=== PATIENT | female | born 1935 | race Caucasian/White ===

== ENCOUNTER 2021-02-17 12:14 | Emergency (ER) | payer MEDICARE, OTHER ==
[~2021-02-17] VITALS: Ht 157.5 cm; Wt 46.0 kg
[2021-02-17 12:14] VITALS: BP 134/72
--- NOTE | 2021-02-17 12:28 | PHYS DOC ---
Adult General HPI HPI Patient is a 85-year-old female who presents to the emergency department via EMS from the [facility]. She was sent for evaluation of bilateral ankle swelling and pain for the past 2 days. Patient also complains of shortness of breath. Patient denies chest pains, cough, congestion. Patient denies any other physical complaints or physical concerns. Limited HPI related to patient's history of cognitive communication deficit, patient also has history of hypothyroidism, major depressive disorder, anxiety disorder, insomnia, chronic constipation, left hip pain, muscle weakness, dysphagia, gait abnormalities, mobility abnormalities, lack of coordination, need for assistance with personal care, Parkinson's disease, type 2 diabetes. Patient's current medications include Renee-Sutton, Amitiza, Aspercreme, risperidone, calmoseptine ointment, carbidopalevodopa, Gas-X, glycerin suppositories, Jardiance tablets, lactobacillus, levothyroxine, lives next, magnesium supplement, melatonin, Metformin, MiraLAX, Plaquenil, Prilosec, Salonpas patch, sennosides tablet, tramadol, Tums chewable tablets, Zofran, Zoloft. Review of Systems Review of Systems 14 body systems of review of systems have been reviewed. See HPI for pertinent positives and negative responses, otherwise all other systems are negative, nonpertinent or noncontributory. Physical Exam Physical Exam Constitutional: Well developed, well nourished, no acute distress, non-toxic appearance. Patient anxious during physical exam. HENT: Normocephalic, atraumatic, bilateral external ears normal, oropharynx moist, no oral exudates, nose normal. Eyes: PERRLA, EOMI, conjunctiva normal, no discharge. Neck: Normal range of motion, no tenderness, supple, no stridor. Cardiovascular:Heart rate regular rhythm, no murmur, heart sounds S1-S2 to auscultation. Lungs & Thorax: Bilateral breath sounds clear to auscultation, no adventitious lung sounds appreciated. Abdomen: Bowel sounds normal, soft, no tenderness, no masses, no pulsatile masses. Skin: Warm, dry, no erythema, no rash. Back: No tenderness, no CVA tenderness. Extremities: No tenderness, no cyanosis, no clubbing, ROM intact, there is 3+ pitting edema to bilateral ankles, distal cap refill less than 2 seconds, 2+ dorsalis pedis, posterior tibial pulses. No deformities, no crepitus appreciated, no areas of ecchymosis appreciated, no discoloration of skin, no lesions or rashes of the skin around the edematous area, no erythema appreciated. No obvious skin temperature fluctuations of her swollen ankles. Neurologic: Alert and oriented X 3, normal motor function, normal sensory function, no focal deficits noted. Psychologic: Affect normal, judgement normal, mood normal. Current Patient Data Lab Results Laboratory Tests Test 02/17/21 12:39 White Blood Count 6.0 x10^3/uL Red Blood Count 3.86 x10^6/uL Hemoglobin 11.9 g/dL Hematocrit 36.2 % Mean Corpuscular Volume 94 fL Mean Corpuscular Hemoglobin 31 pg Mean Corpuscular Hemoglobin Concent 33 g/dL Red Cell Distribution Width 14.2 % Platelet Count 420 x10^3/uL Neutrophils (%) (Auto) 74 % Lymphocytes (%) (Auto) 17 % Monocytes (%) (Auto) 8 % Eosinophils (%) (Auto) 2 % Basophils (%) (Auto) 1 % Neutrophils # (Auto) 4.4 x10^3uL Lymphocytes # (Auto) 1.0 x10^3/uL Monocytes # (Auto) 0.5 x10^3/uL Eosinophils # (Auto) 0.1 x10^3/uL Basophils # (Auto) 0.0 x10^3/uL D-Dimer (Dmoinique) 3.11 mg/L Sodium Level 139 mmol/L Potassium Level 3.8 mmol/L Chloride Level 102 mmol/L Carbon Dioxide Level 30 mmol/L Anion Gap 7 Blood Urea Nitrogen 24 mg/dL Creatinine 0.6 mg/dL Estimated GFR (Cockcroft-Gault) 95.0 BUN/Creatinine Ratio 40 Glucose Level 128 mg/dL Calcium Level 8.9 mg/dL Phosphorus Level 3.8 mg/dL Magnesium Level 1.3 mg/dL Total Bilirubin 0.2 mg/dL Aspartate Amino Transf (AST/SGOT) 17 U/L Alanine Aminotransferase (ALT/SGPT) 11 U/L Alkaline Phosphatase 70 U/L Troponin I Quantitative < 0.017 ng/mL AS-Ezo-A-Type Natriuretic Peptide 89 pg/mL Total Protein 6.6 g/dL Albumin 3.7 g/dL Albumin/Globulin Ratio 1.3 Current Medications Medications (Trade) Dose Ordered Sig/Ras Route PRN Reason Start Time Stop Time Status Last Admin Dose Admin Lorazepam (Ativan Inj) 0.5 mg 1X ONCE IVP 02/17/21 13:45 02/17/21 13:46 DC 02/17/21 13:44 Magnesium Chloride (Mag Delay) 64 mg 1X ONCE PO 02/17/21 13:45 02/17/21 13:46 DC 02/17/21 13:44 Glycerin (Sani-Supp Adult) 1 supp 1X ONCE VT 02/17/21 13:45 02/17/21 13:47 DC EKG EKG EKG performed at 1239 by house respiratory therapy staff, shows a normal sinus rhythm without ectopy with a heart rate of 83 bpm, VT interval 0.206, QTc interval 0.449, no acute STEMI, no acute ischemia, no ACS appreciated, EKG interpreted by ED attending physician Dr. Robertson. Radiology/Procedures Radiology/Procedures PATIENT: VANESSA GREEN ACCOUNT: [id number] : 1935 LOCATION: ER AGE: 85 SEX: F EXAM STATUS: REG ER ORD. PHYSICIAN: KARMA GROVER APRN REASON: SHORT OF BREATH PROCEDURE: PORTABLE CHEST 1V AP chest. HISTORY: Short of breath AP view was taken of the chest. Lungs are clear. Aorta is mildly tortuous. Heart is normal in size. There is thoracolumbar scoliosis. IMPRESSION: 1. No acute chest disease. Electronically signed by: Tristian Katz MD (02/17/2021 1:23 PM) [facility] DICTATED AND SIGNED BY: TRISTIAN KATZ MD DATE: 02/17/21 1323 CC: KARMA GROVER APRN; EMERGENCY,DEPARTMENT; EMI AGUILAR MD ~MTH0 0 PATIENT: VANESSA GREEN ACCOUNT: [id number] : 1935 LOCATION: ER AGE: 85 SEX: F EXAM STATUS: REG ER ORD. PHYSICIAN: KARMA GROVER APRN REASON: BLE PAIN AND SWELLING PROCEDURE: VENOUS LOWER EXT BILATERAL EXAM: Bilateral lower extremity venous Doppler sonogram. HISTORY: Pain and swelling. TECHNIQUE: Moseley scale and color Doppler sonographic evaluation of the bilateral lower extremity veins with spectral waveform analysis was performed. FINDINGS: There is normal color flow, normal compressibility and there are normal spectral waveforms in the common femoral, superficial femoral, popliteal, posterior tibial and greater saphenous veins. There are bilateral popliteal cysts measuring 4.5 cm on the right and 4.7 cm on the left. There is a prominent left inguinal lymph node measuring 1.7 cm in long axis. This maintains a fatty hilum and thin cortex and is likely physiologic in etiology. IMPRESSION: 1. No Doppler evidence of lower extremity deep venous thrombosis. 2. Bilateral Rahman's cysts. Electronically signed by: Deja Brenner MD (02/17/2021 2:42 PM) [id number] DICTATED AND SIGNED BY: DEJA BRENNER MD DATE: 02/17/21 1441 CC: KARMA GROVER APRN; EMI AGUILAR MD ~MTH0 0 PATIENT: VANESSA GREEN ACCOUNT: [id number] : 1935 LOCATION: ER AGE: 85 SEX: F EXAM STATUS: REG ER ORD. PHYSICIAN: KARMA GROVER APRN REASON: SHORT OF BREATH, ELEVATED D-DIMER - CARRIE AWARE -1345 PROCEDURE: PULMONARY PERFUSION IMG PARTIC NUCLEAR MEDICINE PERFUSION ONLY SCAN History: Lower extremity pain, dyspnea, elevated d-dimer. Iodine allergy. Comparison: AP chest, earlier same day. Technique: Perfusion portion performed after intravenous administration of 5.5 mCi Technetium 99m MAA. Multiple projection planar images of the lungs were obtained. Findings: Ventilation imaging is not performed due to aerosolized droplet precautions. Perfusion images demonstrate no segmental perfusion defects. Tracer distribution is mildly heterogeneous most apparent on the posterior view. IMPRESSION: Low probability for pulmonary embolus. Electronically signed by: Tamika Sy MD (02/17/2021 3:47 PM) [id number] DICTATED AND SIGNED BY: TAMIKA SY MD DATE: 02/17/21 1543 CC: KARMA GROVER APRN; EMI AGUILAR MD ~MTH0 0 Heart Score C/O Chest Pain: No Risk Factors: Risk Factors: DM, Current or recent (<one month) smoker, HTN, HLP, family history of CAD, obesity. Risk Scores: Risk Factors: DM, Current or recent (<one month) smoker, HTN, HLP, family history of CAD, obesity. Course & Med Decision Making Course & Med Decision Making Pertinent Labs and Imaging studies reviewed. (See chart for details) 85-year-old female, vital signs reviewed, presents emergency department concerning bilateral lower ankle swelling. Physical examination revealed 3+ pit ting edema of bilateral ankles. Low probability of DVT, however related to this acute process of only 2 days of ankle swelling and patient's complaint of shortness of breath a cardiopulmonary work-up was initiated, D-dimer was ordered. Patient did state that when she gets very nervous she does get short of breath, she cannot differentiate the difference between her nervousness and physical shortness of breath. The patient is in no apparent distress at this time, she is not hypoxic. Patient's D-dimer elevated at 3.11. Will order CT angio chest to rule out pulmonary embolism, bilateral lower extremity venous Doppler to rule out DVT. Patient's cardiac enzymes negative, proBNP within normal limits, chest x-ray read within normal limits by house radiologist interpretation, patient's lower extremity swelling unlikely related to a heart failure component. Patient has allergy to iodine, DC'd CT angio chest, VQ scan of chest ordered to rule out pulmonary embolism. Patient magnesium level equals 1.3, ordered magnesium supplement in the ED today. Doppler study of bilateral lower extremities ruled out DVT, there was low likelihood of pulmonary embolism per VQ scan radiology interpretation. The patient is currently in no apparent distress, remains nontoxic in appearance, is not hypoxic. Will recommend compression stockings and elevation to help reduce lower ankle edema. Diagnosis bilateral ankle edema most likely from venous insufficiency. Dragon Disclaimer Dragon Disclaimer This electronic medical record was generated, in whole or in part, using a voice recognition dictation system. Departure Departure: Impression: Primary Impression: Ankle edema, bilateral Additional Impression: Hypomagnesemia Disposition: HOME / SELF CARE / HOMELESS Condition: GOOD Additional Instructions: You had an extensive cardiopulmonary work-up in the ED today. You do not have a pulmonary embolus, there are no deep vein thrombosis of either lower extremity, you are not hypoxic, you did not have a pneumonia, there are no acute findings in your lab work or radiologic imaging to suggest a need to be hospitalized or to see a specialist in the immediate future. I recommend compression stockings and elevation to help reduce your ankle swelling. Your magnesium was slightly low today in the emergency department, you were given a magnesium supplement in the emergency department today. I recommend you see your primary care doctor and have this lab value redrawn for ongoing evaluation of your magnesium levels. Please return to the emergency department for worsening symptoms or other concerns. EMERGENCY DEPARTMENT GENERAL DISCHARGE INSTRUCTIONS Thank you for coming to [facility] (ED) today and trusting us with you care. We trust that you had a positivie experience in our Emergency Department. If you wish to speak to the department management, you may call the director at [phone]. YOUR FOLLOW UP INSTRUCTIONS ARE FOLLOWS: 1. Do you have a private Doctor? If you do not have a private doctor, please ask for a resource list of physicians or clinics that may be able to assist you with follow up care. 2. The Emergency Physician has interpreted your x-rays. The X-Ray specialist will also review them. If there is a change in the findings, you will be notified in 48 hours when at all possible. 3. A lab test or culture has been done, your results will be reviewed and you will be notified if you need a change in treatment. ADDITIONAL INSTRUCTIONS AND INFORMATION: 1. Your care today has been supervised by a physician who is specially trained in emergency care. Many problems require more than one evaluation for a complete diagnosis and treatment. We recommend that you schedule your follow up appointment as recommended to ensure complete treatment of you illness or injury. If you are unable to obtain follow up care and continue to have a problem, or if your condition worsens, we recommend that you return to the ED. 2. We are not able to safely determine your condition over the phone nor are we able to give sound medical advice over the phone. For these safety reasons, if you call for medical advice we will ask you to come to the ED for further evaluation. 3. If you have any questions regarding these discharge instructions please call the ED at [phone]. SAFETY INFORMATION: In the interest of safety, wellness, and injury prevention; we encourage you to wear your sealbelt, if you smoke; quite smoking, and we encourage family to use a protective helmet for bicycling and other sporting events that present an increased risk for head injury. IF YOUR SYMPTOMS WORSEN OR NEW SYMPTOMS DEVELOP, OR YOU HAVE CONCERNS ABOUT YOUR CONDITION; OR IF YOUR CONDITION WORSENS WHILE YOU ARE WAITING FOR YOUR FOLLOW UP APPOINTMENT; EITHER CONTACT YOUR PRIMARY CARE DOCTOR, THE PHYSICIAN WHOSE NAME AND NUMBER YOU WERE GIVEN, OR RETURN TO THE ED IMMEDIATELY. Problem Qualifiers KARMA GROVER APRN Feb 17, 2021 12:28
[2021-02-17 12:57] LABS: BASO % 1 % (0-3); EOS # 0.1 x10^3/uL (0.0-0.7); EOS % 2 % (0-3); HEMATOCRIT 36.2 % (36.0-47.0); HEMOGLOBIN 11.9 g/dL (12.0-15.5); LYMPH % 17 % (24-48); MEAN CORPUSCULAR HEMOGLOBIN 31 pg (25-35); MEAN CORPUSCULAR HGB CONC 33 g/dL (31-37); MEAN CORPUSCULAR VOLUME 94 fL (79-100); MONO # 0.5 x10^3/uL (0.0-1.1); MONO % 8 % (0-9); NEUT # 4.4 x10^3uL (1.8-7.7); NEUT % 74 % (31-73); PLATELET COUNT 420 x10^3/uL (140-400); RED BLOOD COUNT 3.86 x10^6/uL (3.50-5.40); RED CELL DISTRIBUTION WIDTH 14.2 % (11.5-14.5)
--- NOTE | 2021-02-17 13:01 | EKG ---
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
[2021-02-17 13:02] LABS: CALCIUM 8.9 mg/dL (8.5-10.1); CREATININE 0.6 mg/dL (0.6-1.0); POTASSIUM 3.8 mmol/L (3.5-5.1)
[2021-02-17 13:15] LABS: ALBUMIN 3.7 g/dL (3.4-5.0); ALBUMIN/GLOBULIN RATIO 1.3 (1.0-1.7); MAGNESIUM 1.3 mg/dL (1.8-2.4); PHOSPHORUS 3.8 mg/dL (2.6-4.7); TOTAL BILIRUBIN 0.2 mg/dL (0.2-1.0); TOTAL PROTEIN 6.6 g/dL (6.4-8.2)
--- NOTE | 2021-02-17 13:26 | RAD ---
AP chest. HISTORY: Short of breath AP view was taken of the chest. Lungs are clear. Aorta is mildly tortuous. Heart is normal in size. T here is thoracolumbar scoliosis. IMPRESSION: 1. No acute chest disease. Electronically signed by: Tristian Katz MD (02/17/2021 1:23 PM) [facility] [place]
[2021-02-17] MEDS ORDERED: MAGNESIUM CHLORIDE ER 64 MG TABLET.ER PO ONE (13:45)
[2021-02-17] MEDS ORDERED: GLYCERIN ADULT 1 SUPP.RECT. PR ONE (13:45)
--- NOTE | 2021-02-17 14:44 | RAD ---
EXAM: Bilateral lower extremity venous Doppler sonogram. HISTORY: Pain and swelling. TECHNIQUE: Moseley scale and color Doppler sonographic evaluation of the bilateral lower extremity veins with spectral waveform analysis was performed. FINDINGS: There is normal color flow, normal compressibility and there are normal spectral waveforms in the common femoral, superficial femoral, popliteal, posterior tibial and greater saphenous veins. There are bilateral popliteal cysts measuring 4.5 cm on the right and 4.7 cm on the left. There is a prominent left inguinal lymph node measuring 1.7 cm in long axis. This maintains a fatty hilum and th in cortex and is likely physiologic in etiology. IMPRESSION: 1. No Doppler evidence of lower extremity deep venous thrombosis. 2. Bilateral Rahman's cysts. Electronically signed by: Deja English MD (02/17/2021 2:42 PM) [id number]
--- NOTE | 2021-02-17 15:49 | RAD ---
NUCLEAR MEDICINE PERFUSION ONLY SCAN History: Lower extremity pain, dyspnea, elevated d-dimer. Iodine allergy. Comparison: AP chest, earlier same day. Technique: Perfusion portion performed after intravenous administration of 5.5 mCi Technetium 99m MAA . Multiple projection planar images of the lungs were obtained. Findings: Ventilation imaging is not performed due to aerosolized droplet precautions. Perfusion images demonstrate no segmental perfusion defects. Tracer distribution is mildly heterogene ous most apparent on the posterior view. IMPRESSION: Low probability for pulmonary embolus. Electronically signed by: Elliott Sy MD (02/17/2021 3:47 PM) [id number]
[2021-02-17] MEDS ORDERED: GLYCERIN ADULT 1 SUPP.RECT. ONE (18:08)
== END 2021-02-17 18:18 | disposition home or self-care (01) ==
LOC: ER 12:14
DX: M25.471 Effusion, right ankle (principal); M25.472 Effusion, left ankle; E83.42 Hypomagnesemia
CPT/HCPCS: 36415; 71045; 78580; 80053; 83735; 83880; 84100; 84484; 85025; 85379; 93005; 93970; 96374; 99285; A9540; J2060

== ENCOUNTER 2021-08-17 14:54 | Inpatient (IN) | payer MEDICARE, OTHER ==
[~2021-08-17] VITALS: Ht 152.4 cm; Wt 40.1 kg
--- NOTE | 2021-08-17 15:00 | NUR ---
Admission Note with Justification for Admission to [facility] Patient admitted to [facility] for protective oversight for emergency stabilization of acute psychiatric crisis. Pt admitted from: SNF Mode of arrival: POV Accompanied By: Facility staff Precipitating behaviors that initiated intake and admission: agitated, anxious, attempted to hit staff, name calling, yelling to call police and "get the people out", delusional, talking to people not there, refusing meds, seeing children, sundowning Description of failure of out patient attempts at stabilization in previous setting list behavior and medication trials: buspirone, klonipin, trazodone, PCP recommends in pt tx, UA ordered Behaviors and assessment findings upon admission: Pt very pleasant and cooperative with assessment. She is only oriented to self and . Pt believes she just got off the plane. She was asking what county was south of this one because she came from "[facility] and before that I was in [place]. They've been bouncing me around between hospitals for the past 6 months for my broken hips." Pt is currently complaining of a headache and wished for her curtains to be closed, but denies having any other pain. Pt denies having any hallucinations currently, but did speak of the children running in and out of the med room at her facility. Will continue to monitor. Plan: Admit for protective oversight for adjustment and stabilization of medications, behaviors and mood. Intense treatment regimen including groups, medication adjustments, therapy, consistent regimen for ADL's, self care, and sleep hygiene. Daily monitoring by Inpatient staff, Psychiatry, and Medical Physician.
[2021-08-17 15:31] VITALS: BP 110/65
[2021-08-17] MEDS ORDERED: METHYL SALICYLATE/MENTHOL TOPICAL OINTMENT 57GM TUBE. TP PRN (16:00)
[2021-08-17] MEDS ORDERED: MAGNESIUM HYDROXIDE 2,400 MG/30 ML ORAL.SUSP. PO PRN (16:00)
[2021-08-17 16:12] LABS: BILIRUBIN,URINE NEG (NEG); CLARITY,URINE CLEAR; COLOR,URINE YELLOW; GLUCOSE,URINE >=1000 mg/dL (NEG); UROBILINOGEN,URINE 0.2 mg/dL (0.2 mg/dL)
[2021-08-17 16:13] LABS: BACTERIA,URINE 0 /HPF (0-FEW); NITRITE,URINE NEG (NEG); RBC,URINE RARE /HPF (0-2); SQUAMOUS EPITHELIAL CELL,UR FEW /LPF; WBC,URINE 0 /HPF (0-4)
[2021-08-17] MEDS ORDERED: ESCITALOPRAM OX20 MG PO (17:10)
[2021-08-17] MEDS ORDERED: PROP20TA PO (17:10)
[2021-08-17] MEDS ORDERED: TRAM50TA PO (17:10)
[2021-08-17] MEDS ORDERED: LORA10CA PO (17:10)
[2021-08-17] MEDS ORDERED: SIME80TA PO ×2 (17:10)
[2021-08-17] MEDS ORDERED: BUSP10TA PO (17:10)
[2021-08-17] MEDS ORDERED: MELA3TAB4 PO (17:10)
[2021-08-17] MEDS ORDERED: GLYC5.4S RC (17:10)
[2021-08-17] MEDS ORDERED: HYDR200T71 PO (17:10)
[2021-08-17] MEDS ORDERED: METF10007 PO (17:10)
[2021-08-17] MEDS ORDERED: TRAZ-120 PO (17:10)
[2021-08-17] MEDS ORDERED: LEVO25TA4 PO (17:10)
[2021-08-17] MEDS ORDERED: HYDR25TA PO (17:10)
[2021-08-17] MEDS ORDERED: POLY17PO5 PO (17:10)
[2021-08-17] MEDS ORDERED: CALC500T31 PO (17:10)
[2021-08-17] MEDS ORDERED: LINA145C PO (17:10)
[2021-08-17] MEDS ORDERED: CARB1TAB47 PO (17:10)
[2021-08-17] MEDS ORDERED: MAGN400C PO (17:10)
[2021-08-17] MEDS ORDERED: ASPI1TAB55 PO (17:10)
[2021-08-17] MEDS ORDERED: PRAM0.255 PO (17:10)
[2021-08-17] MEDS ORDERED: ONDA4TAB7 PO (17:10)
[2021-08-17] MEDS ORDERED: OMEP20TA63 PO (17:10)
[2021-08-17] MEDS ORDERED: SENN-182 PO (17:10)
[2021-08-17] MEDS ORDERED: CAPS1ADH8 TP (17:10)
[2021-08-17] MEDS ORDERED: CLON0.5T PO (17:10)
[2021-08-17] MEDS ORDERED: TROL35.4 TP (17:10)
[2021-08-17] MEDS ORDERED: L. A1TAB10 PO (17:10)
[2021-08-17] MEDS ORDERED: EMPA10TA PO (17:10)
[2021-08-17] MEDS ORDERED: SULF1TAB24 PO (17:52)
[2021-08-17] MEDS ORDERED: ASPIRIN PO PRN (18:00)
[2021-08-17] MEDS ORDERED: SIMETHICONE 80 MG TAB.CHEW PO PRN (18:00)
[2021-08-17] MEDS ORDERED: ALOE VERA TP PRN (18:00)
[2021-08-17] MEDS ORDERED: [UNRECOGNIZED DRUG - OTHER] PO PRN (18:00)
[2021-08-17] MEDS ORDERED: CITRIC ACID PO PRN (18:00)
[2021-08-17] MEDS ORDERED: TROLAMINE SALICYLATE TP PRN (18:00)
[2021-08-17] MEDS ORDERED: SOD BICARB PO PRN (18:00)
[2021-08-17] MEDS ORDERED: CALCIUM CARBONATE 500 MG TAB.CHEW PO PRN (18:15)
[2021-08-17] MEDS ORDERED: hydrOXYzine HCL 25 MG TABLET PO PRN (18:15)
[2021-08-17] MEDS ORDERED: CAPSAICIN 0.025% TOPICAL CREAM 60GM TUBE. TP PRN (18:45)
[2021-08-17] MEDS ORDERED: GLYCERIN ADULT 1 SUPP.RECT. PR PRN (18:45)
[2021-08-17 19:10] LABS: BASO % 0 % (0-3); EOS # 0.2 x10^3/uL (0.0-0.7); EOS % 3 % (0-3); HEMATOCRIT 37.3 % (36.0-47.0); HEMOGLOBIN 11.9 g/dL (12.0-15.5); LYMPH # 1.5 x10^3/uL (1.0-4.8); LYMPH % 21 % (24-48); MEAN CORPUSCULAR HEMOGLOBIN 28 pg (25-35); MEAN CORPUSCULAR HGB CONC 32 g/dL (31-37); MEAN CORPUSCULAR VOLUME 88 fL (79-100); MONO # 0.5 x10^3/uL (0.0-1.1); MONO % 7 % (0-9); NEUT # 4.7 x10^3uL (1.8-7.7); NEUT % 68 % (31-73); PLATELET COUNT 353 x10^3/uL (140-400); RED BLOOD COUNT 4.23 x10^6/uL (3.50-5.40); RED CELL DISTRIBUTION WIDTH 15.3 % (11.5-14.5); WHITE BLOOD COUNT 6.9 x10^3/uL (4.0-11.0)
[2021-08-17 19:23] LABS: ALBUMIN 3.9 g/dL (3.4-5.0); ALBUMIN/GLOBULIN RATIO 1.3 (1.0-1.7); CREATININE 0.9 mg/dL (0.6-1.0); GFR 59.4; MAGNESIUM 1.6 mg/dL (1.8-2.4); POTASSIUM 4.2 mmol/L (3.5-5.1); TOTAL BILIRUBIN 0.1 mg/dL (0.2-1.0); TOTAL PROTEIN 6.9 g/dL (6.4-8.2)
[2021-08-17] MEDS: busPIRone 10 MG TABLET. PO SCH (21:37)
[2021-08-17] MEDS: PRAMIPEXOLE 0.25 MG TABLET. PO SCH (21:37)
[2021-08-17] MEDS: clonazePAM 0.5 MG TABLET PO SCH (21:37)
[2021-08-17] MEDS: traZODone 50 MG TABLET. PO SCH (21:37)
[2021-08-17] MEDS: POLYETHYLENE GLYCOL 3350 17 GM PACKET. PO SCH (21:37)
[2021-08-17] MEDS: SMZ/TMP 800/160MG TABLET. PO SCH (21:37)
[2021-08-17] MEDS: MELATONIN 3 MG TABLET PO SCH (21:37)
[2021-08-17] MEDS: LACTOBACILLUS RHAMNOSUS GG 1 CAPSULE. PO SCH (21:38)
[2021-08-17] MEDS: SIMETHICONE 80 MG TAB.CHEW PO SCH (21:38)
[2021-08-17] MEDS: CARBIDOPA/LEVODOPA 25/100MG TABLET PO SCH (21:38)
[2021-08-17] MEDS: PROPRANOLOL 20 MG TABLET. PO SCH (21:39)
--- NOTE | 2021-08-17 22:35 | PDOC ---
Exam Note: Gino Note: Please also refer to the separate dictated note~for this date of service dictated separately.~Patient seen individually. Discussed the patient with Nursing staff reviewed the chart.~Reviewed interim history and current functioning. Reviewed vital signs,~Labs/ Radiology~and current medications noted below. Continue current treatment with the changes noted in the dictated addendum note Assessment: Vital Signs/I&O: Vital Signs Date Time Temp Pulse Resp B/P (MAP) Pulse Ox O2 Delivery O2 Flow Rate FiO2 08/17/21 21:39 83 110/65 08/17/21 15:31 99.3 20 96 Labs: Laboratory Tests Test 08/17/21 15:46 08/17/21 16:35 08/17/21 19:00 Urine Collection Type Clean catch Urine Color Yellow Urine Clarity Clear Urine pH 6.5 Urine Specific [place] 1.025 Urine Protein Neg (NEG-TRACE) Urine Glucose (UA) >=1000 mg/dL (NEG) Urine Ketones (Stick) Trace mg/dL (NEG) Urine Blood Neg (NEG) Urine Nitrite Neg (NEG) Urine Bilirubin Neg (NEG) Urine Urobilinogen Dipstick 0.2 mg/dL (0.2 mg/dL) Urine Leukocyte Esterase Neg (NEG) Urine RBC Rare /HPF (0-2) Urine WBC 0 /HPF (0-4) Urine Squamous Epithelial Cells Few /LPF Urine Bacteria 0 /HPF (0-FEW) Glucose (Fingerstick) 140 mg/dL (70-99) H White Blood Count 6.9 x10^3/uL (4.0-11.0) Red Blood Count 4.23 x10^6/uL (3.50-5.40) Hemoglobin 11.9 g/dL (12.0-15.5) L Hematocrit 37.3 % (36.0-47.0) Mean Corpuscular Volume 88 fL (79-100) Mean Corpuscular Hemoglobin 28 pg (25-35) Mean Corpuscular Hemoglobin Concent 32 g/dL (31-37) Red Cell Distribution Width 15.3 % (11.5-14.5) H Platelet Count 353 x10^3/uL (140-400) Neutrophils (%) (Auto) 68 % (31-73) Lymphocytes (%) (Auto) 21 % (24-48) L Monocytes (%) (Auto) 7 % (0-9) Eosinophils (%) (Auto) 3 % (0-3) Basophils (%) (Auto) 0 % (0-3) Neutrophils # (Auto) 4.7 x10^3uL (1.8-7.7) Lymphocytes # (Auto) 1.5 x10^3/uL (1.0-4.8) Monocytes # (Auto) 0.5 x10^3/uL (0.0-1.1) Eosinophils # (Auto) 0.2 x10^3/uL (0.0-0.7) Basophils # (Auto) 0.0 x10^3/uL (0.0-0.2) D-Dimer (Dominique) 0.97 mg/L (0.00-0.50) H Sodium Level 136 mmol/L (136-145) Potassium Level 4.2 mmol/L (3.5-5.1) Chloride Level 99 mmol/L (98-107) Carbon Dioxide Level 28 mmol/L (21-32) Anion Gap 9 (6-14) Blood Urea Nitrogen 20 mg/dL (7-20) Creatinine 0.9 mg/dL (0.6-1.0) Estimated GFR (Cockcroft-Gault) 59.4 BUN/Creatinine Ratio 22 (6-20) H Glucose Level 304 mg/dL (70-99) H Calcium Level 9.0 mg/dL (8.5-10.1) Magnesium Level 1.6 mg/dL (1.8-2.4) L Total Bilirubin 0.1 mg/dL (0.2-1.0) L Aspartate Amino Transferase (AST) 17 U/L (15-37) Alanine Aminotransferase (ALT) 14 U/L (14-59) Alkaline Phosphatase 74 U/L (46-116) Total Protein 6.9 g/dL (6.4-8.2) Albumin 3.9 g/dL (3.4-5.0) Albumin/Globulin Ratio 1.3 (1.0-1.7) Current Medications: Meds: Current Medications Medications (Trade) Dose Ordered Sig/Ras Route PRN Reason Start Time Stop Time Status Last Admin Dose Admin Buspirone HCl (Buspar) 10 mg BID PO 08/17/21 21:00 08/17/21 21:37 Clonazepam (KlonoPIN) 0.5 mg BID PO 08/17/21 21:00 08/17/21 21:37 Melatonin (Melatonin) 3 mg QHS PO 08/17/21 21:00 08/17/21 21:37 Polyethylene Glycol (miraLAX) 17 gm BID PO 08/17/21 21:00 08/17/21 21:37 Pramipexole Dihydrochloride (miraPEX) 0.25 mg TID PO 08/17/21 21:00 08/17/21 21:37 Propranolol HCl (Inderal) 20 mg QHS PO 08/17/21 21:00 08/17/21 21:39 Simethicone (Gas-X) 80 mg TID PO 08/17/21 21:00 08/17/21 21:38 Trimethoprim/ Sulfamethoxazole (Bactrim Ds) 1 tab BID PO 08/17/21 21:00 08/23/21 21:30 08/17/21 21:37 Trazodone HCl (Desyrel) 50 mg QHS PO 08/17/21 21:00 08/17/21 21:37 Carbidopa/Levodopa (Sinemet 25/100) 2 tab [id number] PO 08/17/21 18:30 08/17/21 21:38 Lactobacillus Rhamnosus (Culturelle) 1 cap BID PO 08/17/21 21:00 08/17/21 21:38 I have reviewed the current psychotropics carefully including drug interactions. Risk benefit ratio favors no change other than as noted in my dictated progress note. Diagnosis: Problems: (1) Psychotic disorder RANJITH HAWKINS MD Aug 17, 2021 22:35
--- NOTE | 2021-08-18 04:42 | NUR ---
Nursing Note The patient was located in her room for her assessment and medication pass. The patient was irritable with staff early in the shift but was pleasant during interactions with this nurse. The patient was compliant with medications. The patient was alert to name and year. Currently sleeping in her room.
[2021-08-18 06:11] VITALS: BP 146/78
[2021-08-18] MEDS: CARBIDOPA/LEVODOPA 25/100MG TABLET PO SCH ×4 (06:33→16:49)
[2021-08-18] MEDS: LEVOTHYROXINE 25 MCG TABLET. PO SCH (06:33)
--- NOTE | 2021-08-18 08:25 | NUR ---
ACTIVITY THERAPY ASSESSMENT completed based on notes, observation, and interview. Pt was eating breakfast in the hallway and socializing with peers. Pt was compliant and willing to answer assessment questions. Pt remained sociable and pleasant during assessment. DIGITAL STRATEGY MANAGER, MC oriented pt to activities offered on [facility] and asked pt what she enjoys doing. Pt said she enjoys volleyball, skip rope, cattle roping, playing piano and basketball. Pt reports that she is unable to do many of these activities now. Pt reports that her sister in law just passed a couple weeks ago. Pt states that she has been for about 67 years and has two sons. Pt believes that she still lives with her . One son around the age of 46 due to cancer. Pt reports visiting with her grandchildren and said she enjoys telling them stories. Pt was able to answer most orientation questions with a bit of hesitation. Pt reports that she was admitted to [facility] for a disease that she was unable to name. Pt did report having some memory impairments and had to ask DIGITAL STRATEGY MANAGER a couple of times to repeat the question. DIGITAL STRATEGY MANAGER asked pt if she was stressed at this point in time and she said "I'm always under stress." Pt explained that as she has gotten older that she has more of a temper and can get pretty mad. Per notes pt has been compliant with medications and is mostly pleasant. Initial goal aimed to increase engagement and stress management skills. Pt will participate in at least three Activity Therapy sessions per week.
[2021-08-18] MEDS ORDERED: MAGNESIUM OXIDE 400 MG TABLET PO SCH (09:00)
[2021-08-18] MEDS ORDERED: SENNOSIDES 8.6 MG TABLET PO SCH (09:00)
[2021-08-18] MEDS ORDERED: CETIRIZINE HCL 10 MG TABLET PO SCH (09:00)
[2021-08-18] MEDS: POLYETHYLENE GLYCOL 3350 17 GM PACKET. PO SCH ×2 (09:00→21:55)
[2021-08-18] MEDS: PANTOPRAZOLE 40 MG TABLET. PO SCH (09:46)
[2021-08-18] MEDS: PRAMIPEXOLE 0.25 MG TABLET. PO SCH ×3 (09:46→21:56)
[2021-08-18] MEDS: busPIRone 10 MG TABLET. PO SCH ×2 (09:46→21:56)
[2021-08-18] MEDS: SMZ/TMP 800/160MG TABLET. PO SCH ×2 (09:46→21:56)
[2021-08-18] MEDS: SIMETHICONE 80 MG TAB.CHEW PO SCH (09:46)
[2021-08-18] MEDS: metFORMIN 500 MG TABLET PO SCH ×2 (09:46→16:50)
[2021-08-18] MEDS: LUBIPROSTONE 24 MCG CAPSULE PO SCH ×2 (09:46→16:49)
[2021-08-18] MEDS: CITALOPRAM 20 MG TABLET. PO SCH (09:47)
[2021-08-18] MEDS: clonazePAM 0.5 MG TABLET PO SCH ×2 (09:47→21:56)
[2021-08-18] MEDS: LACTOBACILLUS RHAMNOSUS GG 1 CAPSULE. PO SCH (09:47)
[2021-08-18] MEDS: EMPAGLIFLOZIN 10 MG TABLET. PO SCH (09:48)
[2021-08-18] MEDS: HYDROXYCHLOROQUINE 200 MG TABLET PO SCH (09:48)
--- NOTE | 2021-08-18 10:16 | NUR ---
Pt begins the day in great despair. She presents as delusional and with elevated anxiety around the belief that her is currently a patient at [facility] (specifically "downstairs") and she is begging [facility] staff for an update on his condition. She sobs openly, with big fat tears rolling down her cheeks. She has difficulty with redirection or distraction. A phone call was placed to her son, in hopes that a conversation with him could calm her worries, but the call went to voicemail. In an effort to alleviate her anxieties this nurse stated that I "called and left a message downstairs asking for a callback." This seemed to help pt and she expressed some relief. PRN Hydroxyzine 25 mg PO administered with her morning medications for anxiety. Pt is compliant with medications. Pt absent of SI/HI behaviors, appropriate in her interactions with others. Plan of care continues, will pass to next shift.
--- NOTE | 2021-08-18 11:40 | NUR ---
Treatment team update: Pt was admitted from [facility] with agitation, anxiety and delusions. Pt last night was irritable at times, delusional and swore that her was admitted downstairs. Pt told the TRUST CLERK to get the "hell out of my room" but was very appropriate with her RN. Pt can be very social with staff but also restless. Pt received an Atarax PRN this morning. Another PRN for Zyprexa Zydis is added 1.25mg q 2 hours with max dose of 5mg. Pt will return to [place] at the time of discharge; however, they are considering a higher level or care for placement. SW will contact pt son, complete PSA and keep the facility updated on pt behaviors and discharge plans.
--- NOTE | 2021-08-18 14:39 | NUR ---
SW attempted to contact pt son/DPOA, Adelfo, and ended up leaving a message asking for him to contact SW when possible.
--- NOTE | 2021-08-18 15:40 | NUR ---
HUA answered a call from pt niece who wanted to get an update on pt. HUA asked for the passcode and was told she did not have a passcode. HUA explained that without the code, HUA could not confirm or deny if a pt was on the unit, muchless give any information out. HUA encouraged her to contact the DPOA for that code and she will plan to try back once that she receives the code.
[2021-08-18 15:52] LABS: THYROID STIM HORMONE (TSH) 4.46 uIU/mL (0.358-3.740)
[2021-08-18 16:01] VITALS: BP 97/51
--- NOTE | 2021-08-18 16:22 | NUR ---
SW met with pt who wanted to find out to get downstairs to see her . "He doesn't have that disease. I need to get us out of here to go home". SW explained that her is not here; he is at home at [place]. SW was able to contact [place] in order to get her , Jean Paul's number, and confirm with him that he is okay and at home. SW attempted to hand the phone to pt and she stated "oh what a beautiful baby". SW explained that it is not a baby but a phone and instructed pt to say hello. Pt stated "say hello beautiful baby". SW explained that it was Jean Paul and pt then stated "helwilliam Jean Paul, when did you get home". SW did not hear Jean Paul's response, however, pt responded "what? There's a baby"? Pt then proceeded to tell Jean Paul that he needed to come get her immediately because she had things to do and medications to take. Jean Paul explained to her that the nice people there are taking care of her and will give her the medications she needs. Pt started getting agitated and stated "Jean Paul, you listen to me. I cannot stay here. These gemma ladies are nice and did a lot to help me but there are babies here and we need you to come pick us up. You get the van out and get it all set up. You have 30 minutes to get up here. If you aren't up here, you leave me no choice but to call the police. I mean it Jean Paul, 30 minutes up front or I call the police". Pt passed the phone over to SW and pt Jean Paul reports that pt is just in a mood and not listening. SW explained that she has been confused and delusional like this today for some time. SW assured Jean Paul that pt does not have access to a phone to call anyone and that staff will monitor her call. However, with pt continuing to be new, we still had some work to do. Jean Paul asks whatever needs to be completed to just let him know what needs to be done and he will do it. Jean Paul also requested that SW and the staff talk to his niece. HUA explained that with the DPOA doing the consents and setting the passcode, no staff will be able to speak to anyone without the code. He just feels that his niece "set all this up and knows about medical stuff". HUA empathized and stated that anyone that calls in must have the passcode and without that no one will give out any information including to him. SW to notify nursing of this conversation and will also attempt to contact their son again.
--- NOTE | 2021-08-18 17:05 | NUR ---
This nurse received a call from an individual who identified herself initially as pt's "granddaughter" and inquired as to an update of pt. When asked for a passcode she stated she did not have one, as her father (YAMILEX) was currently traveling via plane and did not give her a passcode. When informed that this nurse could not confirm or deny the presence of her grandmother on our unit the caller kelley said "Oh you better have her there, we dropped her off last night." Zcah further stated that she was one of the DPOA's on pt's paperwork, when reviewed by this nurse the female family members selected to be DPOA were 2nd and 3rd in line and neither signed the consent to treat paperwork. When asked if she signed consent to treat paperwork she replied, "No, my father did." This nurse advised zach to speak with her father regarding a possible passcode and zach was unsatisfied. This nurse placed grandtom on hold to speak with HUA Tan, who stated she had just had the same conversation with the granddaughter and was advised to obtain a passcode from DP. I returned to the conversation with zach and asked if she spoke to an individual named Britney regarding an update and granddaughter stated "yes." When asked what Britney recommended she replied "To speak with my father about a passcode." I then reiterated HUA's certified credit counselor. daughter asked if she could "guess" the passcode and I advised that she should really get a hold of DPOA. Zach then asked when the next shift came in and I replied 1900. The phone conversation ended with zach stating, "I understand, I work healthcare." Approx 25 minutes later zach called back, she introduced her name as Sahra (3rd in line per the DPOA paperwork) and said "okay I have the passcode" and successfully gave the passcode. Dylanughter reiterated her understanding of [facility]'s desire for patient privacy by stating "I'm a Nurse Practitioner," and she then requested an update on pt's first day. The following information was provided: Behaviors, PRN medications given for anxiety, medication changes, rounds by Dr Sullivan, pending rounds by Dr Lynne, and encouragement to keep in communication with SW. Granddaughter seemed satisfied with information provided and the call ended.
--- NOTE | 2021-08-18 17:10 | CONS ---
DATE OF CONSULTATION: 08/18/2021 ATTENDING PHYSICIAN: Dr. Lynne. We are asked to see the patient for medical consultation. HISTORY OF PRESENT ILLNESS: The patient is an 86-year-old female who is from [place]. She is staying at [facility]. She has a son who is power of installation supervisor. She has been very anxious, trying to hit the staff, calling names, becoming delusional, talking to people that are not there, receiving meds, seeing children, hallucinating and sundowning. She is admitted for further treatment and evaluation. PAST MEDICAL HISTORY: Gleaned from the chart is significant for Parkinson's disease, moderate in severity; type 2 diabetes mellitus; hypothyroidism, on replacement; generalized anxiety; depression; insomnia; chronic constipation and dysphagia. ALLERGIES: SHE HAS SEVERAL ALLERGIES INCLUDING HYDROCODONE, LATEX, IODINE COMPOUNDS, EXACT REACTION IS UNCLEAR. SOCIAL HISTORY: She is a nonsmoker and nondrinker. CURRENT MEDICATIONS: Reviewed. They are extensive. She was on aspirin, BuSpar, calcium, capsaicin, Sinemet 2 tabs q.i.d., Klonopin, Jardiance, Lexapro, glycerin laxative, hydroxychloroquine, hydroxyzine, lactobacillus, Synthroid, Linzess, Claritin, magnesium oxide, melatonin, omeprazole, MiraLax, propranolol, senna, trimethacone sulpha, tramadol, trazodone, and p.r.n. topical ointment. FAMILY HISTORY: Unobtainable. REVIEW OF SYSTEMS: Significant for the confusion. She is very anxious. She is fixated on her bowels. I did review her medications. She is on quite a bit of medicines. For now, the Linzess is actually given for irritable bowel syndrome with diarrhea. This can cause constipation and I will take the liberty of stopping that. PHYSICAL EXAMINATION: GENERAL: When I saw her, this is an elderly female who is very agitated and confused. VITAL SIGNS: Her initial vital signs showed a blood pressure of 146/78, pulse is 60 and regular. She is afebrile. Oxygen saturation is 97% on room air. HEENT: Head is without trauma. Pupils are reactive. Oropharynx is clear. NECK: Supple, no bruits. LUNGS: Good breath sounds. CARDIOVASCULAR: Showed regular heart tones. ABDOMEN: Soft. There is no guarding. There are no masses. Bowel sounds are hypoactive. EXTREMITIES: Show trace edema. NEUROLOGIC FINDINGS: Pleasantly confused. SKIN: Warm and dry. PERTINENT LABORATORY STUDIES: Her hemoglobin was 11.9 g/dL with a white count of 6900. Chemistry panel fairly unremarkable. Nonfasting blood sugar was 128 mg/dL and creatinine 0.9 mg percent. Electrolytes within normal range. Transaminases were normal. ASSESSMENT: 1. An 86-year-old female with underlying dementia. 2. Anxiety with behavioral issues. 3. 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 4. Delirium to some degree. 5. Parkinson's disease. 6. Type 2 diabetes. 7. Chronic constipation. 8. Polypharmacy. RECOMMENDATIONS: 1. I reviewed her extensive list of medication. I have taken the liberty of stopping her Linzess as well as other p.r.n. medical regimen that is not necessary. 2. Other psychiatric meds should be continued. 3. She is otherwise stable from a medical standpoint. Thank you again for asking to see this patient for medical consultation. We shall gladly follow along during her inpatient course. TAMIR/DIMAS/LANG DR: Dioni TID: [id number]
--- NOTE | 2021-08-18 17:34 | NUR ---
Pt elevating in anxiety and agitation towards staff. She is demanding her belongings and stating she wants to leave, threatening to call the police on staff and attempting to bribe them with money for assistance with leaving. PRN Zyprexa 1.25mg PO administered.
[2021-08-18] MEDS: PROPRANOLOL 20 MG TABLET. PO SCH (21:00)
--- NOTE | 2021-08-18 21:49 | PDOC ---
Exam Note: Gino Note: Please also refer to the separate dictated note~for this date of service dictated separately.~Patient seen individually. Discussed the patient with Nursing staff reviewed the chart.~Reviewed interim history and current functioning. Reviewed vital signs,~Labs/ Radiology~and current medications noted below. Continue current treatment with the changes noted in the dictated addendum note Assessment: Vital Signs/I&O: Vital Signs Date Time Temp Pulse Resp B/P (MAP) Pulse Ox O2 Delivery O2 Flow Rate FiO2 08/18/21 16:01 98.1 94 16 97/51 (66) 94 I & O 08/17/21 08/17/21 08/18/21 15:00 23:00 07:00 Intake Total 370 ml Balance 370 ml Labs: Laboratory Tests Test 08/18/21 07:25 08/18/21 19:56 Glucose (Fingerstick) 128 mg/dL (70-99) H 145 mg/dL (70-99) H Current Medications: Meds: Laboratory Tests Test 08/18/21 07:25 08/18/21 19:56 Glucose (Fingerstick) 128 mg/dL 145 mg/dL Current Medications Medications (Trade) Dose Ordered Sig/Ras Route PRN Reason Start Time Stop Time Status Last Admin Dose Admin Acetaminophen (Tylenol) 650 mg PRN Q6HRS PRN PO MILD PAIN / TEMP > 100.3'F 08/17/21 16:00 Multi-Ingredient Ointment (Analgesic [place]) 1 annamarie PRN QID PRN TP MUSCLE PAIN 08/17/21 16:00 Al Hydroxide/Mg Hydroxide (Mylanta Plus Xs) 15 ml PRN AFTMEALHC PRN PO DYSPEPSIA 08/17/21 16:00 Magnesium Hydroxide (Milk Of Magnesia) 2,400 mg PRN QHS PRN PO CONSTIPATION 08/17/21 16:00 Buspirone HCl (Buspar) 10 mg BID PO 08/17/21 21:00 08/18/21 09:46 Calcium Carbonate/ Glycine (Tums) 500 mg PRN Q6HRS PRN PO INDIGESTION 08/17/21 18:15 08/18/21 11:01 DC Clonazepam (KlonoPIN) 0.5 mg BID PO 08/17/21 21:00 08/18/21 09:47 Empaglifozin (Jardiance) 10 mg DAILY PO 08/18/21 09:00 08/18/21 09:48 Hydroxychloroquine Sulfate (Plaquenil) 400 mg DAILY PO 08/18/21 09:00 08/18/21 09:48 Hydroxyzine HCl (Atarax) 25 mg PRN Q8HRS PRN PO ANXIETY 08/17/21 18:15 08/18/21 11:01 DC 08/18/21 10:04 Levothyroxine Sodium (Synthroid) 25 mcg DAILY06 PO 08/18/21 06:00 08/18/21 06:33 Melatonin (Melatonin) 3 mg QHS PO 08/17/21 21:00 08/17/21 21:37 Polyethylene Glycol (miraLAX) 17 gm BID PO 08/17/21 21:00 08/18/21 09:00 Pramipexole Dihydrochloride (miraPEX) 0.25 mg TID PO 08/17/21 21:00 08/18/21 16:49 Propranolol HCl (Inderal) 20 mg QHS PO 08/17/21 21:00 08/17/21 21:39 Sennosides (Senna) 8.6 mg DAILY PO 08/18/21 09:00 08/18/21 11:01 DC 08/18/21 09:47 Simethicone (Gas-X) 80 mg PRN Q6HRS PRN PO GAS / BLOATING 08/17/21 18:00 08/18/21 11:17 DC Simethicone (Gas-X) 80 mg TID PO 08/17/21 21:00 08/18/21 11:01 DC 08/18/21 09:46 Trimethoprim/ Sulfamethoxazole (Bactrim Ds) 1 tab BID PO 08/17/21 21:00 08/23/21 21:30 08/18/21 09:46 Tramadol HCl (Ultram) 50 mg PRN Q6HRS PRN PO PAIN 08/17/21 18:00 Trazodone HCl (Desyrel) 50 mg QHS PO 08/17/21 21:00 08/17/21 21:37 Non-Formulary Medication (Aspirin/Sod Bicarb/Citric Acid (Renee-Greenback Original Tab Eff)) 325 mg PRN Q24HRS PRN PO DYSPEPSIA 08/17/21 18:00 UNV Capsaicin (Zostrix) 1 annamarie PRN Q12HR PRN TP PAIN 08/17/21 18:45 08/18/21 11:01 DC Carbidopa/Levodopa (Sinemet 25/100) 2 tab [id number] PO 08/17/21 18:30 08/18/21 16:49 Citalopram Hydrobromide (CeleXA) 40 mg DAILY PO 08/18/21 09:00 08/18/21 09:47 Glycerin (Sani-Supp Adult) 1 supp PRN Q24HRS PRN OR CONSTIPATION 08/17/21 18:45 Lactobacillus Rhamnosus (Culturelle) 1 cap BID PO 08/17/21 21:00 08/18/21 11:01 DC 08/18/21 09:47 Lubiprostone (Amitiza) 24 mcg BIDWMEALS PO 08/18/21 08:00 08/18/21 16:49 Cetirizine HCl (ZyrTEC) 10 mg DAILY PO 08/18/21 09:00 08/18/21 11:01 DC 08/18/21 09:47 Magnesium Oxide (Magnesium Oxide) 400 mg DAILY PO 08/18/21 09:00 08/18/21 11:01 DC 08/18/21 09:47 Metformin HCl (Glucophage) 1,000 mg BIDWMEALS PO 08/18/21 08:00 08/18/21 16:50 Pantoprazole Sodium (Protonix) 40 mg DAILYAC PO 08/18/21 07:30 08/18/21 09:46 Ondansetron HCl (Zofran Odt) 4 mg PRN Q6HRS PRN PO NAUSEA/VOMITING 08/17/21 18:30 Non-Formulary Medication (Trolamine Salicylate/Aloe Vera (Aspercreme 10% Cream)) 1 annamarie PRN BID PRN TP PAIN 08/17/21 18:00 UNV Olanzapine (ZyPREXA ZYDIS) 1.25 mg PRN Q2HRS PRN PO PSYCHOSIS 08/18/21 12:00 08/18/21 16:50 Current Medications Medications (Trade) Dose Ordered Sig/Ras Route PRN Reason Start Time Stop Time Status Last Admin Dose Admin Empaglifozin (Jardiance) 10 mg DAILY PO 08/18/21 09:00 08/18/21 09:48 Hydroxychloroquine Sulfate (Plaquenil) 400 mg DAILY PO 08/18/21 09:00 08/18/21 09:48 Levothyroxine Sodium (Synthroid) 25 mcg DAILY06 PO 08/18/21 06:00 08/18/21 06:33 Sennosides (Senna) 8.6 mg DAILY PO 08/18/21 09:00 08/18/21 11:01 DC 08/18/21 09:47 Citalopram Hydrobromide (CeleXA) 40 mg DAILY PO 08/18/21 09:00 08/18/21 09:47 Lubiprostone (Amitiza) 24 mcg BIDWMEALS PO 08/18/21 08:00 08/18/21 16:49 Cetirizine HCl (ZyrTEC) 10 mg DAILY PO 08/18/21 09:00 08/18/21 11:01 DC 08/18/21 09:47 Magnesium Oxide (Magnesium Oxide) 400 mg DAILY PO 08/18/21 09:00 08/18/21 11:01 DC 08/18/21 09:47 Metformin HCl (Glucophage) 1,000 mg BIDWMEALS PO 08/18/21 08:00 08/18/21 16:50 Pantoprazole Sodium (Protonix) 40 mg DAILYAC PO 08/18/21 07:30 08/18/21 09:46 Olanzapine (ZyPREXA ZYDIS) 1.25 mg PRN Q2HRS PRN PO PSYCHOSIS 08/18/21 12:00 08/18/21 16:50 I have reviewed the current psychotropics carefully including drug interactions. Risk benefit ratio favors no change other than as noted in my dictated progress note. Diagnosis: Problems: (1) Psychotic disorder RANJITH HAWKINS MD Aug 18, 2021 21:49
[2021-08-18] MEDS: MELATONIN 3 MG TABLET PO SCH (21:56)
[2021-08-18] MEDS: traZODone 50 MG TABLET. PO SCH (21:56)
[2021-08-19 00:07] LABS: THYROXINE 6.8 ug/dL (4.5-12.0)
[2021-08-19 01:07] LABS: HEMOGLOBIN A1C 8.5 % (4.8-5.6)
[2021-08-19] MEDS: CARBIDOPA/LEVODOPA 25/100MG TABLET PO SCH ×4 (01:19→17:19)
--- NOTE | 2021-08-19 03:41 | NUR ---
Nursing Note The patient was located in her room for her assessment and medication pass. The patient was compliant with medications and took them whole. The patient was alert to name and date. The patient was pleasant during interactions with staff. The patient is currently sleeping in her room.
[2021-08-19 06:09] VITALS: BP 145/76
[2021-08-19] MEDS: ACETAMINOPHEN 325 MG TABLET PO PRN (06:22)
[2021-08-19] MEDS: LEVOTHYROXINE 25 MCG TABLET. PO SCH (06:23)
[2021-08-19] MEDS: POLYETHYLENE GLYCOL 3350 17 GM PACKET. PO SCH ×2 (09:03→21:02)
[2021-08-19] MEDS: LUBIPROSTONE 24 MCG CAPSULE PO SCH ×2 (09:03→17:17)
[2021-08-19] MEDS: PRAMIPEXOLE 0.25 MG TABLET. PO SCH ×3 (09:03→21:04)
[2021-08-19] MEDS: SMZ/TMP 800/160MG TABLET. PO SCH ×2 (09:03→21:04)
[2021-08-19] MEDS: PANTOPRAZOLE 40 MG TABLET. PO SCH (09:03)
[2021-08-19] MEDS: metFORMIN 500 MG TABLET PO SCH ×2 (09:03→17:17)
[2021-08-19] MEDS: busPIRone 10 MG TABLET. PO SCH ×2 (09:03→21:04)
[2021-08-19] MEDS: HYDROXYCHLOROQUINE 200 MG TABLET PO SCH (09:04)
[2021-08-19] MEDS: EMPAGLIFLOZIN 10 MG TABLET. PO SCH (09:04)
[2021-08-19] MEDS: CITALOPRAM 20 MG TABLET. PO SCH (09:04)
[2021-08-19] MEDS: clonazePAM 0.5 MG TABLET PO SCH ×2 (09:06→21:04)
--- NOTE | 2021-08-19 11:06 | RAD ---
CT HEAD/BRAIN WO Date: 08/19/2021 10:20 AM Clinical Indication: [facility] admit, establish baseline mental status Comparison: None. Technique: 5 mm axial tomographic images were obtained of the head without contrast. These were view ed on brain and bone windows. One or more of the following dose reduction techniques were utilized: A utomated exposure control (AEC), Adjustment of mA and/or kV according to patient size, Use of iterati ve reconstruction technique such as ASiR, CT scan done according to ALARA and image gently/image foy ly Findings: Mild generalized cerebral and cerebellar volume loss. Mild nonspecific periventricular hypoattenuatio n, most commonly seen with chronic small vessel ischemic disease. Calcified atherosclerosis of the bi lateral cavernous and paraclinoid internal carotid arteries and intracranial vertebral arteries. No intra- or extra-axial mass or fluid collection. No acute hemorrhage. The ventricles are normal in size, shape, and morphology. The song-white matter junction is normal. The subarachnoid cisterns are patent. The visualized paranasal sinuses are normal. The visualized portions of the orbits and globes are no rmal. The mastoid air cells are clear. The construction area manager topogram shows no lytic lesion or fracture. Impression: No acute intracranial process. Mild cerebral volume loss. Mild chronic small vessel ischemic disease. Electronically signed by: Nimesh Martinez MD (08/19/2021 11:03 AM) [facility]
[2021-08-19 15:22] VITALS: BP 100/60
--- NOTE | 2021-08-19 17:07 | NUR ---
Pt has been restless and wandering in [place] and . Has been compliant with meds and cares. This monica pt is attempting to stand and is yelling out. Ruma hahn.
--- NOTE | 2021-08-19 17:33 | HP ---
DATE OF SERVICE: 08/19/2021 ADMIT DATE: 08/17/2021 PSYCHIATRIC ADMISSION HISTORY/EVALUATION This is a late entry, date of service 08/17/2021, covers elements not covered in my initial note 08/17/2021. I met with the patient on the evening of 08/17/2021 shortly after she arrived on the unit. Previously discussed with Suzette Taveras, sales appointment coordinator and nursing staff reviewed the chart also. IDENTIFYING DATA: The patient is an 86-year-old female referred to us from [facility] where she resides with her and referred by Dr. Russell, her primary care physician, and admitted by her son, Aldo Kelly, who is her power of contracts attorney on account of increased agitation and anxiety, attempting to hit staff. She was name calling, calling to the police to get the people out of her room. She was delusional, talking to people not there, refusing medications, seeing children and having sundowning. These symptoms have been worsening for about a week, outpatient treatment had failed. Medically, she was deemed to be stable with no evidence of UTI. Behavior is deemed dangerous, unmanageable, had failed outpatient psychiatric interventions resulting in this referral. CHIEF COMPLAINT: "I need to get out of here. That people here." The patient was quite anxious, restless, up and down in a wheelchair, hard of hearing, psychotic. HISTORY OF PRESENT ILLNESS: The patient has a history of Parkinson's disease, some short-term memory deficits, worsening symptoms of depression, anxiety and psychotic symptoms along with sundowning. She has had some sleep and appetite changes. No active suicidal or homicidal ideation. She has had some significant mood swings. PAST PSYCHIATRIC HISTORY: As above. MEDICAL HISTORY: Type 2 diabetes mellitus, Parkinson's disease, hypothyroidism, chronic constipation, dysphagia. CODE STATUS: Full code. ALLERGIES: HYDROCODONE, LATEX, IODINE. Ambulates independently with walker and wheelchair. DIET: Regular. Takes medications whole. CURRENT PSYCHOTROPICS: BuSpar 10 mg b.i.d., Klonopin 0.5 mg b.i.d., Atarax 25 mg q.8 hours p.r.n. anxiety, melatonin 3 mg at bedtime, trazodone 50 mg at bedtime. FAMILY HISTORY: Noncontributory. SOCIAL HISTORY: The patient lives at assisted living with her . No alcohol, drug abuse, physical, sexual or elder abuse history is noted. She is not known to be a perpetrator. REACTION TO HOSPITALIZATION: The patient accepting of it. ASSETS: Supportive family, stable living at the assisted living. REVIEW OF SYSTEMS: Ambulation impaired, in wheelchair. No CV, , pulmonary, eye, ENT system symptoms on review. Reliability varies. MENTAL STATUS EXAM: The patient is oriented to herself, situation. Speech coherent, rapid at times, quite distractible. Abstraction fair. Computation impaired. She is paranoid with marked mood lability. No active suicidal or homicidal ideation. LABORATORY DATA: Reviewed. 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 Rest as noted above. PLAN: Admit to geropsychiatry unit at [facility]. I will see the patient daily individually from a psychiatric standpoint, medical followup with Dr. Russell/Dr. Sullivan. Continue current psychotropics and stop Atarax due to central anticholinergic side effects. We will consider starting Seroquel, may consider tapering Klonopin, may also start an SSRI agent. We will make all these decisions post-baseline assessment. ESTIMATED LENGTH OF STAY: 10-12 days. DISPOSITION PLAN: Back to assisted living when stable. LUDMILA/LANG DR: Cyndee TID: [id number]
[2021-08-19] MEDS: PROPRANOLOL 20 MG TABLET. PO SCH (21:00)
[2021-08-19] MEDS: MELATONIN 3 MG TABLET PO SCH (21:03)
[2021-08-19] MEDS: traZODone 50 MG TABLET. PO SCH (21:04)
--- NOTE | 2021-08-19 22:15 | PDOC ---
Exam Note: Gino Note: Please also refer to the separate dictated note~for this date of service dictated separately.~Patient seen individually. Discussed the patient with Nursing staff reviewed the chart.~Reviewed interim history and current functioning. Reviewed vital signs,~Labs/ Radiology~and current medications noted below. Continue current treatment with the changes noted in the dictated addendum note Assessment: Vital Signs/I&O: Vital Signs Date Time Temp Pulse Resp B/P (MAP) Pulse Ox O2 Delivery O2 Flow Rate FiO2 08/19/21 21:00 92 100/60 08/19/21 15:22 97.2 20 98 I & O 08/18/21 08/18/21 08/19/21 15:00 23:00 07:00 Intake Total 660 ml 120 ml Balance 660 ml 120 ml Labs: Laboratory Tests Test 08/19/21 07:34 08/19/21 19:23 Glucose (Fingerstick) 128 mg/dL (70-99) H 163 mg/dL (70-99) H Current Medications: Meds: Laboratory Tests Test 08/19/21 07:34 08/19/21 19:23 Glucose (Fingerstick) 128 mg/dL 163 mg/dL Current Medications Medications (Trade) Dose Ordered Sig/Ras Route PRN Reason Start Time Stop Time Status Last Admin Dose Admin Acetaminophen (Tylenol) 650 mg PRN Q6HRS PRN PO MILD PAIN / TEMP > 100.3'F 08/17/21 16:00 08/19/21 06:22 Multi-Ingredient Ointment (Analgesic [place]) 1 annamarie PRN QID PRN TP MUSCLE PAIN 08/17/21 16:00 Al Hydroxide/Mg Hydroxide (Mylanta Plus Xs) 15 ml PRN AFTMEALHC PRN PO DYSPEPSIA 08/17/21 16:00 Magnesium Hydroxide (Milk Of Magnesia) 2,400 mg PRN QHS PRN PO CONSTIPATION 08/17/21 16:00 Buspirone HCl (Buspar) 10 mg BID PO 08/17/21 21:00 08/19/21 21:04 Calcium Carbonate/ Glycine (Tums) 500 mg PRN Q6HRS PRN PO INDIGESTION 08/17/21 18:15 08/18/21 11:01 DC Clonazepam (KlonoPIN) 0.5 mg BID PO 08/17/21 21:00 08/19/21 20:11 DC 08/19/21 09:06 Empaglifozin (Jardiance) 10 mg DAILY PO 08/18/21 09:00 08/19/21 09:04 Hydroxychloroquine Sulfate (Plaquenil) 400 mg DAILY PO 08/18/21 09:00 08/19/21 09:04 Hydroxyzine HCl (Atarax) 25 mg PRN Q8HRS PRN PO ANXIETY 08/17/21 18:15 08/18/21 11:01 DC 08/18/21 10:04 Levothyroxine Sodium (Synthroid) 25 mcg DAILY06 PO 08/18/21 06:00 08/19/21 06:23 Melatonin (Melatonin) 3 mg QHS PO 08/17/21 21:00 08/19/21 21:03 Polyethylene Glycol (miraLAX) 17 gm BID PO 08/17/21 21:00 08/19/21 21:02 Pramipexole Dihydrochloride (miraPEX) 0.25 mg TID PO 08/17/21 21:00 08/19/21 21:04 Propranolol HCl (Inderal) 20 mg QHS PO 08/17/21 21:00 08/17/21 21:39 Sennosides (Senna) 8.6 mg DAILY PO 08/18/21 09:00 08/18/21 11:01 DC 08/18/21 09:47 Simethicone (Gas-X) 80 mg PRN Q6HRS PRN PO GAS / BLOATING 08/17/21 18:00 08/18/21 11:17 DC Simethicone (Gas-X) 80 mg TID PO 08/17/21 21:00 08/18/21 11:01 DC 08/18/21 09:46 Trimethoprim/ Sulfamethoxazole (Bactrim Ds) 1 tab BID PO 08/17/21 21:00 08/23/21 21:30 08/19/21 21:04 Tramadol HCl (Ultram) 50 mg PRN Q6HRS PRN PO PAIN 08/17/21 18:00 Trazodone HCl (Desyrel) 50 mg QHS PO 08/17/21 21:00 08/19/21 21:04 Non-Formulary Medication (Aspirin/Sod Bicarb/Citric Acid (Renee-[place] Original Tab Eff)) 325 mg PRN Q24HRS PRN PO DYSPEPSIA 08/17/21 18:00 UNV Capsaicin (Zostrix) 1 annamarie PRN Q12HR PRN TP PAIN 08/17/21 18:45 08/18/21 11:01 DC Carbidopa/Levodopa (Sinemet 25/100) 2 tab [id number] PO 08/17/21 18:30 08/19/21 17:19 Citalopram Hydrobromide (CeleXA) 40 mg DAILY PO 08/18/21 09:00 08/19/21 09:04 Glycerin (Sani-Supp Adult) 1 supp PRN Q24HRS PRN [place] CONSTIPATION 08/17/21 18:45 Lactobacillus Rhamnosus (Culturelle) 1 cap BID PO 08/17/21 21:00 08/18/21 11:01 DC 08/18/21 09:47 Lubiprostone (Amitiza) 24 mcg BIDWMEALS PO 08/18/21 08:00 08/19/21 17:17 Cetirizine HCl (ZyrTEC) 10 mg DAILY PO 08/18/21 09:00 08/18/21 11:01 DC 08/18/21 09:47 Magnesium Oxide (Magnesium Oxide) 400 mg DAILY PO 08/18/21 09:00 08/18/21 11:01 DC 08/18/21 09:47 Metformin HCl (Glucophage) 1,000 mg BIDWMEALS PO 08/18/21 08:00 08/19/21 17:17 Pantoprazole Sodium (Protonix) 40 mg DAILYAC PO 08/18/21 07:30 08/19/21 09:03 Ondansetron HCl (Zofran Odt) 4 mg PRN Q6HRS PRN PO NAUSEA/VOMITING 08/17/21 18:30 Non-Formulary Medication (Trolamine Salicylate/Aloe Vera (Aspercreme 10% Cream)) 1 annamarie PRN BID PRN TP PAIN 08/17/21 18:00 UNV Olanzapine (ZyPREXA ZYDIS) 1.25 mg PRN Q2HRS PRN PO PSYCHOSIS 08/18/21 12:00 08/19/21 17:18 Clonazepam (KlonoPIN) 0.25 mg DAILY PO 08/20/21 09:00 Clonazepam (KlonoPIN) 0.5 mg HS PO 08/19/21 21:00 08/22/21 19:00 08/19/21 21:04 Clonazepam (KlonoPIN) 0.25 mg HS PO 08/22/21 21:00 Current Medications Medications (Trade) Dose Ordered Sig/Ras Route PRN Reason Start Time Stop Time Status Last Admin Dose Admin Clonazepam (KlonoPIN) 0.5 mg HS PO 08/19/21 21:00 08/22/21 19:00 08/19/21 21:04 I have reviewed the current psychotropics carefully including drug interactions. Risk benefit ratio favors no change other than as noted in my dictated progress note. Diagnosis: Problems: (1) Major depressive disorder with psychotic features (2) Mild cognitive impairment (3) Psychotic disorder (4) Parkinson's disease RANJITH HAWKINS MD Aug 19, 2021 22:15
[2021-08-20] MEDS: CARBIDOPA/LEVODOPA 25/100MG TABLET PO SCH ×4 (00:53→17:14)
--- NOTE | 2021-08-20 03:39 | NUR ---
Nursing Note The patient was disorganized and irritable this shift. The patient hallucinated throughout the shift must mostly after HS. The patient was compliant with medications and took them whole. Alert to self only. The patient received PRN Zyprexa with 0000 Carbidopa.
[2021-08-20 05:55] VITALS: BP 127/77
[2021-08-20] MEDS: LEVOTHYROXINE 25 MCG TABLET. PO SCH (06:07)
[2021-08-20] MEDS: PRAMIPEXOLE 0.25 MG TABLET. PO SCH ×3 (08:28→21:17)
[2021-08-20] MEDS: metFORMIN 500 MG TABLET PO SCH ×2 (08:28→17:14)
[2021-08-20] MEDS: PANTOPRAZOLE 40 MG TABLET. PO SCH (08:28)
[2021-08-20] MEDS: CITALOPRAM 20 MG TABLET. PO SCH (08:28)
[2021-08-20] MEDS: LUBIPROSTONE 24 MCG CAPSULE PO SCH ×2 (08:29→17:15)
[2021-08-20] MEDS: clonazePAM 0.5 MG TABLET PO SCH ×2 (08:29→21:17)
[2021-08-20] MEDS: SMZ/TMP 800/160MG TABLET. PO SCH ×2 (08:29→21:17)
[2021-08-20] MEDS: EMPAGLIFLOZIN 10 MG TABLET. PO SCH (08:29)
[2021-08-20] MEDS: busPIRone 10 MG TABLET. PO SCH ×2 (08:29→21:17)
[2021-08-20] MEDS: POLYETHYLENE GLYCOL 3350 17 GM PACKET. PO SCH ×2 (08:30→21:18)
[2021-08-20] MEDS: HYDROXYCHLOROQUINE 200 MG TABLET PO SCH (08:30)
--- NOTE | 2021-08-20 09:14 | PDOC ---
Exam Note: Gino Note: This note is a late entry for 08/18/2021 covers elements not covered in my initial note. Subjective: The patient was reviewed at treatment team meeting individually in the morning on 08/18/2021 with Christina ALTMAN, Fruit Tester, Britney Butterfield, Suzette Reyes, and Ernestina Pedro (geriatric social worker), Nicolasa, activity therapy and Emily ALTMAN, discussed and reviewed the chart. The patient slept 6-1/2 hours previous night. Patient remains confused, somewhat delusional, very anxious. She is convinced her is hospitalized downstairs, received some Atarax p.r.n. but we will stop the Atarax given her history of dementia. Reviewed history from social service staff. Reportedly her son of cancer at age 46. She has been 67 years. Discussed also with Waldemar ALTMAN in the evening, tearful, quite of hard of hearing. I met with her in her room. She seemed to recognize me from the previous evening visit and stated you are the doctor from [facility]. I met you last evening. This was somewhat surprising, reflective that she is not as confused as she seems on the surface consequent to her anxiety. Review of Systems: Hard of hearing. Ambulation impaired in wheelchair and she states she has Parkinsons. Admits to having some anxiety. No CV, , pulmonary, eye system symptoms on review. Mental Status Exam: The patient is oriented to herself and situation. Speech is coherent, rapid, difficult to understand, somewhat distractible. Abstraction fair. Computation impaired. Language function intact. Mood and affect labile. Laboratory Data: Reviewed. 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 Anxiety disorder unspecified. Parkinsons disease. Plan: Continue current psychotropics. We may need to increase BuSpar, taper the Klonopin. Consider Seroquel as a mood stabilizer. Make further adjustments as clinically indicated. Assessment: Vital Signs/I&O: Vital Signs Date Time Temp Pulse Resp B/P (MAP) Pulse Ox O2 Delivery O2 Flow Rate FiO2 08/20/21 05:55 98.8 103 18 127/77 (94) 95 I & O 08/19/21 08/19/21 08/20/21 15:00 23:00 07:00 Intake Total 840 ml 120 ml Balance 840 ml 120 ml Labs: Laboratory Tests Test 08/19/21 19:23 08/20/21 07:50 Glucose (Fingerstick) 163 mg/dL (70-99) H 160 mg/dL (70-99) H Current Medications: Meds: Laboratory Tests Test 08/19/21 19:23 08/20/21 07:50 Glucose (Fingerstick) 163 mg/dL 160 mg/dL Current Medications Medications (Trade) Dose Ordered Sig/Ras Route PRN Reason Start Time Stop Time Status Last Admin Dose Admin Acetaminophen (Tylenol) 650 mg PRN Q6HRS PRN PO MILD PAIN / TEMP > 100.3'F 08/17/21 16:00 08/19/21 06:22 Multi-Ingredient Ointment (Analgesic [place]) 1 annamarie PRN QID PRN TP MUSCLE PAIN 08/17/21 16:00 Al Hydroxide/Mg Hydroxide (Mylanta Plus Xs) 15 ml PRN AFTMEALHC PRN PO DYSPEPSIA 08/17/21 16:00 Magnesium Hydroxide (Milk Of Magnesia) 2,400 mg PRN QHS PRN PO CONSTIPATION 08/17/21 16:00 Buspirone HCl (Buspar) 10 mg BID PO 08/17/21 21:00 08/20/21 08:29 Calcium Carbonate/ Glycine (Tums) 500 mg PRN Q6HRS PRN PO INDIGESTION 08/17/21 18:15 08/18/21 11:01 DC Clonazepam (KlonoPIN) 0.5 mg BID PO 08/17/21 21:00 08/19/21 20:11 DC 08/19/21 09:06 Empaglifozin (Jardiance) 10 mg DAILY PO 08/18/21 09:00 08/20/21 08:29 Hydroxychloroquine Sulfate (Plaquenil) 400 mg DAILY PO 08/18/21 09:00 08/20/21 08:30 Hydroxyzine HCl (Atarax) 25 mg PRN Q8HRS PRN PO ANXIETY 08/17/21 18:15 08/18/21 11:01 DC 08/18/21 10:04 Levothyroxine Sodium (Synthroid) 25 mcg DAILY06 PO 08/18/21 06:00 08/20/21 06:07 Melatonin (Melatonin) 3 mg QHS PO 08/17/21 21:00 08/19/21 21:03 Polyethylene Glycol (miraLAX) 17 gm BID PO 08/17/21 21:00 08/20/21 08:30 Pramipexole Dihydrochloride (miraPEX) 0.25 mg TID PO 08/17/21 21:00 08/20/21 08:28 Propranolol HCl (Inderal) 20 mg QHS PO 08/17/21 21:00 08/17/21 21:39 Sennosides (Senna) 8.6 mg DAILY PO 08/18/21 09:00 08/18/21 11:01 DC 08/18/21 09:47 Simethicone (Gas-X) 80 mg PRN Q6HRS PRN PO GAS / BLOATING 08/17/21 18:00 08/18/21 11:17 DC Simethicone (Gas-X) 80 mg TID PO 08/17/21 21:00 08/18/21 11:01 DC 08/18/21 09:46 Trimethoprim/ Sulfamethoxazole (Bactrim Ds) 1 tab BID PO 08/17/21 21:00 08/23/21 21:30 08/20/21 08:29 Tramadol HCl (Ultram) 50 mg PRN Q6HRS PRN PO PAIN 08/17/21 18:00 Trazodone HCl (Desyrel) 50 mg QHS PO 08/17/21 21:00 08/19/21 21:04 Non-Formulary Medication (Aspirin/Sod Bicarb/Citric Acid (Renee-[place] Original Tab Eff)) 325 mg PRN Q24HRS PRN PO DYSPEPSIA 08/17/21 18:00 UNV Capsaicin (Zostrix) 1 annamarie PRN Q12HR PRN TP PAIN 08/17/21 18:45 08/18/21 11:01 DC Carbidopa/Levodopa (Sinemet 25/100) 2 tab [id number] PO 08/17/21 18:30 08/20/21 06:07 Citalopram Hydrobromide (CeleXA) 40 mg DAILY PO 08/18/21 09:00 08/20/21 08:28 Glycerin (Sani-Supp Adult) 1 supp PRN Q24HRS PRN [place] CONSTIPATION 08/17/21 18:45 Lactobacillus Rhamnosus (Culturelle) 1 cap BID PO 08/17/21 21:00 08/18/21 11:01 DC 08/18/21 09:47 Lubiprostone (Amitiza) 24 mcg BIDWMEALS PO 08/18/21 08:00 08/20/21 08:29 Cetirizine HCl (ZyrTEC) 10 mg DAILY PO 08/18/21 09:00 08/18/21 11:01 DC 08/18/21 09:47 Magnesium Oxide (Magnesium Oxide) 400 mg DAILY PO 08/18/21 09:00 08/18/21 11:01 DC 08/18/21 09:47 Metformin HCl (Glucophage) 1,000 mg BIDWMEALS PO 08/18/21 08:00 08/20/21 08:28 Pantoprazole Sodium (Protonix) 40 mg DAILYAC PO 08/18/21 07:30 08/20/21 08:28 Ondansetron HCl (Zofran Odt) 4 mg PRN Q6HRS PRN PO NAUSEA/VOMITING 08/17/21 18:30 Non-Formulary Medication (Trolamine Salicylate/Aloe Vera (Aspercreme 10% Cream)) 1 annamarie PRN BID PRN TP PAIN 08/17/21 18:00 UNV Olanzapine (ZyPREXA ZYDIS) 1.25 mg PRN Q2HRS PRN PO PSYCHOSIS 08/18/21 12:00 08/20/21 00:52 Clonazepam (KlonoPIN) 0.25 mg DAILY PO 08/20/21 09:00 08/20/21 08:29 Clonazepam (KlonoPIN) 0.5 mg HS PO 08/19/21 21:00 08/22/21 19:00 08/19/21 21:04 Clonazepam (KlonoPIN) 0.25 mg HS PO 08/22/21 21:00 Current Medications Medications (Trade) Dose Ordered Sig/Ras Route PRN Reason Start Time Stop Time Status Last Admin Dose Admin Clonazepam (KlonoPIN) 0.25 mg DAILY PO 08/20/21 09:00 08/20/21 08:29 Clonazepam (KlonoPIN) 0.5 mg HS PO 08/19/21 21:00 08/22/21 19:00 08/19/21 21:04 I have reviewed the current psychotropics carefully including drug interactions. Risk benefit ratio favors no change other than as noted in my dictated progress note. Diagnosis: Problems: (1) Anxiety disorder, unspecified (2) Major depressive disorder with psychotic features (3) Parkinson's disease (4) Mild cognitive impairment (5) Psychotic disorder RANJITH HAWKINS MD Aug 20, 2021 09:14
--- NOTE | 2021-08-20 12:07 | NUR ---
NURSING NOTE PT HAS BEEN IN WHEEL CHAIR THIS AM, IS X1 ASSIST TO RESTROOM. PT IS A&OXSELF ONLY THIS AM. PT CONSTANTLY LOOKING FOR AND HER TWO BOYS, PER HER SON, HER OTHER SON HAS IN 2011. PT TOOK HER MEDS WHOLE WITH NO COMPLICATIONS. PT HAS FALL PERSONAL ALARM IN PLACE FOR HIGH FALL RISK. PT IS INDEPENDENT WHEELING HERSELF AROUND THE UNIT. PT HAD BM THIS AM MEDIUM AND LOOSE BUT FORMED. PT IS SET UP ONLY FOR HER MEALS. ANUPAMA TAYLOR.
--- NOTE | 2021-08-20 15:41 | NUR ---
assumed care of patient at 1400. patient in [facility] visiting with peer.
[2021-08-20 16:00] VITALS: BP 127/57
[2021-08-20] MEDS: MELATONIN 3 MG TABLET PO SCH (21:17)
[2021-08-20] MEDS: traZODone 50 MG TABLET. PO SCH (21:17)
[2021-08-20] MEDS: QUEtiapine 25 MG TABLET. PO SCH (21:18)
[2021-08-20] MEDS: PROPRANOLOL 20 MG TABLET. PO SCH (21:20)
--- NOTE | 2021-08-20 22:00 | PDOC ---
Exam Note: Gino Note: Please also refer to the separate dictated note~for this date of service dictated separately.~Patient seen individually. Discussed the patient with Nursing staff reviewed the chart.~Reviewed interim history and current functioning. Reviewed vital signs,~Labs/ Radiology~and current medications noted below. Continue current treatment with the changes noted in the dictated addendum note Assessment: Vital Signs/I&O: Vital Signs Date Time Temp Pulse Resp B/P (MAP) Pulse Ox O2 Delivery O2 Flow Rate FiO2 08/20/21 21:20 102 127/57 08/20/21 16:00 98.1 20 97 I & O 08/19/21 08/19/21 08/20/21 15:00 23:00 07:00 Intake Total 840 ml 120 ml Balance 840 ml 120 ml Labs: Laboratory Tests Test 08/20/21 06:13 08/20/21 07:50 08/20/21 19:42 SARS-CoV-2 (PCR) Not detected (NOT DETECTD) Glucose (Fingerstick) 160 mg/dL (70-99) H 200 mg/dL (70-99) H Current Medications: Meds: Laboratory Tests Test 08/20/21 06:13 08/20/21 07:50 08/20/21 19:42 Coronavirus (COVID-19)(PCR) Not detected Glucose (Fingerstick) 160 mg/dL 200 mg/dL Current Medications Medications (Trade) Dose Ordered Sig/Ras Route PRN Reason Start Time Stop Time Status Last Admin Dose Admin Acetaminophen (Tylenol) 650 mg PRN Q6HRS PRN PO MILD PAIN / TEMP > 100.3'F 08/17/21 16:00 08/19/21 06:22 Multi-Ingredient Ointment (Analgesic [place]) 1 annamarie PRN QID PRN TP MUSCLE PAIN 08/17/21 16:00 Al Hydroxide/Mg Hydroxide (Mylanta Plus Xs) 15 ml PRN AFTMEALHC PRN PO DYSPEPSIA 08/17/21 16:00 Magnesium Hydroxide (Milk Of Magnesia) 2,400 mg PRN QHS PRN PO CONSTIPATION 08/17/21 16:00 Buspirone HCl (Buspar) 10 mg BID PO 08/17/21 21:00 08/20/21 21:17 Calcium Carbonate/ Glycine (Tums) 500 mg PRN Q6HRS PRN PO INDIGESTION 08/17/21 18:15 08/18/21 11:01 DC Clonazepam (KlonoPIN) 0.5 mg BID PO 08/17/21 21:00 08/19/21 20:11 DC 08/19/21 09:06 Empaglifozin (Jardiance) 10 mg DAILY PO 08/18/21 09:00 08/20/21 08:29 Hydroxychloroquine Sulfate (Plaquenil) 400 mg DAILY PO 08/18/21 09:00 08/20/21 08:30 Hydroxyzine HCl (Atarax) 25 mg PRN Q8HRS PRN PO ANXIETY 08/17/21 18:15 08/18/21 11:01 DC 08/18/21 10:04 Levothyroxine Sodium (Synthroid) 25 mcg DAILY06 PO 08/18/21 06:00 08/20/21 10:10 DC 08/20/21 06:07 Melatonin (Melatonin) 3 mg QHS PO 08/17/21 21:00 08/20/21 21:17 Polyethylene Glycol (miraLAX) 17 gm BID PO 08/17/21 21:00 08/20/21 21:18 Pramipexole Dihydrochloride (miraPEX) 0.25 mg TID PO 08/17/21 21:00 08/20/21 21:17 Propranolol HCl (Inderal) 20 mg QHS PO 08/17/21 21:00 08/20/21 21:20 Sennosides (Senna) 8.6 mg DAILY PO 08/18/21 09:00 08/18/21 11:01 DC 08/18/21 09:47 Simethicone (Gas-X) 80 mg PRN Q6HRS PRN PO GAS / BLOATING 08/17/21 18:00 08/18/21 11:17 DC Simethicone (Gas-X) 80 mg TID PO 08/17/21 21:00 08/18/21 11:01 DC 08/18/21 09:46 Trimethoprim/ Sulfamethoxazole (Bactrim Ds) 1 tab BID PO 08/17/21 21:00 08/23/21 21:30 08/20/21 21:17 Tramadol HCl (Ultram) 50 mg PRN Q6HRS PRN PO mod-sev PAIN 08/17/21 18:00 Trazodone HCl (Desyrel) 50 mg QHS PO 08/17/21 21:00 08/20/21 21:17 Non-Formulary Medication (Aspirin/Sod Bicarb/Citric Acid (Renee-[place] Original Tab Eff)) 325 mg PRN Q24HRS PRN PO DYSPEPSIA 08/17/21 18:00 UNV Capsaicin (Zostrix) 1 annamarie PRN Q12HR PRN TP PAIN 08/17/21 18:45 08/18/21 11:01 DC Carbidopa/Levodopa (Sinemet 25/100) 2 tab [id number] PO 08/17/21 18:30 08/20/21 17:14 Citalopram Hydrobromide (CeleXA) 40 mg DAILY PO 08/18/21 09:00 08/20/21 08:28 Glycerin (Sani-Supp Adult) 1 supp PRN Q24HRS PRN [place] CONSTIPATION 08/17/21 18:45 Lactobacillus Rhamnosus (Culturelle) 1 cap BID PO 08/17/21 21:00 08/18/21 11:01 DC 08/18/21 09:47 Lubiprostone (Amitiza) 24 mcg BIDWMEALS PO 08/18/21 08:00 08/20/21 17:15 Cetirizine HCl (ZyrTEC) 10 mg DAILY PO 08/18/21 09:00 08/18/21 11:01 DC 08/18/21 09:47 Magnesium Oxide (Magnesium Oxide) 400 mg DAILY PO 08/18/21 09:00 08/18/21 11:01 DC 08/18/21 09:47 Metformin HCl (Glucophage) 1,000 mg BIDWMEALS PO 08/18/21 08:00 08/20/21 17:14 Pantoprazole Sodium (Protonix) 40 mg DAILYAC PO 08/18/21 07:30 08/20/21 08:28 Ondansetron HCl (Zofran Odt) 4 mg PRN Q6HRS PRN PO NAUSEA/VOMITING 08/17/21 18:30 Non-Formulary Medication (Trolamine Salicylate/Aloe Vera (Aspercreme 10% Cream)) 1 annamarie PRN BID PRN TP PAIN 08/17/21 18:00 UNV Olanzapine (ZyPREXA ZYDIS) 1.25 mg PRN Q2HRS PRN PO PSYCHOSIS 08/18/21 12:00 08/20/21 00:52 Clonazepam (KlonoPIN) 0.25 mg DAILY PO 08/20/21 09:00 08/20/21 08:29 Clonazepam (KlonoPIN) 0.5 mg HS PO 08/19/21 21:00 08/22/21 19:00 08/20/21 21:17 Clonazepam (KlonoPIN) 0.25 mg HS PO 08/22/21 21:00 Levothyroxine Sodium (Synthroid) 50 mcg DAILY06 PO 08/21/21 06:00 Quetiapine Fumarate (SEROquel) 25 mg QHS PO 08/20/21 21:00 08/20/21 21:18 Current Medications Medications (Trade) Dose Ordered Sig/Ras Route PRN Reason Start Time Stop Time Status Last Admin Dose Admin Clonazepam (KlonoPIN) 0.25 mg DAILY PO 08/20/21 09:00 08/20/21 08:29 Quetiapine Fumarate (SEROquel) 25 mg QHS PO 08/20/21 21:00 08/20/21 21:18 I have reviewed the current psychotropics carefully including drug interactions. Risk benefit ratio favors no change other than as noted in my dictated progress note. Diagnosis: Problems: (1) Psychotic disorder (2) Mild cognitive impairment (3) Major depressive disorder with psychotic features (4) Parkinson's disease (5) Anxiety disorder, unspecified RANJITH HAWKINS MD Aug 20, 2021 22:00
--- NOTE | 2021-08-20 22:22 | NUR ---
Patient appeared to be having hallucinations this afternoon. Nurse observed her talking to unseen people in the hallway, she also stated there are bugs, rabbits and then cats in the hallway. Patient stated that male peer from [facility] was her , and then also stated that her is outside working on the car. Patient had a difficult time eating her sandwich at dinner and ended up taking it apart and eating it in pieces. She has disrobed several times and staff assisted her into a onesie. After changing into the onesie she was angry and at one point she told this nurse "your daughters did this, are you happy?" Patient eventually calmed down and was cooperative with nurse and compliant with medications. She takes miralax BID and took her HS dose in blue sugar free poweraide and stated that she liked it. Patient had a small bowel movement, she has hypoactive bowel sounds and her abdomen appears distended. It was not tender. Patient has been calmly laying in her bed since HS medications were administered.
[2021-08-21] MEDS: CARBIDOPA/LEVODOPA 25/100MG TABLET PO SCH ×5 (00:34→17:25)
[2021-08-21] MEDS: LEVOTHYROXINE 50 MCG TABLET PO SCH ×2 (05:23→09:24)
[2021-08-21 05:57] VITALS: BP 114/70
[2021-08-21] MEDS: LUBIPROSTONE 24 MCG CAPSULE PO SCH ×2 (09:23→17:24)
[2021-08-21] MEDS: busPIRone 10 MG TABLET. PO SCH ×2 (09:23→21:00)
[2021-08-21] MEDS: clonazePAM 0.5 MG TABLET PO SCH ×2 (09:23→21:05)
[2021-08-21] MEDS: HYDROXYCHLOROQUINE 200 MG TABLET PO SCH (09:23)
[2021-08-21] MEDS: PANTOPRAZOLE 40 MG TABLET. PO SCH (09:23)
[2021-08-21] MEDS: SMZ/TMP 800/160MG TABLET. PO SCH ×2 (09:23→21:00)
[2021-08-21] MEDS: CITALOPRAM 20 MG TABLET. PO SCH (09:23)
[2021-08-21] MEDS: metFORMIN 500 MG TABLET PO SCH ×2 (09:24→17:25)
[2021-08-21] MEDS: POLYETHYLENE GLYCOL 3350 17 GM PACKET. PO SCH ×2 (09:24→21:01)
[2021-08-21] MEDS: EMPAGLIFLOZIN 10 MG TABLET. PO SCH (09:24)
[2021-08-21] MEDS: PRAMIPEXOLE 0.25 MG TABLET. PO SCH ×3 (09:24→21:00)
[2021-08-21] MEDS: traMADol 50 MG TABLET PO PRN (12:10)
--- NOTE | 2021-08-21 15:00 | NUR ---
PSYCHOSOCIAL ASSESSMENT ADMISSION DATE: 08/17/21 CONTACT INFORMATION: DPOA/Guardian Contact Name: Adelfo Kelly Contact Address: [place], [place] Contact Phone #: ETHNIC ORIGIN: REASONS FOR ADMISSION: ADDITIONAL ADMISSION COMMENTS: According to the intake, pt is agitated, anxious, attempted to hit staff, name calling, yelling to call the police and "get the people out", delusional - talking to people not there, refusing meds, seeing children, and sundowning REASON FOR ADMISSION IN PATIENT/FAMILY'S OWN WORDS: She continues to get worse PATIENT/FAMILY EXPECTATIONS FOR ADMISSION: Medication and behavior management LIVING SITUATION: Patient lives with: Assisted Living Other living arrangements: Contact Name: [facility] Contact Address: [address] [place] [address]; [place] [address] Contact Phone #: Contact Fax #: FAMILY RELATIONS: Marital Status: # of Marriages: 1 # of Children: 2 [facility] Family Support: Concerned Cooperative Involved in DC Planning Additional Comments r/t Family: Pt has been to her , Jean Paul for over 60 years. Together the two had two sons in which one son due to stomach cancer; the other son lives in [place], [place]. Pt family describes her relationship with her as tumultuous. The two were going to get right before their 50th Anniversary but decided financially it would not be in the best interest. SIGNIFICANT PSYCHIATRIC/MEDICAL HISTORY: Psychiatric/Treatment History: This is pt first psychiatric stay on [facility]. Pt does not have a Dementia diagnosis; however, does have Parkinsons and Anxiety D/O. Pertinent Family History: Pt son reports that mental illness runs on the maternal side more in terms of Anxiety and Depression. Pt son, who has , suffered from Bipolar D/O. HISTORICAL DATA: Childhood Environment: Stressful Childhood Environment Additional Comments: Pt was born in [place], [place]. Not much information is known about her father; however, her mother Diandra was a very sweet and loving; she from health complications. Pt has a brother who is still living but only talks to pt a couple times a year. 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 Pt attempted to work but her social anxiety was more overwhelming. 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 Hallucination/Delus Promote Coping Skill Medication Stabilization Dec. Outbursts Other preliminary treatment comments: DISCHARGE PLANNING: Discharge planning/disposition: Custodial Additional discharge needs identified: continued psychiatric services ADDITIONAL INFORMATION: Other Pertinent Data: completed psychosocial with pt son, Adelfo. Adelfo reports that pt has never liked being around people despite how social his father was with colleagues and in the community. Pt never wanted neighbors to be around adn even snubbed people thinking she was better than them. Pt is not a sincere individual and pt son on multiple occasions has called pt a "bigot" to her face. Pt would make statements about "those people". E.g. "those [place] people make the best waiters" "those Mexicans can't be trusted". Pt son also noted that pt anxiety has worsened over time and questions if her behaviors or pending diagnosis is the cause of the increased anxiety. Pt does not socialize with other at [place] to the point where she forbids her to do so as well. Pt son reports that they through a birthday democrat with just him, his kids and the grandkids and she removed herself and sat in a room alone while everyone else socialized and had cake. "She also pulls the 'I can't hear you card' when she doesn't like what you have to say to her". Pt son reports that pt has made it her life's mission to manipulate things to satisfy her needs/wants. Pt son reports that she has always been this way; which is partly why her relationship with her has been so volatile. Pt son travels a lot for work and asks that message be left for him in times that he cannot answer and he will call back DENIS.
--- NOTE | 2021-08-21 15:04 | NUR ---
Nsg Note; visual hallucinations & delusions Delphine believes her is here at the hospital, too. She has been seeing sailboats out the window and some children playing in the street. She reported that her brother's two weeks ago, then later said her brother last week.
[2021-08-21 16:13] VITALS: BP 123/70
[2021-08-21] MEDS: QUEtiapine 25 MG TABLET. PO SCH (21:00)
[2021-08-21] MEDS: traZODone 50 MG TABLET. PO SCH (21:00)
[2021-08-21] MEDS: MELATONIN 3 MG TABLET PO SCH (21:00)
[2021-08-21] MEDS: PROPRANOLOL 20 MG TABLET. PO SCH (21:01)
--- NOTE | 2021-08-21 21:57 | PDOC ---
Exam Note: Gino Note: Please also refer to the separate dictated note~for this date of service dictated separately.~Patient seen individually. Discussed the patient with Nursing staff reviewed the chart.~Reviewed interim history and current functioning. Reviewed vital signs,~Labs/ Radiology~and current medications noted below. Continue current treatment with the changes noted in the dictated addendum note Assessment: Vital Signs/I&O: Vital Signs Date Time Temp Pulse Resp B/P (MAP) Pulse Ox O2 Delivery O2 Flow Rate FiO2 08/21/21 21:01 96 123/70 08/21/21 16:13 98.2 20 99 I & O 08/20/21 08/20/21 08/21/21 15:00 23:00 07:00 Intake Total 840 ml 600 ml Balance 840 ml 600 ml Labs: Laboratory Tests Test 08/21/21 07:57 08/21/21 11:44 08/21/21 16:56 08/21/21 19:07 Glucose (Fingerstick) 121 mg/dL (70-99) H 164 mg/dL (70-99) H 152 mg/dL (70-99) H 182 mg/dL (70-99) H Current Medications: Meds: Laboratory Tests Test 08/21/21 07:57 08/21/21 11:44 08/21/21 16:56 08/21/21 19:07 Glucose (Fingerstick) 121 mg/dL 164 mg/dL 152 mg/dL 182 mg/dL Current Medications Medications (Trade) Dose Ordered Sig/Ras Route PRN Reason Start Time Stop Time Status Last Admin Dose Admin Acetaminophen (Tylenol) 650 mg PRN Q6HRS PRN PO MILD PAIN / TEMP > 100.3'F 08/17/21 16:00 08/19/21 06:22 Multi-Ingredient Ointment (Analgesic [place]) 1 annamarie PRN QID PRN TP MUSCLE PAIN 08/17/21 16:00 Al Hydroxide/Mg Hydroxide (Mylanta Plus Xs) 15 ml PRN AFTMEALHC PRN PO DYSPEPSIA 08/17/21 16:00 Magnesium Hydroxide (Milk Of Magnesia) 2,400 mg PRN QHS PRN PO 1st choice CONSTIPATION 08/17/21 16:00 Buspirone HCl (Buspar) 10 mg BID PO 08/17/21 21:00 08/21/21 21:00 Calcium Carbonate/ Glycine (Tums) 500 mg PRN Q6HRS PRN PO INDIGESTION 08/17/21 18:15 08/18/21 11:01 DC Clonazepam (KlonoPIN) 0.5 mg BID PO 08/17/21 21:00 08/19/21 20:11 DC 08/19/21 09:06 Empaglifozin (Jardiance) 10 mg DAILY PO 08/18/21 09:00 08/21/21 09:24 Hydroxychloroquine Sulfate (Plaquenil) 400 mg DAILY PO 08/18/21 09:00 08/21/21 09:23 Hydroxyzine HCl (Atarax) 25 mg PRN Q8HRS PRN PO ANXIETY 08/17/21 18:15 08/18/21 11:01 DC 08/18/21 10:04 Levothyroxine Sodium (Synthroid) 25 mcg DAILY06 PO 08/18/21 06:00 08/20/21 10:10 DC 08/20/21 06:07 Melatonin (Melatonin) 3 mg QHS PO 08/17/21 21:00 08/21/21 21:00 Polyethylene Glycol (miraLAX) 17 gm BID PO 08/17/21 21:00 08/21/21 21:01 Pramipexole Dihydrochloride (miraPEX) 0.25 mg TID PO 08/17/21 21:00 08/21/21 21:00 Propranolol HCl (Inderal) 20 mg QHS PO 08/17/21 21:00 08/21/21 21:01 Sennosides (Senna) 8.6 mg DAILY PO 08/18/21 09:00 08/18/21 11:01 DC 08/18/21 09:47 Simethicone (Gas-X) 80 mg PRN Q6HRS PRN PO GAS / BLOATING 08/17/21 18:00 08/18/21 11:17 DC Simethicone (Gas-X) 80 mg TID PO 08/17/21 21:00 08/18/21 11:01 DC 08/18/21 09:46 Trimethoprim/ Sulfamethoxazole (Bactrim Ds) 1 tab BID PO 08/17/21 21:00 08/23/21 21:30 08/21/21 21:00 Tramadol HCl (Ultram) 50 mg PRN Q6HRS PRN PO mod-sev PAIN 08/17/21 18:00 08/21/21 12:10 Trazodone HCl (Desyrel) 50 mg QHS PO 08/17/21 21:00 08/21/21 21:00 Non-Formulary Medication (Aspirin/Sod Bicarb/Citric Acid ([place]enee[place] Original Tab Eff)) 325 mg PRN Q24HRS PRN PO DYSPEPSIA 08/17/21 18:00 UNV Capsaicin (Zostrix) 1 annamarie PRN Q12HR PRN TP PAIN 08/17/21 18:45 08/18/21 11:01 DC Carbidopa/Levodopa (Sinemet ) 2 tab [id number] PO 08/17/21 18:30 08/21/21 17:25 Citalopram Hydrobromide (CeleXA) 40 mg DAILY PO 08/18/21 09:00 08/21/21 09:23 Glycerin (Sani-Supp Adult) 1 supp PRN Q24HRS PRN [place] 2nd choice CONSTIPATION 08/17/21 18:45 Lactobacillus Rhamnosus (Culturelle) 1 cap BID PO 08/17/21 21:00 08/18/21 11:01 DC 08/18/21 09:47 Lubiprostone (Amitiza) 24 mcg BIDWMEALS PO 08/18/21 08:00 08/21/21 17:24 Cetirizine HCl (ZyrTEC) 10 mg DAILY PO 08/18/21 09:00 08/18/21 11:01 DC 08/18/21 09:47 Magnesium Oxide (Magnesium Oxide) 400 mg DAILY PO 08/18/21 09:00 08/18/21 11:01 DC 08/18/21 09:47 Metformin HCl (Glucophage) 1,000 mg BIDWMEALS PO 08/18/21 08:00 08/21/21 17:25 Pantoprazole Sodium (Protonix) 40 mg DAILYAC PO 08/18/21 07:30 08/21/21 09:23 Ondansetron HCl (Zofran Odt) 4 mg PRN Q6HRS PRN PO NAUSEA/VOMITING 08/17/21 18:30 Non-Formulary Medication (Trolamine Salicylate/Aloe Vera (Aspercreme 10% Cream)) 1 annamarie PRN BID PRN TP PAIN 08/17/21 18:00 UNV Olanzapine (ZyPREXA ZYDIS) 1.25 mg PRN Q2HRS PRN PO PSYCHOSIS 08/18/21 12:00 08/20/21 00:52 Clonazepam (KlonoPIN) 0.25 mg DAILY PO 08/20/21 09:00 08/21/21 09:23 Clonazepam (KlonoPIN) 0.5 mg HS PO 08/19/21 21:00 08/22/21 19:00 08/21/21 21:05 Clonazepam (KlonoPIN) 0.25 mg HS PO 08/22/21 21:00 Levothyroxine Sodium (Synthroid) 50 mcg DAILY06 PO 08/21/21 06:00 08/21/21 09:24 Quetiapine Fumarate (SEROquel) 25 mg QHS PO 08/20/21 21:00 08/21/21 21:00 Current Medications Medications (Trade) Dose Ordered Sig/Ras Route PRN Reason Start Time Stop Time Status Last Admin Dose Admin Levothyroxine Sodium (Synthroid) 50 mcg DAILY06 PO 08/21/21 06:00 08/21/21 09:24 I have reviewed the current psychotropics carefully including drug interactions. Risk benefit ratio favors no change other than as noted in my dictated progress note. 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
--- NOTE | 2021-08-21 23:44 | NUR ---
Patient took HS medications whole. She has been cooperative with staff and calm. Patient is disorganized and was looking for her before bed. She stated that they have appointments with Dr Sullivan in the morning. Patient has been restless tonight and has been getting up out of bed. Patient uses wheelchair to ambulate and is 1-2 person assist at times. She follows directions during transfers but is [place].
[2021-08-22] MEDS: CARBIDOPA/LEVODOPA 25/100MG TABLET PO SCH ×4 (00:28→16:48)
[2021-08-22] MEDS: LEVOTHYROXINE 50 MCG TABLET PO SCH (05:23)
[2021-08-22 05:51] VITALS: BP 115/67
[2021-08-22] MEDS: POLYETHYLENE GLYCOL 3350 17 GM PACKET. PO SCH ×2 (08:52→21:49)
[2021-08-22] MEDS: LUBIPROSTONE 24 MCG CAPSULE PO SCH ×2 (08:52→16:48)
[2021-08-22] MEDS: clonazePAM 0.5 MG TABLET PO SCH ×2 (08:52→21:54)
[2021-08-22] MEDS: busPIRone 10 MG TABLET. PO SCH ×2 (08:52→21:49)
[2021-08-22] MEDS: EMPAGLIFLOZIN 10 MG TABLET. PO SCH (08:53)
[2021-08-22] MEDS: SMZ/TMP 800/160MG TABLET. PO SCH ×2 (08:53→21:49)
[2021-08-22] MEDS: PRAMIPEXOLE 0.25 MG TABLET. PO SCH ×3 (08:53→21:49)
[2021-08-22] MEDS: metFORMIN 500 MG TABLET PO SCH ×2 (08:53→16:48)
[2021-08-22] MEDS: PANTOPRAZOLE 40 MG TABLET. PO SCH (08:54)
[2021-08-22] MEDS: CITALOPRAM 20 MG TABLET. PO SCH (08:54)
[2021-08-22] MEDS: HYDROXYCHLOROQUINE 200 MG TABLET PO SCH (08:56)
--- NOTE | 2021-08-22 09:58 | PDOC ---
Exam Note: Gino Note: This note is a late entry for 08/19/2021 covers elements not covered in my initial note. Subjective: The patient was seen individually in the evening of 08/19/2021 with Crystal ALTMAN, discussed and reviewed the chart. The patient slept 4-1/2 hours previous night. Patient remains confused, was agitated before supper time. Received Zyprexa p.r.n. TSH 4.46. T3 is low. A1c is 8.5. We will defer to Dr. Russell/Dr. Sullivan. Review of Systems: Hard of hearing. Ambulation impaired in wheelchair. No CV, , pulmonary, eye system symptoms on review. Mental Status Exam: The patient is oriented to herself and situation. She seemed more confused. Insight and judgment, recent and remote memory, attention and concentration, fund of knowledge is poor consistent with her diagnoses. Laboratory Data: Reviewed. 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 Anxiety disorder unspecified. Parkinsons disease. Plan: Continue current psychotropics. We will taper the Klonopin from 0.5 mg b.i.d. to half a tablet of 0.5 mg a.m. and 1 tablet in the evening for 3 days and half a tablet twice a day and gradually taper further till we stop it. Start Seroquel 25 mg p.o. h.s. for her psychotic symptoms, anxiety, mood lability. Refer medical management to Dr. Sullivan/Dr. Russell. Adjust further as clinically indicated. Assessment: Vital Signs/I&O: Vital Signs Date Time Temp Pulse Resp B/P (MAP) Pulse Ox O2 Delivery O2 Flow Rate FiO2 08/22/21 05:51 96.9 66 20 115/67 (83) 94 Room Air I & O 08/21/21 08/21/21 08/22/21 15:00 23:00 07:00 Intake Total 240 ml 600 ml Balance 240 ml 600 ml Labs: Laboratory Tests Test 08/21/21 11:44 08/21/21 16:56 08/21/21 19:07 08/22/21 07:49 Glucose (Fingerstick) 164 mg/dL (70-99) H 152 mg/dL (70-99) H 182 mg/dL (70-99) H 134 mg/dL (70-99) H Current Medications: Meds: Laboratory Tests Test 08/21/21 11:44 08/21/21 16:56 08/21/21 19:07 08/22/21 07:49 Glucose (Fingerstick) 164 mg/dL 152 mg/dL 182 mg/dL 134 mg/dL Current Medications Medications (Trade) Dose Ordered Sig/Ras Route PRN Reason Start Time Stop Time Status Last Admin Dose Admin Acetaminophen (Tylenol) 650 mg PRN Q6HRS PRN PO MILD PAIN / TEMP > 100.3'F 08/17/21 16:00 08/19/21 06:22 Multi-Ingredient Ointment (Analgesic [place]) 1 annamarie PRN QID PRN TP MUSCLE PAIN 08/17/21 16:00 Al Hydroxide/Mg Hydroxide (Mylanta Plus Xs) 15 ml PRN AFTMEALHC PRN PO DYSPEPSIA 08/17/21 16:00 Magnesium Hydroxide (Milk Of Magnesia) 2,400 mg PRN QHS PRN PO 1st choice CONSTIPATION 08/17/21 16:00 Buspirone HCl (Buspar) 10 mg BID PO 08/17/21 21:00 08/22/21 08:52 Calcium Carbonate/ Glycine (Tums) 500 mg PRN Q6HRS PRN PO INDIGESTION 08/17/21 18:15 08/18/21 11:01 DC Clonazepam (KlonoPIN) 0.5 mg BID PO 08/17/21 21:00 08/19/21 20:11 DC 08/19/21 09:06 Empaglifozin (Jardiance) 10 mg DAILY PO 08/18/21 09:00 08/22/21 08:53 Hydroxychloroquine Sulfate (Plaquenil) 400 mg DAILY PO 08/18/21 09:00 08/22/21 08:56 Hydroxyzine HCl (Atarax) 25 mg PRN Q8HRS PRN PO ANXIETY 08/17/21 18:15 08/18/21 11:01 DC 08/18/21 10:04 Levothyroxine Sodium (Synthroid) 25 mcg DAILY06 PO 08/18/21 06:00 08/20/21 10:10 DC 08/20/21 06:07 Melatonin (Melatonin) 3 mg QHS PO 08/17/21 21:00 08/21/21 21:00 Polyethylene Glycol (miraLAX) 17 gm BID PO 08/17/21 21:00 08/22/21 08:52 Pramipexole Dihydrochloride (miraPEX) 0.25 mg TID PO 08/17/21 21:00 08/22/21 08:53 Propranolol HCl (Inderal) 20 mg QHS PO 08/17/21 21:00 08/21/21 21:01 Sennosides (Senna) 8.6 mg DAILY PO 08/18/21 09:00 08/18/21 11:01 DC 08/18/21 09:47 Simethicone (Gas-X) 80 mg PRN Q6HRS PRN PO GAS / BLOATING 08/17/21 18:00 08/18/21 11:17 DC Simethicone (Gas-X) 80 mg TID PO 08/17/21 21:00 08/18/21 11:01 DC 08/18/21 09:46 Trimethoprim/ Sulfamethoxazole (Bactrim Ds) 1 tab BID PO 08/17/21 21:00 08/23/21 21:30 08/22/21 08:53 Tramadol HCl (Ultram) 50 mg PRN Q6HRS PRN PO mod-sev PAIN 08/17/21 18:00 08/21/21 12:10 Trazodone HCl (Desyrel) 50 mg QHS PO 08/17/21 21:00 08/21/21 21:00 Non-Formulary Medication (Aspirin/Sod Bicarb/Citric Acid (Renee-[place] Original Tab Eff)) 325 mg PRN Q24HRS PRN PO DYSPEPSIA 08/17/21 18:00 UNV Capsaicin (Zostrix) 1 annamarie PRN Q12HR PRN TP PAIN 08/17/21 18:45 08/18/21 11:01 DC Carbidopa/Levodopa (Sinemet 25/100) 2 tab [id number] PO 08/17/21 18:30 08/22/21 05:23 Citalopram Hydrobromide (CeleXA) 40 mg DAILY PO 08/18/21 09:00 08/22/21 08:54 Glycerin (Sani-Supp Adult) 1 supp PRN Q24HRS PRN [place] 2nd choice CONSTIPATION 08/17/21 18:45 Lactobacillus Rhamnosus (Culturelle) 1 cap BID PO 08/17/21 21:00 08/18/21 11:01 DC 08/18/21 09:47 Lubiprostone (Amitiza) 24 mcg BIDWMEALS PO 08/18/21 08:00 08/22/21 08:52 Cetirizine HCl (ZyrTEC) 10 mg DAILY PO 08/18/21 09:00 08/18/21 11:01 DC 08/18/21 09:47 Magnesium Oxide (Magnesium Oxide) 400 mg DAILY PO 08/18/21 09:00 08/18/21 11:01 DC 08/18/21 09:47 Metformin HCl (Glucophage) 1,000 mg BIDWMEALS PO 08/18/21 08:00 08/22/21 08:53 Pantoprazole Sodium (Protonix) 40 mg DAILYAC PO 08/18/21 07:30 08/22/21 08:54 Ondansetron HCl (Zofran Odt) 4 mg PRN Q6HRS PRN PO NAUSEA/VOMITING 08/17/21 18:30 Non-Formulary Medication (Trolamine Salicylate/Aloe Vera (Aspercreme 10% Cream)) 1 annamarie PRN BID PRN TP PAIN 08/17/21 18:00 UNV Olanzapine (ZyPREXA ZYDIS) 1.25 mg PRN Q2HRS PRN PO PSYCHOSIS 08/18/21 12:00 08/20/21 00:52 Clonazepam (KlonoPIN) 0.25 mg DAILY PO 08/20/21 09:00 08/22/21 08:52 Clonazepam (KlonoPIN) 0.5 mg HS PO 08/19/21 21:00 08/22/21 19:00 08/21/21 21:05 Clonazepam (KlonoPIN) 0.25 mg HS PO 08/22/21 21:00 Levothyroxine Sodium (Synthroid) 50 mcg DAILY06 PO 08/21/21 06:00 08/22/21 05:23 Quetiapine Fumarate (SEROquel) 25 mg QHS PO 08/20/21 21:00 08/21/21 21:00 I have reviewed the current psychotropics carefully including drug interactions. Risk benefit ratio favors no change other than as noted in my dictated progress note. Diagnosis: Problems: (1) Mild cognitive impairment (2) Major depressive disorder with psychotic features (3) Parkinson's disease (4) Anxiety disorder, unspecified RANJITH HAWKINS MD Aug 22, 2021 09:58
--- NOTE | 2021-08-22 10:22 | PDOC ---
Exam Note: Gino Note: This note is a late entry for 08/20/2021 covers elements not covered in my initial note. Subjective: The patient was seen individually in the evening of 08/20/2021 with Marichuy ALTMAN, discussed and reviewed the chart. The patient slept 0 hours previous night. She was agitated, confused, taking her clothes off, looking for her and son. Oral intake is poor. She believes her is outside. CT head done on 08/19 no acute changes. Review of Systems: Hard of hearing. Ambulation impaired in wheelchair. No CV, , pulmonary, eye system symptoms on review. Reliability poor. Mental Status Exam: The patient is oriented to herself, much more confused. Insight and judgment, recent and remote memory, attention and concentration, fund of knowledge is poor consistent with her diagnoses. Laboratory Data: Reviewed. 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 Anxiety disorder unspecified. Parkinsons disease. Plan: Continue current psychotropics. She remains on BuSpar, trazodone, melatonin for insomnia. Klonopin has been tapered. We will see how she does in another 24 hours especially since we have added the Seroquel. We will make further adjustments as clinically indicated. We may add Remeron for insomnia as well. Assessment: Vital Signs/I&O: Vital Signs Date Time Temp Pulse Resp B/P (MAP) Pulse Ox O2 Delivery O2 Flow Rate FiO2 08/22/21 05:51 96.9 66 20 115/67 (83) 94 Room Air I & O 08/21/21 08/21/21 08/22/21 15:00 23:00 07:00 Intake Total 240 ml 600 ml Balance 240 ml 600 ml Labs: Laboratory Tests Test 08/21/21 11:44 08/21/21 16:56 08/21/21 19:07 08/22/21 07:49 Glucose (Fingerstick) 164 mg/dL (70-99) H 152 mg/dL (70-99) H 182 mg/dL (70-99) H 134 mg/dL (70-99) H Current Medications: Meds: Laboratory Tests Test 08/21/21 11:44 08/21/21 16:56 08/21/21 19:07 08/22/21 07:49 Glucose (Fingerstick) 164 mg/dL 152 mg/dL 182 mg/dL 134 mg/dL Current Medications Medications (Trade) Dose Ordered Sig/Ras Route PRN Reason Start Time Stop Time Status Last Admin Dose Admin Acetaminophen (Tylenol) 650 mg PRN Q6HRS PRN PO MILD PAIN / TEMP > 100.3'F 08/17/21 16:00 08/19/21 06:22 Multi-Ingredient Ointment (Analgesic [place]) 1 annamarie PRN QID PRN TP MUSCLE PAIN 08/17/21 16:00 Al Hydroxide/Mg Hydroxide (Mylanta Plus Xs) 15 ml PRN AFTMEALHC PRN PO DYSPEPSIA 08/17/21 16:00 Magnesium Hydroxide (Milk Of Magnesia) 2,400 mg PRN QHS PRN PO 1st choice CONSTIPATION 08/17/21 16:00 Buspirone HCl (Buspar) 10 mg BID PO 08/17/21 21:00 08/22/21 08:52 Calcium Carbonate/ Glycine (Tums) 500 mg PRN Q6HRS PRN PO INDIGESTION 08/17/21 18:15 08/18/21 11:01 DC Clonazepam (KlonoPIN) 0.5 mg BID PO 08/17/21 21:00 08/19/21 20:11 DC 08/19/21 09:06 Empaglifozin (Jardiance) 10 mg DAILY PO 08/18/21 09:00 08/22/21 08:53 Hydroxychloroquine Sulfate (Plaquenil) 400 mg DAILY PO 08/18/21 09:00 08/22/21 08:56 Hydroxyzine HCl (Atarax) 25 mg PRN Q8HRS PRN PO ANXIETY 08/17/21 18:15 08/18/21 11:01 DC 08/18/21 10:04 Levothyroxine Sodium (Synthroid) 25 mcg DAILY06 PO 08/18/21 06:00 08/20/21 10:10 DC 08/20/21 06:07 Melatonin (Melatonin) 3 mg QHS PO 08/17/21 21:00 08/21/21 21:00 Polyethylene Glycol (miraLAX) 17 gm BID PO 08/17/21 21:00 08/22/21 08:52 Pramipexole Dihydrochloride (miraPEX) 0.25 mg TID PO 08/17/21 21:00 08/22/21 08:53 Propranolol HCl (Inderal) 20 mg QHS PO 08/17/21 21:00 08/21/21 21:01 Sennosides (Senna) 8.6 mg DAILY PO 08/18/21 09:00 08/18/21 11:01 DC 08/18/21 09:47 Simethicone (Gas-X) 80 mg PRN Q6HRS PRN PO GAS / BLOATING 08/17/21 18:00 08/18/21 11:17 DC Simethicone (Gas-X) 80 mg TID PO 08/17/21 21:00 08/18/21 11:01 DC 08/18/21 09:46 Trimethoprim/ Sulfamethoxazole (Bactrim Ds) 1 tab BID PO 08/17/21 21:00 08/23/21 21:30 08/22/21 08:53 Tramadol HCl (Ultram) 50 mg PRN Q6HRS PRN PO mod-sev PAIN 08/17/21 18:00 08/21/21 12:10 Trazodone HCl (Desyrel) 50 mg QHS PO 08/17/21 21:00 08/21/21 21:00 Non-Formulary Medication (Aspirin/Sod Bicarb/Citric Acid ([place] Original Tab Eff)) 325 mg PRN Q24HRS PRN PO DYSPEPSIA 08/17/21 18:00 UNV Capsaicin (Zostrix) 1 annamarie PRN Q12HR PRN TP PAIN 08/17/21 18:45 08/18/21 11:01 DC Carbidopa/Levodopa (Sinemet 25/100) 2 tab [id number] PO 08/17/21 18:30 08/22/21 05:23 Citalopram Hydrobromide (CeleXA) 40 mg DAILY PO 08/18/21 09:00 08/22/21 08:54 Glycerin (Sani-Supp Adult) 1 supp PRN Q24HRS PRN [place] 2nd choice CONSTIPATION 08/17/21 18:45 Lactobacillus Rhamnosus (Culturelle) 1 cap BID PO 08/17/21 21:00 08/18/21 11:01 DC 08/18/21 09:47 Lubiprostone (Amitiza) 24 mcg BIDWMEALS PO 08/18/21 08:00 08/22/21 08:52 Cetirizine HCl (ZyrTEC) 10 mg DAILY PO 08/18/21 09:00 08/18/21 11:01 DC 08/18/21 09:47 Magnesium Oxide (Magnesium Oxide) 400 mg DAILY PO 08/18/21 09:00 08/18/21 11:01 DC 08/18/21 09:47 Metformin HCl (Glucophage) 1,000 mg BIDWMEALS PO 08/18/21 08:00 08/22/21 08:53 Pantoprazole Sodium (Protonix) 40 mg DAILYAC PO 08/18/21 07:30 08/22/21 08:54 Ondansetron HCl (Zofran Odt) 4 mg PRN Q6HRS PRN PO NAUSEA/VOMITING 08/17/21 18:30 Non-Formulary Medication (Trolamine Salicylate/Aloe Vera (Aspercreme 10% Cream)) 1 annamarie PRN BID PRN TP PAIN 08/17/21 18:00 UNV Olanzapine (ZyPREXA ZYDIS) 1.25 mg PRN Q2HRS PRN PO PSYCHOSIS 08/18/21 12:00 08/20/21 00:52 Clonazepam (KlonoPIN) 0.25 mg DAILY PO 08/20/21 09:00 08/22/21 08:52 Clonazepam (KlonoPIN) 0.5 mg HS PO 08/19/21 21:00 08/22/21 19:00 08/21/21 21:05 Clonazepam (KlonoPIN) 0.25 mg HS PO 08/22/21 21:00 Levothyroxine Sodium (Synthroid) 50 mcg DAILY06 PO 08/21/21 06:00 08/22/21 05:23 Quetiapine Fumarate (SEROquel) 25 mg QHS PO 08/20/21 21:00 08/21/21 21:00 I have reviewed the current psychotropics carefully including drug interactions. Risk benefit ratio favors no change other than as noted in my dictated progress note. Diagnosis: Problems: (1) Major depressive disorder with psychotic features (2) Parkinson's disease (3) Anxiety disorder, unspecified (4) Psychotic disorder RANJITH HAWKINS MD Aug 22, 2021 10:22
[2021-08-22] MEDS: MAG HYDROX/AL HYDROX/SIMETH 30 ML ORAL.SUSP PO PRN (10:26)
--- NOTE | 2021-08-22 12:20 | NUR ---
Nursing note: Pt in hallway at time of AM med pass and assessment. She is pleasant, med compliant and cooperative. Pt denies having any pain, but states that she is very anxious and wanted to be sure her anxiety meds were included in her AM meds. Pt was reassured that she had antianxiety meds already scheduled and would be receiving them. No other concerns at this time. She is currently in the hallway eating lunch. Will continue to monitor.
--- NOTE | 2021-08-22 14:38 | NUR ---
SW received call from pt granddaughter Sahra, who wanted to get more of an idea of what pt prognosis is and next steps. SW informed the dtr that treatment team is on and SW would be able to clarify prognosis and pinpoint a better discharge plan for all parties. Sahra reports that they have found a new placement in which pt and her will both move to [facility]; unfortunately, they will not be able to move in until the third week of August. 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 The family is trying to convince him to move pt to the LTC side of [facility] while he maintains in [place], but that has not been the case. SW went over pt behaviors and feel that it would take another 7-10 days before medications really take effect but would continue to monitor as a team to ensure her behaviors lessen before being discharged. Pt son who is acting DPOA is currently traveling for work so he will not be able to be present for treatment team but did ask that SW update them when possible afternoon.
[2021-08-22 16:07] VITALS: BP 94/61
[2021-08-22] MEDS: PROPRANOLOL 20 MG TABLET. PO SCH (21:00)
[2021-08-22] MEDS: QUEtiapine 25 MG TABLET. PO SCH (21:49)
[2021-08-22] MEDS: traZODone 50 MG TABLET. PO PRN (21:49)
[2021-08-22] MEDS: MELATONIN 3 MG TABLET PO SCH (21:49)
[2021-08-22] MEDS: MIRTAZAPINE 7.5 MG TABLET. PO SCH (21:54)
--- NOTE | 2021-08-22 21:57 | PDOC ---
Exam Note: Gino Note: Please also refer to the separate dictated note~for this date of service dictated separately.~Patient seen individually. Discussed the patient with Nursing staff reviewed the chart.~Reviewed interim history and current functioning. Reviewed vital signs,~Labs/ Radiology~and current medications noted below. Continue current treatment with the changes noted in the dictated addendum note Assessment: Vital Signs/I&O: Vital Signs Date Time Temp Pulse Resp B/P (MAP) Pulse Ox O2 Delivery O2 Flow Rate FiO2 08/22/21 21:00 86 94/61 08/22/21 16:07 97.9 18 99 08/22/21 05:51 Room Air I & O 08/21/21 08/21/21 08/22/21 15:00 23:00 07:00 Intake Total 240 ml 600 ml Balance 240 ml 600 ml Labs: Laboratory Tests Test 08/22/21 07:49 08/22/21 11:55 08/22/21 17:06 08/22/21 19:20 Glucose (Fingerstick) 134 mg/dL (70-99) H 131 mg/dL (70-99) H 148 mg/dL (70-99) H 194 mg/dL (70-99) H Current Medications: Meds: Laboratory Tests Test 08/22/21 07:49 08/22/21 11:55 08/22/21 17:06 08/22/21 19:20 Glucose (Fingerstick) 134 mg/dL 131 mg/dL 148 mg/dL 194 mg/dL Current Medications Medications (Trade) Dose Ordered Sig/Ras Route PRN Reason Start Time Stop Time Status Last Admin Dose Admin Acetaminophen (Tylenol) 650 mg PRN Q6HRS PRN PO MILD PAIN / TEMP > 100.3'F 08/17/21 16:00 08/19/21 06:22 Multi-Ingredient Ointment (Analgesic [place]) 1 annamarie PRN QID PRN TP MUSCLE PAIN 08/17/21 16:00 Al Hydroxide/Mg Hydroxide (Mylanta Plus Xs) 15 ml PRN AFTMEALHC PRN PO DYSPEPSIA 08/17/21 16:00 08/22/21 10:26 Magnesium Hydroxide (Milk Of Magnesia) 2,400 mg PRN QHS PRN PO 1st choice CONSTIPATION 08/17/21 16:00 Buspirone HCl (Buspar) 10 mg BID PO 08/17/21 21:00 08/22/21 21:49 Calcium Carbonate/ Glycine (Tums) 500 mg PRN Q6HRS PRN PO INDIGESTION 08/17/21 18:15 08/18/21 11:01 DC Clonazepam (KlonoPIN) 0.5 mg BID PO 08/17/21 21:00 08/19/21 20:11 DC 08/19/21 09:06 Empaglifozin (Jardiance) 10 mg DAILY PO 08/18/21 09:00 08/22/21 08:53 Hydroxychloroquine Sulfate (Plaquenil) 400 mg DAILY PO 08/18/21 09:00 08/22/21 08:56 Hydroxyzine HCl (Atarax) 25 mg PRN Q8HRS PRN PO ANXIETY 08/17/21 18:15 08/18/21 11:01 DC 08/18/21 10:04 Levothyroxine Sodium (Synthroid) 25 mcg DAILY06 PO 08/18/21 06:00 08/20/21 10:10 DC 08/20/21 06:07 Melatonin (Melatonin) 3 mg QHS PO 08/17/21 21:00 08/22/21 21:49 Polyethylene Glycol (miraLAX) 17 gm BID PO 08/17/21 21:00 08/22/21 21:49 Pramipexole Dihydrochloride (miraPEX) 0.25 mg TID PO 08/17/21 21:00 08/22/21 21:49 Propranolol HCl (Inderal) 20 mg QHS PO 08/17/21 21:00 08/21/21 21:01 Sennosides (Senna) 8.6 mg DAILY PO 08/18/21 09:00 08/18/21 11:01 DC 08/18/21 09:47 Simethicone (Gas-X) 80 mg PRN Q6HRS PRN PO GAS / BLOATING 08/17/21 18:00 08/18/21 11:17 DC Simethicone (Gas-X) 80 mg TID PO 08/17/21 21:00 08/18/21 11:01 DC 08/18/21 09:46 Trimethoprim/ Sulfamethoxazole (Bactrim Ds) 1 tab BID PO 08/17/21 21:00 08/23/21 21:30 08/22/21 21:49 Tramadol HCl (Ultram) 50 mg PRN Q6HRS PRN PO mod-sev PAIN 08/17/21 18:00 08/21/21 12:10 Trazodone HCl (Desyrel) 50 mg QHS PO 08/17/21 21:00 08/22/21 20:25 DC 08/21/21 21:00 Non-Formulary Medication (Aspirin/Sod Bicarb/Citric Acid (Renee-Granger Original Tab Eff)) 325 mg PRN Q24HRS PRN PO DYSPEPSIA 08/17/21 18:00 UNV Capsaicin (Zostrix) 1 annamarie PRN Q12HR PRN TP PAIN 08/17/21 18:45 08/18/21 11:01 DC Carbidopa/Levodopa (Sinemet ) 2 tab [id number] PO 08/17/21 18:30 08/22/21 16:48 Citalopram Hydrobromide (CeleXA) 40 mg DAILY PO 08/18/21 09:00 08/22/21 08:54 Glycerin (Sani-Supp Adult) 1 supp PRN Q24HRS PRN OR 2nd choice CONSTIPATION 08/17/21 18:45 Lactobacillus Rhamnosus (Culturelle) 1 cap BID PO 08/17/21 21:00 08/18/21 11:01 DC 08/18/21 09:47 Lubiprostone (Amitiza) 24 mcg BIDWMEALS PO 08/18/21 08:00 08/22/21 16:48 Cetirizine HCl (ZyrTEC) 10 mg DAILY PO 08/18/21 09:00 08/18/21 11:01 DC 08/18/21 09:47 Magnesium Oxide (Magnesium Oxide) 400 mg DAILY PO 08/18/21 09:00 08/18/21 11:01 DC 08/18/21 09:47 Metformin HCl (Glucophage) 1,000 mg BIDWMEALS PO 08/18/21 08:00 08/22/21 16:48 Pantoprazole Sodium (Protonix) 40 mg DAILYAC PO 08/18/21 07:30 08/22/21 08:54 Ondansetron HCl (Zofran Odt) 4 mg PRN Q6HRS PRN PO NAUSEA/VOMITING 08/17/21 18:30 Non-Formulary Medication (Trolamine Salicylate/Aloe Vera (Aspercreme 10% Cream)) 1 annamarie PRN BID PRN TP PAIN 08/17/21 18:00 UNV Olanzapine (ZyPREXA ZYDIS) 1.25 mg PRN Q2HRS PRN PO PSYCHOSIS 08/18/21 12:00 08/22/21 16:48 Clonazepam (KlonoPIN) 0.25 mg DAILY PO 08/20/21 09:00 08/22/21 08:52 Clonazepam (KlonoPIN) 0.5 mg HS PO 08/19/21 21:00 08/22/21 19:00 DC 08/21/21 21:05 Clonazepam (KlonoPIN) 0.25 mg HS PO 08/22/21 21:00 08/22/21 21:54 Levothyroxine Sodium (Synthroid) 50 mcg DAILY06 PO 08/21/21 06:00 08/22/21 05:23 Quetiapine Fumarate (SEROquel) 25 mg QHS PO 08/20/21 21:00 08/22/21 21:49 Trazodone HCl (Desyrel) 50 mg PRN QHS PRN PO INSOMNIA, MAY REPEAT X1 08/22/21 20:30 08/22/21 21:49 Mirtazapine (Remeron) 7.5 mg QHS PO 08/22/21 21:00 08/22/21 21:54 Current Medications Medications (Trade) Dose Ordered Sig/Ras Route PRN Reason Start Time Stop Time Status Last Admin Dose Admin Clonazepam (KlonoPIN) 0.25 mg HS PO 08/22/21 21:00 08/22/21 21:54 Trazodone HCl (Desyrel) 50 mg PRN QHS PRN PO INSOMNIA, MAY REPEAT X1 08/22/21 20:30 08/22/21 21:49 Mirtazapine (Remeron) 7.5 mg QHS PO 08/22/21 21:00 08/22/21 21:54 I have reviewed the current psychotropics carefully including drug interactions. Risk benefit ratio favors no change other than as noted in my dictated progress note. 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
[2021-08-23] MEDS: CARBIDOPA/LEVODOPA 25/100MG TABLET PO SCH ×4 (01:59→17:43)
--- NOTE | 2021-08-23 02:31 | NUR ---
Patient has been cooperative with staff and is social with peer that is in west hallway with her. She is disorganized and becomes anxious at times. Patient had shower tonight and then went to bed early. Patient compliant with medications taken whole, and takes her HS Miralax mixed into sugar free Gatorade. Patient has been on decreasing dose of clonazepam and currently is on 0.25mg BID. Dr Lynne started patient on Remeron 7.5mg HS for sleep and changed the Trazodone to PRN HS, may repeat x1. Patient appears to be sleeping well tonight. Will continue to monitor.
[2021-08-23] MEDS: LEVOTHYROXINE 50 MCG TABLET PO SCH (05:58)
[2021-08-23 06:29] VITALS: BP 157/75
[2021-08-23] MEDS: POLYETHYLENE GLYCOL 3350 17 GM PACKET. PO SCH ×2 (08:55→20:06)
[2021-08-23] MEDS: PRAMIPEXOLE 0.25 MG TABLET. PO SCH ×3 (08:55→20:06)
[2021-08-23] MEDS: CITALOPRAM 20 MG TABLET. PO SCH (08:55)
[2021-08-23] MEDS: EMPAGLIFLOZIN 10 MG TABLET. PO SCH (08:55)
[2021-08-23] MEDS: busPIRone 10 MG TABLET. PO SCH ×2 (08:55→20:05)
[2021-08-23] MEDS: LUBIPROSTONE 24 MCG CAPSULE PO SCH ×2 (08:56→17:43)
[2021-08-23] MEDS: HYDROXYCHLOROQUINE 200 MG TABLET PO SCH (08:56)
[2021-08-23] MEDS: clonazePAM 0.5 MG TABLET PO SCH ×2 (08:56→20:09)
[2021-08-23] MEDS: PANTOPRAZOLE 40 MG TABLET. PO SCH (08:56)
[2021-08-23] MEDS: SMZ/TMP 800/160MG TABLET. PO SCH ×2 (08:56→20:06)
[2021-08-23] MEDS: MAG HYDROX/AL HYDROX/SIMETH 30 ML ORAL.SUSP PO PRN (08:56)
[2021-08-23] MEDS: metFORMIN 500 MG TABLET PO SCH ×2 (08:56→17:43)
--- NOTE | 2021-08-23 10:19 | NUR ---
Nursing note: Pt in her room at time of AM med pass and assessment. She is pleasant, med compliant and cooperative. Pt denies having any pain, just states that she's cold. She was provided her jacket from out of her closet. Pt requested PRN mylanta after she finished her breakfast, which was provided with good effect. She is currently sitting quietly in her room. Will continue to monitor.
[2021-08-23] MEDS: ACETAMINOPHEN 325 MG TABLET PO PRN (13:16)
--- NOTE | 2021-08-23 13:24 | NUR ---
Nursing note: Pt c/o headache and requested tylenol. PRN administered. While in pt room to give her the PRN, she was looking out the window at the roof. Pt stated "I just love watching the people cleaning this roof. I love seeing the costumes of all the little kids! Now, I wonder if they're going to turn this into a pool resort or have just a really clean roof? There's all sorts of animals out there. There's a really pretty collie, and some oxen, I don't know, some really strong animals out there." Pt continues to look out the window where there is nothing on the roof. Will continue to monitor.
[2021-08-23 15:51] VITALS: BP 100/58
[2021-08-23] MEDS: SIMETHICONE 80 MG TAB.CHEW PO PRN ×2 (17:43→20:08)
[2021-08-23] MEDS: MELATONIN 3 MG TABLET PO SCH (20:06)
[2021-08-23] MEDS: QUEtiapine 25 MG TABLET. PO SCH (20:06)
[2021-08-23] MEDS: MIRTAZAPINE 7.5 MG TABLET. PO SCH (20:06)
[2021-08-23] MEDS: traZODone 50 MG TABLET. PO PRN (20:09)
[2021-08-23] MEDS: PROPRANOLOL 20 MG TABLET. PO SCH (20:09)
--- NOTE | 2021-08-23 23:57 | NUR ---
Pt located in the hallway this evening visiting with female peer. Pt pleasantly confused. Calm and interactive. Compliant with whole medications. No hallucinations noted this evening.
--- NOTE | 2021-08-24 00:44 | PN ---
DATE: 08/22/2021 PSYCHIATRIC PROGRESS NOTE This late entry 08/22 covers elements not covered in my initial note. SUBJECTIVE: I met with the patient the evening of 08/22. Discussed with ANUPAMA Benedict. The patient slept 5-1/2 hours previous night, got anxious, paranoid in the evening, received Zyprexa Zydis at 1645 due to anxiety. She is quite abrasive, irritable with her over the phone. REVIEW OF SYSTEMS: Ambulation impaired, in wheelchair. No CV, , pulmonary, eye, ENT system symptoms on review. MENTAL STATUS EXAMINATION: Oriented to herself. Insight, judgment, recent and remote memory, attention, concentration, fund of knowledge poor consistent with her diagnosis. IMPRESSION: Unchanged from initial note. PLAN: Add trazodone 50 mg at bedtime p.r.n. insomnia, unchanged the scheduled trazodone 50 mg 2 p.r.n. Consider adding Remeron if insomnia persists. Rest of the psychotropics unchanged for now. ERASTO DR: Cyndee TID: [id number]
--- NOTE | 2021-08-24 00:46 | PN ---
DATE: 08/21/2021 PSYCHIATRIC PROGRESS NOTE This late entry 08/21/2021 covers elements not covered in my initial note 08/21/2021. Discussed with ANUPAMA Benedict. SUBJECTIVE: The patient slept five and quarter hours previous night. The patient remains extremely anxious, paranoid with intermittent hallucinations and quite delusional. Per nursing staff, she saw a sailboat in the window and children running around. She needs reminders to eat. REVIEW OF SYSTEMS: Ambulation impaired, in wheelchair. No CV, , pulmonary, eye, ENT system symptoms on review. MENTAL STATUS EXAMINATION: Oriented to herself. Insight, judgment, recent and remote memory, attention, concentration, fund of knowledge poor consistent with her diagnosis. IMPRESSION: Major neurocognitive disorder, Alzheimer, vascular with delusion, depression; anxiety disorder, unspecified; psychotic disorder, unspecified; rule out major depressive disorder with psychotic features. PLAN: Continue psychotropics from initial note. Klonopin is being tapered. Maintain BuSpar, Zyprexa p.r.n., melatonin, Seroquel and trazodone. VIKTORIA DR: Cyndee TID: [id number]
[2021-08-24 05:44] VITALS: BP 139/55
[2021-08-24] MEDS: CARBIDOPA/LEVODOPA 25/100MG TABLET PO SCH ×4 (06:01→17:47)
[2021-08-24] MEDS: LEVOTHYROXINE 50 MCG TABLET PO SCH (06:01)
[2021-08-24] MEDS: ACETAMINOPHEN 325 MG TABLET PO PRN (06:14)
[2021-08-24 06:32] LABS: BASO % 1 % (0-3); EOS # 0.3 x10^3/uL (0.0-0.7); EOS % 4 % (0-3); HEMATOCRIT 36.8 % (36.0-47.0); HEMOGLOBIN 11.9 g/dL (12.0-15.5); LYMPH # 1.7 x10^3/uL (1.0-4.8); LYMPH % 26 % (24-48); MEAN CORPUSCULAR HEMOGLOBIN 29 pg (25-35); MEAN CORPUSCULAR HGB CONC 32 g/dL (31-37); MEAN CORPUSCULAR VOLUME 88 fL (79-100); MONO # 0.4 x10^3/uL (0.0-1.1); MONO % 6 % (0-9); NEUT # 4.2 x10^3uL (1.8-7.7); NEUT % 63 % (31-73); PLATELET COUNT 344 x10^3/uL (140-400); RED BLOOD COUNT 4.18 x10^6/uL (3.50-5.40); RED CELL DISTRIBUTION WIDTH 15.3 % (11.5-14.5); WHITE BLOOD COUNT 6.7 x10^3/uL (4.0-11.0)
[2021-08-24 06:42] LABS: ALBUMIN 3.5 g/dL (3.4-5.0); ALBUMIN/GLOBULIN RATIO 1.2 (1.0-1.7); CALCIUM 8.9 mg/dL (8.5-10.1); CREATININE 0.7 mg/dL (0.6-1.0); GFR 79.3; TOTAL BILIRUBIN 0.2 mg/dL (0.2-1.0); TOTAL PROTEIN 6.4 g/dL (6.4-8.2)
[2021-08-24] MEDS: PANTOPRAZOLE 40 MG TABLET. PO SCH (07:38)
[2021-08-24] MEDS: CITALOPRAM 20 MG TABLET. PO SCH (07:38)
[2021-08-24] MEDS: POLYETHYLENE GLYCOL 3350 17 GM PACKET. PO SCH ×2 (07:38→21:23)
[2021-08-24] MEDS: PRAMIPEXOLE 0.25 MG TABLET. PO SCH ×3 (07:39→21:23)
[2021-08-24] MEDS: LUBIPROSTONE 24 MCG CAPSULE PO SCH ×2 (07:39→17:47)
[2021-08-24] MEDS: busPIRone 10 MG TABLET. PO SCH ×2 (07:39→21:24)
[2021-08-24] MEDS: metFORMIN 500 MG TABLET PO SCH ×2 (07:39→17:47)
[2021-08-24] MEDS: clonazePAM 0.5 MG TABLET PO SCH ×2 (07:40→21:27)
[2021-08-24] MEDS: EMPAGLIFLOZIN 10 MG TABLET. PO SCH (07:41)
[2021-08-24] MEDS: HYDROXYCHLOROQUINE 200 MG TABLET PO SCH (07:41)
--- NOTE | 2021-08-24 08:43 | PDOC ---
Exam Note: Gino Note: Late entry for 08/23/2021.Please also refer to the separate dictated note~for this date of service dictated separately.~Patient seen individually. Discussed the patient with Nursing staff reviewed the chart.~Reviewed interim history and current functioning. Reviewed vital signs,~Labs/ Radiology~and current medica tions noted below. Continue current treatment with the changes noted in the dictated addendum note Assessment: Vital Signs/I&O: Vital Signs Date Time Temp Pulse Resp B/P (MAP) Pulse Ox O2 Delivery O2 Flow Rate FiO2 08/24/21 05:44 98.1 83 16 139/55 (83) 92 08/22/21 05:51 Room Air I & O 08/23/21 08/23/21 08/24/21 15:00 23:00 07:00 Intake Total 720 ml 280 ml Balance 720 ml 280 ml Labs: Laboratory Tests Test 08/23/21 11:40 08/23/21 16:40 08/23/21 19:14 08/24/21 06:07 Glucose (Fingerstick) 152 mg/dL (70-99) H 121 mg/dL (70-99) H 144 mg/dL (70-99) H White Blood Count 6.7 x10^3/uL (4.0-11.0) Red Blood Count 4.18 x10^6/uL (3.50-5.40) Hemoglobin 11.9 g/dL (12.0-15.5) L Hematocrit 36.8 % (36.0-47.0) Mean Corpuscular Volume 88 fL (79-100) Mean Corpuscular Hemoglobin 29 pg (25-35) Mean Corpuscular Hemoglobin Concent 32 g/dL (31-37) Red Cell Distribution Width 15.3 % (11.5-14.5) H Platelet Count 344 x10^3/uL (140-400) Neutrophils (%) (Auto) 63 % (31-73) Lymphocytes (%) (Auto) 26 % (24-48) Monocytes (%) (Auto) 6 % (0-9) Eosinophils (%) (Auto) 4 % (0-3) H Basophils (%) (Auto) 1 % (0-3) Neutrophils # (Auto) 4.2 x10^3uL (1.8-7.7) Lymphocytes # (Auto) 1.7 x10^3/uL (1.0-4.8) Monocytes # (Auto) 0.4 x10^3/uL (0.0-1.1) Eosinophils # (Auto) 0.3 x10^3/uL (0.0-0.7) Basophils # (Auto) 0.0 x10^3/uL (0.0-0.2) Sodium Level 137 mmol/L (136-145) Potassium Level 4.0 mmol/L (3.5-5.1) Chloride Level 102 mmol/L (98-107) Carbon Dioxide Level 29 mmol/L (21-32) Anion Gap 6 (6-14) Blood Urea Nitrogen 31 mg/dL (7-20) H Creatinine 0.7 mg/dL (0.6-1.0) Estimated GFR (Cockcroft-Gault) 79.3 BUN/Creatinine Ratio 44 (6-20) H Glucose Level 115 mg/dL (70-99) H Calcium Level 8.9 mg/dL (8.5-10.1) Total Bilirubin 0.2 mg/dL (0.2-1.0) Aspartate Amino Transferase (AST) 18 U/L (15-37) Alanine Aminotransferase (ALT) 20 U/L (14-59) Alkaline Phosphatase 65 U/L (46-116) Total Protein 6.4 g/dL (6.4-8.2) Albumin 3.5 g/dL (3.4-5.0) Albumin/Globulin Ratio 1.2 (1.0-1.7) Test 08/24/21 07:37 Glucose (Fingerstick) 168 mg/dL (70-99) H Current Medications: Meds: Current Medications Medications (Trade) Dose Ordered Sig/Ras Route PRN Reason Start Time Stop Time Status Last Admin Dose Admin Quetiapine Fumarate (SEROquel) 37.5 mg QHS PO 08/23/21 21:00 08/23/21 20:06 Simethicone (Gas-X) 80 mg PRN QID PRN PO GAS / BLOATING 08/23/21 16:30 08/23/21 20:08 I have reviewed the current psychotropics carefully including drug interactions. Risk benefit ratio favors no change other than as noted in my dictated progress note. Diagnosis: Problems: (1) Major depressive disorder with psychotic features (2) Parkinson's disease (3) Anxiety disorder, unspecified (4) Mild cognitive impairment RANJITH HAWKINS MD Aug 24, 2021 08:43
[2021-08-24] MEDS: SIMETHICONE 80 MG TAB.CHEW PO PRN (09:09)
--- NOTE | 2021-08-24 11:13 | NUR ---
WEEKLY ACTIVITY THERAPY NOTE Date of Admission:08/17/21 Date of AT Assessment: 08/18 Precipitating behaviors that initiated intake and admission: agitated, anxious, attempted to hit staff, name calling, yelling to call police and "get the people out", delusional, talking to people not there, refusing meds, seeing children, sundowning Goal aimed: increase engagement and stress management skills Initial Goal: Pt will participate in at least three Activity Therapy sessions per week Weekly progress towards goal: goal evaluation begins next week Group participation level: none Weekly highlights: move to group therapy side 08/25 Behaviors observed: Plan: move 08/25 Beneficial adaptations:
--- NOTE | 2021-08-24 13:00 | NUR ---
Nursing note: Pt has been pleasant, med compliant and cooperative this shift. She denies having any pain/concerns at time of assessment. She is currently sitting quietly in her room following lunch. Will continue to monitor.
[2021-08-24 15:41] VITALS: BP 106/65
--- NOTE | 2021-08-24 15:47 | RAD ---
INDICATION: Reason: fell and has hematoma / Spl. Instructions: / History: COMPARISON: August 19, 2021 TECHNIQUE: Axial CT images obtained through the head without intravenous contrast. One or more of the following individualized dose reduction techniques were utilized for this examinat ion: 1. Automated exposure control; 2. Adjustment of the mA and/or kV according to patient size; 3 . Use of iterative reconstruction technique. FINDINGS: No intracranial hemorrhage. No significant midline shift. Ventricles and sulci are globally prominent. Scattered foci of low attenuation within the white matter. IMPRESSION: * No acute intracranial hemorrhage. * Scattered regions of low attenuation within the white matter. Non-specific in nature but a common finding and frequently secondary to small vessel ischemic disease. * Small left-sided scalp cephalohematoma. Electronically signed by: Jaun Stone MD (08/24/2021 3:45 PM) [id number]
--- NOTE | 2021-08-24 16:00 | NUR ---
Nursing note: Staff were doing their 15 minute rounds when they found pt on the floor of her bathroom, as well as the wheelchair knocked over. Pt stated the "wheels are lopsided, which made me tip over." Pt has skin tear to left elbow and hematoma to the left side of her head. Wounds were cleansed and dressed. Pt denies having any pain. Dr. Russell notified. New order received for head CT. Pt's DPOA notified and provided an update and questions answered. Pt is currently sitting in her room. Will continue to monitor.
--- NOTE | 2021-08-24 16:32 | NUR ---
Treatment team update: Pt is eating roughly 25% of meals and sleeping on average 5 hours per night. Pt is pleasant and more compliant with medications whole. As of this morning pt has not had any hallucinations and has not attempted to participate in any groups. Now that pt is on a lesser dose of the Clonazepam, pt will start an SSRI Zoloft 25mg daily for three days then increase to 50mg. Pt family has found new placement at [facility]; however, pt and her will not be able to move there until the middle of August. SW will continue to follow up with the family and make arrangements for discharge for the end of next week if not the beginning of the week after.
[2021-08-24] MEDS: QUEtiapine 25 MG TABLET. PO SCH (21:24)
[2021-08-24] MEDS: MELATONIN 3 MG TABLET PO SCH (21:24)
[2021-08-24] MEDS: MIRTAZAPINE 7.5 MG TABLET. PO SCH (21:27)
[2021-08-24] MEDS: PROPRANOLOL 20 MG TABLET. PO SCH (21:30)
--- NOTE | 2021-08-24 21:41 | PDOC ---
Exam Note: Gino Note: Please also refer to the separate dictated note~for this date of service dictated separately.~Patient seen individually. Discussed the patient with Nursing staff reviewed the chart.~Reviewed interim history and current functioning. Reviewed vital signs,~Labs/ Radiology~and current medications noted below. Continue current treatment with the changes noted in the dictated addendum note Assessment: Vital Signs/I&O: Vital Signs Date Time Temp Pulse Resp B/P (MAP) Pulse Ox O2 Delivery O2 Flow Rate FiO2 08/24/21 21:30 95 106/65 08/24/21 15:41 98.5 20 97 Room Air I & O 08/23/21 08/23/21 08/24/21 15:00 23:00 07:00 Intake Total 720 ml 280 ml Balance 720 ml 280 ml Labs: Laboratory Tests Test 08/24/21 06:07 08/24/21 07:37 08/24/21 12:08 08/24/21 17:07 White Blood Count 6.7 x10^3/uL (4.0-11.0) Red Blood Count 4.18 x10^6/uL (3.50-5.40) Hemoglobin 11.9 g/dL (12.0-15.5) L Hematocrit 36.8 % (36.0-47.0) Mean Corpuscular Volume 88 fL (79-100) Mean Corpuscular Hemoglobin 29 pg (25-35) Mean Corpuscular Hemoglobin Concent 32 g/dL (31-37) Red Cell Distribution Width 15.3 % (11.5-14.5) H Platelet Count 344 x10^3/uL (140-400) Neutrophils (%) (Auto) 63 % (31-73) Lymphocytes (%) (Auto) 26 % (24-48) Monocytes (%) (Auto) 6 % (0-9) Eosinophils (%) (Auto) 4 % (0-3) H Basophils (%) (Auto) 1 % (0-3) Neutrophils # (Auto) 4.2 x10^3uL (1.8-7.7) Lymphocytes # (Auto) 1.7 x10^3/uL (1.0-4.8) Monocytes # (Auto) 0.4 x10^3/uL (0.0-1.1) Eosinophils # (Auto) 0.3 x10^3/uL (0.0-0.7) Basophils # (Auto) 0.0 x10^3/uL (0.0-0.2) Sodium Level 137 mmol/L (136-145) Potassium Level 4.0 mmol/L (3.5-5.1) Chloride Level 102 mmol/L (98-107) Carbon Dioxide Level 29 mmol/L (21-32) Anion Gap 6 (6-14) Blood Urea Nitrogen 31 mg/dL (7-20) H Creatinine 0.7 mg/dL (0.6-1.0) Estimated GFR (Cockcroft-Gault) 79.3 BUN/Creatinine Ratio 44 (6-20) H Glucose Level 115 mg/dL (70-99) H Calcium Level 8.9 mg/dL (8.5-10.1) Total Bilirubin 0.2 mg/dL (0.2-1.0) Aspartate Amino Transferase (AST) 18 U/L (15-37) Alanine Aminotransferase (ALT) 20 U/L (14-59) Alkaline Phosphatase 65 U/L (46-116) Total Protein 6.4 g/dL (6.4-8.2) Albumin 3.5 g/dL (3.4-5.0) Albumin/Globulin Ratio 1.2 (1.0-1.7) Glucose (Fingerstick) 168 mg/dL (70-99) H 142 mg/dL (70-99) H 156 mg/dL (70-99) H Test 08/24/21 19:29 Glucose (Fingerstick) 206 mg/dL (70-99) H Current Medications: Meds: Laboratory Tests Test 08/24/21 06:07 08/24/21 07:37 08/24/21 12:08 08/24/21 17:07 White Blood Count 6.7 x10^3/uL Red Blood Count 4.18 x10^6/uL Hemoglobin 11.9 g/dL Hematocrit 36.8 % Mean Corpuscular Volume 88 fL Mean Corpuscular Hemoglobin 29 pg Mean Corpuscular Hemoglobin Concent 32 g/dL Red Cell Distribution Width 15.3 % Platelet Count 344 x10^3/uL Neutrophils (%) (Auto) 63 % Lymphocytes (%) (Auto) 26 % Monocytes (%) (Auto) 6 % Eosinophils (%) (Auto) 4 % Basophils (%) (Auto) 1 % Neutrophils # (Auto) 4.2 x10^3uL Lymphocytes # (Auto) 1.7 x10^3/uL Monocytes # (Auto) 0.4 x10^3/uL Eosinophils # (Auto) 0.3 x10^3/uL Basophils # (Auto) 0.0 x10^3/uL Sodium Level 137 mmol/L Potassium Level 4.0 mmol/L Chloride Level 102 mmol/L Carbon Dioxide Level 29 mmol/L Anion Gap 6 Blood Urea Nitrogen 31 mg/dL Creatinine 0.7 mg/dL Estimated GFR (Cockcroft-Gault) 79.3 BUN/Creatinine Ratio 44 Glucose Level 115 mg/dL Calcium Level 8.9 mg/dL Total Bilirubin 0.2 mg/dL Aspartate Amino Transf (AST/SGOT) 18 U/L Alanine Aminotransferase (ALT/SGPT) 20 U/L Alkaline Phosphatase 65 U/L Total Protein 6.4 g/dL Albumin 3.5 g/dL Albumin/Globulin Ratio 1.2 Glucose (Fingerstick) 168 mg/dL 142 mg/dL 156 mg/dL Test 08/24/21 19:29 Glucose (Fingerstick) 206 mg/dL Current Medications Medications (Trade) Dose Ordered Sig/Ras Route PRN Reason Start Time Stop Time Status Last Admin Dose Admin Acetaminophen (Tylenol) 650 mg PRN Q6HRS PRN PO MILD PAIN / TEMP > 100.3'F 08/17/21 16:00 08/24/21 06:14 Multi-Ingredient Ointment (Analgesic [place]) 1 annamarie PRN QID PRN TP MUSCLE PAIN 08/17/21 16:00 Al Hydroxide/Mg Hydroxide (Mylanta Plus Xs) 15 ml PRN AFTMEALHC PRN PO DYSPEPSIA 08/17/21 16:00 08/23/21 08:56 Magnesium Hydroxide (Milk Of Magnesia) 2,400 mg PRN QHS PRN PO 1st choice CONSTIPATION 08/17/21 16:00 Buspirone HCl (Buspar) 10 mg BID PO 08/17/21 21:00 08/24/21 21:24 Calcium Carbonate/ Glycine (Tums) 500 mg PRN Q6HRS PRN PO INDIGESTION 08/17/21 18:15 08/18/21 11:01 DC Clonazepam (KlonoPIN) 0.5 mg BID PO 08/17/21 21:00 08/19/21 20:11 DC 08/19/21 09:06 Empaglifozin (Jardiance) 10 mg DAILY PO 08/18/21 09:00 08/24/21 07:41 Hydroxychloroquine Sulfate (Plaquenil) 400 mg DAILY PO 08/18/21 09:00 08/24/21 07:41 Hydroxyzine HCl (Atarax) 25 mg PRN Q8HRS PRN PO ANXIETY 08/17/21 18:15 08/18/21 11:01 DC 08/18/21 10:04 Levothyroxine Sodium (Synthroid) 25 mcg DAILY06 PO 08/18/21 06:00 08/20/21 10:10 DC 08/20/21 06:07 Melatonin (Melatonin) 3 mg QHS PO 08/17/21 21:00 08/24/21 21:24 Polyethylene Glycol (miraLAX) 17 gm BID PO 08/17/21 21:00 08/24/21 21:23 Pramipexole Dihydrochloride (miraPEX) 0.25 mg TID PO 08/17/21 21:00 08/24/21 21:23 Propranolol HCl (Inderal) 20 mg QHS PO 08/17/21 21:00 08/24/21 21:30 Sennosides (Senna) 8.6 mg DAILY PO 08/18/21 09:00 08/18/21 11:01 DC 08/18/21 09:47 Simethicone (Gas-X) 80 mg PRN Q6HRS PRN PO GAS / BLOATING 08/17/21 18:00 08/18/21 11:17 DC Simethicone (Gas-X) 80 mg TID PO 08/17/21 21:00 08/18/21 11:01 DC 08/18/21 09:46 Trimethoprim/ Sulfamethoxazole (Bactrim Ds) 1 tab BID PO 08/17/21 21:00 08/23/21 21:30 DC 08/23/21 20:06 Tramadol HCl (Ultram) 50 mg PRN Q6HRS PRN PO mod-sev PAIN 08/17/21 18:00 08/21/21 12:10 Trazodone HCl (Desyrel) 50 mg QHS PO 08/17/21 21:00 08/22/21 20:25 DC 08/21/21 21:00 Non-Formulary Medication (Aspirin/Sod Bicarb/Citric Acid ([place]ene[place] Original Tab Eff)) 325 mg PRN Q24HRS PRN PO DYSPEPSIA 08/17/21 18:00 UNV Capsaicin (Zostrix) 1 annamarie PRN Q12HR PRN TP PAIN 08/17/21 18:45 08/18/21 11:01 DC Carbidopa/Levodopa (Sinemet 25/100) 2 tab [id number] PO 08/17/21 18:30 08/24/21 17:47 Citalopram Hydrobromide (CeleXA) 40 mg DAILY PO 08/18/21 09:00 08/24/21 07:38 Glycerin (Sani-Supp Adult) 1 supp PRN Q24HRS PRN [place] 2nd choice CONSTIPATION 08/17/21 18:45 Lactobacillus Rhamnosus (Culturelle) 1 cap BID PO 08/17/21 21:00 08/18/21 11:01 DC 08/18/21 09:47 Lubiprostone (Amitiza) 24 mcg BIDWMEALS PO 08/18/21 08:00 08/24/21 17:47 Cetirizine HCl (ZyrTEC) 10 mg DAILY PO 08/18/21 09:00 08/18/21 11:01 DC 08/18/21 09:47 Magnesium Oxide (Magnesium Oxide) 400 mg DAILY PO 08/18/21 09:00 08/18/21 11:01 DC 08/18/21 09:47 Metformin HCl (Glucophage) 1,000 mg BIDWMEALS PO 08/18/21 08:00 08/24/21 17:47 Pantoprazole Sodium (Protonix) 40 mg DAILYAC PO 08/18/21 07:30 08/24/21 07:38 Ondansetron HCl (Zofran Odt) 4 mg PRN Q6HRS PRN PO NAUSEA/VOMITING 08/17/21 18:30 Non-Formulary Medication (Trolamine Salicylate/Aloe Vera (Aspercreme 10% Cream)) 1 annamarie PRN BID PRN TP PAIN 08/17/21 18:00 UNV Olanzapine (ZyPREXA ZYDIS) 1.25 mg PRN Q2HRS PRN PO PSYCHOSIS 08/18/21 12:00 08/24/21 17:47 Clonazepam (KlonoPIN) 0.25 mg DAILY PO 08/20/21 09:00 08/24/21 07:40 Clonazepam (KlonoPIN) 0.5 mg HS PO 08/19/21 21:00 08/22/21 19:00 DC 08/21/21 21:05 Clonazepam (KlonoPIN) 0.25 mg HS PO 08/22/21 21:00 08/24/21 21:27 Levothyroxine Sodium (Synthroid) 50 mcg DAILY06 PO 08/21/21 06:00 08/24/21 06:01 Quetiapine Fumarate (SEROquel) 25 mg QHS PO 08/20/21 21:00 08/23/21 16:13 DC 08/22/21 21:49 Trazodone HCl (Desyrel) 50 mg PRN QHS PRN PO INSOMNIA, MAY REPEAT X1 08/22/21 20:30 08/23/21 20:09 Mirtazapine (Remeron) 7.5 mg QHS PO 08/22/21 21:00 08/24/21 21:27 Quetiapine Fumarate (SEROquel) 37.5 mg QHS PO 08/23/21 21:00 08/24/21 21:24 Simethicone (Gas-X) 80 mg PRN QID PRN PO GAS / BLOATING 08/23/21 16:30 08/24/21 09:09 Sertraline HCl (Zoloft) 25 mg DAILY PO 08/25/21 09:00 08/27/21 21:00 Sertraline HCl (Zoloft) 50 mg DAILY PO 08/28/21 09:00 I have reviewed the current psychotropics carefully including drug interactions. Risk benefit ratio favors no change other than as noted in my dictated progress note. 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
--- NOTE | 2021-08-24 23:22 | NUR ---
Nursing Note The patient was located in her room for assessment and medication pass. The patient was alert to name only but was also very hard of hearing. The patient was compliant with medication and took them whole. The patient was interactive with staff during HS cares. Currently sleeping in her room.
[2021-08-25] MEDS: CARBIDOPA/LEVODOPA 25/100MG TABLET PO SCH ×5 (06:28→23:37)
[2021-08-25] MEDS: LEVOTHYROXINE 50 MCG TABLET PO SCH (06:28)
[2021-08-25 06:34] VITALS: BP 120/75
[2021-08-25] MEDS: PANTOPRAZOLE 40 MG TABLET. PO SCH (08:27)
[2021-08-25] MEDS: LUBIPROSTONE 24 MCG CAPSULE PO SCH ×2 (08:28→16:04)
[2021-08-25] MEDS: SERTRALINE 25 MG TABLET. PO SCH (08:28)
[2021-08-25] MEDS: metFORMIN 500 MG TABLET PO SCH ×2 (08:28→16:04)
[2021-08-25] MEDS: EMPAGLIFLOZIN 10 MG TABLET. PO SCH (08:28)
[2021-08-25] MEDS: HYDROXYCHLOROQUINE 200 MG TABLET PO SCH (08:28)
[2021-08-25] MEDS: busPIRone 10 MG TABLET. PO SCH ×2 (08:28→21:33)
[2021-08-25] MEDS: clonazePAM 0.5 MG TABLET PO SCH ×2 (08:28→21:34)
[2021-08-25] MEDS: CITALOPRAM 20 MG TABLET. PO SCH (08:28)
[2021-08-25] MEDS: PRAMIPEXOLE 0.25 MG TABLET. PO SCH ×4 (08:28→21:34)
[2021-08-25] MEDS: POLYETHYLENE GLYCOL 3350 17 GM PACKET. PO SCH ×3 (08:29→21:35)
--- NOTE | 2021-08-25 09:55 | NUR ---
Pt presents and calm and appropriate on the unit. She is compliant with medications and is able to make her needs known to staff. A&O to self only, absent of SI/HI/VH/AH at this time. She denies pain when asked. Plan of care continues, will pass to next shift.
[2021-08-25 15:31] VITALS: BP 102/56
--- NOTE | 2021-08-25 16:24 | NUR ---
Pt elevating in anxiety regarding calling various family members and having them visit and/or take her home. She is not receptive to redirection. PRN Zyprexa 1.25 mg PO administered
[2021-08-25] MEDS: PROPRANOLOL 20 MG TABLET. PO SCH (21:00)
[2021-08-25] MEDS: QUEtiapine 25 MG TABLET. PO SCH (21:34)
[2021-08-25] MEDS: MIRTAZAPINE 7.5 MG TABLET. PO SCH (21:34)
[2021-08-25] MEDS: MELATONIN 3 MG TABLET PO SCH (21:34)
--- NOTE | 2021-08-25 21:46 | PDOC ---
Exam Note: Gino Note: Please also refer to the separate dictated note~for this date of service dictated separately.~Patient seen individually. Discussed the patient with Nursing staff reviewed the chart.~Reviewed interim history and current functioning. Reviewed vital signs,~Labs/ Radiology~and current medications noted below. Continue current treatment with the changes noted in the dictated addendum note Assessment: Vital Signs/I&O: Vital Signs Date Time Temp Pulse Resp B/P (MAP) Pulse Ox O2 Delivery O2 Flow Rate FiO2 08/25/21 15:31 97.3 78 17 102/56 (71) 98 08/25/21 06:34 Room Air I & O 08/24/21 08/24/21 08/25/21 15:00 23:00 07:00 Intake Total 830 ml 470 ml Balance 830 ml 470 ml Labs: Laboratory Tests Test 08/25/21 07:42 08/25/21 11:21 08/25/21 16:42 08/25/21 19:46 Glucose (Fingerstick) 159 mg/dL (70-99) H 128 mg/dL (70-99) H 121 mg/dL (70-99) H 152 mg/dL (70-99) H Current Medications: Meds: Laboratory Tests Test 08/25/21 07:42 08/25/21 11:21 08/25/21 16:42 08/25/21 19:46 Glucose (Fingerstick) 159 mg/dL 128 mg/dL 121 mg/dL 152 mg/dL Current Medications Medications (Trade) Dose Ordered Sig/Ras Route PRN Reason Start Time Stop Time Status Last Admin Dose Admin Acetaminophen (Tylenol) 650 mg PRN Q6HRS PRN PO MILD PAIN / TEMP > 100.3'F 08/17/21 16:00 08/24/21 06:14 Multi-Ingredient Ointment (Analgesic [place]) 1 annamarie PRN QID PRN TP MUSCLE PAIN 08/17/21 16:00 Al Hydroxide/Mg Hydroxide (Mylanta Plus Xs) 15 ml PRN AFTMEALHC PRN PO DYSPEPSIA 08/17/21 16:00 08/23/21 08:56 Magnesium Hydroxide (Milk Of Magnesia) 2,400 mg PRN QHS PRN PO 1st choice CONSTIPATION 08/17/21 16:00 Buspirone HCl (Buspar) 10 mg BID PO 08/17/21 21:00 08/25/21 21:33 Calcium Carbonate/ Glycine (Tums) 500 mg PRN Q6HRS PRN PO INDIGESTION 08/17/21 18:15 08/18/21 11:01 DC Clonazepam (KlonoPIN) 0.5 mg BID PO 08/17/21 21:00 08/19/21 20:11 DC 08/19/21 09:06 Empaglifozin (Jardiance) 10 mg DAILY PO 08/18/21 09:00 08/25/21 08:28 Hydroxychloroquine Sulfate (Plaquenil) 400 mg DAILY PO 08/18/21 09:00 08/25/21 08:28 Hydroxyzine HCl (Atarax) 25 mg PRN Q8HRS PRN PO ANXIETY 08/17/21 18:15 08/18/21 11:01 DC 08/18/21 10:04 Levothyroxine Sodium (Synthroid) 25 mcg DAILY06 PO 08/18/21 06:00 08/20/21 10:10 DC 08/20/21 06:07 Melatonin (Melatonin) 3 mg QHS PO 08/17/21 21:00 08/25/21 21:34 Polyethylene Glycol (miraLAX) 17 gm BID PO 08/17/21 21:00 08/25/21 21:35 Pramipexole Dihydrochloride (miraPEX) 0.25 mg TID PO 08/17/21 21:00 08/25/21 21:34 Propranolol HCl (Inderal) 20 mg QHS PO 08/17/21 21:00 08/24/21 21:30 Sennosides (Senna) 8.6 mg DAILY PO 08/18/21 09:00 08/18/21 11:01 DC 08/18/21 09:47 Simethicone (Gas-X) 80 mg PRN Q6HRS PRN PO GAS / BLOATING 08/17/21 18:00 08/18/21 11:17 DC Simethicone (Gas-X) 80 mg TID PO 08/17/21 21:00 08/18/21 11:01 DC 08/18/21 09:46 Trimethoprim/ Sulfamethoxazole (Bactrim Ds) 1 tab BID PO 08/17/21 21:00 08/23/21 21:30 DC 08/23/21 20:06 Tramadol HCl (Ultram) 50 mg PRN Q6HRS PRN PO mod-sev PAIN 08/17/21 18:00 08/21/21 12:10 Trazodone HCl (Desyrel) 50 mg QHS PO 08/17/21 21:00 08/22/21 20:25 DC 08/21/21 21:00 Non-Formulary Medication (Aspirin/Sod Bicarb/Citric Acid ([place]enee[place] Original Tab Eff)) 325 mg PRN Q24HRS PRN PO DYSPEPSIA 08/17/21 18:00 UNV Capsaicin (Zostrix) 1 annamarie PRN Q12HR PRN TP PAIN 08/17/21 18:45 08/18/21 11:01 DC Carbidopa/Levodopa (Sinemet 25/) 2 tab [id number] PO 08/17/21 18:30 08/25/21 16:07 Citalopram Hydrobromide (CeleXA) 40 mg DAILY PO 08/18/21 09:00 08/25/21 08:28 Glycerin (Sani-Supp Adult) 1 supp PRN Q24HRS PRN [place] 2nd choice CONSTIPATION 08/17/21 18:45 Lactobacillus Rhamnosus (Culturelle) 1 cap BID PO 08/17/21 21:00 08/18/21 11:01 DC 08/18/21 09:47 Lubiprostone (Amitiza) 24 mcg BIDWMEALS PO 08/18/21 08:00 08/25/21 16:04 Cetirizine HCl (ZyrTEC) 10 mg DAILY PO 08/18/21 09:00 08/18/21 11:01 DC 08/18/21 09:47 Magnesium Oxide (Magnesium Oxide) 400 mg DAILY PO 08/18/21 09:00 08/18/21 11:01 DC 08/18/21 09:47 Metformin HCl (Glucophage) 1,000 mg BIDWMEALS PO 08/18/21 08:00 08/25/21 16:04 Pantoprazole Sodium (Protonix) 40 mg DAILYAC PO 08/18/21 07:30 08/25/21 08:27 Ondansetron HCl (Zofran Odt) 4 mg PRN Q6HRS PRN PO NAUSEA/VOMITING 10/21/21 18:30 Non-Formulary Medication (Trolamine Salicylate/Aloe Vera (Aspercreme 10% Cream)) 1 annamarie PRN BID PRN TP PAIN 08/17/21 18:00 UNV Olanzapine (ZyPREXA ZYDIS) 1.25 mg PRN Q2HRS PRN PO PSYCHOSIS 08/18/21 12:00 08/25/21 16:04 Clonazepam (KlonoPIN) 0.25 mg DAILY PO 08/20/21 09:00 08/25/21 08:28 Clonazepam (KlonoPIN) 0.5 mg HS PO 08/19/21 21:00 08/22/21 19:00 DC 08/21/21 21:05 Clonazepam (KlonoPIN) 0.25 mg HS PO 08/22/21 21:00 08/25/21 21:34 Levothyroxine Sodium (Synthroid) 50 mcg DAILY06 PO 08/21/21 06:00 08/25/21 06:28 Quetiapine Fumarate (SEROquel) 25 mg QHS PO 08/20/21 21:00 08/23/21 16:13 DC 08/22/21 21:49 Trazodone HCl (Desyrel) 50 mg PRN QHS PRN PO INSOMNIA, MAY REPEAT X1 08/22/21 20:30 08/23/21 20:09 Mirtazapine (Remeron) 7.5 mg QHS PO 08/22/21 21:00 08/25/21 21:34 Quetiapine Fumarate (SEROquel) 37.5 mg QHS PO 08/23/21 21:00 08/25/21 21:34 Simethicone (Gas-X) 80 mg PRN QID PRN PO GAS / BLOATING 08/23/21 16:30 08/24/21 09:09 Sertraline HCl (Zoloft) 25 mg DAILY PO 08/25/21 09:00 08/27/21 21:00 08/25/21 08:28 Sertraline HCl (Zoloft) 50 mg DAILY PO 08/28/21 09:00 Current Medications Medications (Trade) Dose Ordered Sig/Ras Route PRN Reason Start Time Stop Time Status Last Admin Dose Admin Sertraline HCl (Zoloft) 25 mg DAILY PO 08/25/21 09:00 08/27/21 21:00 08/25/21 08:28 I have reviewed the current psychotropics carefully including drug interactions. Risk benefit ratio favors no change other than as noted in my dictated progress note. 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
[2021-08-25] MEDS: traZODone 50 MG TABLET. PO PRN (23:37)
--- NOTE | 2021-08-25 23:46 | NUR ---
PRN Trazodone given on pt request saying she is having trouble sleeping. Pt has been in her room tonight and has been pleasant and cooperative with staff. Meds were taken whole without difficulty. She reports feeling better now than on admit is oriented at present and denies hallucinations. Shortly after using toilet and taking meds pt fell to sleep.
[2021-08-26] MEDS: CARBIDOPA/LEVODOPA 25/100MG TABLET PO SCH ×3 (05:39→17:44)
[2021-08-26] MEDS: LEVOTHYROXINE 50 MCG TABLET PO SCH (05:39)
[2021-08-26 06:05] VITALS: BP 126/72
[2021-08-26] MEDS: PANTOPRAZOLE 40 MG TABLET. PO SCH (09:14)
[2021-08-26] MEDS: busPIRone 10 MG TABLET. PO SCH ×2 (09:14→19:44)
[2021-08-26] MEDS: POLYETHYLENE GLYCOL 3350 17 GM PACKET. PO SCH ×2 (09:14→21:00)
[2021-08-26] MEDS: LUBIPROSTONE 24 MCG CAPSULE PO SCH ×2 (09:15→17:44)
[2021-08-26] MEDS: metFORMIN 500 MG TABLET PO SCH ×2 (09:15→17:45)
[2021-08-26] MEDS: CITALOPRAM 20 MG TABLET. PO SCH (09:15)
[2021-08-26] MEDS: SERTRALINE 25 MG TABLET. PO SCH (09:15)
[2021-08-26] MEDS: PRAMIPEXOLE 0.25 MG TABLET. PO SCH ×3 (09:15→19:44)
[2021-08-26] MEDS: clonazePAM 0.5 MG TABLET PO SCH ×2 (09:16→19:44)
[2021-08-26] MEDS: HYDROXYCHLOROQUINE 200 MG TABLET PO SCH (09:28)
[2021-08-26] MEDS: EMPAGLIFLOZIN 10 MG TABLET. PO SCH (09:28)
[2021-08-26] MEDS: traMADol 50 MG TABLET PO PRN ×2 (13:06→19:48)
--- NOTE | 2021-08-26 14:03 | NUR ---
RN Day Shift Note: Pt presents with pleasant mood/affect. Pt is social on the unit with select peers and staff. Pt is approachable and engages with staff. Pt follows rules/routines on a unit. Pt is noted to spend her time in the day room with peers. Pt's vitals are WNL. Pt slept 5.75 hours last night. Pt ate 50% of her breakfast and 100% of her lunch. Pt had a PRN Tramadol for lower back pain. Pt is medication compliant. Pt denies SI/HI. Pt stated at lunch time, "I need to see the doctor so I can go home. I do not need to be here, there is nothing wrong with me. I need to get home to see my grandbabies. My daughter works and they need my help." Will continue to monitor.
[2021-08-26 16:27] VITALS: BP 106/57
[2021-08-26] MEDS: ACETAMINOPHEN 325 MG TABLET PO PRN (16:38)
[2021-08-26] MEDS: MELATONIN 3 MG TABLET PO SCH (19:44)
[2021-08-26] MEDS: MIRTAZAPINE 7.5 MG TABLET. PO SCH (19:44)
[2021-08-26] MEDS: QUEtiapine 25 MG TABLET. PO SCH (19:44)
[2021-08-26] MEDS: PROPRANOLOL 20 MG TABLET. PO SCH (19:45)
--- NOTE | 2021-08-26 20:00 | NUR ---
PRN pain med given for hip pain. Pt wheeling herself around in her room and is pleasant and social with staff. SHe took meds whole without difficulty. After Dr Hargrove visit pt is excitedly telling everyone that she is going home Saturday. She has had no behaviors tonight.
[2021-08-27] MEDS: CARBIDOPA/LEVODOPA 25/100MG TABLET PO SCH ×4 (05:38→17:28)
[2021-08-27] MEDS: LEVOTHYROXINE 50 MCG TABLET PO SCH (05:38)
[2021-08-27 06:15] VITALS: BP 112/67
[2021-08-27] MEDS: CITALOPRAM 20 MG TABLET. PO SCH (08:29)
[2021-08-27] MEDS: EMPAGLIFLOZIN 10 MG TABLET. PO SCH (08:29)
[2021-08-27] MEDS: LUBIPROSTONE 24 MCG CAPSULE PO SCH ×2 (08:29→17:28)
[2021-08-27] MEDS: busPIRone 10 MG TABLET. PO SCH ×2 (08:29→20:04)
[2021-08-27] MEDS: PANTOPRAZOLE 40 MG TABLET. PO SCH (08:29)
[2021-08-27] MEDS: metFORMIN 500 MG TABLET PO SCH ×2 (08:29→17:28)
[2021-08-27] MEDS: HYDROXYCHLOROQUINE 200 MG TABLET PO SCH (08:29)
[2021-08-27] MEDS: clonazePAM 0.5 MG TABLET PO SCH ×2 (08:30→20:06)
[2021-08-27] MEDS: POLYETHYLENE GLYCOL 3350 17 GM PACKET. PO SCH ×2 (08:30→19:42)
[2021-08-27] MEDS: PRAMIPEXOLE 0.25 MG TABLET. PO SCH ×3 (08:30→20:06)
[2021-08-27] MEDS: SERTRALINE 25 MG TABLET. PO SCH (08:30)
--- NOTE | 2021-08-27 10:05 | PDOC ---
Exam Note: Gino Note: This note is a late entry for 08/23/2021 covers elements not covered in my initial note. Subjective: The patient was seen individually in the evening of 08/23/2021 with Raeann ALTMAN, discussed and reviewed the chart. The patient slept 6-3/4 hours previous night. She remains confused, anxious but little less anxious later in the day as I met with her. She does complain of gas pains. Per nursing staff, she has had intermittent hallucinations, looking out of the window, felt she could see someone when no one was there and felt she could see kids in costume and people and animals. She denied this when I questioned her on it. Review of Systems: Hard of hearing. Ambulation impaired in wheelchair. No CV, , pulmonary, eye system symptoms on review. Reliability poor. Mental Status Exam: The patient is oriented to herself. Insight and judgment, recent memory is impaired. Language function intact. Attention span short. Mood and affect remains anxious, labile. At times she seems more cognitively intact than other times. Laboratory Data: Reviewed. 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 Anxiety disorder unspecified. Parkinsons disease. Plan: Continue current psychotropics. Increase Seroquel from 25 mg h.s. to 37.5 mg h.s. maintain rest of the psychotropics unchanged. Adjust as clinically indicated. Assessment: Vital Signs/I&O: Vital Signs Date Time Temp Pulse Resp B/P (MAP) Pulse Ox O2 Delivery O2 Flow Rate FiO2 08/27/21 06:15 97.4 70 16 112/67 (82) 94 Room Air I & O 08/26/21 08/26/21 08/27/21 15:00 23:00 07:00 Intake Total 960 ml 240 ml Balance 960 ml 240 ml Labs: Laboratory Tests Test 08/26/21 11:22 08/27/21 07:35 Glucose (Fingerstick) 178 mg/dL (70-99) H 152 mg/dL (70-99) H Current Medications: Meds: Laboratory Tests Test 08/26/21 11:22 08/27/21 07:35 Glucose (Fingerstick) 178 mg/dL 152 mg/dL Current Medications Medications (Trade) Dose Ordered Sig/Ras Route PRN Reason Start Time Stop Time Status Last Admin Dose Admin Acetaminophen (Tylenol) 650 mg PRN Q6HRS PRN PO MILD PAIN / TEMP > 100.3'F 08/17/21 16:00 08/26/21 16:38 Multi-Ingredient Ointment (Analgesic [place]) 1 annamarie PRN QID PRN TP MUSCLE PAIN 08/17/21 16:00 Al Hydroxide/Mg Hydroxide (Mylanta Plus Xs) 15 ml PRN AFTMEALHC PRN PO DYSPEPSIA 08/17/21 16:00 08/23/21 08:56 Magnesium Hydroxide (Milk Of Magnesia) 2,400 mg PRN QHS PRN PO 1st choice CONSTIPATION 08/17/21 16:00 Buspirone HCl (Buspar) 10 mg BID PO 08/17/21 21:00 08/27/21 08:29 Calcium Carbonate/ Glycine (Tums) 500 mg PRN Q6HRS PRN PO INDIGESTION 08/17/21 18:15 08/18/21 11:01 DC Clonazepam (KlonoPIN) 0.5 mg BID PO 08/17/21 21:00 08/19/21 20:11 DC 08/19/21 09:06 Empaglifozin (Jardiance) 10 mg DAILY PO 08/18/21 09:00 08/27/21 08:29 Hydroxychloroquine Sulfate (Plaquenil) 400 mg DAILY PO 08/18/21 09:00 08/27/21 08:29 Hydroxyzine HCl (Atarax) 25 mg PRN Q8HRS PRN PO ANXIETY 08/17/21 18:15 08/18/21 11:01 DC 08/18/21 10:04 Levothyroxine Sodium (Synthroid) 25 mcg DAILY06 PO 08/18/21 06:00 08/20/21 10:10 DC 08/20/21 06:07 Melatonin (Melatonin) 3 mg QHS PO 08/17/21 21:00 08/26/21 19:44 Polyethylene Glycol (miraLAX) 17 gm BID PO 08/17/21 21:00 08/26/21 09:14 Pramipexole Dihydrochloride (miraPEX) 0.25 mg TID PO 08/17/21 21:00 08/27/21 08:30 Propranolol HCl (Inderal) 20 mg QHS PO 08/17/21 21:00 08/26/21 19:45 Sennosides (Senna) 8.6 mg DAILY PO 08/18/21 09:00 08/18/21 11:01 DC 08/18/21 09:47 Simethicone (Gas-X) 80 mg PRN Q6HRS PRN PO GAS / BLOATING 08/17/21 18:00 08/18/21 11:17 DC Simethicone (Gas-X) 80 mg TID PO 08/17/21 21:00 08/18/21 11:01 DC 08/18/21 09:46 Trimethoprim/ Sulfamethoxazole (Bactrim Ds) 1 tab BID PO 08/17/21 21:00 08/23/21 21:30 DC 08/23/21 20:06 Tramadol HCl (Ultram) 50 mg PRN Q6HRS PRN PO mod-sev PAIN 08/17/21 18:00 08/26/21 19:48 Trazodone HCl (Desyrel) 50 mg QHS PO 08/17/21 21:00 08/22/21 20:25 DC 08/21/21 21:00 Non-Formulary Medication (Aspirin/Sod Bicarb/Citric Acid (Renee-[place] Original Tab Eff)) 325 mg PRN Q24HRS PRN PO DYSPEPSIA 08/17/21 18:00 UNV Capsaicin (Zostrix) 1 annamarie PRN Q12HR PRN TP PAIN 08/17/21 18:45 08/18/21 11:01 DC Carbidopa/Levodopa (Sinemet 25/100) 2 tab [id number] PO 08/17/21 18:30 08/27/21 05:38 Citalopram Hydrobromide (CeleXA) 40 mg DAILY PO 08/18/21 09:00 08/27/21 08:29 Glycerin (Sani-Supp Adult) 1 supp PRN Q24HRS PRN [place] 2nd choice CONSTIPATION 08/17/21 18:45 Lactobacillus Rhamnosus (Culturelle) 1 cap BID PO 08/17/21 21:00 08/18/21 11:01 DC 08/18/21 09:47 Lubiprostone (Amitiza) 24 mcg BIDWMEALS PO 08/18/21 08:00 08/27/21 08:29 Cetirizine HCl (ZyrTEC) 10 mg DAILY PO 08/18/21 09:00 08/18/21 11:01 DC 08/18/21 09:47 Magnesium Oxide (Magnesium Oxide) 400 mg DAILY PO 08/18/21 09:00 08/18/21 11:01 DC 08/18/21 09:47 Metformin HCl (Glucophage) 1,000 mg BIDWMEALS PO 08/18/21 08:00 08/27/21 08:29 Pantoprazole Sodium (Protonix) 40 mg DAILYAC PO 08/18/21 07:30 08/27/21 08:29 Ondansetron HCl (Zofran Odt) 4 mg PRN Q6HRS PRN PO NAUSEA/VOMITING 08/17/21 18:30 Non-Formulary Medication (Trolamine Salicylate/Aloe Vera (Aspercreme 10% Cream)) 1 annamarie PRN BID PRN TP PAIN 08/17/21 18:00 UNV Olanzapine (ZyPREXA ZYDIS) 1.25 mg PRN Q2HRS PRN PO PSYCHOSIS 08/18/21 12:00 08/25/21 16:04 Clonazepam (KlonoPIN) 0.25 mg DAILY PO 08/20/21 09:00 08/27/21 08:30 Clonazepam (KlonoPIN) 0.5 mg HS PO 08/19/21 21:00 08/22/21 19:00 DC 08/21/21 21:05 Clonazepam (KlonoPIN) 0.25 mg HS PO 08/22/21 21:00 08/26/21 19:44 Levothyroxine Sodium (Synthroid) 50 mcg DAILY06 PO 08/21/21 06:00 08/27/21 05:38 Quetiapine Fumarate (SEROquel) 25 mg QHS PO 08/20/21 21:00 08/23/21 16:13 DC 08/22/21 21:49 Trazodone HCl (Desyrel) 50 mg PRN QHS PRN PO INSOMNIA, MAY REPEAT X1 08/22/21 20:30 08/25/21 23:37 Mirtazapine (Remeron) 7.5 mg QHS PO 08/22/21 21:00 08/26/21 19:44 Quetiapine Fumarate (SEROquel) 37.5 mg QHS PO 08/23/21 21:00 08/26/21 19:44 Simethicone (Gas-X) 80 mg PRN QID PRN PO GAS / BLOATING 08/23/21 16:30 08/24/21 09:09 Sertraline HCl (Zoloft) 25 mg DAILY PO 08/25/21 09:00 08/27/21 21:00 08/27/21 08:30 Sertraline HCl (Zoloft) 50 mg DAILY PO 08/28/21 09:00 I have reviewed the current psychotropics carefully including drug interactions. Risk benefit ratio favors no change other than as noted in my dictated progress note. Diagnosis: Problems: (1) Mild cognitive impairment (2) Major depressive disorder with psychotic features (3) Parkinson's disease (4) Anxiety disorder, unspecified RANJITH HAWKINS MD Aug 27, 2021 10:05
--- NOTE | 2021-08-27 10:20 | PDOC ---
Exam Note: Gino Note: This note is a late entry for 08/24/2021 covers elements not covered in my initial note. Subjective: The patient was reviewed at treatment team meeting individually in the morning on 08/24/2021 with Britney Butterfield, Suzette Reyes, and Ernestina Pedro (social service director), Nicolasa, activity therapy and Raeann ALTMAN, discussed and reviewed the chart. The patient slept 5-3/4 hours previous night. Average sleep 5 hours. Appetite is 25%. At times patient is more oriented and otherwise at night she was oriented just to her name and hospital. Apparently both she and her will be moving to [facility] half-way in [place] instead of [facility] in [place]. Also discussed with Waldemar ALTMAN in the evening. She has been socializing more with peers. Her medications get caught in the back of her throat and if this persists, we may change to liquid. I met with her at length in her room. She was trying to put a fitted bed sheet on the bed, struggling with it and being helped by another demented patient. I assisted her. She was very appreciative of this. Review of Systems: Hard of hearing. Ambulation impaired in wheelchair. No CV, , pulmonary, eye system symptoms on review. Reliability poor. Mental Status Exam: The patient is oriented to herself and situation. Speech coherent, rapid. Abstraction fair. Computation impaired. Language function intact. Attention span short. Mood and affect somewhat anxious, labile. Laboratory Data: Reviewed. 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 Anxiety disorder unspecified. Parkinsons disease. Plan: Continue current psychotropics. Start Zoloft 25 mg a day for 3 days and 50 mg a day for her mood and anxiety symptoms. We will adjust further as clinically indicated. Continue Remeron, Seroquel, melatonin, BuSpar. Klonopin has been tapered and Zyprexa p.r.n. Assessment: Vital Signs/I&O: Vital Signs Date Time Temp Pulse Resp B/P (MAP) Pulse Ox O2 Delivery O2 Flow Rate FiO2 08/27/21 06:15 97.4 70 16 112/67 (82) 94 Room Air I & O 08/26/21 08/26/21 08/27/21 15:00 23:00 07:00 Intake Total 960 ml 240 ml Balance 960 ml 240 ml Labs: Laboratory Tests Test 08/26/21 11:22 08/27/21 07:35 Glucose (Fingerstick) 178 mg/dL (70-99) H 152 mg/dL (70-99) H Current Medications: Meds: Laboratory Tests Test 08/26/21 11:22 08/27/21 07:35 Glucose (Fingerstick) 178 mg/dL 152 mg/dL Current Medications Medications (Trade) Dose Ordered Sig/Ras Route PRN Reason Start Time Stop Time Status Last Admin Dose Admin Acetaminophen (Tylenol) 650 mg PRN Q6HRS PRN PO MILD PAIN / TEMP > 100.3'F 08/17/21 16:00 08/26/21 16:38 Multi-Ingredient Ointment (Analgesic [place]) 1 annamarie PRN QID PRN TP MUSCLE PAIN 08/17/21 16:00 Al Hydroxide/Mg Hydroxide (Mylanta Plus Xs) 15 ml PRN AFTMEALHC PRN PO DYSPEPSIA 08/17/21 16:00 08/23/21 08:56 Magnesium Hydroxide (Milk Of Magnesia) 2,400 mg PRN QHS PRN PO 1st choice CONSTIPATION 08/17/21 16:00 Buspirone HCl (Buspar) 10 mg BID PO 08/17/21 21:00 08/27/21 08:29 Calcium Carbonate/ Glycine (Tums) 500 mg PRN Q6HRS PRN PO INDIGESTION 08/17/21 18:15 08/18/21 11:01 DC Clonazepam (KlonoPIN) 0.5 mg BID PO 08/17/21 21:00 08/19/21 20:11 DC 08/19/21 09:06 Empaglifozin (Jardiance) 10 mg DAILY PO 08/18/21 09:00 08/27/21 08:29 Hydroxychloroquine Sulfate (Plaquenil) 400 mg DAILY PO 08/18/21 09:00 08/27/21 08:29 Hydroxyzine HCl (Atarax) 25 mg PRN Q8HRS PRN PO ANXIETY 08/17/21 18:15 08/18/21 11:01 DC 08/18/21 10:04 Levothyroxine Sodium (Synthroid) 25 mcg DAILY06 PO 08/18/21 06:00 08/20/21 10:10 DC 08/20/21 06:07 Melatonin (Melatonin) 3 mg QHS PO 08/17/21 21:00 08/26/21 19:44 Polyethylene Glycol (miraLAX) 17 gm BID PO 08/17/21 21:00 08/26/21 09:14 Pramipexole Dihydrochloride (miraPEX) 0.25 mg TID PO 08/17/21 21:00 08/27/21 08:30 Propranolol HCl (Inderal) 20 mg QHS PO 08/17/21 21:00 08/26/21 19:45 Sennosides (Senna) 8.6 mg DAILY PO 08/18/21 09:00 08/18/21 11:01 DC 08/18/21 09:47 Simethicone (Gas-X) 80 mg PRN Q6HRS PRN PO GAS / BLOATING 08/17/21 18:00 08/18/21 11:17 DC Simethicone (Gas-X) 80 mg TID PO 08/17/21 21:00 08/18/21 11:01 DC 08/18/21 09:46 Trimethoprim/ Sulfamethoxazole (Bactrim Ds) 1 tab BID PO 08/17/21 21:00 08/23/21 21:30 DC 08/23/21 20:06 Tramadol HCl (Ultram) 50 mg PRN Q6HRS PRN PO mod-sev PAIN 08/17/21 18:00 08/26/21 19:48 Trazodone HCl (Desyrel) 50 mg QHS PO 08/17/21 21:00 08/22/21 20:25 DC 08/21/21 21:00 Non-Formulary Medication (Aspirin/Sod Bicarb/Citric Acid ([place]ene[place] Original Tab Eff)) 325 mg PRN Q24HRS PRN PO DYSPEPSIA 08/17/21 18:00 UNV Capsaicin (Zostrix) 1 annamarie PRN Q12HR PRN TP PAIN 08/17/21 18:45 08/18/21 11:01 DC Carbidopa/Levodopa (Sinemet 25/100) 2 tab [id number] PO 08/17/21 18:30 08/27/21 05:38 Citalopram Hydrobromide (CeleXA) 40 mg DAILY PO 08/18/21 09:00 08/27/21 08:29 Glycerin (Sani-Supp Adult) 1 supp PRN Q24HRS PRN [place] 2nd choice CONSTIPATION 08/17/21 18:45 Lactobacillus Rhamnosus (Culturelle) 1 cap BID PO 08/17/21 21:00 08/18/21 11:01 DC 08/18/21 09:47 Lubiprostone (Amitiza) 24 mcg BIDWMEALS PO 08/18/21 08:00 08/27/21 08:29 Cetirizine HCl (ZyrTEC) 10 mg DAILY PO 08/18/21 09:00 08/18/21 11:01 DC 08/18/21 09:47 Magnesium Oxide (Magnesium Oxide) 400 mg DAILY PO 08/18/21 09:00 08/18/21 11:01 DC 08/18/21 09:47 Metformin HCl (Glucophage) 1,000 mg BIDWMEALS PO 08/18/21 08:00 08/27/21 08:29 Pantoprazole Sodium (Protonix) 40 mg DAILYAC PO 08/18/21 07:30 08/27/21 08:29 Ondansetron HCl (Zofran Odt) 4 mg PRN Q6HRS PRN PO NAUSEA/VOMITING 08/17/21 18:30 Non-Formulary Medication (Trolamine Salicylate/Aloe Vera (Aspercreme 10% Cream)) 1 annamarie PRN BID PRN TP PAIN 08/17/21 18:00 UNV Olanzapine (ZyPREXA ZYDIS) 1.25 mg PRN Q2HRS PRN PO PSYCHOSIS 08/18/21 12:00 08/25/21 16:04 Clonazepam (KlonoPIN) 0.25 mg DAILY PO 08/20/21 09:00 08/27/21 08:30 Clonazepam (KlonoPIN) 0.5 mg HS PO 08/19/21 21:00 08/22/21 19:00 DC 08/21/21 21:05 Clonazepam (KlonoPIN) 0.25 mg HS PO 08/22/21 21:00 08/26/21 19:44 Levothyroxine Sodium (Synthroid) 50 mcg DAILY06 PO 08/21/21 06:00 08/27/21 05:38 Quetiapine Fumarate (SEROquel) 25 mg QHS PO 08/20/21 21:00 08/23/21 16:13 DC 08/22/21 21:49 Trazodone HCl (Desyrel) 50 mg PRN QHS PRN PO INSOMNIA, MAY REPEAT X1 08/22/21 20:30 08/25/21 23:37 Mirtazapine (Remeron) 7.5 mg QHS PO 08/22/21 21:00 08/26/21 19:44 Quetiapine Fumarate (SEROquel) 37.5 mg QHS PO 08/23/21 21:00 08/26/21 19:44 Simethicone (Gas-X) 80 mg PRN QID PRN PO GAS / BLOATING 08/23/21 16:30 08/24/21 09:09 Sertraline HCl (Zoloft) 25 mg DAILY PO 08/25/21 09:00 08/27/21 21:00 08/27/21 08:30 Sertraline HCl (Zoloft) 50 mg DAILY PO 08/28/21 09:00 I have reviewed the current psychotropics carefully including drug interactions. Risk benefit ratio favors no change other than as noted in my dictated progress note. Diagnosis: Problems: (1) Mild cognitive impairment (2) Major depressive disorder with psychotic features (3) Parkinson's disease (4) Anxiety disorder, unspecified RANJITH HAWKINS MD Aug 27, 2021 10:20
--- NOTE | 2021-08-27 10:27 | NUR ---
Nursing note: Pt in dining room at time of AM med pass and assessment. She is pleasant, compliant with meds whole and cooperative with assessment. Pt denies having any pain/concerns. She is currently sitting quietly in her room. Will continue to monitor.
--- NOTE | 2021-08-27 10:28 | PDOC ---
Exam Note: Gino Note: Late entry for 08/26/21. Please also refer to the separate dictated note~for this date of service dictated separately.~Patient seen individually. Discussed the patient with Nursing staff reviewed the chart.~Reviewed interim history and current functioning. Reviewed vital signs,~Labs/ Radiology~and current medicat ions noted below. Continue current treatment with the changes noted in the dictated addendum note Assessment: Vital Signs/I&O: Vital Signs Date Time Temp Pulse Resp B/P (MAP) Pulse Ox O2 Delivery O2 Flow Rate FiO2 08/27/21 06:15 97.4 70 16 112/67 (82) 94 Room Air I & O 08/26/21 08/26/21 08/27/21 15:00 23:00 07:00 Intake Total 960 ml 240 ml Balance 960 ml 240 ml Labs: Laboratory Tests Test 08/26/21 11:22 08/27/21 07:35 Glucose (Fingerstick) 178 mg/dL (70-99) H 152 mg/dL (70-99) H Current Medications: Meds: Laboratory Tests Test 08/26/21 11:22 08/27/21 07:35 Glucose (Fingerstick) 178 mg/dL 152 mg/dL Current Medications Medications (Trade) Dose Ordered Sig/Ras Route PRN Reason Start Time Stop Time Status Last Admin Dose Admin Acetaminophen (Tylenol) 650 mg PRN Q6HRS PRN PO MILD PAIN / TEMP > 100.3'F 08/17/21 16:00 08/26/21 16:38 Multi-Ingredient Ointment (Analgesic [place]) 1 annamarie PRN QID PRN TP MUSCLE PAIN 08/17/21 16:00 Al Hydroxide/Mg Hydroxide (Mylanta Plus Xs) 15 ml PRN AFTMEALHC PRN PO DYSPEPSIA 08/17/21 16:00 08/23/21 08:56 Magnesium Hydroxide (Milk Of Magnesia) 2,400 mg PRN QHS PRN PO 1st choice CONSTIPATION 08/17/21 16:00 Buspirone HCl (Buspar) 10 mg BID PO 08/17/21 21:00 08/27/21 08:29 Calcium Carbonate/ Glycine (Tums) 500 mg PRN Q6HRS PRN PO INDIGESTION 08/17/21 18:15 08/18/21 11:01 DC Clonazepam (KlonoPIN) 0.5 mg BID PO 08/17/21 21:00 08/19/21 20:11 DC 08/19/21 09:06 Empaglifozin (Jardiance) 10 mg DAILY PO 08/18/21 09:00 08/27/21 08:29 Hydroxychloroquine Sulfate (Plaquenil) 400 mg DAILY PO 08/18/21 09:00 08/27/21 08:29 Hydroxyzine HCl (Atarax) 25 mg PRN Q8HRS PRN PO ANXIETY 08/17/21 18:15 08/18/21 11:01 DC 08/18/21 10:04 Levothyroxine Sodium (Synthroid) 25 mcg DAILY06 PO 08/18/21 06:00 08/20/21 10:10 DC 08/20/21 06:07 Melatonin (Melatonin) 3 mg QHS PO 08/17/21 21:00 08/26/21 19:44 Polyethylene Glycol (miraLAX) 17 gm BID PO 08/17/21 21:00 08/26/21 09:14 Pramipexole Dihydrochloride (miraPEX) 0.25 mg TID PO 08/17/21 21:00 08/27/21 08:30 Propranolol HCl (Inderal) 20 mg QHS PO 08/17/21 21:00 08/26/21 19:45 Sennosides (Senna) 8.6 mg DAILY PO 08/18/21 09:00 08/18/21 11:01 DC 08/18/21 09:47 Simethicone (Gas-X) 80 mg PRN Q6HRS PRN PO GAS / BLOATING 08/17/21 18:00 08/18/21 11:17 DC Simethicone (Gas-X) 80 mg TID PO 08/17/21 21:00 08/18/21 11:01 DC 08/18/21 09:46 Trimethoprim/ Sulfamethoxazole (Bactrim Ds) 1 tab BID PO 08/17/21 21:00 08/23/21 21:30 DC 08/23/21 20:06 Tramadol HCl (Ultram) 50 mg PRN Q6HRS PRN PO mod-sev PAIN 08/17/21 18:00 08/26/21 19:48 Trazodone HCl (Desyrel) 50 mg QHS PO 08/17/21 21:00 08/22/21 20:25 DC 08/21/21 21:00 Non-Formulary Medication (Aspirin/Sod Bicarb/Citric Acid (Renee-[place] Original Tab Eff)) 325 mg PRN Q24HRS PRN PO DYSPEPSIA 08/17/21 18:00 UNV Capsaicin (Zostrix) 1 annamarie PRN Q12HR PRN TP PAIN 08/17/21 18:45 08/18/21 11:01 DC Carbidopa/Levodopa (Sinemet 25/) 2 tab [id number] PO 08/17/21 18:30 08/27/21 05:38 Citalopram Hydrobromide (CeleXA) 40 mg DAILY PO 08/18/21 09:00 08/27/21 08:29 Glycerin (Sani-Supp Adult) 1 supp PRN Q24HRS PRN [place] 2nd choice CONSTIPATION 08/17/21 18:45 Lactobacillus Rhamnosus (Culturelle) 1 cap BID PO 08/17/21 21:00 08/18/21 11:01 DC 08/18/21 09:47 Lubiprostone (Amitiza) 24 mcg BIDWMEALS PO 08/18/21 08:00 08/27/21 08:29 Cetirizine HCl (ZyrTEC) 10 mg DAILY PO 08/18/21 09:00 08/18/21 11:01 DC 08/18/21 09:47 Magnesium Oxide (Magnesium Oxide) 400 mg DAILY PO 08/18/21 09:00 08/18/21 11:01 DC 08/18/21 09:47 Metformin HCl (Glucophage) 1,000 mg BIDWMEALS PO 08/18/21 08:00 08/27/21 08:29 Pantoprazole Sodium (Protonix) 40 mg DAILYAC PO 08/18/21 07:30 08/27/21 08:29 Ondansetron HCl (Zofran Odt) 4 mg PRN Q6HRS PRN PO NAUSEA/VOMITING 08/17/21 18:30 Non-Formulary Medication (Trolamine Salicylate/Aloe Vera (Aspercreme 10% Cream)) 1 annamarie PRN BID PRN TP PAIN 08/17/21 18:00 UNV Olanzapine (ZyPREXA ZYDIS) 1.25 mg PRN Q2HRS PRN PO PSYCHOSIS 08/18/21 12:00 08/25/21 16:04 Clonazepam (KlonoPIN) 0.25 mg DAILY PO 08/20/21 09:00 08/27/21 08:30 Clonazepam (KlonoPIN) 0.5 mg HS PO 08/19/21 21:00 08/22/21 19:00 DC 08/21/21 21:05 Clonazepam (KlonoPIN) 0.25 mg HS PO 08/22/21 21:00 08/26/21 19:44 Levothyroxine Sodium (Synthroid) 50 mcg DAILY06 PO 08/21/21 06:00 08/27/21 05:38 Quetiapine Fumarate (SEROquel) 25 mg QHS PO 08/20/21 21:00 08/23/21 16:13 DC 08/22/21 21:49 Trazodone HCl (Desyrel) 50 mg PRN QHS PRN PO INSOMNIA, MAY REPEAT X1 08/22/21 20:30 08/25/21 23:37 Mirtazapine (Remeron) 7.5 mg QHS PO 08/22/21 21:00 08/26/21 19:44 Quetiapine Fumarate (SEROquel) 37.5 mg QHS PO 08/23/21 21:00 08/26/21 19:44 Simethicone (Gas-X) 80 mg PRN QID PRN PO GAS / BLOATING 08/23/21 16:30 08/24/21 09:09 Sertraline HCl (Zoloft) 25 mg DAILY PO 08/25/21 09:00 08/27/21 21:00 08/27/21 08:30 Sertraline HCl (Zoloft) 50 mg DAILY PO 08/28/21 09:00 I have reviewed the current psychotropics carefully including drug interactions. Risk benefit ratio favors no change other than as noted in my dictated progress note. Diagnosis: Problems: (1) Mild cognitive impairment (2) Major depressive disorder with psychotic features (3) Parkinson's disease (4) Anxiety disorder, unspecified RANJITH HAWKINS MD Aug 27, 2021 10:28
[2021-08-27 16:12] VITALS: BP 97/60
[2021-08-27] MEDS: PROPRANOLOL 20 MG TABLET. PO SCH (20:02)
[2021-08-27] MEDS: MIRTAZAPINE 7.5 MG TABLET. PO SCH (20:05)
[2021-08-27] MEDS: MELATONIN 3 MG TABLET PO SCH (20:05)
[2021-08-27] MEDS: QUEtiapine 25 MG TABLET. PO SCH (20:05)
[2021-08-28] MEDS: CARBIDOPA/LEVODOPA 25/100MG TABLET PO SCH ×5 (01:54→23:18)
[2021-08-28 05:56] VITALS: BP 115/71
[2021-08-28] MEDS: LEVOTHYROXINE 50 MCG TABLET PO SCH (06:20)
--- NOTE | 2021-08-28 08:37 | PDOC ---
Exam Note: Gino Note: This note is a late entry for 08/25/2021 covers elements not covered in my initial note. Subjective: The patient was seen individually in the evening of 08/25/2021 with Negro ALTMAN, discussed and reviewed the chart. The patient slept 6 hours previous night. She remains confused, but less anxious than before, somewhat delusional, intermittent hallucinations, hard of hearing which makes communication harder with her. She is compliant with medications. As I met with her she talked at length about her son living [place] and that he works for [employer], that he has 2 daughters. I am unclear if this is all accurate. We will confer with social service staff. Review of Systems: Hard of hearing. Ambulation impaired in wheelchair. No CV, , pulmonary, eye system symptoms on review. She is trying to settle things around her room. I assisted her with this and she was very appreciative. Mental Status Exam: The patient is oriented to herself. Insight and judgment, recent memory is impaired. Remote is better. Language function intact. Atte ntion span short. Mood and affect less anxious. Laboratory Data: Reviewed. 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 Anxiety disorder unspecified. Parkinsons disease. Plan: Continue current psychotropics. Assessment: Vital Signs/I&O: Vital Signs Date Time Temp Pulse Resp B/P (MAP) Pulse Ox O2 Delivery O2 Flow Rate FiO2 08/28/21 05:56 97.7 90 18 115/71 (86) 97 08/27/21 06:15 Room Air I & O 08/27/21 08/27/21 08/28/21 15:00 23:00 07:00 Intake Total 720 ml 420 ml Balance 720 ml 420 ml Labs: Laboratory Tests Test 08/28/21 07:37 Glucose (Fingerstick) 105 mg/dL (70-99) H Current Medications: Meds: Laboratory Tests Test 08/28/21 07:37 Glucose (Fingerstick) 105 mg/dL Current Medications Medications (Trade) Dose Ordered Sig/Ras Route PRN Reason Start Time Stop Time Status Last Admin Dose Admin Acetaminophen (Tylenol) 650 mg PRN Q6HRS PRN PO MILD PAIN / TEMP > 100.3'F 08/17/21 16:00 08/26/21 16:38 Multi-Ingredient Ointment (Analgesic [place]) 1 annamarie PRN QID PRN TP MUSCLE PAIN 08/17/21 16:00 Al Hydroxide/Mg Hydroxide (Mylanta Plus Xs) 15 ml PRN AFTMEALHC PRN PO DYSPEPSIA 08/17/21 16:00 08/23/21 08:56 Magnesium Hydroxide (Milk Of Magnesia) 2,400 mg PRN QHS PRN PO 1st choice CONSTIPATION 08/17/21 16:00 Buspirone HCl (Buspar) 10 mg BID PO 08/17/21 21:00 08/27/21 20:04 Calcium Carbonate/ Glycine (Tums) 500 mg PRN Q6HRS PRN PO INDIGESTION 08/17/21 18:15 08/18/21 11:01 DC Clonazepam (KlonoPIN) 0.5 mg BID PO 08/17/21 21:00 08/19/21 20:11 DC 08/19/21 09:06 Empaglifozin (Jardiance) 10 mg DAILY PO 08/18/21 09:00 08/27/21 08:29 Hydroxychloroquine Sulfate (Plaquenil) 400 mg DAILY PO 08/18/21 09:00 08/27/21 08:29 Hydroxyzine HCl (Atarax) 25 mg PRN Q8HRS PRN PO ANXIETY 08/17/21 18:15 08/18/21 11:01 DC 08/18/21 10:04 Levothyroxine Sodium (Synthroid) 25 mcg DAILY06 PO 08/18/21 06:00 08/20/21 10:10 DC 08/20/21 06:07 Melatonin (Melatonin) 3 mg QHS PO 08/17/21 21:00 08/27/21 20:05 Polyethylene Glycol (miraLAX) 17 gm BID PO 08/17/21 21:00 08/26/21 09:14 Pramipexole Dihydrochloride (miraPEX) 0.25 mg TID PO 08/17/21 21:00 08/27/21 20:06 Propranolol HCl (Inderal) 20 mg QHS PO 08/17/21 21:00 08/26/21 19:45 Sennosides (Senna) 8.6 mg DAILY PO 08/18/21 09:00 08/18/21 11:01 DC 08/18/21 09:47 Simethicone (Gas-X) 80 mg PRN Q6HRS PRN PO GAS / BLOATING 08/17/21 18:00 08/18/21 11:17 DC Simethicone (Gas-X) 80 mg TID PO 08/17/21 21:00 08/18/21 11:01 DC 08/18/21 09:46 Trimethoprim/ Sulfamethoxazole (Bactrim Ds) 1 tab BID PO 08/17/21 21:00 08/23/21 21:30 DC 08/23/21 20:06 Tramadol HCl (Ultram) 50 mg PRN Q6HRS PRN PO mod-sev PAIN 08/17/21 18:00 08/26/21 19:48 Trazodone HCl (Desyrel) 50 mg QHS PO 08/17/21 21:00 08/22/21 20:25 DC 08/21/21 21:00 Non-Formulary Medication (Aspirin/Sod Bicarb/Citric Acid (Renee-[place] Original Tab Eff)) 325 mg PRN Q24HRS PRN PO DYSPEPSIA 08/17/21 18:00 UNV Capsaicin (Zostrix) 1 annamarie PRN Q12HR PRN TP PAIN 08/17/21 18:45 08/18/21 11:01 DC Carbidopa/Levodopa (Sinemet 25/100) 2 tab [id number] PO 08/17/21 18:30 08/28/21 06:20 Citalopram Hydrobromide (CeleXA) 40 mg DAILY PO 08/18/21 09:00 08/27/21 08:29 Glycerin (Sani-Supp Adult) 1 supp PRN Q24HRS PRN [place] 2nd choice CONSTIPATION 08/17/21 18:45 Lactobacillus Rhamnosus (Culturelle) 1 cap BID PO 08/17/21 21:00 08/18/21 11:01 DC 08/18/21 09:47 Lubiprostone (Amitiza) 24 mcg BIDWMEALS PO 08/18/21 08:00 08/27/21 17:28 Cetirizine HCl (ZyrTEC) 10 mg DAILY PO 08/18/21 09:00 08/18/21 11:01 DC 08/18/21 09:47 Magnesium Oxide (Magnesium Oxide) 400 mg DAILY PO 08/18/21 09:00 08/18/21 11:01 DC 08/18/21 09:47 Metformin HCl (Glucophage) 1,000 mg BIDWMEALS PO 08/18/21 08:00 08/27/21 17:28 Pantoprazole Sodium (Protonix) 40 mg DAILYAC PO 08/18/21 07:30 08/27/21 08:29 Ondansetron HCl (Zofran Odt) 4 mg PRN Q6HRS PRN PO NAUSEA/VOMITING 08/17/21 18:30 Non-Formulary Medication (Trolamine Salicylate/Aloe Vera (Aspercreme 10% Cream)) 1 annamarie PRN BID PRN TP PAIN 08/17/21 18:00 UNV Olanzapine (ZyPREXA ZYDIS) 1.25 mg PRN Q2HRS PRN PO PSYCHOSIS 08/18/21 12:00 08/27/21 15:56 Clonazepam (KlonoPIN) 0.25 mg DAILY PO 08/20/21 09:00 08/27/21 20:18 DC 08/27/21 08:30 Clonazepam (KlonoPIN) 0.5 mg HS PO 08/19/21 21:00 08/22/21 19:00 DC 08/21/21 21:05 Clonazepam (KlonoPIN) 0.25 mg HS PO 08/22/21 21:00 08/27/21 22:00 DC 08/27/21 20:06 Levothyroxine Sodium (Synthroid) 50 mcg DAILY06 PO 08/21/21 06:00 08/28/21 06:20 Quetiapine Fumarate (SEROquel) 25 mg QHS PO 08/20/21 21:00 08/23/21 16:13 DC 08/22/21 21:49 Trazodone HCl (Desyrel) 50 mg PRN QHS PRN PO INSOMNIA, MAY REPEAT X1 08/22/21 20:30 08/25/21 23:37 Mirtazapine (Remeron) 7.5 mg QHS PO 08/22/21 21:00 08/27/21 20:05 Quetiapine Fumarate (SEROquel) 37.5 mg QHS PO 08/23/21 21:00 08/27/21 20:05 Simethicone (Gas-X) 80 mg PRN QID PRN PO GAS / BLOATING 08/23/21 16:30 08/24/21 09:09 Sertraline HCl (Zoloft) 25 mg DAILY PO 08/25/21 09:00 08/27/21 21:00 DC 08/27/21 08:30 Sertraline HCl (Zoloft) 50 mg DAILY PO 08/28/21 09:00 Clonazepam (KlonoPIN) 0.25 mg DAILY PO 08/28/21 09:00 08/30/21 12:00 Quetiapine Fumarate (SEROquel) 12.5 mg 0900,1700 PO 08/28/21 09:00 I have reviewed the current psychotropics carefully including drug interactions. Risk benefit ratio favors no change other than as noted in my dictated progress note. Diagnosis: Problems: (1) Mild cognitive impairment (2) Major depressive disorder with psychotic features (3) Parkinson's disease (4) Anxiety disorder, unspecified RANJITH HAWKINS MD Aug 28, 2021 08:37
--- NOTE | 2021-08-28 08:47 | PDOC ---
Exam Note: Gino Note: This note is a late entry for 08/26/2021 covers elements not covered in my initial note. Subjective: The patient was seen individually in the evening of 08/26/2021 with Negro ALTMAN, discussed and reviewed the chart. The patient slept 5-3/4 hours previous night. I met with the patient in her room. She is compliant with her medications, less anxious, extremely hard of hearing. Review of Systems: Hard of hearing. Impaired ambulation in wheelchair. No CV, , pulmonary, eye system symptoms on review. Mental Status Exam: The patient is oriented to herself and situation. Speech is less pressured. Abstraction fair. Computation impaired. Language function intact. She is somewhat distractible. Mood and affect less anxious and she repeatedly stated she felt much better. No suicidal or homicidal ideation. Laboratory Data: Reviewed. 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 Anxiety disorder unspecified. Parkinsons disease. Plan: Continue current psychotropics. Assessment: Vital Signs/I&O: Vital Signs Date Time Temp Pulse Resp B/P (MAP) Pulse Ox O2 Delivery O2 Flow Rate FiO2 08/28/21 05:56 97.7 90 18 115/71 (86) 97 08/27/21 06:15 Room Air I & O 08/27/21 08/27/21 08/28/21 15:00 23:00 07:00 Intake Total 720 ml 420 ml Balance 720 ml 420 ml Labs: Laboratory Tests Test 08/28/21 07:37 Glucose (Fingerstick) 105 mg/dL (70-99) H Current Medications: Meds: Laboratory Tests Test 08/28/21 07:37 Glucose (Fingerstick) 105 mg/dL Current Medications Medications (Trade) Dose Ordered Sig/Ras Route PRN Reason Start Time Stop Time Status Last Admin Dose Admin Acetaminophen (Tylenol) 650 mg PRN Q6HRS PRN PO MILD PAIN / TEMP > 100.3'F 08/17/21 16:00 08/26/21 16:38 Multi-Ingredient Ointment (Analgesic [place]) 1 annamarie PRN QID PRN TP MUSCLE PAIN 08/17/21 16:00 Al Hydroxide/Mg Hydroxide (Mylanta Plus Xs) 15 ml PRN AFTMEALHC PRN PO DYSPEPSIA 08/17/21 16:00 08/23/21 08:56 Magnesium Hydroxide (Milk Of Magnesia) 2,400 mg PRN QHS PRN PO 1st choice CONSTIPATION 08/17/21 16:00 Buspirone HCl (Buspar) 10 mg BID PO 08/17/21 21:00 08/27/21 20:04 Calcium Carbonate/ Glycine (Tums) 500 mg PRN Q6HRS PRN PO INDIGESTION 08/17/21 18:15 08/18/21 11:01 DC Clonazepam (KlonoPIN) 0.5 mg BID PO 08/17/21 21:00 08/19/21 20:11 DC 08/19/21 09:06 Empaglifozin (Jardiance) 10 mg DAILY PO 08/18/21 09:00 08/27/21 08:29 Hydroxychloroquine Sulfate (Plaquenil) 400 mg DAILY PO 08/18/21 09:00 08/27/21 08:29 Hydroxyzine HCl (Atarax) 25 mg PRN Q8HRS PRN PO ANXIETY 08/17/21 18:15 08/18/21 11:01 DC 08/18/21 10:04 Levothyroxine Sodium (Synthroid) 25 mcg DAILY06 PO 08/18/21 06:00 08/20/21 10:10 DC 08/20/21 06:07 Melatonin (Melatonin) 3 mg QHS PO 08/17/21 21:00 08/27/21 20:05 Polyethylene Glycol (miraLAX) 17 gm BID PO 08/17/21 21:00 08/26/21 09:14 Pramipexole Dihydrochloride (miraPEX) 0.25 mg TID PO 08/17/21 21:00 08/27/21 20:06 Propranolol HCl (Inderal) 20 mg QHS PO 08/17/21 21:00 08/26/21 19:45 Sennosides (Senna) 8.6 mg DAILY PO 08/18/21 09:00 08/18/21 11:01 DC 08/18/21 09:47 Simethicone (Gas-X) 80 mg PRN Q6HRS PRN PO GAS / BLOATING 08/17/21 18:00 08/18/21 11:17 DC Simethicone (Gas-X) 80 mg TID PO 08/17/21 21:00 08/18/21 11:01 DC 08/18/21 09:46 Trimethoprim/ Sulfamethoxazole (Bactrim Ds) 1 tab BID PO 08/17/21 21:00 08/23/21 21:30 DC 08/23/21 20:06 Tramadol HCl (Ultram) 50 mg PRN Q6HRS PRN PO mod-sev PAIN 08/17/21 18:00 08/26/21 19:48 Trazodone HCl (Desyrel) 50 mg QHS PO 08/17/21 21:00 08/22/21 20:25 DC 08/21/21 21:00 Non-Formulary Medication (Aspirin/Sod Bicarb/Citric Acid ([place]ene[place] Original Tab Eff)) 325 mg PRN Q24HRS PRN PO DYSPEPSIA 08/17/21 18:00 UNV Capsaicin (Zostrix) 1 annamarie PRN Q12HR PRN TP PAIN 08/17/21 18:45 08/18/21 11:01 DC Carbidopa/Levodopa (Sinemet 25/100) 2 tab [id number] PO 08/17/21 18:30 08/28/21 06:20 Citalopram Hydrobromide (CeleXA) 40 mg DAILY PO 08/18/21 09:00 08/27/21 08:29 Glycerin (Sani-Supp Adult) 1 supp PRN Q24HRS PRN [place] 2nd choice CONSTIPATION 08/17/21 18:45 Lactobacillus Rhamnosus (Culturelle) 1 cap BID PO 08/17/21 21:00 08/18/21 11:01 DC 08/18/21 09:47 Lubiprostone (Amitiza) 24 mcg BIDWMEALS PO 08/18/21 08:00 08/27/21 17:28 Cetirizine HCl (ZyrTEC) 10 mg DAILY PO 08/18/21 09:00 08/18/21 11:01 DC 08/18/21 09:47 Magnesium Oxide (Magnesium Oxide) 400 mg DAILY PO 08/18/21 09:00 08/18/21 11:01 DC 08/18/21 09:47 Metformin HCl (Glucophage) 1,000 mg BIDWMEALS PO 08/18/21 08:00 08/27/21 17:28 Pantoprazole Sodium (Protonix) 40 mg DAILYAC PO 08/18/21 07:30 08/27/21 08:29 Ondansetron HCl (Zofran Odt) 4 mg PRN Q6HRS PRN PO NAUSEA/VOMITING 08/17/21 18:30 Non-Formulary Medication (Trolamine Salicylate/Aloe Vera (Aspercreme 10% Cream)) 1 annamarie PRN BID PRN TP PAIN 08/17/21 18:00 UNV Olanzapine (ZyPREXA ZYDIS) 1.25 mg PRN Q2HRS PRN PO PSYCHOSIS 08/18/21 12:00 08/27/21 15:56 Clonazepam (KlonoPIN) 0.25 mg DAILY PO 08/20/21 09:00 08/27/21 20:18 DC 08/27/21 08:30 Clonazepam (KlonoPIN) 0.5 mg HS PO 08/19/21 21:00 08/22/21 19:00 DC 08/21/21 21:05 Clonazepam (KlonoPIN) 0.25 mg HS PO 08/22/21 21:00 08/27/21 22:00 DC 08/27/21 20:06 Levothyroxine Sodium (Synthroid) 50 mcg DAILY06 PO 08/21/21 06:00 08/28/21 06:20 Quetiapine Fumarate (SEROquel) 25 mg QHS PO 08/20/21 21:00 08/23/21 16:13 DC 08/22/21 21:49 Trazodone HCl (Desyrel) 50 mg PRN QHS PRN PO INSOMNIA, MAY REPEAT X1 08/22/21 20:30 08/25/21 23:37 Mirtazapine (Remeron) 7.5 mg QHS PO 08/22/21 21:00 08/27/21 20:05 Quetiapine Fumarate (SEROquel) 37.5 mg QHS PO 08/23/21 21:00 08/27/21 20:05 Simethicone (Gas-X) 80 mg PRN QID PRN PO GAS / BLOATING 08/23/21 16:30 08/24/21 09:09 Sertraline HCl (Zoloft) 25 mg DAILY PO 08/25/21 09:00 08/27/21 21:00 DC 08/27/21 08:30 Sertraline HCl (Zoloft) 50 mg DAILY PO 08/28/21 09:00 Clonazepam (KlonoPIN) 0.25 mg DAILY PO 08/28/21 09:00 08/30/21 12:00 Quetiapine Fumarate (SEROquel) 12.5 mg 0900,1700 PO 08/28/21 09:00 I have reviewed the current psychotropics carefully including drug interactions. Risk benefit ratio favors no change other than as noted in my dictated progress note. Diagnosis: Problems: (1) Mild cognitive impairment (2) Major depressive disorder with psychotic features (3) Parkinson's disease (4) Anxiety disorder, unspecified RANJITH HAWKINS MD Aug 28, 2021 08:47
[2021-08-28] MEDS: busPIRone 10 MG TABLET. PO SCH ×2 (08:57→20:09)
[2021-08-28] MEDS: LUBIPROSTONE 24 MCG CAPSULE PO SCH ×2 (08:57→17:38)
[2021-08-28] MEDS: PANTOPRAZOLE 40 MG TABLET. PO SCH (08:57)
[2021-08-28] MEDS: POLYETHYLENE GLYCOL 3350 17 GM PACKET. PO SCH ×2 (08:57→20:11)
[2021-08-28] MEDS: CITALOPRAM 20 MG TABLET. PO SCH (08:58)
[2021-08-28] MEDS: metFORMIN 500 MG TABLET PO SCH ×2 (08:58→17:38)
[2021-08-28] MEDS: PRAMIPEXOLE 0.25 MG TABLET. PO SCH ×3 (08:58→20:11)
[2021-08-28] MEDS: HYDROXYCHLOROQUINE 200 MG TABLET PO SCH (08:59)
[2021-08-28] MEDS: EMPAGLIFLOZIN 10 MG TABLET. PO SCH (08:59)
[2021-08-28] MEDS: clonazePAM 0.5 MG TABLET PO SCH (08:59)
[2021-08-28] MEDS: QUEtiapine 25 MG TABLET. PO SCH ×3 (09:00→20:10)
[2021-08-28] MEDS: SERTRALINE 50 MG TABLET. PO SCH (09:00)
--- NOTE | 2021-08-28 09:10 | PDOC ---
Exam Note: Gino Note: Late entry for 08/27/2021. Please also refer to the separate dictated note~for this date of service dictated separately. Discussed the patient with Nursing staff reviewed the chart.~Reviewed interim history and current functioning. Reviewed vital signs,~Labs/ Radiology~and current medications noted below. Continue current treatment with the changes noted in the dictated addendum note Assessment: Vital Signs/I&O: Vital Signs Date Time Temp Pulse Resp B/P (MAP) Pulse Ox O2 Delivery O2 Flow Rate FiO2 08/28/21 05:56 97.7 90 18 115/71 (86) 97 08/27/21 06:15 Room Air I & O 08/27/21 08/27/21 08/28/21 15:00 23:00 07:00 Intake Total 720 ml 420 ml Balance 720 ml 420 ml Labs: Laboratory Tests Test 08/28/21 07:37 Glucose (Fingerstick) 105 mg/dL (70-99) H Current Medications: Meds: Laboratory Tests Test 08/28/21 07:37 Glucose (Fingerstick) 105 mg/dL Current Medications Medications (Trade) Dose Ordered Sig/Ras Route PRN Reason Start Time Stop Time Status Last Admin Dose Admin Acetaminophen (Tylenol) 650 mg PRN Q6HRS PRN PO MILD PAIN / TEMP > 100.3'F 08/17/21 16:00 08/26/21 16:38 Multi-Ingredient Ointment (Analgesic [place]) 1 annamarie PRN QID PRN TP MUSCLE PAIN 08/17/21 16:00 Al Hydroxide/Mg Hydroxide (Mylanta Plus Xs) 15 ml PRN AFTMEALHC PRN PO DYSPEPSIA 08/17/21 16:00 08/23/21 08:56 Magnesium Hydroxide (Milk Of Magnesia) 2,400 mg PRN QHS PRN PO 1st choice CONSTIPATION 08/17/21 16:00 Buspirone HCl (Buspar) 10 mg BID PO 08/17/21 21:00 08/28/21 08:57 Calcium Carbonate/ Glycine (Tums) 500 mg PRN Q6HRS PRN PO INDIGESTION 08/17/21 18:15 08/18/21 11:01 DC Clonazepam (KlonoPIN) 0.5 mg BID PO 08/17/21 21:00 08/19/21 20:11 DC 08/19/21 09:06 Empaglifozin (Jardiance) 10 mg DAILY PO 08/18/21 09:00 08/28/21 08:59 Hydroxychloroquine Sulfate (Plaquenil) 400 mg DAILY PO 08/18/21 09:00 08/28/21 08:59 Hydroxyzine HCl (Atarax) 25 mg PRN Q8HRS PRN PO ANXIETY 08/17/21 18:15 08/18/21 11:01 DC 08/18/21 10:04 Levothyroxine Sodium (Synthroid) 25 mcg DAILY06 PO 08/18/21 06:00 08/20/21 10:10 DC 08/20/21 06:07 Melatonin (Melatonin) 3 mg QHS PO 08/17/21 21:00 08/27/21 20:05 Polyethylene Glycol (miraLAX) 17 gm BID PO 08/17/21 21:00 08/28/21 08:57 Pramipexole Dihydrochloride (miraPEX) 0.25 mg TID PO 08/17/21 21:00 08/28/21 08:58 Propranolol HCl (Inderal) 20 mg QHS PO 08/17/21 21:00 08/26/21 19:45 Sennosides (Senna) 8.6 mg DAILY PO 08/18/21 09:00 08/18/21 11:01 DC 08/18/21 09:47 Simethicone (Gas-X) 80 mg PRN Q6HRS PRN PO GAS / BLOATING 08/17/21 18:00 08/18/21 11:17 DC Simethicone (Gas-X) 80 mg TID PO 08/17/21 21:00 08/18/21 11:01 DC 08/18/21 09:46 Trimethoprim/ Sulfamethoxazole (Bactrim Ds) 1 tab BID PO 08/17/21 21:00 08/23/21 21:30 DC 08/23/21 20:06 Tramadol HCl (Ultram) 50 mg PRN Q6HRS PRN PO mod-sev PAIN 08/17/21 18:00 08/26/21 19:48 Trazodone HCl (Desyrel) 50 mg QHS PO 08/17/21 21:00 08/22/21 20:25 DC 08/21/21 21:00 Non-Formulary Medication (Aspirin/Sod Bicarb/Citric Acid (Renee-[place] Original Tab Eff)) 325 mg PRN Q24HRS PRN PO DYSPEPSIA 08/17/21 18:00 UNV Capsaicin (Zostrix) 1 annamarie PRN Q12HR PRN TP PAIN 08/17/21 18:45 08/18/21 11:01 DC Carbidopa/Levodopa (Sinemet 25/100) 2 tab [id number] PO 08/17/21 18:30 08/28/21 06:20 Citalopram Hydrobromide (CeleXA) 40 mg DAILY PO 08/18/21 09:00 08/28/21 08:58 Glycerin (Sani-Supp Adult) 1 supp PRN Q24HRS PRN [place] 2nd choice CONSTIPATION 08/17/21 18:45 Lactobacillus Rhamnosus (Culturelle) 1 cap BID PO 08/17/21 21:00 08/18/21 11:01 DC 08/18/21 09:47 Lubiprostone (Amitiza) 24 mcg BIDWMEALS PO 08/18/21 08:00 08/28/21 08:57 Cetirizine HCl (ZyrTEC) 10 mg DAILY PO 08/18/21 09:00 08/18/21 11:01 DC 08/18/21 09:47 Magnesium Oxide (Magnesium Oxide) 400 mg DAILY PO 08/18/21 09:00 08/18/21 11:01 DC 08/18/21 09:47 Metformin HCl (Glucophage) 1,000 mg BIDWMEALS PO 08/18/21 08:00 08/28/21 08:58 Pantoprazole Sodium (Protonix) 40 mg DAILYAC PO 08/18/21 07:30 08/28/21 08:57 Ondansetron HCl (Zofran Odt) 4 mg PRN Q6HRS PRN PO NAUSEA/VOMITING 08/17/21 18:30 Non-Formulary Medication (Trolamine Salicylate/Aloe Vera (Aspercreme 10% Cream)) 1 annamarie PRN BID PRN TP PAIN 08/17/21 18:00 UNV Olanzapine (ZyPREXA ZYDIS) 1.25 mg PRN Q2HRS PRN PO PSYCHOSIS 08/18/21 12:00 08/27/21 15:56 Clonazepam (KlonoPIN) 0.25 mg DAILY PO 08/20/21 09:00 08/27/21 20:18 DC 08/27/21 08:30 Clonazepam (KlonoPIN) 0.5 mg HS PO 08/19/21 21:00 08/22/21 19:00 DC 08/21/21 21:05 Clonazepam (KlonoPIN) 0.25 mg HS PO 08/22/21 21:00 08/27/21 22:00 DC 08/27/21 20:06 Levothyroxine Sodium (Synthroid) 50 mcg DAILY06 PO 08/21/21 06:00 08/28/21 06:20 Quetiapine Fumarate (SEROquel) 25 mg QHS PO 08/20/21 21:00 08/23/21 16:13 DC 08/22/21 21:49 Trazodone HCl (Desyrel) 50 mg PRN QHS PRN PO INSOMNIA, MAY REPEAT X1 08/22/21 20:30 08/25/21 23:37 Mirtazapine (Remeron) 7.5 mg QHS PO 08/22/21 21:00 08/27/21 20:05 Quetiapine Fumarate (SEROquel) 37.5 mg QHS PO 08/23/21 21:00 08/27/21 20:05 Simethicone (Gas-X) 80 mg PRN QID PRN PO GAS / BLOATING 08/23/21 16:30 08/24/21 09:09 Sertraline HCl (Zoloft) 25 mg DAILY PO 08/25/21 09:00 08/27/21 21:00 DC 08/27/21 08:30 Sertraline HCl (Zoloft) 50 mg DAILY PO 08/28/21 09:00 08/28/21 09:00 Clonazepam (KlonoPIN) 0.25 mg DAILY PO 08/28/21 09:00 08/30/21 12:00 08/28/21 08:59 Quetiapine Fumarate (SEROquel) 12.5 mg 0900,1700 PO 08/28/21 09:00 08/28/21 09:00 Current Medications Medications (Trade) Dose Ordered Sig/Ras Route PRN Reason Start Time Stop Time Status Last Admin Dose Admin Sertraline HCl (Zoloft) 50 mg DAILY PO 08/28/21 09:00 08/28/21 09:00 Clonazepam (KlonoPIN) 0.25 mg DAILY PO 08/28/21 09:00 08/30/21 12:00 08/28/21 08:59 Quetiapine Fumarate (SEROquel) 12.5 mg 0900,1700 PO 08/28/21 09:00 08/28/21 09:00 I have reviewed the current psychotropics carefully including drug interactions. Risk benefit ratio favors no change other than as noted in my dictated progress note. Diagnosis: Problems: (1) Mild cognitive impairment (2) Major depressive disorder with psychotic features (3) Parkinson's disease (4) Anxiety disorder, unspecified RANJITH HAWKINS MD Aug 28, 2021 09:10
--- NOTE | 2021-08-28 09:52 | NUR ---
Nursing note: Pt in day room at time of AM med pass and assessment. She is pleasant, med compliant and cooperative. She asks questions to be sure she has something for anxiety, as she continues to be anxious. Pt denies having any pain. She is currently sitting quietly in her room. Will continue to monitor.
[2021-08-28] MEDS: SIMETHICONE 80 MG TAB.CHEW PO PRN ×2 (11:21→23:20)
[2021-08-28 15:48] VITALS: BP 145/69
[2021-08-28] MEDS: PROPRANOLOL 20 MG TABLET. PO SCH (20:09)
[2021-08-28] MEDS: MELATONIN 3 MG TABLET PO SCH (20:10)
[2021-08-28] MEDS: MIRTAZAPINE 7.5 MG TABLET. PO SCH (20:11)
--- NOTE | 2021-08-28 21:46 | PDOC ---
Exam Note: Gino Note: Please also refer to the separate dictated note~for this date of service dictated separately.~Patient seen individually. Discussed the patient with Nursing staff reviewed the chart.~Reviewed interim history and current functioning. Reviewed vital signs,~Labs/ Radiology~and current medications noted below. Continue current treatment with the changes noted in the dictated addendum note Assessment: Vital Signs/I&O: Vital Signs Date Time Temp Pulse Resp B/P (MAP) Pulse Ox O2 Delivery O2 Flow Rate FiO2 08/28/21 20:09 99 145/69 08/28/21 15:48 97.8 20 100 08/27/21 06:15 Room Air I & O 08/27/21 08/27/21 08/28/21 15:00 23:00 07:00 Intake Total 720 ml 420 ml Balance 720 ml 420 ml Labs: Laboratory Tests Test 08/28/21 07:37 Glucose (Fingerstick) 105 mg/dL (70-99) H Current Medications: Meds: Laboratory Tests Test 08/28/21 07:37 Glucose (Fingerstick) 105 mg/dL Current Medications Medications (Trade) Dose Ordered Sig/Ras Route PRN Reason Start Time Stop Time Status Last Admin Dose Admin Acetaminophen (Tylenol) 650 mg PRN Q6HRS PRN PO MILD PAIN / TEMP > 100.3'F 08/17/21 16:00 08/26/21 16:38 Multi-Ingredient Ointment (Analgesic [place]) 1 annamarie PRN QID PRN TP MUSCLE PAIN 08/17/21 16:00 Al Hydroxide/Mg Hydroxide (Mylanta Plus Xs) 15 ml PRN AFTMEALHC PRN PO DYSPEPSIA 08/17/21 16:00 08/23/21 08:56 Magnesium Hydroxide (Milk Of Magnesia) 2,400 mg PRN QHS PRN PO 1st choice CONSTIPATION 08/17/21 16:00 Buspirone HCl (Buspar) 10 mg BID PO 08/17/21 21:00 08/28/21 20:09 Calcium Carbonate/ Glycine (Tums) 500 mg PRN Q6HRS PRN PO INDIGESTION 08/17/21 18:15 08/18/21 11:01 DC Clonazepam (KlonoPIN) 0.5 mg BID PO 08/17/21 21:00 08/19/21 20:11 DC 08/19/21 09:06 Empaglifozin (Jardiance) 10 mg DAILY PO 08/18/21 09:00 08/28/21 08:59 Hydroxychloroquine Sulfate (Plaquenil) 400 mg DAILY PO 08/18/21 09:00 08/28/21 08:59 Hydroxyzine HCl (Atarax) 25 mg PRN Q8HRS PRN PO ANXIETY 08/17/21 18:15 08/18/21 11:01 DC 08/18/21 10:04 Levothyroxine Sodium (Synthroid) 25 mcg DAILY06 PO 08/18/21 06:00 08/20/21 10:10 DC 08/20/21 06:07 Melatonin (Melatonin) 3 mg QHS PO 08/17/21 21:00 08/28/21 20:10 Polyethylene Glycol (miraLAX) 17 gm BID PO 08/17/21 21:00 08/28/21 20:11 Pramipexole Dihydrochloride (miraPEX) 0.25 mg TID PO 08/17/21 21:00 08/28/21 20:11 Propranolol HCl (Inderal) 20 mg QHS PO 08/17/21 21:00 08/28/21 20:09 Sennosides (Senna) 8.6 mg DAILY PO 08/18/21 09:00 08/18/21 11:01 DC 08/18/21 09:47 Simethicone (Gas-X) 80 mg PRN Q6HRS PRN PO GAS / BLOATING 08/17/21 18:00 08/18/21 11:17 DC Simethicone (Gas-X) 80 mg TID PO 08/17/21 21:00 08/18/21 11:01 DC 08/18/21 09:46 Trimethoprim/ Sulfamethoxazole (Bactrim Ds) 1 tab BID PO 08/17/21 21:00 08/23/21 21:30 DC 08/23/21 20:06 Tramadol HCl (Ultram) 50 mg PRN Q6HRS PRN PO mod-sev PAIN 08/17/21 18:00 08/26/21 19:48 Trazodone HCl (Desyrel) 50 mg QHS PO 08/17/21 21:00 08/22/21 20:25 DC 08/21/21 21:00 Non-Formulary Medication (Aspirin/Sod Bicarb/Citric Acid (Renee-[place] Original Tab Eff)) 325 mg PRN Q24HRS PRN PO DYSPEPSIA 08/17/21 18:00 UNV Capsaicin (Zostrix) 1 annamarie PRN Q12HR PRN TP PAIN 08/17/21 18:45 08/18/21 11:01 DC Carbidopa/Levodopa (Sinemet 25/100) 2 tab [id number] PO 08/17/21 18:30 08/28/21 17:38 Citalopram Hydrobromide (CeleXA) 40 mg DAILY PO 08/18/21 09:00 08/28/21 08:58 Glycerin (Sani-Supp Adult) 1 supp PRN Q24HRS PRN [place] 2nd choice CONSTIPATION 08/17/21 18:45 Lactobacillus Rhamnosus (Culturelle) 1 cap BID PO 08/17/21 21:00 08/18/21 11:01 DC 08/18/21 09:47 Lubiprostone (Amitiza) 24 mcg BIDWMEALS PO 08/18/21 08:00 08/28/21 17:38 Cetirizine HCl (ZyrTEC) 10 mg DAILY PO 08/18/21 09:00 08/18/21 11:01 DC 08/18/21 09:47 Magnesium Oxide (Magnesium Oxide) 400 mg DAILY PO 08/18/21 09:00 08/18/21 11:01 DC 08/18/21 09:47 Metformin HCl (Glucophage) 1,000 mg BIDWMEALS PO 08/18/21 08:00 08/28/21 17:38 Pantoprazole Sodium (Protonix) 40 mg DAILYAC PO 08/18/21 07:30 08/28/21 08:57 Ondansetron HCl (Zofran Odt) 4 mg PRN Q6HRS PRN PO NAUSEA/VOMITING 08/17/21 18:30 Non-Formulary Medication (Trolamine Salicylate/Aloe Vera (Aspercreme 10% Cream)) 1 annamarie PRN BID PRN TP PAIN 08/17/21 18:00 UNV Olanzapine (ZyPREXA ZYDIS) 1.25 mg PRN Q2HRS PRN PO PSYCHOSIS 08/18/21 12:00 08/27/21 15:56 Clonazepam (KlonoPIN) 0.25 mg DAILY PO 08/20/21 09:00 08/27/21 20:18 DC 08/27/21 08:30 Clonazepam (KlonoPIN) 0.5 mg HS PO 08/19/21 21:00 08/22/21 19:00 DC 08/21/21 21:05 Clonazepam (KlonoPIN) 0.25 mg HS PO 08/22/21 21:00 08/27/21 22:00 DC 08/27/21 20:06 Levothyroxine Sodium (Synthroid) 50 mcg DAILY06 PO 08/21/21 06:00 08/28/21 06:20 Quetiapine Fumarate (SEROquel) 25 mg QHS PO 08/20/21 21:00 08/23/21 16:13 DC 08/22/21 21:49 Trazodone HCl (Desyrel) 50 mg PRN QHS PRN PO INSOMNIA, MAY REPEAT X1 08/22/21 20:30 08/25/21 23:37 Mirtazapine (Remeron) 7.5 mg QHS PO 08/22/21 21:00 08/28/21 20:11 Quetiapine Fumarate (SEROquel) 37.5 mg QHS PO 08/23/21 21:00 08/28/21 20:10 Simethicone (Gas-X) 80 mg PRN QID PRN PO GAS / BLOATING 08/23/21 16:30 08/28/21 11:21 Sertraline HCl (Zoloft) 25 mg DAILY PO 08/25/21 09:00 08/27/21 21:00 DC 08/27/21 08:30 Sertraline HCl (Zoloft) 50 mg DAILY PO 08/28/21 09:00 08/28/21 09:00 Clonazepam (KlonoPIN) 0.25 mg DAILY PO 08/28/21 09:00 08/30/21 12:00 08/28/21 08:59 Quetiapine Fumarate (SEROquel) 12.5 mg 0900,1700 PO 08/28/21 09:00 08/28/21 17:38 Current Medications Medications (Trade) Dose Ordered Sig/Ras Route PRN Reason Start Time Stop Time Status Last Admin Dose Admin Sertraline HCl (Zoloft) 50 mg DAILY PO 08/28/21 09:00 08/28/21 09:00 Clonazepam (KlonoPIN) 0.25 mg DAILY PO 08/28/21 09:00 08/30/21 12:00 08/28/21 08:59 Quetiapine Fumarate (SEROquel) 12.5 mg 0900,1700 PO 08/28/21 09:00 08/28/21 17:38 I have reviewed the current psychotropics carefully including drug interactions. Risk benefit ratio favors no change other than as noted in my dictated progress note. Diagnosis: Problems: (1) Mild cognitive impairment (2) Major depressive disorder with psychotic features (3) Parkinson's disease (4) Anxiety disorder, unspecified RANJITH HAWKINS MD Aug 28, 2021 21:46
--- NOTE | 2021-08-28 22:45 | NUR ---
Patient became very upset when staff told her she was going to get a shower tonight. Several employees spoke to her and she eventually calmed down, then blamed the whole thing on the fear that "she wouldn't have any pajamas". Patient was compliant with medications taken whole and was cooperative with staff after her shower.
[2021-08-29] MEDS: LEVOTHYROXINE 50 MCG TABLET PO SCH (05:17)
[2021-08-29] MEDS: CARBIDOPA/LEVODOPA 25/100MG TABLET PO SCH ×3 (05:17→17:14)
[2021-08-29 05:39] VITALS: BP 108/66
[2021-08-29] MEDS: metFORMIN 500 MG TABLET PO SCH ×2 (08:15→17:14)
[2021-08-29] MEDS: CITALOPRAM 20 MG TABLET. PO SCH (08:16)
[2021-08-29] MEDS: LUBIPROSTONE 24 MCG CAPSULE PO SCH ×2 (08:16→17:14)
[2021-08-29] MEDS: QUEtiapine 25 MG TABLET. PO SCH ×3 (08:16→20:16)
[2021-08-29] MEDS: PANTOPRAZOLE 40 MG TABLET. PO SCH (08:16)
[2021-08-29] MEDS: HYDROXYCHLOROQUINE 200 MG TABLET PO SCH (08:16)
[2021-08-29] MEDS: busPIRone 10 MG TABLET. PO SCH ×2 (08:17→20:17)
[2021-08-29] MEDS: EMPAGLIFLOZIN 10 MG TABLET. PO SCH (08:17)
[2021-08-29] MEDS: clonazePAM 0.5 MG TABLET PO SCH (08:17)
[2021-08-29] MEDS: SERTRALINE 50 MG TABLET. PO SCH (08:17)
[2021-08-29] MEDS: POLYETHYLENE GLYCOL 3350 17 GM PACKET. PO SCH ×2 (08:17→19:25)
[2021-08-29] MEDS: PRAMIPEXOLE 0.25 MG TABLET. PO SCH ×3 (08:17→20:17)
--- NOTE | 2021-08-29 08:37 | PDOC ---
Exam Note: Gino Note: This note is a late entry for 08/28/2021 covers elements not covered in my initial note. Subjective: The patient was seen individually in the evening of 08/28/2021 with Raeann ALTMAN, discussed and reviewed the chart. The patient slept 8 hours previous night. She remains anxious but less labile in her mood. She has been obsessing regarding discharge and I addressed this with her individually in her room in the evening. Earlier in the day she was talking to the nursing staff and seemed to remember my name. Review of Systems: Hard of hearing. Ambulation impaired in wheelchair. No CV, , pulmonary, eye system symptoms on review. Mental Status Exam: The patient is oriented to herself and situation. Speech is still pressured, less so than before. Abstraction fair. Computation impaired. Language function intact. Attention span short. Mood and affect somewhat anxious, labile. No suicidal or homicidal ideation. Laboratory Data: Reviewed. 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 Anxiety disorder unspecified. Parkinsons disease. Plan: We may need to increase Seroquel further depending on her mood lability and anxiety but we will leave it another 24 to 48 hours and then decide. Assessment: Vital Signs/I&O: Vital Signs Date Time Temp Pulse Resp B/P (MAP) Pulse Ox O2 Delivery O2 Flow Rate FiO2 08/29/21 05:39 97.3 71 18 108/66 (80) 98 08/27/21 06:15 Room Air I & O 08/28/21 08/28/21 08/29/21 15:00 23:00 07:00 Intake Total 720 ml 240 ml 60 ml Balance 720 ml 240 ml 60 ml Labs: Laboratory Tests Test 08/29/21 07:35 Glucose (Fingerstick) 144 mg/dL (70-99) H Current Medications: Meds: Laboratory Tests Test 08/29/21 07:35 Glucose (Fingerstick) 144 mg/dL Current Medications Medications (Trade) Dose Ordered Sig/Ras Route PRN Reason Start Time Stop Time Status Last Admin Dose Admin Acetaminophen (Tylenol) 650 mg PRN Q6HRS PRN PO MILD PAIN / TEMP > 100.3'F 08/17/21 16:00 08/26/21 16:38 Multi-Ingredient Ointment (Analgesic [place]) 1 annamarie PRN QID PRN TP MUSCLE PAIN 10/21/21 16:00 Al Hydroxide/Mg Hydroxide (Mylanta Plus Xs) 15 ml PRN AFTMEALHC PRN PO DYSPEPSIA 08/17/21 16:00 08/23/21 08:56 Magnesium Hydroxide (Milk Of Magnesia) 2,400 mg PRN QHS PRN PO 1st choice CONSTIPATION 08/17/21 16:00 Buspirone HCl (Buspar) 10 mg BID PO 08/17/21 21:00 08/29/21 08:17 Calcium Carbonate/ Glycine (Tums) 500 mg PRN Q6HRS PRN PO INDIGESTION 08/17/21 18:15 08/18/21 11:01 DC Clonazepam (KlonoPIN) 0.5 mg BID PO 08/17/21 21:00 08/19/21 20:11 DC 08/19/21 09:06 Empaglifozin (Jardiance) 10 mg DAILY PO 08/18/21 09:00 08/29/21 08:17 Hydroxychloroquine Sulfate (Plaquenil) 400 mg DAILY PO 08/18/21 09:00 08/29/21 08:16 Hydroxyzine HCl (Atarax) 25 mg PRN Q8HRS PRN PO ANXIETY 08/17/21 18:15 08/18/21 11:01 DC 08/18/21 10:04 Levothyroxine Sodium (Synthroid) 25 mcg DAILY06 PO 08/18/21 06:00 08/20/21 10:10 DC 08/20/21 06:07 Melatonin (Melatonin) 3 mg QHS PO 08/17/21 21:00 08/28/21 20:10 Polyethylene Glycol (miraLAX) 17 gm BID PO 08/17/21 21:00 08/29/21 08:17 Pramipexole Dihydrochloride (miraPEX) 0.25 mg TID PO 08/17/21 21:00 08/29/21 08:17 Propranolol HCl (Inderal) 20 mg QHS PO 08/17/21 21:00 08/28/21 20:09 Sennosides (Senna) 8.6 mg DAILY PO 08/18/21 09:00 08/18/21 11:01 DC 08/18/21 09:47 Simethicone (Gas-X) 80 mg PRN Q6HRS PRN PO GAS / BLOATING 08/17/21 18:00 08/18/21 11:17 DC Simethicone (Gas-X) 80 mg TID PO 08/17/21 21:00 08/18/21 11:01 DC 08/18/21 09:46 Trimethoprim/ Sulfamethoxazole (Bactrim Ds) 1 tab BID PO 08/17/21 21:00 08/23/21 21:30 DC 08/23/21 20:06 Tramadol HCl (Ultram) 50 mg PRN Q6HRS PRN PO mod-sev PAIN 08/17/21 18:00 08/26/21 19:48 Trazodone HCl (Desyrel) 50 mg QHS PO 08/17/21 21:00 08/22/21 20:25 DC 08/21/21 21:00 Non-Formulary Medication (Aspirin/Sod Bicarb/Citric Acid ([place]ene[place] Original Tab Eff)) 325 mg PRN Q24HRS PRN PO DYSPEPSIA 08/17/21 18:00 UNV Capsaicin (Zostrix) 1 annamarie PRN Q12HR PRN TP PAIN 08/17/21 18:45 08/18/21 11:01 DC Carbidopa/Levodopa (Sinemet 25/100) 2 tab [id number] PO 08/17/21 18:30 08/29/21 05:17 Citalopram Hydrobromide (CeleXA) 40 mg DAILY PO 08/18/21 09:00 08/29/21 08:16 Glycerin (Sani-Supp Adult) 1 supp PRN Q24HRS PRN [place] 2nd choice CONSTIPATION 08/17/21 18:45 Lactobacillus Rhamnosus (Culturelle) 1 cap BID PO 08/17/21 21:00 08/18/21 11:01 DC 08/18/21 09:47 Lubiprostone (Amitiza) 24 mcg BIDWMEALS PO 08/18/21 08:00 08/29/21 08:16 Cetirizine HCl (ZyrTEC) 10 mg DAILY PO 08/18/21 09:00 08/18/21 11:01 DC 08/18/21 09:47 Magnesium Oxide (Magnesium Oxide) 400 mg DAILY PO 08/18/21 09:00 08/18/21 11:01 DC 08/18/21 09:47 Metformin HCl (Glucophage) 1,000 mg BIDWMEALS PO 08/18/21 08:00 08/29/21 08:15 Pantoprazole Sodium (Protonix) 40 mg DAILYAC PO 08/18/21 07:30 08/29/21 08:16 Ondansetron HCl (Zofran Odt) 4 mg PRN Q6HRS PRN PO NAUSEA/VOMITING 08/17/21 18:30 Non-Formulary Medication (Trolamine Salicylate/Aloe Vera (Aspercreme 10% Cream)) 1 annamarie PRN BID PRN TP PAIN 08/17/21 18:00 UNV Olanzapine (ZyPREXA ZYDIS) 1.25 mg PRN Q2HRS PRN PO PSYCHOSIS 08/18/21 12:00 08/27/21 15:56 Clonazepam (KlonoPIN) 0.25 mg DAILY PO 08/20/21 09:00 08/27/21 20:18 DC 08/27/21 08:30 Clonazepam (KlonoPIN) 0.5 mg HS PO 08/19/21 21:00 08/22/21 19:00 DC 08/21/21 21:05 Clonazepam (KlonoPIN) 0.25 mg HS PO 08/22/21 21:00 08/27/21 22:00 DC 08/27/21 20:06 Levothyroxine Sodium (Synthroid) 50 mcg DAILY06 PO 08/21/21 06:00 08/29/21 05:17 Quetiapine Fumarate (SEROquel) 25 mg QHS PO 08/20/21 21:00 08/23/21 16:13 DC 08/22/21 21:49 Trazodone HCl (Desyrel) 50 mg PRN QHS PRN PO INSOMNIA, MAY REPEAT X1 08/22/21 20:30 08/25/21 23:37 Mirtazapine (Remeron) 7.5 mg QHS PO 08/22/21 21:00 08/28/21 20:11 Quetiapine Fumarate (SEROquel) 37.5 mg QHS PO 08/23/21 21:00 08/28/21 20:10 Simethicone (Gas-X) 80 mg PRN QID PRN PO GAS / BLOATING 08/23/21 16:30 08/28/21 23:20 Sertraline HCl (Zoloft) 25 mg DAILY PO 08/25/21 09:00 08/27/21 21:00 DC 08/27/21 08:30 Sertraline HCl (Zoloft) 50 mg DAILY PO 08/28/21 09:00 08/29/21 08:17 Clonazepam (KlonoPIN) 0.25 mg DAILY PO 08/28/21 09:00 08/30/21 12:00 08/29/21 08:17 Quetiapine Fumarate (SEROquel) 12.5 mg 0900,1700 PO 08/28/21 09:00 08/29/21 08:16 Current Medications Medications (Trade) Dose Ordered Sig/Ras Route PRN Reason Start Time Stop Time Status Last Admin Dose Admin Sertraline HCl (Zoloft) 50 mg DAILY PO 08/28/21 09:00 08/29/21 08:17 Clonazepam (KlonoPIN) 0.25 mg DAILY PO 08/28/21 09:00 08/30/21 12:00 08/29/21 08:17 Quetiapine Fumarate (SEROquel) 12.5 mg 0900,1700 PO 08/28/21 09:00 08/29/21 08:16 I have reviewed the current psychotropics carefully including drug interactions. Risk benefit ratio favors no change other than as noted in my dictated progress note. Diagnosis: Problems: (1) Major depressive disorder with psychotic features (2) Mild cognitive impairment (3) Parkinson's disease (4) Anxiety disorder, unspecified RANJITH HAWKINS MD Aug 29, 2021 08:37
[2021-08-29] MEDS: SIMETHICONE 80 MG TAB.CHEW PO PRN ×2 (09:29→17:19)
[2021-08-29] MEDS: ONDANSETRON ODT 4 MG TAB.RAPDIS PO PRN (15:10)
[2021-08-29 15:46] VITALS: BP 108/62
--- NOTE | 2021-08-29 17:08 | NUR ---
Nsg Note; Nikhil has been alert and compliant today. She has multiple requests for staff and is particular about her diet and cares.
[2021-08-29] MEDS: MELATONIN 3 MG TABLET PO SCH (20:17)
[2021-08-29] MEDS: MIRTAZAPINE 7.5 MG TABLET. PO SCH (20:17)
[2021-08-29] MEDS: PROPRANOLOL 20 MG TABLET. PO SCH (20:17)
[2021-08-29] MEDS: traZODone 50 MG TABLET. PO PRN (20:22)
[2021-08-29] MEDS: traMADol 50 MG TABLET PO PRN (20:28)
--- NOTE | 2021-08-29 22:13 | NUR ---
Patient has been restless. She is reporting that she is having stomach cramping, and had a loose stool earlier this day. HS miralax held. Patient appears anxious, is focused on trivial things. She is also reporting pain in her back. Nurse provided patient with a warm blanket for her back and then PRN tramadol per patient request. Patient was provided a snack at 2200 and encouraged to go to bed after her snack. PRN zyprexa given for anxiety and restlessness. PRN trazodone given for restlessness and insomnia. Patient is cooperative and took her medications whole. Will continue to monitor.
--- NOTE | 2021-08-29 22:19 | PDOC ---
Exam Note: Gino Note: Please also refer to the separate dictated note~for this date of service dictated separately.~Patient seen individually. Discussed the patient with Nursing staff reviewed the chart.~Reviewed interim history and current functioning. Reviewed vital signs,~Labs/ Radiology~and current medications noted below. Continue current treatment with the changes noted in the dictated addendum note Assessment: Vital Signs/I&O: Vital Signs Date Time Temp Pulse Resp B/P (MAP) Pulse Ox O2 Delivery O2 Flow Rate FiO2 08/29/21 20:17 85 108/62 08/29/21 15:46 99.5 20 98 08/27/21 06:15 Room Air I & O 08/28/21 08/28/21 08/29/21 15:00 23:00 07:00 Intake Total 720 ml 240 ml 60 ml Balance 720 ml 240 ml 60 ml Labs: Laboratory Tests Test 08/29/21 07:35 Glucose (Fingerstick) 144 mg/dL (70-99) H Current Medications: Meds: Laboratory Tests Test 08/29/21 07:35 Glucose (Fingerstick) 144 mg/dL Current Medications Medications (Trade) Dose Ordered Sig/Ras Route PRN Reason Start Time Stop Time Status Last Admin Dose Admin Acetaminophen (Tylenol) 650 mg PRN Q6HRS PRN PO MILD PAIN / TEMP > 100.3'F 08/17/21 16:00 08/26/21 16:38 Multi-Ingredient Ointment (Analgesic [place]) 1 annamarie PRN QID PRN TP MUSCLE PAIN 08/17/21 16:00 Al Hydroxide/Mg Hydroxide (Mylanta Plus Xs) 15 ml PRN AFTMEALHC PRN PO DYSPEPSIA 08/17/21 16:00 08/23/21 08:56 Magnesium Hydroxide (Milk Of Magnesia) 2,400 mg PRN QHS PRN PO 1st choice CONSTIPATION 08/17/21 16:00 Buspirone HCl (Buspar) 10 mg BID PO 08/17/21 21:00 08/29/21 20:17 Calcium Carbonate/ Glycine (Tums) 500 mg PRN Q6HRS PRN PO INDIGESTION 08/17/21 18:15 08/18/21 11:01 DC Clonazepam (KlonoPIN) 0.5 mg BID PO 08/17/21 21:00 08/19/21 20:11 DC 08/19/21 09:06 Empaglifozin (Jardiance) 10 mg DAILY PO 08/18/21 09:00 08/29/21 08:17 Hydroxychloroquine Sulfate (Plaquenil) 400 mg DAILY PO 08/18/21 09:00 08/29/21 08:16 Hydroxyzine HCl (Atarax) 25 mg PRN Q8HRS PRN PO ANXIETY 08/17/21 18:15 08/18/21 11:01 DC 08/18/21 10:04 Levothyroxine Sodium (Synthroid) 25 mcg DAILY06 PO 08/18/21 06:00 08/20/21 10:10 DC 08/20/21 06:07 Melatonin (Melatonin) 3 mg QHS PO 08/17/21 21:00 08/29/21 20:17 Polyethylene Glycol (miraLAX) 17 gm BID PO 08/17/21 21:00 08/29/21 08:17 Pramipexole Dihydrochloride (miraPEX) 0.25 mg TID PO 08/17/21 21:00 08/29/21 20:17 Propranolol HCl (Inderal) 20 mg QHS PO 08/17/21 21:00 08/29/21 20:17 Sennosides (Senna) 8.6 mg DAILY PO 08/18/21 09:00 08/18/21 11:01 DC 08/18/21 09:47 Simethicone (Gas-X) 80 mg PRN Q6HRS PRN PO GAS / BLOATING 08/17/21 18:00 08/18/21 11:17 DC Simethicone (Gas-X) 80 mg TID PO 08/17/21 21:00 08/18/21 11:01 DC 08/18/21 09:46 Trimethoprim/ Sulfamethoxazole (Bactrim Ds) 1 tab BID PO 08/17/21 21:00 08/23/21 21:30 DC 08/23/21 20:06 Tramadol HCl (Ultram) 50 mg PRN Q6HRS PRN PO mod-sev PAIN 08/17/21 18:00 08/29/21 20:28 Trazodone HCl (Desyrel) 50 mg QHS PO 08/17/21 21:00 08/22/21 20:25 DC 08/21/21 21:00 Non-Formulary Medication (Aspirin/Sod Bicarb/Citric Acid ([place]enee-[place] Original Tab Eff)) 325 mg PRN Q24HRS PRN PO DYSPEPSIA 08/17/21 18:00 UNV Capsaicin (Zostrix) 1 annamarie PRN Q12HR PRN TP PAIN 08/17/21 18:45 08/18/21 11:01 DC Carbidopa/Levodopa (Sinemet 25/100) 2 tab [id number] PO 08/17/21 18:30 08/29/21 17:14 Citalopram Hydrobromide (CeleXA) 40 mg DAILY PO 08/18/21 09:00 08/29/21 08:16 Glycerin (Sani-Supp Adult) 1 supp PRN Q24HRS PRN [place] 2nd choice CONSTIPATION 08/17/21 18:45 Lactobacillus Rhamnosus (Culturelle) 1 cap BID PO 08/17/21 21:00 08/18/21 11:01 DC 08/18/21 09:47 Lubiprostone (Amitiza) 24 mcg BIDWMEALS PO 08/18/21 08:00 08/29/21 17:14 Cetirizine HCl (ZyrTEC) 10 mg DAILY PO 08/18/21 09:00 08/18/21 11:01 DC 08/18/21 09:47 Magnesium Oxide (Magnesium Oxide) 400 mg DAILY PO 08/18/21 09:00 08/18/21 11:01 DC 08/18/21 09:47 Metformin HCl (Glucophage) 1,000 mg BIDWMEALS PO 08/18/21 08:00 08/29/21 17:14 Pantoprazole Sodium (Protonix) 40 mg DAILYAC PO 08/18/21 07:30 08/29/21 08:16 Ondansetron HCl (Zofran Odt) 4 mg PRN Q6HRS PRN PO NAUSEA/VOMITING 08/17/21 18:30 08/29/21 15:10 Non-Formulary Medication (Trolamine Salicylate/Aloe Vera (Aspercreme 10% Cream)) 1 annamarie PRN BID PRN TP PAIN 08/17/21 18:00 UNV Olanzapine (ZyPREXA ZYDIS) 1.25 mg PRN Q2HRS PRN PO PSYCHOSIS 08/18/21 12:00 08/29/21 20:28 Clonazepam (KlonoPIN) 0.25 mg DAILY PO 08/20/21 09:00 08/27/21 20:18 DC 08/27/21 08:30 Clonazepam (KlonoPIN) 0.5 mg HS PO 08/19/21 21:00 08/22/21 19:00 DC 08/21/21 21:05 Clonazepam (KlonoPIN) 0.25 mg HS PO 08/22/21 21:00 08/27/21 22:00 DC 08/27/21 20:06 Levothyroxine Sodium (Synthroid) 50 mcg DAILY06 PO 08/21/21 06:00 08/29/21 05:17 Quetiapine Fumarate (SEROquel) 25 mg QHS PO 08/20/21 21:00 08/23/21 16:13 DC 08/22/21 21:49 Trazodone HCl (Desyrel) 50 mg PRN QHS PRN PO INSOMNIA, MAY REPEAT X1 08/22/21 20:30 08/29/21 20:22 Mirtazapine (Remeron) 7.5 mg QHS PO 08/22/21 21:00 08/29/21 20:17 Quetiapine Fumarate (SEROquel) 37.5 mg QHS PO 08/23/21 21:00 08/29/21 20:16 Simethicone (Gas-X) 80 mg PRN QID PRN PO GAS / BLOATING 08/23/21 16:30 08/29/21 17:19 Sertraline HCl (Zoloft) 25 mg DAILY PO 08/25/21 09:00 08/27/21 21:00 DC 08/27/21 08:30 Sertraline HCl (Zoloft) 50 mg DAILY PO 08/28/21 09:00 08/29/21 08:17 Clonazepam (KlonoPIN) 0.25 mg DAILY PO 08/28/21 09:00 08/30/21 12:00 08/29/21 08:17 Quetiapine Fumarate (SEROquel) 12.5 mg 0900,1700 PO 08/28/21 09:00 08/29/21 18:12 DC 08/29/21 17:15 Quetiapine Fumarate (SEROquel) 12.5 mg 0900,1300,1700 PO 08/30/21 09:00 I have reviewed the current psychotropics carefully including drug interactions. Risk benefit ratio favors no change other than as noted in my dictated progress note. Diagnosis: Problems: (1) Psychotic disorder (2) Mild cognitive impairment (3) Major depressive disorder with psychotic features (4) Parkinson's disease (5) Anxiety disorder, unspecified RANJITH HAWKINS MD Aug 29, 2021 22:19
[2021-08-30] MEDS: CARBIDOPA/LEVODOPA 25/100MG TABLET PO SCH ×5 (00:22→20:22)
[2021-08-30] MEDS: LEVOTHYROXINE 50 MCG TABLET PO SCH (05:12)
[2021-08-30 06:03] VITALS: BP 127/77
[2021-08-30] MEDS: POLYETHYLENE GLYCOL 3350 17 GM PACKET. PO SCH ×2 (09:00→20:18)
[2021-08-30] MEDS: CITALOPRAM 20 MG TABLET. PO SCH (09:10)
[2021-08-30] MEDS: LUBIPROSTONE 24 MCG CAPSULE PO SCH ×2 (09:10→17:23)
[2021-08-30] MEDS: SERTRALINE 50 MG TABLET. PO SCH (09:10)
[2021-08-30] MEDS: busPIRone 10 MG TABLET. PO SCH ×2 (09:10→20:17)
[2021-08-30] MEDS: PANTOPRAZOLE 40 MG TABLET. PO SCH (09:10)
[2021-08-30] MEDS: metFORMIN 500 MG TABLET PO SCH ×2 (09:10→17:23)
[2021-08-30] MEDS: PRAMIPEXOLE 0.25 MG TABLET. PO SCH ×3 (09:10→20:17)
[2021-08-30] MEDS: QUEtiapine 25 MG TABLET. PO SCH ×4 (09:11→20:18)
[2021-08-30] MEDS: HYDROXYCHLOROQUINE 200 MG TABLET PO SCH (09:11)
[2021-08-30] MEDS: clonazePAM 0.5 MG TABLET PO SCH (09:12)
[2021-08-30] MEDS: EMPAGLIFLOZIN 10 MG TABLET. PO SCH (09:13)
--- NOTE | 2021-08-30 13:30 | NUR ---
Nursing note: Pt in day room at time of AM med pass and assessment. She is pleasant, med compliant and cooperative. Pt denies having any pain/concerns. She is currently sitting quietly in her room. Will continue to monitor.
[2021-08-30 15:35] VITALS: BP 107/61
[2021-08-30] MEDS: MIRTAZAPINE 7.5 MG TABLET. PO SCH (20:17)
[2021-08-30] MEDS: MELATONIN 3 MG TABLET PO SCH (20:17)
[2021-08-30] MEDS: PROPRANOLOL 20 MG TABLET. PO SCH (20:22)
[2021-08-30] MEDS: traZODone 50 MG TABLET. PO PRN (20:45)
[2021-08-30] MEDS: traMADol 50 MG TABLET PO PRN (20:46)
--- NOTE | 2021-08-30 21:52 | PDOC ---
Exam Note: Gino Note: Please also refer to the separate dictated note~for this date of service dictated separately.~Patient seen individually. Discussed the patient with Nursing staff reviewed the chart.~Reviewed interim history and current functioning. Reviewed vital signs,~Labs/ Radiology~and current medications noted below. Continue current treatment with the changes noted in the dictated addendum note Assessment: Vital Signs/I&O: Vital Signs Date Time Temp Pulse Resp B/P (MAP) Pulse Ox O2 Delivery O2 Flow Rate FiO2 08/30/21 20:46 97 08/30/21 20:22 74 107/61 08/30/21 15:35 98.8 16 08/27/21 06:15 Room Air I & O 08/29/21 08/29/21 08/30/21 15:00 23:00 07:00 Intake Total 877 ml 240 ml Balance 877 ml 240 ml Labs: Laboratory Tests Test 08/30/21 07:19 Glucose (Fingerstick) 190 mg/dL (70-99) H Current Medications: Meds: Laboratory Tests Test 08/30/21 07:19 Glucose (Fingerstick) 190 mg/dL Current Medications Medications (Trade) Dose Ordered Sig/Ras Route PRN Reason Start Time Stop Time Status Last Admin Dose Admin Acetaminophen (Tylenol) 650 mg PRN Q6HRS PRN PO MILD PAIN / TEMP > 100.3'F 08/17/21 16:00 08/26/21 16:38 Multi-Ingredient Ointment (Analgesic [place]) 1 annamarie PRN QID PRN TP MUSCLE PAIN 08/17/21 16:00 Al Hydroxide/Mg Hydroxide (Mylanta Plus Xs) 15 ml PRN AFTMEALHC PRN PO DYSPEPSIA 08/17/21 16:00 08/23/21 08:56 Magnesium Hydroxide (Milk Of Magnesia) 2,400 mg PRN QHS PRN PO 1st choice CONSTIPATION 08/17/21 16:00 Buspirone HCl (Buspar) 10 mg BID PO 08/17/21 21:00 08/30/21 20:17 Calcium Carbonate/ Glycine (Tums) 500 mg PRN Q6HRS PRN PO INDIGESTION 08/17/21 18:15 08/18/21 11:01 DC Clonazepam (KlonoPIN) 0.5 mg BID PO 08/17/21 21:00 08/19/21 20:11 DC 08/19/21 09:06 Empaglifozin (Jardiance) 10 mg DAILY PO 08/18/21 09:00 08/30/21 09:13 Hydroxychloroquine Sulfate (Plaquenil) 400 mg DAILY PO 08/18/21 09:00 08/30/21 09:11 Hydroxyzine HCl (Atarax) 25 mg PRN Q8HRS PRN PO ANXIETY 08/17/21 18:15 08/18/21 11:01 DC 08/18/21 10:04 Levothyroxine Sodium (Synthroid) 25 mcg DAILY06 PO 08/18/21 06:00 08/20/21 10:10 DC 08/20/21 06:07 Melatonin (Melatonin) 3 mg QHS PO 08/17/21 21:00 08/30/21 20:17 Polyethylene Glycol (miraLAX) 17 gm BID PO 08/17/21 21:00 08/30/21 20:18 Pramipexole Dihydrochloride (miraPEX) 0.25 mg TID PO 08/17/21 21:00 08/30/21 20:17 Propranolol HCl (Inderal) 20 mg QHS PO 08/17/21 21:00 08/30/21 20:22 Sennosides (Senna) 8.6 mg DAILY PO 08/18/21 09:00 08/18/21 11:01 DC 08/18/21 09:47 Simethicone (Gas-X) 80 mg PRN Q6HRS PRN PO GAS / BLOATING 08/17/21 18:00 08/18/21 11:17 DC Simethicone (Gas-X) 80 mg TID PO 08/17/21 21:00 08/18/21 11:01 DC 08/18/21 09:46 Trimethoprim/ Sulfamethoxazole (Bactrim Ds) 1 tab BID PO 08/17/21 21:00 08/23/21 21:30 DC 08/23/21 20:06 Tramadol HCl (Ultram) 50 mg PRN Q6HRS PRN PO mod-sev PAIN 08/17/21 18:00 08/30/21 20:46 Trazodone HCl (Desyrel) 50 mg QHS PO 08/17/21 21:00 08/22/21 20:25 DC 08/21/21 21:00 Non-Formulary Medication (Aspirin/Sod Bicarb/Citric Acid ([place]enee-[place] Original Tab Eff)) 325 mg PRN Q24HRS PRN PO DYSPEPSIA 08/17/21 18:00 UNV Capsaicin (Zostrix) 1 annamarie PRN Q12HR PRN TP PAIN 08/17/21 18:45 08/18/21 11:01 DC Carbidopa/Levodopa (Sinemet 25/) 2 tab [id number] PO 08/17/21 18:30 08/30/21 20:22 Citalopram Hydrobromide (CeleXA) 40 mg DAILY PO 08/18/21 09:00 08/30/21 19:54 DC 08/30/21 09:10 Glycerin (Sani-Supp Adult) 1 supp PRN Q24HRS PRN [place] 2nd choice CONSTIPATION 08/17/21 18:45 Lactobacillus Rhamnosus (Culturelle) 1 cap BID PO 08/17/21 21:00 08/18/21 11:01 DC 08/18/21 09:47 Lubiprostone (Amitiza) 24 mcg BIDWMEALS PO 08/18/21 08:00 08/30/21 17:23 Cetirizine HCl (ZyrTEC) 10 mg DAILY PO 08/18/21 09:00 08/18/21 11:01 DC 08/18/21 09:47 Magnesium Oxide (Magnesium Oxide) 400 mg DAILY PO 08/18/21 09:00 08/18/21 11:01 DC 08/18/21 09:47 Metformin HCl (Glucophage) 1,000 mg BIDWMEALS PO 08/18/21 08:00 08/30/21 17:23 Pantoprazole Sodium (Protonix) 40 mg DAILYAC PO 08/18/21 07:30 08/30/21 09:10 Ondansetron HCl (Zofran Odt) 4 mg PRN Q6HRS PRN PO NAUSEA/VOMITING 08/17/21 18:30 08/29/21 15:10 Non-Formulary Medication (Trolamine Salicylate/Aloe Vera (Aspercreme 10% Cream)) 1 annamarie PRN BID PRN TP PAIN 08/17/21 18:00 UNV Olanzapine (ZyPREXA ZYDIS) 1.25 mg PRN Q2HRS PRN PO PSYCHOSIS 08/18/21 12:00 08/29/21 20:28 Clonazepam (KlonoPIN) 0.25 mg DAILY PO 08/20/21 09:00 08/27/21 20:18 DC 08/27/21 08:30 Clonazepam (KlonoPIN) 0.5 mg HS PO 08/19/21 21:00 08/22/21 19:00 DC 08/21/21 21:05 Clonazepam (KlonoPIN) 0.25 mg HS PO 08/22/21 21:00 08/27/21 22:00 DC 08/27/21 20:06 Levothyroxine Sodium (Synthroid) 50 mcg DAILY06 PO 08/21/21 06:00 08/30/21 05:12 Quetiapine Fumarate (SEROquel) 25 mg QHS PO 08/20/21 21:00 08/23/21 16:13 DC 08/22/21 21:49 Trazodone HCl (Desyrel) 50 mg PRN QHS PRN PO INSOMNIA, MAY REPEAT X1 08/22/21 20:30 08/30/21 20:45 Mirtazapine (Remeron) 7.5 mg QHS PO 08/22/21 21:00 08/30/21 20:17 Quetiapine Fumarate (SEROquel) 37.5 mg QHS PO 08/23/21 21:00 08/30/21 20:18 Simethicone (Gas-X) 80 mg PRN QID PRN PO GAS / BLOATING 08/23/21 16:30 08/29/21 17:19 Sertraline HCl (Zoloft) 25 mg DAILY PO 08/25/21 09:00 08/27/21 21:00 DC 08/27/21 08:30 Sertraline HCl (Zoloft) 50 mg DAILY PO 08/28/21 09:00 08/30/21 09:10 Clonazepam (KlonoPIN) 0.25 mg DAILY PO 08/28/21 09:00 08/30/21 12:00 DC 08/30/21 09:12 Quetiapine Fumarate (SEROquel) 12.5 mg 0900,1700 PO 08/28/21 09:00 08/29/21 18:12 DC 08/29/21 17:15 Quetiapine Fumarate (SEROquel) 12.5 mg 0900,1300,1700 PO 08/30/21 09:00 08/30/21 17:23 Current Medications Medications (Trade) Dose Ordered Sig/Ras Route PRN Reason Start Time Stop Time Status Last Admin Dose Admin Quetiapine Fumarate (SEROquel) 12.5 mg 0900,1300,1700 PO 08/30/21 09:00 08/30/21 17:23 I have reviewed the current psychotropics carefully including drug interactions. Risk benefit ratio favors no change other than as noted in my dictated progress note. Diagnosis: Problems: (1) Mild cognitive impairment (2) Major depressive disorder with psychotic features (3) Parkinson's disease (4) Anxiety disorder, unspecified RANJITH HAWKINS MD Aug 30, 2021 21:52
--- NOTE | 2021-08-30 21:52 | PDOC ---
Exam Note: Gino Note: Information from date of service 08/27/21 and my information from nursing staff for that date and review of labs and interim progress from 08/27/21 was incorporated into the note of 08/28. This note is a late entry for 08/29/2021 covers elements not covered in my initial note. Subjective: The patient was seen individually in the evening of 08/29/2021 with Estella ALTMAN, discussed and reviewed the chart. The patient slept 7 hours previous night. Appetite is 25%. She remains somewhat anxious, obsessive and very particular about things and has lot of gas issues per nursing staff. Her did not call to talk to her today per report from nursing staff. Review of Systems: Hard of hearing. Ambulation impaired in wheelchair. No CV, , pulmonary, eye system symptoms on review. Mental Status Exam: The patient is awake, alert, and oriented. Speech is coherent. Abstraction fair. Computation impaired. Language function intact. Attention span short. Mood and affect still anxious, labile but improved. Laboratory Data: Reviewed. 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 Anxiety disorder unspecified. Parkinsons disease. Plan: No change from initial note. Assessment: Vital Signs/I&O: Vital Signs Date Time Temp Pulse Resp B/P (MAP) Pulse Ox O2 Delivery O2 Flow Rate FiO2 08/30/21 20:46 97 08/30/21 20:22 74 107/61 08/30/21 15:35 98.8 16 08/27/21 06:15 Room Air I & O 08/29/21 08/29/21 08/30/21 15:00 23:00 07:00 Intake Total 877 ml 240 ml Balance 877 ml 240 ml Labs: Laboratory Tests Test 08/30/21 07:19 Glucose (Fingerstick) 190 mg/dL (70-99) H Current Medications: Meds: Laboratory Tests Test 08/30/21 07:19 Glucose (Fingerstick) 190 mg/dL Current Medications Medications (Trade) Dose Ordered Sig/Ras Route PRN Reason Start Time Stop Time Status Last Admin Dose Admin Acetaminophen (Tylenol) 650 mg PRN Q6HRS PRN PO MILD PAIN / TEMP > 100.3'F 08/17/21 16:00 08/26/21 16:38 Multi-Ingredient Ointment (Analgesic [place]) 1 annamarie PRN QID PRN TP MUSCLE PAIN 08/17/21 16:00 Al Hydroxide/Mg Hydroxide (Mylanta Plus Xs) 15 ml PRN AFTMEALHC PRN PO DYSPEPSIA 08/17/21 16:00 08/23/21 08:56 Magnesium Hydroxide (Milk Of Magnesia) 2,400 mg PRN QHS PRN PO 1st choice CONSTIPATION 08/17/21 16:00 Buspirone HCl (Buspar) 10 mg BID PO 08/17/21 21:00 08/30/21 20:17 Calcium Carbonate/ Glycine (Tums) 500 mg PRN Q6HRS PRN PO INDIGESTION 08/17/21 18:15 08/18/21 11:01 DC Clonazepam (KlonoPIN) 0.5 mg BID PO 08/17/21 21:00 08/19/21 20:11 DC 08/19/21 09:06 Empaglifozin (Jardiance) 10 mg DAILY PO 08/18/21 09:00 08/30/21 09:13 Hydroxychloroquine Sulfate (Plaquenil) 400 mg DAILY PO 08/18/21 09:00 08/30/21 09:11 Hydroxyzine HCl (Atarax) 25 mg PRN Q8HRS PRN PO ANXIETY 08/17/21 18:15 08/18/21 11:01 DC 08/18/21 10:04 Levothyroxine Sodium (Synthroid) 25 mcg DAILY06 PO 08/18/21 06:00 08/20/21 10:10 DC 08/20/21 06:07 Melatonin (Melatonin) 3 mg QHS PO 08/17/21 21:00 08/30/21 20:17 Polyethylene Glycol (miraLAX) 17 gm BID PO 08/17/21 21:00 08/30/21 20:18 Pramipexole Dihydrochloride (miraPEX) 0.25 mg TID PO 08/17/21 21:00 08/30/21 20:17 Propranolol HCl (Inderal) 20 mg QHS PO 08/17/21 21:00 08/30/21 20:22 Sennosides (Senna) 8.6 mg DAILY PO 08/18/21 09:00 08/18/21 11:01 DC 08/18/21 09:47 Simethicone (Gas-X) 80 mg PRN Q6HRS PRN PO GAS / BLOATING 08/17/21 18:00 08/18/21 11:17 DC Simethicone (Gas-X) 80 mg TID PO 08/17/21 21:00 08/18/21 11:01 DC 08/18/21 09:46 Trimethoprim/ Sulfamethoxazole (Bactrim Ds) 1 tab BID PO 08/17/21 21:00 08/23/21 21:30 DC 08/23/21 20:06 Tramadol HCl (Ultram) 50 mg PRN Q6HRS PRN PO mod-sev PAIN 08/17/21 18:00 08/30/21 20:46 Trazodone HCl (Desyrel) 50 mg QHS PO 08/17/21 21:00 08/22/21 20:25 DC 08/21/21 21:00 Non-Formulary Medication (Aspirin/Sod Bicarb/Citric Acid (Renee-[place] Original Tab Eff)) 325 mg PRN Q24HRS PRN PO DYSPEPSIA 08/17/21 18:00 UNV Capsaicin (Zostrix) 1 annamarie PRN Q12HR PRN TP PAIN 08/17/21 18:45 08/18/21 11:01 DC Carbidopa/Levodopa (Sinemet 25/100) 2 tab [id number] PO 08/17/21 18:30 08/30/21 20:22 Citalopram Hydrobromide (CeleXA) 40 mg DAILY PO 08/18/21 09:00 08/30/21 19:54 DC 08/30/21 09:10 Glycerin (Sani-Supp Adult) 1 supp PRN Q24HRS PRN [place] 2nd choice CONSTIPATION 08/17/21 18:45 Lactobacillus Rhamnosus (Culturelle) 1 cap BID PO 08/17/21 21:00 08/18/21 11:01 DC 08/18/21 09:47 Lubiprostone (Amitiza) 24 mcg BIDWMEALS PO 08/18/21 08:00 08/30/21 17:23 Cetirizine HCl (ZyrTEC) 10 mg DAILY PO 08/18/21 09:00 08/18/21 11:01 DC 08/18/21 09:47 Magnesium Oxide (Magnesium Oxide) 400 mg DAILY PO 08/18/21 09:00 08/18/21 11:01 DC 08/18/21 09:47 Metformin HCl (Glucophage) 1,000 mg BIDWMEALS PO 08/18/21 08:00 08/30/21 17:23 Pantoprazole Sodium (Protonix) 40 mg DAILYAC PO 08/18/21 07:30 08/30/21 09:10 Ondansetron HCl (Zofran Odt) 4 mg PRN Q6HRS PRN PO NAUSEA/VOMITING 08/17/21 18:30 08/29/21 15:10 Non-Formulary Medication (Trolamine Salicylate/Aloe Vera (Aspercreme 10% Cream)) 1 annamarie PRN BID PRN TP PAIN 08/17/21 18:00 UNV Olanzapine (ZyPREXA ZYDIS) 1.25 mg PRN Q2HRS PRN PO PSYCHOSIS 08/18/21 12:00 08/29/21 20:28 Clonazepam (KlonoPIN) 0.25 mg DAILY PO 08/20/21 09:00 08/27/21 20:18 DC 08/27/21 08:30 Clonazepam (KlonoPIN) 0.5 mg HS PO 08/19/21 21:00 08/22/21 19:00 DC 08/21/21 21:05 Clonazepam (KlonoPIN) 0.25 mg HS PO 08/22/21 21:00 08/27/21 22:00 DC 08/27/21 20:06 Levothyroxine Sodium (Synthroid) 50 mcg DAILY06 PO 08/21/21 06:00 08/30/21 05:12 Quetiapine Fumarate (SEROquel) 25 mg QHS PO 08/20/21 21:00 08/23/21 16:13 DC 08/22/21 21:49 Trazodone HCl (Desyrel) 50 mg PRN QHS PRN PO INSOMNIA, MAY REPEAT X1 08/22/21 20:30 08/30/21 20:45 Mirtazapine (Remeron) 7.5 mg QHS PO 08/22/21 21:00 08/30/21 20:17 Quetiapine Fumarate (SEROquel) 37.5 mg QHS PO 08/23/21 21:00 08/30/21 20:18 Simethicone (Gas-X) 80 mg PRN QID PRN PO GAS / BLOATING 08/23/21 16:30 08/29/21 17:19 Sertraline HCl (Zoloft) 25 mg DAILY PO 08/25/21 09:00 08/27/21 21:00 DC 08/27/21 08:30 Sertraline HCl (Zoloft) 50 mg DAILY PO 08/28/21 09:00 08/30/21 09:10 Clonazepam (KlonoPIN) 0.25 mg DAILY PO 08/28/21 09:00 08/30/21 12:00 DC 08/30/21 09:12 Quetiapine Fumarate (SEROquel) 12.5 mg 0900,1700 PO 08/28/21 09:00 08/29/21 18:12 DC 08/29/21 17:15 Quetiapine Fumarate (SEROquel) 12.5 mg 0900,1300,1700 PO 08/30/21 09:00 08/30/21 17:23 Current Medications Medications (Trade) Dose Ordered Sig/Ras Route PRN Reason Start Time Stop Time Status Last Admin Dose Admin Quetiapine Fumarate (SEROquel) 12.5 mg 0900,1300,1700 PO 08/30/21 09:00 08/30/21 17:23 I have reviewed the current psychotropics carefully including drug interactions. Risk benefit ratio favors no change other than as noted in my dictated progress note. Diagnosis: Problems: (1) Mild cognitive impairment (2) Major depressive disorder with psychotic features (3) Parkinson's disease (4) Anxiety disorder, unspecified RANJITH HAWKINS MD Aug 30, 2021 21:52
--- NOTE | 2021-08-30 23:03 | NUR ---
Nursing Note Pt pleasant and cooperative this pm. Complains of back pain lumbar area radiating. [place] bridges applied and ultram given for back pain along with a trazodone. Pt didn't sleep much last PM. Pt reports pain relief and feels like she will sleep much better this pm.
[2021-08-31] MEDS: CARBIDOPA/LEVODOPA 25/100MG TABLET PO SCH ×4 (06:17→19:55)
[2021-08-31] MEDS: LEVOTHYROXINE 50 MCG TABLET PO SCH (06:17)
[2021-08-31 06:22] VITALS: BP 101/59
[2021-08-31] MEDS: HYDROXYCHLOROQUINE 200 MG TABLET PO SCH (08:30)
[2021-08-31] MEDS: LUBIPROSTONE 24 MCG CAPSULE PO SCH ×2 (08:30→17:03)
[2021-08-31] MEDS: PANTOPRAZOLE 40 MG TABLET. PO SCH (08:31)
[2021-08-31] MEDS: SERTRALINE 50 MG TABLET. PO SCH (08:31)
[2021-08-31] MEDS: metFORMIN 500 MG TABLET PO SCH ×2 (08:31→17:03)
[2021-08-31] MEDS: PRAMIPEXOLE 0.25 MG TABLET. PO SCH ×3 (08:31→19:54)
[2021-08-31] MEDS: QUEtiapine 25 MG TABLET. PO SCH ×4 (08:31→19:54)
[2021-08-31] MEDS: EMPAGLIFLOZIN 10 MG TABLET. PO SCH (08:31)
[2021-08-31] MEDS: busPIRone 10 MG TABLET. PO SCH ×2 (08:31→19:55)
[2021-08-31] MEDS: POLYETHYLENE GLYCOL 3350 17 GM PACKET. PO SCH ×2 (08:32→19:56)
[2021-08-31] MEDS ORDERED: SERTRALINE 25 MG TABLET. PO ONE (10:45)
--- NOTE | 2021-08-31 11:32 | NUR ---
WEEKLY ACTIVITY THERAPY NOTE Date of Admission:08/17/21 Date of AT Assessment: 08/18 Precipitating behaviors that initiated intake and admission: agitated, anxious, attempted to hit staff, name calling, yelling to call police and "get the people out", delusional, talking to people not there, refusing meds, seeing children, Goal aimed: increase engagement and stress management skills Initial Goal: Pt will participate in at least three Activity Therapy sessions per week Weekly progress towards goal: did not achieve, 1/3 Group participation level: 1 min Weekly highlights: watched some of Halloween history documentary Saturday morning Behaviors observed: withdrawn to room, limited interest in group activities Plan: no change to goal Beneficial adaptations: encouragement
--- NOTE | 2021-08-31 15:16 | NUR ---
HUA spoke with Sahra, pt granddtr, about pt. Sahra discussed her phone call in which pt started to get highly agitated and Sahra decided to end the call. Sahar reports that pt discussed a lot in conspiracy theories and attempted to redirect her to a different topic. Sahra was able to connect that pt could recall quite a bit yet had the confusion. Sahra reports that pt never showed the mean or ornery side to her or the other kids. This is the personality that was kept hidden as she was growing up and reports that it is very hard to deal with. HUA and Sahra discussed having pt participate in treatment team on as he needs to hear that pt is not going to get better. This is a disorder in that pt will remain this way until she declines, in which she will continue to decline. HUA will be able to call pt on for treatment team and then set an ELOS for Tuesday 09/11. Sahra works at [employer] and is hopeful that pt will be able to go to SNF while her stays on [place]. SW will make sure to rely this to her father since SW will be out on Saturday.
[2021-08-31] MEDS: SIMETHICONE 80 MG TAB.CHEW PO PRN (15:33)
[2021-08-31] MEDS: traMADol 50 MG TABLET PO PRN ×2 (15:33→19:55)
[2021-08-31 15:55] VITALS: BP 107/61
--- NOTE | 2021-08-31 16:12 | NUR ---
Nsg Note; pt has obsessive behaviors about the phone/calling family/explaining about calling family/checking her phone numbers/times to call, ect. She is very is persistant, talkative and explanatory about the phone, and won't let staff walk away.
[2021-08-31] MEDS: MELATONIN 3 MG TABLET PO SCH (19:53)
[2021-08-31] MEDS: MIRTAZAPINE 7.5 MG TABLET. PO SCH (19:53)
[2021-08-31] MEDS: traZODone 50 MG TABLET. PO PRN (19:54)
[2021-08-31] MEDS: PROPRANOLOL 20 MG TABLET. PO SCH (19:56)
--- NOTE | 2021-08-31 22:05 | PDOC ---
Exam Note: Gino Note: Please also refer to the separate dictated note~for this date of service dictated separately.~Patient seen individually. Discussed the patient with Nursing staff reviewed the chart.~Reviewed interim history and current functioning. Reviewed vital signs,~Labs/ Radiology~and current medications noted below. Continue current treatment with the changes noted in the dictated addendum note Assessment: Vital Signs/I&O: Vital Signs Date Time Temp Pulse Resp B/P (MAP) Pulse Ox O2 Delivery O2 Flow Rate FiO2 08/31/21 20:25 97 08/31/21 19:56 94 107/61 08/31/21 15:55 98.7 18 08/27/21 06:15 Room Air I & O 08/30/21 08/30/21 08/31/21 15:00 23:00 07:00 Intake Total 360 ml 360 ml Balance 360 ml 360 ml Labs: Laboratory Tests Test 08/31/21 06:00 08/31/21 07:20 SARS-CoV-2 (PCR) Not detected (NOT DETECTD) Glucose (Fingerstick) 122 mg/dL (70-99) H Current Medications: Meds: Laboratory Tests Test 08/31/21 06:00 08/31/21 07:20 Coronavirus (COVID-19)(PCR) Not detected Glucose (Fingerstick) 122 mg/dL Current Medications Medications (Trade) Dose Ordered Sig/Ras Route PRN Reason Start Time Stop Time Status Last Admin Dose Admin Acetaminophen (Tylenol) 650 mg PRN Q6HRS PRN PO MILD PAIN / TEMP > 100.3'F 08/17/21 16:00 08/26/21 16:38 Multi-Ingredient Ointment (Analgesic [place]) 1 annamarie PRN QID PRN TP MUSCLE PAIN 08/17/21 16:00 08/30/21 23:02 Al Hydroxide/Mg Hydroxide (Mylanta Plus Xs) 15 ml PRN AFTMEALHC PRN PO DYSPEPSIA 08/17/21 16:00 08/23/21 08:56 Magnesium Hydroxide (Milk Of Magnesia) 2,400 mg PRN QHS PRN PO 1st choice CONSTIPATION 08/17/21 16:00 Buspirone HCl (Buspar) 10 mg BID PO 08/17/21 21:00 08/31/21 19:55 Calcium Carbonate/ Glycine (Tums) 500 mg PRN Q6HRS PRN PO INDIGESTION 08/17/21 18:15 08/18/21 11:01 DC Clonazepam (KlonoPIN) 0.5 mg BID PO 08/17/21 21:00 08/19/21 20:11 DC 08/19/21 09:06 Empaglifozin (Jardiance) 10 mg DAILY PO 08/18/21 09:00 08/31/21 08:31 Hydroxychloroquine Sulfate (Plaquenil) 400 mg DAILY PO 08/18/21 09:00 08/31/21 08:30 Hydroxyzine HCl (Atarax) 25 mg PRN Q8HRS PRN PO ANXIETY 08/17/21 18:15 08/18/21 11:01 DC 08/18/21 10:04 Levothyroxine Sodium (Synthroid) 25 mcg DAILY06 PO 08/18/21 06:00 08/20/21 10:10 DC 08/20/21 06:07 Melatonin (Melatonin) 3 mg QHS PO 08/17/21 21:00 08/31/21 19:53 Polyethylene Glycol (miraLAX) 17 gm BID PO 08/17/21 21:00 08/31/21 19:56 Pramipexole Dihydrochloride (miraPEX) 0.25 mg TID PO 08/17/21 21:00 08/31/21 19:54 Propranolol HCl (Inderal) 20 mg QHS PO 08/17/21 21:00 08/31/21 19:56 Sennosides (Senna) 8.6 mg DAILY PO 08/18/21 09:00 08/18/21 11:01 DC 08/18/21 09:47 Simethicone (Gas-X) 80 mg PRN Q6HRS PRN PO GAS / BLOATING 08/17/21 18:00 08/18/21 11:17 DC Simethicone (Gas-X) 80 mg TID PO 08/17/21 21:00 08/18/21 11:01 DC 08/18/21 09:46 Trimethoprim/ Sulfamethoxazole (Bactrim Ds) 1 tab BID PO 08/17/21 21:00 08/23/21 21:30 DC 08/23/21 20:06 Tramadol HCl (Ultram) 50 mg PRN Q6HRS PRN PO mod-sev PAIN 08/17/21 18:00 08/31/21 19:55 Trazodone HCl (Desyrel) 50 mg QHS PO 08/17/21 21:00 08/22/21 20:25 DC 08/21/21 21:00 Non-Formulary Medication (Aspirin/Sod Bicarb/Citric Acid (Renee-[place] Original Tab Eff)) 325 mg PRN Q24HRS PRN PO DYSPEPSIA 08/17/21 18:00 UNV Capsaicin (Zostrix) 1 annamarie PRN Q12HR PRN TP PAIN 08/17/21 18:45 08/18/21 11:01 DC Carbidopa/Levodopa (Sinemet 25/) 2 tab [id number] PO 08/17/21 18:30 08/31/21 19:55 Citalopram Hydrobromide (CeleXA) 40 mg DAILY PO 08/18/21 09:00 08/30/21 19:54 DC 08/30/21 09:10 Glycerin (Sani-Supp Adult) 1 supp PRN Q24HRS PRN [place] 2nd choice CONSTIPATION 08/17/21 18:45 Lactobacillus Rhamnosus (Culturelle) 1 cap BID PO 08/17/21 21:00 08/18/21 11:01 DC 08/18/21 09:47 Lubiprostone (Amitiza) 24 mcg BIDWMEALS PO 08/18/21 08:00 08/31/21 17:03 Cetirizine HCl (ZyrTEC) 10 mg DAILY PO 08/18/21 09:00 08/18/21 11:01 DC 08/18/21 09:47 Magnesium Oxide (Magnesium Oxide) 400 mg DAILY PO 08/18/21 09:00 08/18/21 11:01 DC 08/18/21 09:47 Metformin HCl (Glucophage) 1,000 mg BIDWMEALS PO 08/18/21 08:00 08/31/21 17:03 Pantoprazole Sodium (Protonix) 40 mg DAILYAC PO 08/18/21 07:30 08/31/21 08:31 Ondansetron HCl (Zofran Odt) 4 mg PRN Q6HRS PRN PO NAUSEA/VOMITING 08/17/21 18:30 08/29/21 15:10 Non-Formulary Medication (Trolamine Salicylate/Aloe Vera (Aspercreme 10% Cream)) 1 annamarie PRN BID PRN TP PAIN 08/17/21 18:00 UNV Olanzapine (ZyPREXA ZYDIS) 1.25 mg PRN Q2HRS PRN PO PSYCHOSIS 08/18/21 12:00 08/29/21 20:28 Clonazepam (KlonoPIN) 0.25 mg DAILY PO 08/20/21 09:00 08/27/21 20:18 DC 08/27/21 08:30 Clonazepam (KlonoPIN) 0.5 mg HS PO 08/19/21 21:00 08/22/21 19:00 DC 08/21/21 21:05 Clonazepam (KlonoPIN) 0.25 mg HS PO 08/22/21 21:00 08/27/21 22:00 DC 08/27/21 20:06 Levothyroxine Sodium (Synthroid) 50 mcg DAILY06 PO 08/21/21 06:00 08/31/21 06:17 Quetiapine Fumarate (SEROquel) 25 mg QHS PO 08/20/21 21:00 08/23/21 16:13 DC 08/22/21 21:49 Trazodone HCl (Desyrel) 50 mg PRN QHS PRN PO INSOMNIA, MAY REPEAT X1 08/22/21 20:30 08/31/21 19:54 Mirtazapine (Remeron) 7.5 mg QHS PO 08/22/21 21:00 08/31/21 19:53 Quetiapine Fumarate (SEROquel) 37.5 mg QHS PO 08/23/21 21:00 08/31/21 19:54 Simethicone (Gas-X) 80 mg PRN QID PRN PO GAS / BLOATING 08/23/21 16:30 08/31/21 15:33 Sertraline HCl (Zoloft) 25 mg DAILY PO 08/25/21 09:00 08/27/21 21:00 DC 08/27/21 08:30 Sertraline HCl (Zoloft) 50 mg DAILY PO 08/28/21 09:00 08/31/21 10:45 DC 08/31/21 08:31 Clonazepam (KlonoPIN) 0.25 mg DAILY PO 08/28/21 09:00 08/30/21 12:00 DC 08/30/21 09:12 Quetiapine Fumarate (SEROquel) 12.5 mg 0900,1700 PO 08/28/21 09:00 08/29/21 18:12 DC 08/29/21 17:15 Quetiapine Fumarate (SEROquel) 12.5 mg 0900,1300,1700 PO 08/30/21 09:00 08/31/21 17:03 Sertraline HCl (Zoloft) 25 mg 1X ONCE PO 08/31/21 10:45 08/31/21 10:48 DC 08/31/21 12:26 Sertraline HCl (Zoloft) 75 mg DAILY PO 09/01/21 09:00 09/04/21 08:59 Sertraline HCl (Zoloft) 100 mg DAILY PO 09/04/21 09:00 Current Medications Medications (Trade) Dose Ordered Sig/Ras Route PRN Reason Start Time Stop Time Status Last Admin Dose Admin Sertraline HCl (Zoloft) 25 mg 1X ONCE PO 08/31/21 10:45 08/31/21 10:48 DC 08/31/21 12:26 I have reviewed the current psychotropics carefully including drug interactions. Risk benefit ratio favors no change other than as noted in my dictated progress note. Diagnosis: Problems: (1) Psychotic disorder (2) Mild cognitive impairment (3) Major depressive disorder with psychotic features (4) Parkinson's disease (5) Anxiety disorder, unspecified RANJITH HAWKINS MD Aug 31, 2021 22:05
--- NOTE | 2021-08-31 22:33 | NUR ---
Nursing Note Pt complains of gas pain, maalox given for "gas pain and upset stomach". Pt had complained earlier today with her synthroid that staff is supposed to always give her a small bit of dairy products to coat her stomach while taking meds. I educated her on the fact that synthroid will be bound and rendered ineffective with dairy and any other food or meds, that the molecule is multifaceted and most things bind and inactivate the med. Pt just stared at me, but nodded in agreement eventually. She stated "Well I never knew that thank you for the information." Seemingly in disbelief. Tramadol and trazodone given this pm for sleep and back pain. Pt denies needing mike bridges at this time.
[2021-09-01] MEDS: CARBIDOPA/LEVODOPA 25/100MG TABLET PO SCH ×4 (05:08→19:39)
[2021-09-01] MEDS: LEVOTHYROXINE 50 MCG TABLET PO SCH (05:08)
[2021-09-01 06:12] VITALS: BP 133/77
[2021-09-01] MEDS: POLYETHYLENE GLYCOL 3350 17 GM PACKET. PO SCH ×2 (08:26→19:39)
[2021-09-01] MEDS: SERTRALINE 25 MG TABLET. PO SCH (08:28)
[2021-09-01] MEDS: SIMETHICONE 80 MG TAB.CHEW PO PRN ×2 (08:28→11:16)
[2021-09-01] MEDS: busPIRone 10 MG TABLET. PO SCH ×2 (08:29→19:37)
[2021-09-01] MEDS: HYDROXYCHLOROQUINE 200 MG TABLET PO SCH (08:29)
[2021-09-01] MEDS: EMPAGLIFLOZIN 10 MG TABLET. PO SCH (08:29)
[2021-09-01] MEDS: metFORMIN 500 MG TABLET PO SCH ×2 (08:29→17:14)
[2021-09-01] MEDS: LUBIPROSTONE 24 MCG CAPSULE PO SCH ×2 (08:29→17:14)
[2021-09-01] MEDS: PANTOPRAZOLE 40 MG TABLET. PO SCH (08:29)
[2021-09-01] MEDS: PRAMIPEXOLE 0.25 MG TABLET. PO SCH ×3 (08:29→19:39)
[2021-09-01] MEDS: QUEtiapine 25 MG TABLET. PO SCH ×4 (08:30→19:38)
--- NOTE | 2021-09-01 09:57 | PDOC ---
Exam Note: Gino Note: This note is a late entry for 08/30/2021 covers elements not covered in my initial note. Subjective: The patient was seen individually in the evening of 08/30/2021 with Raeann ALTMAN, discussed and reviewed the chart. The patient slept 4 hours previous night. I met with the patient in her room. She is less anxious, still somewhat bowel obsessed per nursing report. Review of Systems: Hard of hearing. Ambulation impaired in wheelchair. No CV, , pulmonary, eye system symptoms on review. Mental Status Exam: The patient is oriented to herself and situation. Speech is coherent, still pressured, less than before. Abstraction fair. Computation impaired. Language function intact. Mood and affect anxious, labile but improved. Laboratory Data: Reviewed. 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 Anxiety disorder unspecified. Parkinsons disease. Plan: No change from initial note. Assessment: Vital Signs/I&O: Vital Signs Date Time Temp Pulse Resp B/P (MAP) Pulse Ox O2 Delivery O2 Flow Rate FiO2 09/01/21 06:12 98.4 71 18 133/77 (95) 97 08/27/21 06:15 Room Air I & O 08/31/21 08/31/21 09/01/21 15:00 23:00 07:00 Intake Total 500 ml 140 ml Balance 500 ml 140 ml Labs: Laboratory Tests Test 09/01/21 07:09 Glucose (Fingerstick) 132 mg/dL (70-99) H Current Medications: Meds: Laboratory Tests Test 09/01/21 07:09 Glucose (Fingerstick) 132 mg/dL Current Medications Medications (Trade) Dose Ordered Sig/Ras Route PRN Reason Start Time Stop Time Status Last Admin Dose Admin Acetaminophen (Tylenol) 650 mg PRN Q6HRS PRN PO MILD PAIN / TEMP > 100.3'F 08/17/21 16:00 08/26/21 16:38 Multi-Ingredient Ointment (Analgesic [place]) 1 annamarie PRN QID PRN TP MUSCLE PAIN 08/17/21 16:00 08/30/21 23:02 Al Hydroxide/Mg Hydroxide (Mylanta Plus Xs) 15 ml PRN AFTMEALHC PRN PO DYSPEPSIA 08/17/21 16:00 08/23/21 08:56 Magnesium Hydroxide (Milk Of Magnesia) 2,400 mg PRN QHS PRN PO 1st choice CONSTIPATION 08/17/21 16:00 Buspirone HCl (Buspar) 10 mg BID PO 08/17/21 21:00 09/01/21 08:29 Calcium Carbonate/ Glycine (Tums) 500 mg PRN Q6HRS PRN PO INDIGESTION 08/17/21 18:15 08/18/21 11:01 DC Clonazepam (KlonoPIN) 0.5 mg BID PO 08/17/21 21:00 08/19/21 20:11 DC 08/19/21 09:06 Empaglifozin (Jardiance) 10 mg DAILY PO 08/18/21 09:00 09/01/21 08:29 Hydroxychloroquine Sulfate (Plaquenil) 400 mg DAILY PO 08/18/21 09:00 09/01/21 08:29 Hydroxyzine HCl (Atarax) 25 mg PRN Q8HRS PRN PO ANXIETY 08/17/21 18:15 08/18/21 11:01 DC 08/18/21 10:04 Levothyroxine Sodium (Synthroid) 25 mcg DAILY06 PO 08/18/21 06:00 08/20/21 10:10 DC 08/20/21 06:07 Melatonin (Melatonin) 3 mg QHS PO 08/17/21 21:00 08/31/21 19:53 Polyethylene Glycol (miraLAX) 17 gm BID PO 08/17/21 21:00 09/01/21 08:26 Pramipexole Dihydrochloride (miraPEX) 0.25 mg TID PO 08/17/21 21:00 09/01/21 08:29 Propranolol HCl (Inderal) 20 mg QHS PO 08/17/21 21:00 08/31/21 19:56 Sennosides (Senna) 8.6 mg DAILY PO 08/18/21 09:00 08/18/21 11:01 DC 08/18/21 09:47 Simethicone (Gas-X) 80 mg PRN Q6HRS PRN PO GAS / BLOATING 08/17/21 18:00 08/18/21 11:17 DC Simethicone (Gas-X) 80 mg TID PO 08/17/21 21:00 08/18/21 11:01 DC 08/18/21 09:46 Trimethoprim/ Sulfamethoxazole (Bactrim Ds) 1 tab BID PO 08/17/21 21:00 08/23/21 21:30 DC 08/23/21 20:06 Tramadol HCl (Ultram) 50 mg PRN Q6HRS PRN PO mod-sev PAIN 08/17/21 18:00 08/31/21 19:55 Trazodone HCl (Desyrel) 50 mg QHS PO 08/17/21 21:00 08/22/21 20:25 DC 08/21/21 21:00 Non-Formulary Medication (Aspirin/Sod Bicarb/Citric Acid (Renee-[place] Original Tab Eff)) 325 mg PRN Q24HRS PRN PO DYSPEPSIA 08/17/21 18:00 UNV Capsaicin (Zostrix) 1 annamarie PRN Q12HR PRN TP PAIN 08/17/21 18:45 08/18/21 11:01 DC Carbidopa/Levodopa (Sinemet 25/100) 2 tab [id number] PO 08/17/21 18:30 09/01/21 05:08 Citalopram Hydrobromide (CeleXA) 40 mg DAILY PO 08/18/21 09:00 08/30/21 19:54 DC 08/30/21 09:10 Glycerin (Sani-Supp Adult) 1 supp PRN Q24HRS PRN [place] 2nd choice CONSTIPATION 08/17/21 18:45 Lactobacillus Rhamnosus (Culturelle) 1 cap BID PO 08/17/21 21:00 08/18/21 11:01 DC 08/18/21 09:47 Lubiprostone (Amitiza) 24 mcg BIDWMEALS PO 08/18/21 08:00 09/01/21 08:29 Cetirizine HCl (ZyrTEC) 10 mg DAILY PO 08/18/21 09:00 08/18/21 11:01 DC 08/18/21 09:47 Magnesium Oxide (Magnesium Oxide) 400 mg DAILY PO 08/18/21 09:00 08/18/21 11:01 DC 08/18/21 09:47 Metformin HCl (Glucophage) 1,000 mg BIDWMEALS PO 08/18/21 08:00 09/01/21 08:29 Pantoprazole Sodium (Protonix) 40 mg DAILYAC PO 08/18/21 07:30 09/01/21 08:29 Ondansetron HCl (Zofran Odt) 4 mg PRN Q6HRS PRN PO NAUSEA/VOMITING 08/17/21 18:30 08/29/21 15:10 Non-Formulary Medication (Trolamine Salicylate/Aloe Vera (Aspercreme 10% Cream)) 1 annamarie PRN BID PRN TP PAIN 08/17/21 18:00 UNV Olanzapine (ZyPREXA ZYDIS) 1.25 mg PRN Q2HRS PRN PO PSYCHOSIS 08/18/21 12:00 08/29/21 20:28 Clonazepam (KlonoPIN) 0.25 mg DAILY PO 08/20/21 09:00 08/27/21 20:18 DC 08/27/21 08:30 Clonazepam (KlonoPIN) 0.5 mg HS PO 08/19/21 21:00 08/22/21 19:00 DC 08/21/21 21:05 Clonazepam (KlonoPIN) 0.25 mg HS PO 08/22/21 21:00 08/27/21 22:00 DC 08/27/21 20:06 Levothyroxine Sodium (Synthroid) 50 mcg DAILY06 PO 08/21/21 06:00 09/01/21 05:08 Quetiapine Fumarate (SEROquel) 25 mg QHS PO 08/20/21 21:00 08/23/21 16:13 DC 08/22/21 21:49 Trazodone HCl (Desyrel) 50 mg PRN QHS PRN PO INSOMNIA, MAY REPEAT X1 08/22/21 20:30 08/31/21 19:54 Mirtazapine (Remeron) 7.5 mg QHS PO 08/22/21 21:00 08/31/21 19:53 Quetiapine Fumarate (SEROquel) 37.5 mg QHS PO 08/23/21 21:00 08/31/21 19:54 Simethicone (Gas-X) 80 mg PRN QID PRN PO GAS / BLOATING 08/23/21 16:30 09/01/21 08:28 Sertraline HCl (Zoloft) 25 mg DAILY PO 08/25/21 09:00 08/27/21 21:00 DC 08/27/21 08:30 Sertraline HCl (Zoloft) 50 mg DAILY PO 08/28/21 09:00 08/31/21 10:45 DC 08/31/21 08:31 Clonazepam (KlonoPIN) 0.25 mg DAILY PO 08/28/21 09:00 08/30/21 12:00 DC 08/30/21 09:12 Quetiapine Fumarate (SEROquel) 12.5 mg 0900,1700 PO 08/28/21 09:00 08/29/21 18:12 DC 08/29/21 17:15 Quetiapine Fumarate (SEROquel) 12.5 mg 0900,1300,1700 PO 08/30/21 09:00 09/01/21 08:30 Sertraline HCl (Zoloft) 25 mg 1X ONCE PO 08/31/21 10:45 08/31/21 10:48 DC 08/31/21 12:26 Sertraline HCl (Zoloft) 75 mg DAILY PO 09/01/21 09:00 09/02/21 11:00 09/01/21 08:28 Sertraline HCl (Zoloft) 100 mg DAILY PO 09/04/21 09:00 08/31/21 22:10 DC Sertraline HCl (Zoloft) 100 mg DAILY PO 09/03/21 09:00 Current Medications Medications (Trade) Dose Ordered Sig/Ras Route PRN Reason Start Time Stop Time Status Last Admin Dose Admin Sertraline HCl (Zoloft) 25 mg 1X ONCE PO 08/31/21 10:45 08/31/21 10:48 DC 08/31/21 12:26 Sertraline HCl (Zoloft) 75 mg DAILY PO 09/01/21 09:00 09/02/21 11:00 09/01/21 08:28 I have reviewed the current psychotropics carefully including drug interactions. Risk benefit ratio favors no change other than as noted in my dictated progress note. Diagnosis: Problems: (1) Mild cognitive impairment (2) Major depressive disorder with psychotic features (3) Parkinson's disease (4) Anxiety disorder, unspecified RANJITH HAWKINS MD Sep 01, 2021 09:57
--- NOTE | 2021-09-01 10:12 | NUR ---
RN Day Shift Note: Pt presents with neutral mood/affect. Pt is medication compliant. Pt is approachable and able to communicate needs and concerns to staff, although pt is confused about when she is going home and why she is here. Pt stated at breakfast, "I'm waiting to get out of here." Pt requested PRN simethicone and was given one at breakfast. Pt is noted to spend her time in her bedroom today. Pt is low-cade and follows rules/routines on the unit. Pt ate 50% of her breakfast. Pt slept 6.5 hours last night. Pts vitals are WNL. will continue to monitor.
[2021-09-01 15:54] VITALS: BP 96/57
[2021-09-01] MEDS: traMADol 50 MG TABLET PO PRN ×2 (18:40→19:39)
[2021-09-01] MEDS: MAG HYDROX/AL HYDROX/SIMETH 30 ML ORAL.SUSP PO PRN (19:37)
[2021-09-01] MEDS: MIRTAZAPINE 7.5 MG TABLET. PO SCH (19:39)
[2021-09-01] MEDS: traZODone 50 MG TABLET. PO PRN (19:39)
[2021-09-01] MEDS: MELATONIN 3 MG TABLET PO SCH (19:39)
[2021-09-01] MEDS: PROPRANOLOL 20 MG TABLET. PO SCH (19:43)
--- NOTE | 2021-09-01 21:06 | NUR ---
Nursing Note Pt complains of gassy stomach again this pm, bloated appearing abdomen. Mylanta given for upset stomach and gas. Med compliant with HS meds neck rub given with mike bridges complained of bilat neck pain and stiffness also tramadol given. Pt now in bed resting well. Compliant and cooperative with assessment.
--- NOTE | 2021-09-01 21:53 | PDOC ---
Exam Note: Gino Note: Please also refer to the separate dictated note~for this date of service dictated separately.~Patient seen individually. Discussed the patient with Nursing staff reviewed the chart.~Reviewed interim history and current functioning. Reviewed vital signs,~Labs/ Radiology~and current medications noted below. Continue current treatment with the changes noted in the dictated addendum note Assessment: Vital Signs/I&O: Vital Signs Date Time Temp Pulse Resp B/P (MAP) Pulse Ox O2 Delivery O2 Flow Rate FiO2 09/01/21 20:45 94 09/01/21 19:43 81 109/63 09/01/21 18:40 18 Room Air 09/01/21 15:54 98.5 I & O 08/31/21 08/31/21 09/01/21 15:00 23:00 07:00 Intake Total 500 ml 140 ml Balance 500 ml 140 ml Labs: Laboratory Tests Test 09/01/21 07:09 09/01/21 19:37 Glucose (Fingerstick) 132 mg/dL (70-99) H 145 mg/dL (70-99) H Current Medications: Meds: Laboratory Tests Test 09/01/21 07:09 09/01/21 19:37 Glucose (Fingerstick) 132 mg/dL 145 mg/dL Current Medications Medications (Trade) Dose Ordered Sig/Ras Route PRN Reason Start Time Stop Time Status Last Admin Dose Admin Acetaminophen (Tylenol) 650 mg PRN Q6HRS PRN PO MILD PAIN / TEMP > 100.3'F 08/17/21 16:00 08/26/21 16:38 Multi-Ingredient Ointment (Analgesic [place]) 1 annamarie PRN QID PRN TP MUSCLE PAIN 08/17/21 16:00 08/30/21 23:02 Al Hydroxide/Mg Hydroxide (Mylanta Plus Xs) 15 ml PRN AFTMEALHC PRN PO DYSPEPSIA 08/17/21 16:00 09/01/21 19:37 Magnesium Hydroxide (Milk Of Magnesia) 2,400 mg PRN QHS PRN PO 1st choice CONSTIPATION 08/17/21 16:00 Buspirone HCl (Buspar) 10 mg BID PO 08/17/21 21:00 09/01/21 19:37 Calcium Carbonate/ Glycine (Tums) 500 mg PRN Q6HRS PRN PO INDIGESTION 08/17/21 18:15 08/18/21 11:01 DC Clonazepam (KlonoPIN) 0.5 mg BID PO 08/17/21 21:00 08/19/21 20:11 DC 08/19/21 09:06 Empaglifozin (Jardiance) 10 mg DAILY PO 08/18/21 09:00 09/01/21 08:29 Hydroxychloroquine Sulfate (Plaquenil) 400 mg DAILY PO 08/18/21 09:00 09/01/21 08:29 Hydroxyzine HCl (Atarax) 25 mg PRN Q8HRS PRN PO ANXIETY 08/17/21 18:15 08/18/21 11:01 DC 08/18/21 10:04 Levothyroxine Sodium (Synthroid) 25 mcg DAILY06 PO 08/18/21 06:00 08/20/21 10:10 DC 08/20/21 06:07 Melatonin (Melatonin) 3 mg QHS PO 08/17/21 21:00 09/01/21 19:39 Polyethylene Glycol (miraLAX) 17 gm BID PO 08/17/21 21:00 09/01/21 19:39 Pramipexole Dihydrochloride (miraPEX) 0.25 mg TID PO 08/17/21 21:00 09/01/21 19:39 Propranolol HCl (Inderal) 20 mg QHS PO 08/17/21 21:00 09/01/21 19:43 Sennosides (Senna) 8.6 mg DAILY PO 08/18/21 09:00 08/18/21 11:01 DC 08/18/21 09:47 Simethicone (Gas-X) 80 mg PRN Q6HRS PRN PO GAS / BLOATING 08/17/21 18:00 08/18/21 11:17 DC Simethicone (Gas-X) 80 mg TID PO 08/17/21 21:00 08/18/21 11:01 DC 08/18/21 09:46 Trimethoprim/ Sulfamethoxazole (Bactrim Ds) 1 tab BID PO 08/17/21 21:00 08/23/21 21:30 DC 08/23/21 20:06 Tramadol HCl (Ultram) 50 mg PRN Q6HRS PRN PO mod-sev PAIN 08/17/21 18:00 09/01/21 19:39 Trazodone HCl (Desyrel) 50 mg QHS PO 08/17/21 21:00 08/22/21 20:25 DC 08/21/21 21:00 Non-Formulary Medication (Aspirin/Sod Bicarb/Citric Acid ([place]ene[place] Original Tab Eff)) 325 mg PRN Q24HRS PRN PO DYSPEPSIA 08/17/21 18:00 UNV Capsaicin (Zostrix) 1 annamarie PRN Q12HR PRN TP PAIN 08/17/21 18:45 08/18/21 11:01 DC Carbidopa/Levodopa (Sinemet 25/) 2 tab [id number] PO 08/17/21 18:30 09/01/21 19:39 Citalopram Hydrobromide (CeleXA) 40 mg DAILY PO 08/18/21 09:00 08/30/21 19:54 DC 08/30/21 09:10 Glycerin (Sani-Supp Adult) 1 supp PRN Q24HRS PRN [place] 2nd choice CONSTIPATION 08/17/21 18:45 Lactobacillus Rhamnosus (Culturelle) 1 cap BID PO 08/17/21 21:00 08/18/21 11:01 DC 08/18/21 09:47 Lubiprostone (Amitiza) 24 mcg BIDWMEALS PO 08/18/21 08:00 09/01/21 17:14 Cetirizine HCl (ZyrTEC) 10 mg DAILY PO 08/18/21 09:00 08/18/21 11:01 DC 08/18/21 09:47 Magnesium Oxide (Magnesium Oxide) 400 mg DAILY PO 08/18/21 09:00 08/18/21 11:01 DC 08/18/21 09:47 Metformin HCl (Glucophage) 1,000 mg BIDWMEALS PO 08/18/21 08:00 09/01/21 17:14 Pantoprazole Sodium (Protonix) 40 mg DAILYAC PO 08/18/21 07:30 09/01/21 08:29 Ondansetron HCl (Zofran Odt) 4 mg PRN Q6HRS PRN PO NAUSEA/VOMITING 08/17/21 18:30 08/29/21 15:10 Non-Formulary Medication (Trolamine Salicylate/Aloe Vera (Aspercreme 10% Cream)) 1 annamarie PRN BID PRN TP PAIN 08/17/21 18:00 UNV Olanzapine (ZyPREXA ZYDIS) 1.25 mg PRN Q2HRS PRN PO PSYCHOSIS 08/18/21 12:00 08/29/21 20:28 Clonazepam (KlonoPIN) 0.25 mg DAILY PO 08/20/21 09:00 08/27/21 20:18 DC 08/27/21 08:30 Clonazepam (KlonoPIN) 0.5 mg HS PO 08/19/21 21:00 08/22/21 19:00 DC 08/21/21 21:05 Clonazepam (KlonoPIN) 0.25 mg HS PO 08/22/21 21:00 08/27/21 22:00 DC 08/27/21 20:06 Levothyroxine Sodium (Synthroid) 50 mcg DAILY06 PO 08/21/21 06:00 09/01/21 05:08 Quetiapine Fumarate (SEROquel) 25 mg QHS PO 08/20/21 21:00 08/23/21 16:13 DC 08/22/21 21:49 Trazodone HCl (Desyrel) 50 mg PRN QHS PRN PO INSOMNIA, MAY REPEAT X1 08/22/21 20:30 09/01/21 19:39 Mirtazapine (Remeron) 7.5 mg QHS PO 08/22/21 21:00 09/01/21 19:39 Quetiapine Fumarate (SEROquel) 37.5 mg QHS PO 08/23/21 21:00 09/01/21 19:38 Simethicone (Gas-X) 80 mg PRN QID PRN PO GAS / BLOATING 08/23/21 16:30 09/01/21 11:16 Sertraline HCl (Zoloft) 25 mg DAILY PO 08/25/21 09:00 08/27/21 21:00 DC 08/27/21 08:30 Sertraline HCl (Zoloft) 50 mg DAILY PO 08/28/21 09:00 08/31/21 10:45 DC 08/31/21 08:31 Clonazepam (KlonoPIN) 0.25 mg DAILY PO 08/28/21 09:00 08/30/21 12:00 DC 08/30/21 09:12 Quetiapine Fumarate (SEROquel) 12.5 mg 0900,1700 PO 08/28/21 09:00 08/29/21 18:12 DC 08/29/21 17:15 Quetiapine Fumarate (SEROquel) 12.5 mg 0900,1300,1700 PO 08/30/21 09:00 09/01/21 17:14 Sertraline HCl (Zoloft) 25 mg 1X ONCE PO 08/31/21 10:45 08/31/21 10:48 DC 08/31/21 12:26 Sertraline HCl (Zoloft) 75 mg DAILY PO 09/01/21 09:00 09/02/21 11:00 09/01/21 08:28 Sertraline HCl (Zoloft) 100 mg DAILY PO 09/04/21 09:00 08/31/21 22:10 DC Sertraline HCl (Zoloft) 100 mg DAILY PO 09/03/21 09:00 Current Medications Medications (Trade) Dose Ordered Sig/Ras Route PRN Reason Start Time Stop Time Status Last Admin Dose Admin Sertraline HCl (Zoloft) 75 mg DAILY PO 09/01/21 09:00 09/02/21 11:00 09/01/21 08:28 I have reviewed the current psychotropics carefully including drug interactions. Risk benefit ratio favors no change other than as noted in my dictated progress note. 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
[2021-09-02] MEDS: CARBIDOPA/LEVODOPA 25/100MG TABLET PO SCH ×3 (03:32→17:14)
[2021-09-02] MEDS: LEVOTHYROXINE 50 MCG TABLET PO SCH (03:32)
[2021-09-02 05:58] VITALS: BP 116/60
[2021-09-02] MEDS: HYDROXYCHLOROQUINE 200 MG TABLET PO SCH (08:05)
[2021-09-02] MEDS: POLYETHYLENE GLYCOL 3350 17 GM PACKET. PO SCH ×2 (08:05→20:23)
[2021-09-02] MEDS: PRAMIPEXOLE 0.25 MG TABLET. PO SCH ×3 (08:06→20:24)
[2021-09-02] MEDS: SERTRALINE 25 MG TABLET. PO SCH (08:06)
[2021-09-02] MEDS: EMPAGLIFLOZIN 10 MG TABLET. PO SCH (08:06)
[2021-09-02] MEDS: LUBIPROSTONE 24 MCG CAPSULE PO SCH ×2 (08:06→17:14)
[2021-09-02] MEDS: metFORMIN 500 MG TABLET PO SCH ×2 (08:06→17:14)
[2021-09-02] MEDS: busPIRone 10 MG TABLET. PO SCH ×2 (08:07→20:24)
[2021-09-02] MEDS: PANTOPRAZOLE 40 MG TABLET. PO SCH (08:07)
[2021-09-02] MEDS: QUEtiapine 25 MG TABLET. PO SCH ×4 (08:08→20:24)
[2021-09-02] MEDS: SIMETHICONE 80 MG TAB.CHEW PO PRN (10:36)
[2021-09-02] MEDS: ONDANSETRON ODT 4 MG TAB.RAPDIS PO PRN (10:36)
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
[2021-09-02 15:27] VITALS: BP 95/58
--- NOTE | 2021-09-02 16:06 | NUR ---
Changed left elbow dressing with aquafoam and xeroform dressing.
[2021-09-02 20:09] VITALS: BP 101/47
[2021-09-02] MEDS: MELATONIN 3 MG TABLET PO SCH (20:24)
[2021-09-02] MEDS: PROPRANOLOL 20 MG TABLET. PO SCH (20:24)
[2021-09-02] MEDS: MIRTAZAPINE 7.5 MG TABLET. PO SCH (20:24)
[2021-09-02] MEDS: traMADol 50 MG TABLET PO PRN (20:26)
[2021-09-02] MEDS: traZODone 50 MG TABLET. PO PRN (20:26)
--- NOTE | 2021-09-02 20:29 | PDOC ---
Exam Note: Igno Note: This note is a late entry for 08/31/2021 covers elements not covered in my initial note. Subjective: The patient was reviewed at treatment team meeting individually in the morning on 08/31/2021 with Britney Butterfield, Suzette Reyes, and Ernestina Pedro (social contact worker), Nicolasa, activity therapy and Estella ALTMAN, discussed and reviewed the chart. The patient slept 4 hours previous night. Her appetite is 50%. She remains anxious, somewhat obsessive, but less confused than she seemed initially. She attended one group in the past one week. She does complain of back pain and has a lot of GI gas per nursing report. Reviewed her past history of being somewhat asocial even prior to being demented. She was also very anxious getting quite overwhelmed if her family threw her a surprise birthday constitution party as one of the examples. Review of Systems: Hard of hearing. Ambulation impaired in wheelchair. No CV, , pulmonary, eye system symptoms on review. Reliability poor. Mental Status Exam: The patient is oriented to herself and situation. Speech is coherent, somewhat pressured. Abstraction fair. Computation impaired. Language function intact. Attention span short. Mood and affect somewhat a nxious, labile but improved. Laboratory Data: Reviewed. 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 Anxiety disorder unspecified. Parkinsons disease. Plan: No change from initial note. Assessment: Vital Signs/I&O: Vital Signs Date Time Temp Pulse Resp B/P (MAP) Pulse Ox O2 Delivery O2 Flow Rate FiO2 09/02/21 20:26 96 09/02/21 20:24 79 101/47 09/02/21 15:27 98.8 18 09/02/21 05:58 Room Air I & O 09/01/21 09/01/21 09/02/21 15:00 23:00 07:00 Intake Total 600 ml 480 ml Balance 600 ml 480 ml Labs: Laboratory Tests Test 09/02/21 07:04 Glucose (Fingerstick) 114 mg/dL (70-99) H Current Medications: Meds: Laboratory Tests Test 09/02/21 07:04 Glucose (Fingerstick) 114 mg/dL Current Medications Medications (Trade) Dose Ordered Sig/Ras Route PRN Reason Start Time Stop Time Status Last Admin Dose Admin Acetaminophen (Tylenol) 650 mg PRN Q6HRS PRN PO MILD PAIN / TEMP > 100.3'F 08/17/21 16:00 08/26/21 16:38 Multi-Ingredient Ointment (Analgesic [place]) 1 annamarie PRN QID PRN TP MUSCLE PAIN 08/17/21 16:00 08/30/21 23:02 Al Hydroxide/Mg Hydroxide (Mylanta Plus Xs) 15 ml PRN AFTMEALHC PRN PO DYSPEPSIA 08/17/21 16:00 09/01/21 19:37 Magnesium Hydroxide (Milk Of Magnesia) 2,400 mg PRN QHS PRN PO 1st choice CONSTIPATION 08/17/21 16:00 Buspirone HCl (Buspar) 10 mg BID PO 08/17/21 21:00 09/02/21 20:24 Calcium Carbonate/ Glycine (Tums) 500 mg PRN Q6HRS PRN PO INDIGESTION 08/17/21 18:15 08/18/21 11:01 DC Clonazepam (KlonoPIN) 0.5 mg BID PO 08/17/21 21:00 08/19/21 20:11 DC 08/19/21 09:06 Empaglifozin (Jardiance) 10 mg DAILY PO 08/18/21 09:00 09/02/21 08:06 Hydroxychloroquine Sulfate (Plaquenil) 400 mg DAILY PO 08/18/21 09:00 09/02/21 08:05 Hydroxyzine HCl (Atarax) 25 mg PRN Q8HRS PRN PO ANXIETY 08/17/21 18:15 08/18/21 11:01 DC 08/18/21 10:04 Levothyroxine Sodium (Synthroid) 25 mcg DAILY06 PO 08/18/21 06:00 08/20/21 10:10 DC 08/20/21 06:07 Melatonin (Melatonin) 3 mg QHS PO 08/17/21 21:00 09/02/21 20:24 Polyethylene Glycol (miraLAX) 17 gm BID PO 08/17/21 21:00 09/02/21 20:23 Pramipexole Dihydrochloride (miraPEX) 0.25 mg TID PO 08/17/21 21:00 09/02/21 20:24 Propranolol HCl (Inderal) 20 mg QHS PO 08/17/21 21:00 09/01/21 19:43 Sennosides (Senna) 8.6 mg DAILY PO 08/18/21 09:00 08/18/21 11:01 DC 08/18/21 09:47 Simethicone (Gas-X) 80 mg PRN Q6HRS PRN PO GAS / BLOATING 08/17/21 18:00 08/18/21 11:17 DC Simethicone (Gas-X) 80 mg TID PO 08/17/21 21:00 08/18/21 11:01 DC 08/18/21 09:46 Trimethoprim/ Sulfamethoxazole (Bactrim Ds) 1 tab BID PO 08/17/21 21:00 08/23/21 21:30 DC 08/23/21 20:06 Tramadol HCl (Ultram) 50 mg PRN Q6HRS PRN PO mod-sev PAIN 08/17/21 18:00 09/02/21 20:26 Trazodone HCl (Desyrel) 50 mg QHS PO 08/17/21 21:00 08/22/21 20:25 DC 08/21/21 21:00 Non-Formulary Medication (Aspirin/Sod Bicarb/Citric Acid (Renee-[place] Original Tab Eff)) 325 mg PRN Q24HRS PRN PO DYSPEPSIA 08/17/21 18:00 UNV Capsaicin (Zostrix) 1 annamarie PRN Q12HR PRN TP PAIN 08/17/21 18:45 08/18/21 11:01 DC Carbidopa/Levodopa (Sinemet 25/100) 2 tab [id number] PO 08/17/21 18:30 09/02/21 17:14 Citalopram Hydrobromide (CeleXA) 40 mg DAILY PO 08/18/21 09:00 08/30/21 19:54 DC 08/30/21 09:10 Glycerin (Sani-Supp Adult) 1 supp PRN Q24HRS PRN [place] 2nd choice CONSTIPATION 08/17/21 18:45 Lactobacillus Rhamnosus (Culturelle) 1 cap BID PO 08/17/21 21:00 08/18/21 11:01 DC 08/18/21 09:47 Lubiprostone (Amitiza) 24 mcg BIDWMEALS PO 08/18/21 08:00 09/02/21 17:14 Cetirizine HCl (ZyrTEC) 10 mg DAILY PO 08/18/21 09:00 08/18/21 11:01 DC 08/18/21 09:47 Magnesium Oxide (Magnesium Oxide) 400 mg DAILY PO 08/18/21 09:00 08/18/21 11:01 DC 08/18/21 09:47 Metformin HCl (Glucophage) 1,000 mg BIDWMEALS PO 08/18/21 08:00 09/02/21 17:14 Pantoprazole Sodium (Protonix) 40 mg DAILYAC PO 08/18/21 07:30 09/02/21 08:07 Ondansetron HCl (Zofran Odt) 4 mg PRN Q6HRS PRN PO NAUSEA/VOMITING 08/17/21 18:30 09/02/21 10:36 Non-Formulary Medication (Trolamine Salicylate/Aloe Vera (Aspercreme 10% Cream)) 1 annamarie PRN BID PRN TP PAIN 08/17/21 18:00 UNV Olanzapine (ZyPREXA ZYDIS) 1.25 mg PRN Q2HRS PRN PO PSYCHOSIS 08/18/21 12:00 09/02/21 12:56 Clonazepam (KlonoPIN) 0.25 mg DAILY PO 08/20/21 09:00 08/27/21 20:18 DC 08/27/21 08:30 Clonazepam (KlonoPIN) 0.5 mg HS PO 08/19/21 21:00 08/22/21 19:00 DC 08/21/21 21:05 Clonazepam (KlonoPIN) 0.25 mg HS PO 08/22/21 21:00 08/27/21 22:00 DC 08/27/21 20:06 Levothyroxine Sodium (Synthroid) 50 mcg DAILY06 PO 08/21/21 06:00 09/02/21 03:32 Quetiapine Fumarate (SEROquel) 25 mg QHS PO 08/20/21 21:00 08/23/21 16:13 DC 08/22/21 21:49 Trazodone HCl (Desyrel) 50 mg PRN QHS PRN PO INSOMNIA, MAY REPEAT X1 08/22/21 20:30 09/02/21 20:26 Mirtazapine (Remeron) 7.5 mg QHS PO 08/22/21 21:00 09/02/21 20:24 Quetiapine Fumarate (SEROquel) 37.5 mg QHS PO 08/23/21 21:00 09/02/21 20:24 Simethicone (Gas-X) 80 mg PRN QID PRN PO GAS / BLOATING 08/23/21 16:30 09/02/21 10:36 Sertraline HCl (Zoloft) 25 mg DAILY PO 08/25/21 09:00 08/27/21 21:00 DC 08/27/21 08:30 Sertraline HCl (Zoloft) 50 mg DAILY PO 08/28/21 09:00 08/31/21 10:45 DC 08/31/21 08:31 Clonazepam (KlonoPIN) 0.25 mg DAILY PO 08/28/21 09:00 08/30/21 12:00 DC 08/30/21 09:12 Quetiapine Fumarate (SEROquel) 12.5 mg 0900,1700 PO 08/28/21 09:00 08/29/21 18:12 DC 08/29/21 17:15 Quetiapine Fumarate (SEROquel) 12.5 mg 0900,1300,1700 PO 08/30/21 09:00 09/02/21 17:16 Sertraline HCl (Zoloft) 25 mg 1X ONCE PO 08/31/21 10:45 08/31/21 10:48 DC 08/31/21 12:26 Sertraline HCl (Zoloft) 75 mg DAILY PO 09/01/21 09:00 09/02/21 11:00 DC 09/02/21 08:06 Sertraline HCl (Zoloft) 100 mg DAILY PO 09/04/21 09:00 08/31/21 22:10 DC Sertraline HCl (Zoloft) 100 mg DAILY PO 09/03/21 09:00 I have reviewed the current psychotropics carefully including drug interactions. Risk benefit ratio favors no change other than as noted in my dictated progress note. 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
--- NOTE | 2021-09-02 21:00 | PDOC ---
Exam Note: Gino Note: Please also refer to the separate dictated note~for this date of service dictated separately.~Patient seen individually. Discussed the patient with Nursing staff reviewed the chart.~Reviewed interim history and current functioning. Reviewed vital signs,~Labs/ Radiology~and current medications noted below. Continue current treatment with the changes noted in the dictated addendum note Assessment: Vital Signs/I&O: Vital Signs Date Time Temp Pulse Resp B/P (MAP) Pulse Ox O2 Delivery O2 Flow Rate FiO2 09/02/21 20:26 96 09/02/21 20:24 79 101/47 09/02/21 15:27 98.8 18 09/02/21 05:58 Room Air I & O 09/01/21 09/01/21 09/02/21 15:00 23:00 07:00 Intake Total 600 ml 480 ml Balance 600 ml 480 ml Labs: Laboratory Tests Test 09/02/21 07:04 Glucose (Fingerstick) 114 mg/dL (70-99) H Current Medications: Meds: Laboratory Tests Test 09/02/21 07:04 Glucose (Fingerstick) 114 mg/dL Current Medications Medications (Trade) Dose Ordered Sig/Ras Route PRN Reason Start Time Stop Time Status Last Admin Dose Admin Acetaminophen (Tylenol) 650 mg PRN Q6HRS PRN PO MILD PAIN / TEMP > 100.3'F 08/17/21 16:00 08/26/21 16:38 Multi-Ingredient Ointment (Analgesic [place]) 1 annamarie PRN QID PRN TP MUSCLE PAIN 08/17/21 16:00 08/30/21 23:02 Al Hydroxide/Mg Hydroxide (Mylanta Plus Xs) 15 ml PRN AFTMEALHC PRN PO DYSPEPSIA 08/17/21 16:00 09/01/21 19:37 Magnesium Hydroxide (Milk Of Magnesia) 2,400 mg PRN QHS PRN PO 1st choice CONSTIPATION 08/17/21 16:00 Buspirone HCl (Buspar) 10 mg BID PO 08/17/21 21:00 09/02/21 20:24 Calcium Carbonate/ Glycine (Tums) 500 mg PRN Q6HRS PRN PO INDIGESTION 08/17/21 18:15 08/18/21 11:01 DC Clonazepam (KlonoPIN) 0.5 mg BID PO 08/17/21 21:00 08/19/21 20:11 DC 08/19/21 09:06 Empaglifozin (Jardiance) 10 mg DAILY PO 08/18/21 09:00 09/02/21 08:06 Hydroxychloroquine Sulfate (Plaquenil) 400 mg DAILY PO 08/18/21 09:00 09/02/21 08:05 Hydroxyzine HCl (Atarax) 25 mg PRN Q8HRS PRN PO ANXIETY 08/17/21 18:15 08/18/21 11:01 DC 08/18/21 10:04 Levothyroxine Sodium (Synthroid) 25 mcg DAILY06 PO 08/18/21 06:00 08/20/21 10:10 DC 08/20/21 06:07 Melatonin (Melatonin) 3 mg QHS PO 08/17/21 21:00 09/02/21 20:24 Polyethylene Glycol (miraLAX) 17 gm BID PO 08/17/21 21:00 09/02/21 20:23 Pramipexole Dihydrochloride (miraPEX) 0.25 mg TID PO 08/17/21 21:00 09/02/21 20:24 Propranolol HCl (Inderal) 20 mg QHS PO 08/17/21 21:00 09/01/21 19:43 Sennosides (Senna) 8.6 mg DAILY PO 08/18/21 09:00 08/18/21 11:01 DC 08/18/21 09:47 Simethicone (Gas-X) 80 mg PRN Q6HRS PRN PO GAS / BLOATING 08/17/21 18:00 08/18/21 11:17 DC Simethicone (Gas-X) 80 mg TID PO 08/17/21 21:00 08/18/21 11:01 DC 08/18/21 09:46 Trimethoprim/ Sulfamethoxazole (Bactrim Ds) 1 tab BID PO 08/17/21 21:00 08/23/21 21:30 DC 08/23/21 20:06 Tramadol HCl (Ultram) 50 mg PRN Q6HRS PRN PO mod-sev PAIN 08/17/21 18:00 09/02/21 20:26 Trazodone HCl (Desyrel) 50 mg QHS PO 08/17/21 21:00 08/22/21 20:25 DC 08/21/21 21:00 Non-Formulary Medication (Aspirin/Sod Bicarb/Citric Acid (Renee-[place] Original Tab Eff)) 325 mg PRN Q24HRS PRN PO DYSPEPSIA 08/17/21 18:00 UNV Capsaicin (Zostrix) 1 annamarie PRN Q12HR PRN TP PAIN 08/17/21 18:45 08/18/21 11:01 DC Carbidopa/Levodopa (Sinemet 25/100) 2 tab [id number] PO 08/17/21 18:30 09/02/21 17:14 Citalopram Hydrobromide (CeleXA) 40 mg DAILY PO 08/18/21 09:00 08/30/21 19:54 DC 08/30/21 09:10 Glycerin (Sani-Supp Adult) 1 supp PRN Q24HRS PRN [place] 2nd choice CONSTIPATION 08/17/21 18:45 Lactobacillus Rhamnosus (Culturelle) 1 cap BID PO 08/17/21 21:00 08/18/21 11:01 DC 08/18/21 09:47 Lubiprostone (Amitiza) 24 mcg BIDWMEALS PO 08/18/21 08:00 09/02/21 17:14 Cetirizine HCl (ZyrTEC) 10 mg DAILY PO 08/18/21 09:00 08/18/21 11:01 DC 08/18/21 09:47 Magnesium Oxide (Magnesium Oxide) 400 mg DAILY PO 08/18/21 09:00 08/18/21 11:01 DC 08/18/21 09:47 Metformin HCl (Glucophage) 1,000 mg BIDWMEALS PO 08/18/21 08:00 09/02/21 17:14 Pantoprazole Sodium (Protonix) 40 mg DAILYAC PO 08/18/21 07:30 09/02/21 08:07 Ondansetron HCl (Zofran Odt) 4 mg PRN Q6HRS PRN PO NAUSEA/VOMITING 08/17/21 18:30 09/02/21 10:36 Non-Formulary Medication (Trolamine Salicylate/Aloe Vera (Aspercreme 10% Cream)) 1 annamarie PRN BID PRN TP PAIN 08/17/21 18:00 UNV Olanzapine (ZyPREXA ZYDIS) 1.25 mg PRN Q2HRS PRN PO PSYCHOSIS 08/18/21 12:00 09/02/21 12:56 Clonazepam (KlonoPIN) 0.25 mg DAILY PO 08/20/21 09:00 08/27/21 20:18 DC 08/27/21 08:30 Clonazepam (KlonoPIN) 0.5 mg HS PO 08/19/21 21:00 08/22/21 19:00 DC 08/21/21 21:05 Clonazepam (KlonoPIN) 0.25 mg HS PO 08/22/21 21:00 08/27/21 22:00 DC 08/27/21 20:06 Levothyroxine Sodium (Synthroid) 50 mcg DAILY06 PO 08/21/21 06:00 09/02/21 03:32 Quetiapine Fumarate (SEROquel) 25 mg QHS PO 08/20/21 21:00 08/23/21 16:13 DC 08/22/21 21:49 Trazodone HCl (Desyrel) 50 mg PRN QHS PRN PO INSOMNIA, MAY REPEAT X1 08/22/21 20:30 09/02/21 20:26 Mirtazapine (Remeron) 7.5 mg QHS PO 08/22/21 21:00 09/02/21 20:24 Quetiapine Fumarate (SEROquel) 37.5 mg QHS PO 08/23/21 21:00 09/02/21 20:24 Simethicone (Gas-X) 80 mg PRN QID PRN PO GAS / BLOATING 08/23/21 16:30 09/02/21 10:36 Sertraline HCl (Zoloft) 25 mg DAILY PO 08/25/21 09:00 08/27/21 21:00 DC 08/27/21 08:30 Sertraline HCl (Zoloft) 50 mg DAILY PO 08/28/21 09:00 08/31/21 10:45 DC 08/31/21 08:31 Clonazepam (KlonoPIN) 0.25 mg DAILY PO 08/28/21 09:00 08/30/21 12:00 DC 08/30/21 09:12 Quetiapine Fumarate (SEROquel) 12.5 mg 0900,1700 PO 08/28/21 09:00 08/29/21 18:12 DC 08/29/21 17:15 Quetiapine Fumarate (SEROquel) 12.5 mg 0900,1300,1700 PO 08/30/21 09:00 09/02/21 17:16 Sertraline HCl (Zoloft) 25 mg 1X ONCE PO 08/31/21 10:45 08/31/21 10:48 DC 08/31/21 12:26 Sertraline HCl (Zoloft) 75 mg DAILY PO 09/01/21 09:00 09/02/21 11:00 DC 09/02/21 08:06 Sertraline HCl (Zoloft) 100 mg DAILY PO 09/04/21 09:00 08/31/21 22:10 DC Sertraline HCl (Zoloft) 100 mg DAILY PO 09/03/21 09:00 I have reviewed the current psychotropics carefully including drug interactions. Risk benefit ratio favors no change other than as noted in my dictated progress note. Diagnosis: Problems: (1) Mild cognitive impairment (2) Major depressive disorder with psychotic features (3) Parkinson's disease (4) Anxiety disorder, unspecified RANJITH HAWKINS MD Sep 02, 2021 21:00
--- NOTE | 2021-09-02 21:00 | PDOC ---
Exam Note: Gino Note: This note is a late entry for 09/01/2021 covers elements not covered in my initial note. Subjective: The patient was seen individually in the evening of 09/01/2021 with Rosario ALTMAN, discussed and reviewed the chart. The patient slept 6-1/2 hours previous night. She had telephone call with her which went well. Overall she is less anxious. Review of Systems: Hard of hearing. Ambulation impaired in wheelchair. No CV, , pulmonary, eye system symptoms on review. Reliability poor. Mental Status Exam: The patient is oriented to herself and situation. She is somewhat anxious but improved, repeatedly talking about discharge plans and I addressed this with her. Speech is coherent, somewhat pressured. Abstraction fair. Computation impaired. Language function intact. Attention span short. Mood and affect somewhat anxious, labile but improved. Laboratory Data: Reviewed. 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 Anxiety disorder unspecified. Parkinsons disease. Plan: No change from initial note. Assessment: Vital Signs/I&O: Vital Signs Date Time Temp Pulse Resp B/P (MAP) Pulse Ox O2 Delivery O2 Flow Rate FiO2 09/02/21 20:26 96 09/02/21 20:24 79 101/47 09/02/21 15:27 98.8 18 09/02/21 05:58 Room Air I & O 09/01/21 09/01/21 09/02/21 15:00 23:00 07:00 Intake Total 600 ml 480 ml Balance 600 ml 480 ml Labs: Laboratory Tests Test 09/02/21 07:04 Glucose (Fingerstick) 114 mg/dL (70-99) H Current Medications: Meds: Laboratory Tests Test 09/02/21 07:04 Glucose (Fingerstick) 114 mg/dL Current Medications Medications (Trade) Dose Ordered Sig/Ras Route PRN Reason Start Time Stop Time Status Last Admin Dose Admin Acetaminophen (Tylenol) 650 mg PRN Q6HRS PRN PO MILD PAIN / TEMP > 100.3'F 08/17/21 16:00 08/26/21 16:38 Multi-Ingredient Ointment (Analgesic [place]) 1 annamarie PRN QID PRN TP MUSCLE PAIN 08/17/21 16:00 08/30/21 23:02 Al Hydroxide/Mg Hydroxide (Mylanta Plus Xs) 15 ml PRN AFTMEALHC PRN PO DYSPEPSIA 08/17/21 16:00 09/01/21 19:37 Magnesium Hydroxide (Milk Of Magnesia) 2,400 mg PRN QHS PRN PO 1st choice CONSTIPATION 08/17/21 16:00 Buspirone HCl (Buspar) 10 mg BID PO 08/17/21 21:00 09/02/21 20:24 Calcium Carbonate/ Glycine (Tums) 500 mg PRN Q6HRS PRN PO INDIGESTION 08/17/21 18:15 08/18/21 11:01 DC Clonazepam (KlonoPIN) 0.5 mg BID PO 08/17/21 21:00 08/19/21 20:11 DC 08/19/21 09:06 Empaglifozin (Jardiance) 10 mg DAILY PO 08/18/21 09:00 09/02/21 08:06 Hydroxychloroquine Sulfate (Plaquenil) 400 mg DAILY PO 08/18/21 09:00 09/02/21 08:05 Hydroxyzine HCl (Atarax) 25 mg PRN Q8HRS PRN PO ANXIETY 08/17/21 18:15 08/18/21 11:01 DC 08/18/21 10:04 Levothyroxine Sodium (Synthroid) 25 mcg DAILY06 PO 08/18/21 06:00 08/20/21 10:10 DC 08/20/21 06:07 Melatonin (Melatonin) 3 mg QHS PO 08/17/21 21:00 09/02/21 20:24 Polyethylene Glycol (miraLAX) 17 gm BID PO 08/17/21 21:00 09/02/21 20:23 Pramipexole Dihydrochloride (miraPEX) 0.25 mg TID PO 08/17/21 21:00 09/02/21 20:24 Propranolol HCl (Inderal) 20 mg QHS PO 08/17/21 21:00 09/01/21 19:43 Sennosides (Senna) 8.6 mg DAILY PO 08/18/21 09:00 08/18/21 11:01 DC 08/18/21 09:47 Simethicone (Gas-X) 80 mg PRN Q6HRS PRN PO GAS / BLOATING 08/17/21 18:00 08/18/21 11:17 DC Simethicone (Gas-X) 80 mg TID PO 08/17/21 21:00 08/18/21 11:01 DC 08/18/21 09:46 Trimethoprim/ Sulfamethoxazole (Bactrim Ds) 1 tab BID PO 08/17/21 21:00 08/23/21 21:30 DC 08/23/21 20:06 Tramadol HCl (Ultram) 50 mg PRN Q6HRS PRN PO mod-sev PAIN 08/17/21 18:00 09/02/21 20:26 Trazodone HCl (Desyrel) 50 mg QHS PO 08/17/21 21:00 08/22/21 20:25 DC 08/21/21 21:00 Non-Formulary Medication (Aspirin/Sod Bicarb/Citric Acid ([place]ene[place] Original Tab Eff)) 325 mg PRN Q24HRS PRN PO DYSPEPSIA 08/17/21 18:00 UNV Capsaicin (Zostrix) 1 annamarie PRN Q12HR PRN TP PAIN 08/17/21 18:45 08/18/21 11:01 DC Carbidopa/Levodopa (Sinemet 25/100) 2 tab [id number] PO 08/17/21 18:30 09/02/21 17:14 Citalopram Hydrobromide (CeleXA) 40 mg DAILY PO 08/18/21 09:00 08/30/21 19:54 DC 08/30/21 09:10 Glycerin (Sani-Supp Adult) 1 supp PRN Q24HRS PRN [place] 2nd choice CONSTIPATION 08/17/21 18:45 Lactobacillus Rhamnosus (Culturelle) 1 cap BID PO 08/17/21 21:00 08/18/21 11:01 DC 08/18/21 09:47 Lubiprostone (Amitiza) 24 mcg BIDWMEALS PO 08/18/21 08:00 09/02/21 17:14 Cetirizine HCl (ZyrTEC) 10 mg DAILY PO 08/18/21 09:00 08/18/21 11:01 DC 08/18/21 09:47 Magnesium Oxide (Magnesium Oxide) 400 mg DAILY PO 08/18/21 09:00 08/18/21 11:01 DC 08/18/21 09:47 Metformin HCl (Glucophage) 1,000 mg BIDWMEALS PO 08/18/21 08:00 09/02/21 17:14 Pantoprazole Sodium (Protonix) 40 mg DAILYAC PO 08/18/21 07:30 09/02/21 08:07 Ondansetron HCl (Zofran Odt) 4 mg PRN Q6HRS PRN PO NAUSEA/VOMITING 08/17/21 18:30 09/02/21 10:36 Non-Formulary Medication (Trolamine Salicylate/Aloe Vera (Aspercreme 10% Cream)) 1 annamarie PRN BID PRN TP PAIN 08/17/21 18:00 UNV Olanzapine (ZyPREXA ZYDIS) 1.25 mg PRN Q2HRS PRN PO PSYCHOSIS 08/18/21 12:00 09/02/21 12:56 Clonazepam (KlonoPIN) 0.25 mg DAILY PO 08/20/21 09:00 08/27/21 20:18 DC 08/27/21 08:30 Clonazepam (KlonoPIN) 0.5 mg HS PO 08/19/21 21:00 08/22/21 19:00 DC 08/21/21 21:05 Clonazepam (KlonoPIN) 0.25 mg HS PO 08/22/21 21:00 08/27/21 22:00 DC 08/27/21 20:06 Levothyroxine Sodium (Synthroid) 50 mcg DAILY06 PO 08/21/21 06:00 09/02/21 03:32 Quetiapine Fumarate (SEROquel) 25 mg QHS PO 08/20/21 21:00 08/23/21 16:13 DC 08/22/21 21:49 Trazodone HCl (Desyrel) 50 mg PRN QHS PRN PO INSOMNIA, MAY REPEAT X1 08/22/21 20:30 09/02/21 20:26 Mirtazapine (Remeron) 7.5 mg QHS PO 08/22/21 21:00 09/02/21 20:24 Quetiapine Fumarate (SEROquel) 37.5 mg QHS PO 08/23/21 21:00 09/02/21 20:24 Simethicone (Gas-X) 80 mg PRN QID PRN PO GAS / BLOATING 08/23/21 16:30 09/02/21 10:36 Sertraline HCl (Zoloft) 25 mg DAILY PO 08/25/21 09:00 08/27/21 21:00 DC 08/27/21 08:30 Sertraline HCl (Zoloft) 50 mg DAILY PO 08/28/21 09:00 08/31/21 10:45 DC 08/31/21 08:31 Clonazepam (KlonoPIN) 0.25 mg DAILY PO 08/28/21 09:00 08/30/21 12:00 DC 08/30/21 09:12 Quetiapine Fumarate (SEROquel) 12.5 mg 0900,1700 PO 08/28/21 09:00 08/29/21 18:12 DC 08/29/21 17:15 Quetiapine Fumarate (SEROquel) 12.5 mg 0900,1300,1700 PO 08/30/21 09:00 09/02/21 17:16 Sertraline HCl (Zoloft) 25 mg 1X ONCE PO 08/31/21 10:45 08/31/21 10:48 DC 08/31/21 12:26 Sertraline HCl (Zoloft) 75 mg DAILY PO 09/01/21 09:00 09/02/21 11:00 DC 09/02/21 08:06 Sertraline HCl (Zoloft) 100 mg DAILY PO 09/04/21 09:00 08/31/21 22:10 DC Sertraline HCl (Zoloft) 100 mg DAILY PO 09/03/21 09:00 I have reviewed the current psychotropics carefully including drug interactions. Risk benefit ratio favors no change other than as noted in my dictated progress note. Diagnosis: Problems: (1) Mild cognitive impairment (2) Major depressive disorder with psychotic features (3) Parkinson's disease (4) Anxiety disorder, unspecified RANJITH HAWKINS MD Sep 02, 2021 21:00
--- NOTE | 2021-09-03 00:07 | NUR ---
Pt located in her room this evening. Pt calm and pleasant; appears less anxious. Compliant with whole medications. PRN Trazodone and Tramadol administered with HS medications.
[2021-09-03] MEDS: LEVOTHYROXINE 50 MCG TABLET PO SCH (05:22)
[2021-09-03] MEDS: SIMETHICONE 80 MG TAB.CHEW PO PRN (05:22)
[2021-09-03] MEDS: CARBIDOPA/LEVODOPA 25/100MG TABLET PO SCH ×5 (05:22→20:25)
[2021-09-03 06:29] VITALS: BP 102/66
[2021-09-03] MEDS: LUBIPROSTONE 24 MCG CAPSULE PO SCH ×2 (08:37→18:04)
[2021-09-03] MEDS: POLYETHYLENE GLYCOL 3350 17 GM PACKET. PO SCH ×2 (08:37→20:26)
[2021-09-03] MEDS: busPIRone 10 MG TABLET. PO SCH ×2 (08:37→20:24)
[2021-09-03] MEDS: PANTOPRAZOLE 40 MG TABLET. PO SCH (08:37)
[2021-09-03] MEDS: PRAMIPEXOLE 0.25 MG TABLET. PO SCH ×3 (08:37→20:25)
[2021-09-03] MEDS: QUEtiapine 25 MG TABLET. PO SCH ×4 (08:38→20:25)
[2021-09-03] MEDS: metFORMIN 500 MG TABLET PO SCH ×2 (08:38→18:04)
[2021-09-03] MEDS: EMPAGLIFLOZIN 10 MG TABLET. PO SCH (08:40)
[2021-09-03] MEDS: HYDROXYCHLOROQUINE 200 MG TABLET PO SCH (08:41)
[2021-09-03] MEDS: SERTRALINE 100 MG TABLET. PO SCH (08:41)
[2021-09-03 11:37] LABS: BASO % 1 % (0-3); EOS # 0.1 x10^3/uL (0.0-0.7); EOS % 2 % (0-3); HEMATOCRIT 38.4 % (36.0-47.0); HEMOGLOBIN 12.5 g/dL (12.0-15.5); LYMPH # 1.2 x10^3/uL (1.0-4.8); LYMPH % 17 % (24-48); MEAN CORPUSCULAR HEMOGLOBIN 29 pg (25-35); MEAN CORPUSCULAR HGB CONC 33 g/dL (31-37); MEAN CORPUSCULAR VOLUME 88 fL (79-100); MONO # 0.4 x10^3/uL (0.0-1.1); MONO % 6 % (0-9); NEUT # 5.1 x10^3uL (1.8-7.7); NEUT % 75 % (31-73); PLATELET COUNT 440 x10^3/uL (140-400); RED BLOOD COUNT 4.37 x10^6/uL (3.50-5.40); RED CELL DISTRIBUTION WIDTH 15.4 % (11.5-14.5); WHITE BLOOD COUNT 6.8 x10^3/uL (4.0-11.0)
--- NOTE | 2021-09-03 11:38 | NUR ---
Nursing note: Pt in dining room at time of AM med pass and assessment. She is med compliant and cooperative with assessment. Pt is slightly anxious this AM regarding her bowels and states she has not "had a bowel movement for 2.5 days" and she needs "something bubbly to help get things moving". Pt was given her scheduled miralax with breakfast and has active bowel sounds. She is currently sitting quietly in the day room watching TV. Will continue to monitor.
[2021-09-03 14:34] LABS: ALBUMIN 3.8 g/dL (3.4-5.0); ALBUMIN/GLOBULIN RATIO 1.3 (1.0-1.7); CALCIUM 9.1 mg/dL (8.5-10.1); CREATININE 0.7 mg/dL (0.6-1.0); GFR 79.3; TOTAL BILIRUBIN 0.2 mg/dL (0.2-1.0); TOTAL PROTEIN 6.7 g/dL (6.4-8.2)
[2021-09-03 16:13] VITALS: BP 118/63
[2021-09-03] MEDS: MIRTAZAPINE 7.5 MG TABLET. PO SCH (20:24)
[2021-09-03] MEDS: MELATONIN 3 MG TABLET PO SCH (20:24)
[2021-09-03] MEDS: traMADol 50 MG TABLET PO PRN (20:25)
[2021-09-03] MEDS: traZODone 50 MG TABLET. PO PRN (20:25)
[2021-09-03] MEDS: PROPRANOLOL 20 MG TABLET. PO SCH (20:28)
--- NOTE | 2021-09-03 20:32 | PDOC ---
Exam Note: Gino Note: Please also refer to the separate dictated note~for this date of service dictated separately.~Patient seen individually. Discussed the patient with Nursing staff reviewed the chart.~Reviewed interim history and current functioning. Reviewed vital signs,~Labs/ Radiology~and current medications noted below. Continue current treatment with the changes noted in the dictated addendum note Assessment: Vital Signs/I&O: Vital Signs Date Time Temp Pulse Resp B/P (MAP) Pulse Ox O2 Delivery O2 Flow Rate FiO2 09/03/21 20:28 85 118/63 09/03/21 20:25 95 09/03/21 16:13 97.6 16 Room Air I & O 09/02/21 09/02/21 09/03/21 15:00 23:00 07:00 Intake Total 240 ml 360 ml Balance 240 ml 360 ml Labs: Laboratory Tests Test 09/03/21 07:09 09/03/21 10:50 Glucose (Fingerstick) 123 mg/dL (70-99) H White Blood Count 6.8 x10^3/uL (4.0-11.0) Red Blood Count 4.37 x10^6/uL (3.50-5.40) Hemoglobin 12.5 g/dL (12.0-15.5) Hematocrit 38.4 % (36.0-47.0) Mean Corpuscular Volume 88 fL (79-100) Mean Corpuscular Hemoglobin 29 pg (25-35) Mean Corpuscular Hemoglobin Concent 33 g/dL (31-37) Red Cell Distribution Width 15.4 % (11.5-14.5) H Platelet Count 440 x10^3/uL (140-400) H Neutrophils (%) (Auto) 75 % (31-73) H Lymphocytes (%) (Auto) 17 % (24-48) L Monocytes (%) (Auto) 6 % (0-9) Eosinophils (%) (Auto) 2 % (0-3) Basophils (%) (Auto) 1 % (0-3) Neutrophils # (Auto) 5.1 x10^3uL (1.8-7.7) Lymphocytes # (Auto) 1.2 x10^3/uL (1.0-4.8) Monocytes # (Auto) 0.4 x10^3/uL (0.0-1.1) Eosinophils # (Auto) 0.1 x10^3/uL (0.0-0.7) Basophils # (Auto) 0.0 x10^3/uL (0.0-0.2) Sodium Level 136 mmol/L (136-145) Potassium Level 4.0 mmol/L (3.5-5.1) Chloride Level 98 mmol/L (98-107) Carbon Dioxide Level 27 mmol/L (21-32) Anion Gap 11 (6-14) Blood Urea Nitrogen 23 mg/dL (7-20) H Creatinine 0.7 mg/dL (0.6-1.0) Estimated GFR (Cockcroft-Gault) 79.3 BUN/Creatinine Ratio 33 (6-20) H Glucose Level 200 mg/dL (70-99) H Calcium Level 9.1 mg/dL (8.5-10.1) Total Bilirubin 0.2 mg/dL (0.2-1.0) Aspartate Amino Transferase (AST) 21 U/L (15-37) Alanine Aminotransferase (ALT) 18 U/L (14-59) Alkaline Phosphatase 66 U/L (46-116) Total Protein 6.7 g/dL (6.4-8.2) Albumin 3.8 g/dL (3.4-5.0) Albumin/Globulin Ratio 1.3 (1.0-1.7) Current Medications: Meds: Laboratory Tests Test 09/03/21 07:09 09/03/21 10:50 Glucose (Fingerstick) 123 mg/dL White Blood Count 6.8 x10^3/uL Red Blood Count 4.37 x10^6/uL Hemoglobin 12.5 g/dL Hematocrit 38.4 % Mean Corpuscular Volume 88 fL Mean Corpuscular Hemoglobin 29 pg Mean Corpuscular Hemoglobin Concent 33 g/dL Red Cell Distribution Width 15.4 % Platelet Count 440 x10^3/uL Neutrophils (%) (Auto) 75 % Lymphocytes (%) (Auto) 17 % Monocytes (%) (Auto) 6 % Eosinophils (%) (Auto) 2 % Basophils (%) (Auto) 1 % Neutrophils # (Auto) 5.1 x10^3uL Lymphocytes # (Auto) 1.2 x10^3/uL Monocytes # (Auto) 0.4 x10^3/uL Eosinophils # (Auto) 0.1 x10^3/uL Basophils # (Auto) 0.0 x10^3/uL Sodium Level 136 mmol/L Potassium Level 4.0 mmol/L Chloride Level 98 mmol/L Carbon Dioxide Level 27 mmol/L Anion Gap 11 Blood Urea Nitrogen 23 mg/dL Creatinine 0.7 mg/dL Estimated GFR (Cockcroft-Gault) 79.3 BUN/Creatinine Ratio 33 Glucose Level 200 mg/dL Calcium Level 9.1 mg/dL Total Bilirubin 0.2 mg/dL Aspartate Amino Transf (AST/SGOT) 21 U/L Alanine Aminotransferase (ALT/SGPT) 18 U/L Alkaline Phosphatase 66 U/L Total Protein 6.7 g/dL Albumin 3.8 g/dL Albumin/Globulin Ratio 1.3 Current Medications Medications (Trade) Dose Ordered Sig/Ras Route PRN Reason Start Time Stop Time Status Last Admin Dose Admin Acetaminophen (Tylenol) 650 mg PRN Q6HRS PRN PO MILD PAIN / TEMP > 100.3'F 08/17/21 16:00 08/26/21 16:38 Multi-Ingredient Ointment (Analgesic [place]) 1 annamarie PRN QID PRN TP MUSCLE PAIN 08/17/21 16:00 08/30/21 23:02 Al Hydroxide/Mg Hydroxide (Mylanta Plus Xs) 15 ml PRN AFTMEALHC PRN PO DYSPEPSIA 08/17/21 16:00 09/01/21 19:37 Magnesium Hydroxide (Milk Of Magnesia) 2,400 mg PRN QHS PRN PO 1st choice CONSTIPATION 08/17/21 16:00 Buspirone HCl (Buspar) 10 mg BID PO 08/17/21 21:00 09/03/21 20:24 Calcium Carbonate/ Glycine (Tums) 500 mg PRN Q6HRS PRN PO INDIGESTION 08/17/21 18:15 08/18/21 11:01 DC Clonazepam (KlonoPIN) 0.5 mg BID PO 08/17/21 21:00 08/19/21 20:11 DC 08/19/21 09:06 Empaglifozin (Jardiance) 10 mg DAILY PO 08/18/21 09:00 09/03/21 08:40 Hydroxychloroquine Sulfate (Plaquenil) 400 mg DAILY PO 08/18/21 09:00 09/03/21 08:41 Hydroxyzine HCl (Atarax) 25 mg PRN Q8HRS PRN PO ANXIETY 08/17/21 18:15 08/18/21 11:01 DC 08/18/21 10:04 Levothyroxine Sodium (Synthroid) 25 mcg DAILY06 PO 08/18/21 06:00 08/20/21 10:10 DC 08/20/21 06:07 Melatonin (Melatonin) 3 mg QHS PO 08/17/21 21:00 09/03/21 20:24 Polyethylene Glycol (miraLAX) 17 gm BID PO 08/17/21 21:00 09/03/21 20:26 Pramipexole Dihydrochloride (miraPEX) 0.25 mg TID PO 08/17/21 21:00 09/03/21 20:25 Propranolol HCl (Inderal) 20 mg QHS PO 08/17/21 21:00 09/03/21 20:28 Sennosides (Senna) 8.6 mg DAILY PO 08/18/21 09:00 08/18/21 11:01 DC 08/18/21 09:47 Simethicone (Gas-X) 80 mg PRN Q6HRS PRN PO GAS / BLOATING 08/17/21 18:00 08/18/21 11:17 DC Simethicone (Gas-X) 80 mg TID PO 08/17/21 21:00 08/18/21 11:01 DC 08/18/21 09:46 Trimethoprim/ Sulfamethoxazole (Bactrim Ds) 1 tab BID PO 08/17/21 21:00 08/23/21 21:30 DC 08/23/21 20:06 Tramadol HCl (Ultram) 50 mg PRN Q6HRS PRN PO mod-sev PAIN 08/17/21 18:00 09/03/21 20:25 Trazodone HCl (Desyrel) 50 mg QHS PO 08/17/21 21:00 08/22/21 20:25 DC 08/21/21 21:00 Non-Formulary Medication (Aspirin/Sod Bicarb/Citric Acid ([place]enee-[place] Original Tab Eff)) 325 mg PRN Q24HRS PRN PO DYSPEPSIA 08/17/21 18:00 UNV Capsaicin (Zostrix) 1 annamarie PRN Q12HR PRN TP PAIN 08/17/21 18:45 08/18/21 11:01 DC Carbidopa/Levodopa (Sinemet 25/100) 2 tab [id number] PO 08/17/21 18:30 09/03/21 20:25 Citalopram Hydrobromide (CeleXA) 40 mg DAILY PO 08/18/21 09:00 08/30/21 19:54 DC 08/30/21 09:10 Glycerin (Sani-Supp Adult) 1 supp PRN Q24HRS PRN [place] 2nd choice CONSTIPATION 08/17/21 18:45 Lactobacillus Rhamnosus (Culturelle) 1 cap BID PO 08/17/21 21:00 08/18/21 11:01 DC 08/18/21 09:47 Lubiprostone (Amitiza) 24 mcg BIDWMEALS PO 08/18/21 08:00 09/03/21 18:04 Cetirizine HCl (ZyrTEC) 10 mg DAILY PO 08/18/21 09:00 08/18/21 11:01 DC 08/18/21 09:47 Magnesium Oxide (Magnesium Oxide) 400 mg DAILY PO 08/18/21 09:00 08/18/21 11:01 DC 08/18/21 09:47 Metformin HCl (Glucophage) 1,000 mg BIDWMEALS PO 08/18/21 08:00 09/03/21 18:04 Pantoprazole Sodium (Protonix) 40 mg DAILYAC PO 08/18/21 07:30 09/03/21 08:37 Ondansetron HCl (Zofran Odt) 4 mg PRN Q6HRS PRN PO NAUSEA/VOMITING 08/17/21 18:30 09/02/21 10:36 Non-Formulary Medication (Trolamine Salicylate/Aloe Vera (Aspercreme 10% Cream)) 1 annamarie PRN BID PRN TP PAIN 08/17/21 18:00 UNV Olanzapine (ZyPREXA ZYDIS) 1.25 mg PRN Q2HRS PRN PO PSYCHOSIS 08/18/21 12:00 09/02/21 12:56 Clonazepam (KlonoPIN) 0.25 mg DAILY PO 08/20/21 09:00 08/27/21 20:18 DC 08/27/21 08:30 Clonazepam (KlonoPIN) 0.5 mg HS PO 08/19/21 21:00 08/22/21 19:00 DC 08/21/21 21:05 Clonazepam (KlonoPIN) 0.25 mg HS PO 08/22/21 21:00 08/27/21 22:00 DC 08/27/21 20:06 Levothyroxine Sodium (Synthroid) 50 mcg DAILY06 PO 08/21/21 06:00 09/03/21 05:22 Quetiapine Fumarate (SEROquel) 25 mg QHS PO 08/20/21 21:00 08/23/21 16:13 DC 08/22/21 21:49 Trazodone HCl (Desyrel) 50 mg PRN QHS PRN PO INSOMNIA, MAY REPEAT X1 08/22/21 20:30 09/03/21 20:25 Mirtazapine (Remeron) 7.5 mg QHS PO 08/22/21 21:00 09/03/21 20:24 Quetiapine Fumarate (SEROquel) 37.5 mg QHS PO 08/23/21 21:00 09/03/21 20:25 Simethicone (Gas-X) 80 mg PRN QID PRN PO GAS / BLOATING 08/23/21 16:30 09/03/21 05:22 Sertraline HCl (Zoloft) 25 mg DAILY PO 08/25/21 09:00 08/27/21 21:00 DC 08/27/21 08:30 Sertraline HCl (Zoloft) 50 mg DAILY PO 08/28/21 09:00 08/31/21 10:45 DC 08/31/21 08:31 Clonazepam (KlonoPIN) 0.25 mg DAILY PO 08/28/21 09:00 08/30/21 12:00 DC 08/30/21 09:12 Quetiapine Fumarate (SEROquel) 12.5 mg 0900,1700 PO 08/28/21 09:00 08/29/21 18:12 DC 08/29/21 17:15 Quetiapine Fumarate (SEROquel) 12.5 mg 0900,1300,1700 PO 08/30/21 09:00 09/03/21 18:04 Sertraline HCl (Zoloft) 25 mg 1X ONCE PO 08/31/21 10:45 08/31/21 10:48 DC 08/31/21 12:26 Sertraline HCl (Zoloft) 75 mg DAILY PO 09/01/21 09:00 09/02/21 11:00 DC 09/02/21 08:06 Sertraline HCl (Zoloft) 100 mg DAILY PO 09/04/21 09:00 08/31/21 22:10 DC Sertraline HCl (Zoloft) 100 mg DAILY PO 09/03/21 09:00 09/03/21 08:41 Current Medications Medications (Trade) Dose Ordered Sig/Ras Route PRN Reason Start Time Stop Time Status Last Admin Dose Admin Sertraline HCl (Zoloft) 100 mg DAILY PO 09/03/21 09:00 09/03/21 08:41 I have reviewed the current psychotropics carefully including drug interactions. Risk benefit ratio favors no change other than as noted in my dictated progress note. Diagnosis: Problems: (1) Mild cognitive impairment (2) Major depressive disorder with psychotic features (3) Parkinson's disease (4) Anxiety disorder, unspecified RANJITH HAWKINS MD Sep 03, 2021 20:32
--- NOTE | 2021-09-04 02:51 | NUR ---
Nursing Note Pt complains of being constipated and having gas pains. Pt given mylanta, tramadol, trazodone, and mike bridges. Very somatic and particular about her surroundings. Pt seems to be somewhat hyperverbal this pm. Pt significantly [place]. Pleasant and appreciative of the meds. Up again at 245 with diarrhea.
[2021-09-04] MEDS: LEVOTHYROXINE 50 MCG TABLET PO SCH (06:00)
[2021-09-04 06:03] VITALS: BP 109/50
[2021-09-04] MEDS: PANTOPRAZOLE 40 MG TABLET. PO SCH (08:38)
[2021-09-04] MEDS: busPIRone 10 MG TABLET. PO SCH ×2 (08:38→20:01)
[2021-09-04] MEDS: metFORMIN 500 MG TABLET PO SCH ×2 (08:38→17:11)
[2021-09-04] MEDS: SERTRALINE 100 MG TABLET. PO SCH (08:38)
[2021-09-04] MEDS: PRAMIPEXOLE 0.25 MG TABLET. PO SCH ×3 (08:38→20:01)
[2021-09-04] MEDS: QUEtiapine 25 MG TABLET. PO SCH ×4 (08:38→20:02)
[2021-09-04] MEDS: LUBIPROSTONE 24 MCG CAPSULE PO SCH ×2 (08:38→17:11)
[2021-09-04] MEDS: EMPAGLIFLOZIN 10 MG TABLET. PO SCH (08:38)
[2021-09-04] MEDS: POLYETHYLENE GLYCOL 3350 17 GM PACKET. PO SCH ×2 (08:39→20:02)
[2021-09-04] MEDS: HYDROXYCHLOROQUINE 200 MG TABLET PO SCH (08:42)
[2021-09-04] MEDS ORDERED: SERTRALINE 100 MG TABLET. PO SCH (09:00)
[2021-09-04] MEDS: SIMETHICONE 80 MG TAB.CHEW PO PRN ×2 (11:28→20:01)
[2021-09-04] MEDS: CARBIDOPA/LEVODOPA 25/100MG TABLET PO SCH ×4 (12:23→20:01)
[2021-09-04] MEDS: traMADol 50 MG TABLET PO PRN ×2 (12:24→20:01)
--- NOTE | 2021-09-04 13:36 | NUR ---
HUA returned call to Adelfo, pt son/DPOA, who just wanted to clarify everything he spoke with nursing about over the weekend and also what he has talked to his niece about re: our conversation on . Adelfo understands that essentially pt diagnosis has exacerbated her personality and not the other way around. Adelfo reports that they have been coaching his father these last few weeks on how to react and he really needs to hear from the team that this is not going to clear up; pt will continue on this path and worsen over time. Adelfo confirms that his father is doing well while pt has been here (e.g. more interactive with his peers and sleeping better). HUA and Adelfo went over the difference between [facility], SNF and [facility] Care. Adelfo would prefer, if possible, that pt discharge to a SNF and then go from there. HUA will continue to be in contact with Adelfo and lashawn HUNTER for Tuesday 09/11.
[2021-09-04] MEDS: MAG HYDROX/AL HYDROX/SIMETH 30 ML ORAL.SUSP PO PRN ×2 (13:52→20:02)
--- NOTE | 2021-09-04 14:35 | NUR ---
Nursing note: Patient in dinning room for morning medication and assessment. She is compliant with taking medications whole. She is A/O X 3, unable to report situation. Patient can be anxious about bowels, frequently stating she is constipated or having excessive gas pain, PRN given per order. Last BM was today. She is withdrawn and isolative, no group participation. Patient has been laying down between meals. She propels self through unit and bedroom in w/c, as well as self transfers. She is currently laying in bed in his room with eyes closed. Will continue to monitor.
[2021-09-04 15:45] VITALS: BP 100/60
[2021-09-04] MEDS: MIRTAZAPINE 7.5 MG TABLET. PO SCH (20:01)
[2021-09-04] MEDS: traZODone 50 MG TABLET. PO PRN (20:01)
[2021-09-04] MEDS: MELATONIN 3 MG TABLET PO SCH (20:01)
[2021-09-04] MEDS: PROPRANOLOL 20 MG TABLET. PO SCH (20:02)
--- NOTE | 2021-09-04 20:49 | PDOC ---
Exam Note: Gino Note: This note is a late entry for 09/02/2021 covers elements not covered in my initial note. Subjective: The patient was seen individually in the evening of 09/02/2021 with Rosario ALTMAN, discussed and reviewed the chart. The patient slept 6-1/2 hours previous night. I met with her in her room at length. She had many questions about discharge plans which I addressed with her but most of the time she remains hyperverbal, speaking constantly, has great difficulty stopping to listen to answers to any questions she asks. Reportedly her son had called and had questions for nursing staff about placement options but he will discuss with social service staff. She received p.r.n. Gabiypmary lou Hendrix at 1 p.m. I met with her in her room at length. Review of Systems: Hard of hearing. Ambulation impaired in wheelchair. No CV, , pulmonary, eye system symptoms on review. Mental Status Exam: The patient is oriented to herself and situation. Speech is rapid, coherent, constant. Abstraction fair. Computation impaired. Language function intact. Attention span short. Mood and affect withdrawn. Laboratory Data: Reviewed. 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 Anxiety disorder unspecified. Parkinsons disease. Plan: No change from initial note. Adjust further as clinically indicated. Assessment: Vital Signs/I&O: Vital Signs Date Time Temp Pulse Resp B/P (MAP) Pulse Ox O2 Delivery O2 Flow Rate FiO2 09/04/21 20:02 76 100/60 09/04/21 20:01 97 09/04/21 15:45 97.6 16 09/04/21 06:03 Room Air I & O 09/03/21 09/03/21 09/04/21 15:00 23:00 07:00 Intake Total 480 ml 480 ml Balance 480 ml 480 ml Labs: Laboratory Tests Test 09/04/21 07:43 Glucose (Fingerstick) 147 mg/dL (70-99) H Current Medications: Meds: Laboratory Tests Test 09/04/21 07:43 Glucose (Fingerstick) 147 mg/dL Current Medications Medications (Trade) Dose Ordered Sig/Ras Route PRN Reason Start Time Stop Time Status Last Admin Dose Admin Acetaminophen (Tylenol) 650 mg PRN Q6HRS PRN PO MILD PAIN / TEMP > 100.3'F 08/17/21 16:00 08/26/21 16:38 Multi-Ingredient Ointment (Analgesic [place]) 1 annamarie PRN QID PRN TP MUSCLE PAIN 08/17/21 16:00 08/30/21 23:02 Al Hydroxide/Mg Hydroxide (Mylanta Plus Xs) 15 ml PRN AFTMEALHC PRN PO DYSPEPSIA 08/17/21 16:00 09/04/21 20:02 Magnesium Hydroxide (Milk Of Magnesia) 2,400 mg PRN QHS PRN PO 1st choice CONSTIPATION 08/17/21 16:00 Buspirone HCl (Buspar) 10 mg BID PO 08/17/21 21:00 09/04/21 20:01 Calcium Carbonate/ Glycine (Tums) 500 mg PRN Q6HRS PRN PO INDIGESTION 08/17/21 18:15 08/18/21 11:01 DC Clonazepam (KlonoPIN) 0.5 mg BID PO 08/17/21 21:00 08/19/21 20:11 DC 08/19/21 09:06 Empaglifozin (Jardiance) 10 mg DAILY PO 08/18/21 09:00 09/04/21 08:38 Hydroxychloroquine Sulfate (Plaquenil) 400 mg DAILY PO 08/18/21 09:00 09/04/21 08:42 Hydroxyzine HCl (Atarax) 25 mg PRN Q8HRS PRN PO ANXIETY 08/17/21 18:15 08/18/21 11:01 DC 08/18/21 10:04 Levothyroxine Sodium (Synthroid) 25 mcg DAILY06 PO 08/18/21 06:00 08/20/21 10:10 DC 08/20/21 06:07 Melatonin (Melatonin) 3 mg QHS PO 08/17/21 21:00 09/04/21 20:01 Polyethylene Glycol (miraLAX) 17 gm BID PO 08/17/21 21:00 09/03/21 20:26 Pramipexole Dihydrochloride (miraPEX) 0.25 mg TID PO 08/17/21 21:00 09/04/21 20:01 Propranolol HCl (Inderal) 20 mg QHS PO 08/17/21 21:00 09/04/21 20:02 Sennosides (Senna) 8.6 mg DAILY PO 08/18/21 09:00 08/18/21 11:01 DC 08/18/21 09:47 Simethicone (Gas-X) 80 mg PRN Q6HRS PRN PO GAS / BLOATING 08/17/21 18:00 08/18/21 11:17 DC Simethicone (Gas-X) 80 mg TID PO 08/17/21 21:00 08/18/21 11:01 DC 08/18/21 09:46 Trimethoprim/ Sulfamethoxazole (Bactrim Ds) 1 tab BID PO 08/17/21 21:00 08/23/21 21:30 DC 08/23/21 20:06 Tramadol HCl (Ultram) 50 mg PRN Q6HRS PRN PO mod-sev PAIN 08/17/21 18:00 09/04/21 20:01 Trazodone HCl (Desyrel) 50 mg QHS PO 08/17/21 21:00 08/22/21 20:25 DC 08/21/21 21:00 Non-Formulary Medication (Aspirin/Sod Bicarb/Citric Acid ([place]ene[place] Original Tab Eff)) 325 mg PRN Q24HRS PRN PO DYSPEPSIA 08/17/21 18:00 UNV Capsaicin (Zostrix) 1 annamarie PRN Q12HR PRN TP PAIN 08/17/21 18:45 08/18/21 11:01 DC Carbidopa/Levodopa (Sinemet 25/100) 2 tab [id number] PO 08/17/21 18:30 09/04/21 20:01 Citalopram Hydrobromide (CeleXA) 40 mg DAILY PO 08/18/21 09:00 08/30/21 19:54 DC 08/30/21 09:10 Glycerin (Sani-Supp Adult) 1 supp PRN Q24HRS PRN [place] 2nd choice CONSTIPATION 08/17/21 18:45 Lactobacillus Rhamnosus (Culturelle) 1 cap BID PO 08/17/21 21:00 08/18/21 11:01 DC 08/18/21 09:47 Lubiprostone (Amitiza) 24 mcg BIDWMEALS PO 08/18/21 08:00 09/04/21 17:11 Cetirizine HCl (ZyrTEC) 10 mg DAILY PO 08/18/21 09:00 08/18/21 11:01 DC 08/18/21 09:47 Magnesium Oxide (Magnesium Oxide) 400 mg DAILY PO 08/18/21 09:00 08/18/21 11:01 DC 08/18/21 09:47 Metformin HCl (Glucophage) 1,000 mg BIDWMEALS PO 08/18/21 08:00 09/04/21 17:11 Pantoprazole Sodium (Protonix) 40 mg DAILYAC PO 08/18/21 07:30 09/04/21 08:38 Ondansetron HCl (Zofran Odt) 4 mg PRN Q6HRS PRN PO NAUSEA/VOMITING 08/17/21 18:30 09/02/21 10:36 Non-Formulary Medication (Trolamine Salicylate/Aloe Vera (Aspercreme 10% Cream)) 1 annamarie PRN BID PRN TP PAIN 08/17/21 18:00 UNV Olanzapine (ZyPREXA ZYDIS) 1.25 mg PRN Q2HRS PRN PO PSYCHOSIS 08/18/21 12:00 09/02/21 12:56 Clonazepam (KlonoPIN) 0.25 mg DAILY PO 08/20/21 09:00 08/27/21 20:18 DC 08/27/21 08:30 Clonazepam (KlonoPIN) 0.5 mg HS PO 08/19/21 21:00 08/22/21 19:00 DC 08/21/21 21:05 Clonazepam (KlonoPIN) 0.25 mg HS PO 08/22/21 21:00 08/27/21 22:00 DC 08/27/21 20:06 Levothyroxine Sodium (Synthroid) 50 mcg DAILY06 PO 08/21/21 06:00 09/04/21 06:00 Quetiapine Fumarate (SEROquel) 25 mg QHS PO 08/20/21 21:00 08/23/21 16:13 DC 08/22/21 21:49 Trazodone HCl (Desyrel) 50 mg PRN QHS PRN PO INSOMNIA, MAY REPEAT X1 08/22/21 20:30 09/04/21 20:01 Mirtazapine (Remeron) 7.5 mg QHS PO 08/22/21 21:00 09/04/21 20:01 Quetiapine Fumarate (SEROquel) 37.5 mg QHS PO 08/23/21 21:00 09/04/21 20:02 Simethicone (Gas-X) 80 mg PRN QID PRN PO GAS / BLOATING 08/23/21 16:30 09/04/21 20:01 Sertraline HCl (Zoloft) 25 mg DAILY PO 08/25/21 09:00 08/27/21 21:00 DC 08/27/21 08:30 Sertraline HCl (Zoloft) 50 mg DAILY PO 08/28/21 09:00 08/31/21 10:45 DC 08/31/21 08:31 Clonazepam (KlonoPIN) 0.25 mg DAILY PO 08/28/21 09:00 08/30/21 12:00 DC 08/30/21 09:12 Quetiapine Fumarate (SEROquel) 12.5 mg 0900,1700 PO 08/28/21 09:00 08/29/21 18:12 DC 08/29/21 17:15 Quetiapine Fumarate (SEROquel) 12.5 mg 0900,1300,1700 PO 08/30/21 09:00 09/04/21 17:11 Sertraline HCl (Zoloft) 25 mg 1X ONCE PO 08/31/21 10:45 08/31/21 10:48 DC 08/31/21 12:26 Sertraline HCl (Zoloft) 75 mg DAILY PO 09/01/21 09:00 09/02/21 11:00 DC 09/02/21 08:06 Sertraline HCl (Zoloft) 100 mg DAILY PO 09/04/21 09:00 08/31/21 22:10 DC Sertraline HCl (Zoloft) 100 mg DAILY PO 09/03/21 09:00 09/04/21 08:38 I have reviewed the current psychotropics carefully including drug interactions. Risk benefit ratio favors no change other than as noted in my dictated progress note. Diagnosis: Problems: (1) Mild cognitive impairment (2) Major depressive disorder with psychotic features (3) Parkinson's disease (4) Anxiety disorder, unspecified RANJITH HAWKINS MD Sep 04, 2021 20:49
--- NOTE | 2021-09-04 21:10 | PDOC ---
Exam Note: Gino Note: This note is a late entry for 09/03/2021 covers elements not covered in my initial note. Subjective: The patient was seen individually in the evening of 09/03/2021 with Krysten ALTMAN, discussed and reviewed the chart. The patient slept 7-1/4 hours previous night. Overall she is less obsessive but very somatically preoccupied especially with the bowel. Review of Systems: Hard of hearing. Ambulation impaired in wheelchair. No CV, , pulmonary, eye system symptoms on review. Mental Status Exam: The patient is oriented to herself and situation. She talked about her son being involved in a meeting with the staff this coming week because she stated he is looking into a placement options. She reminded me he works for [employer] and states he is fairly busy and Speech is coherent, somewhat pressured. Abstraction fair. Computation impaired. Language function intact. Attention span short. Mood and affect improved. Laboratory Data: Reviewed. 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 Anxiety disorder unspecified. Parkinsons disease. Plan: No change from initial note. Assessment: Vital Signs/I&O: Vital Signs Date Time Temp Pulse Resp B/P (MAP) Pulse Ox O2 Delivery O2 Flow Rate FiO2 09/04/21 20:02 76 100/60 09/04/21 20:01 97 09/04/21 15:45 97.6 16 09/04/21 06:03 Room Air I & O 09/03/21 09/03/21 09/04/21 15:00 23:00 07:00 Intake Total 480 ml 480 ml Balance 480 ml 480 ml Labs: Laboratory Tests Test 09/04/21 07:43 Glucose (Fingerstick) 147 mg/dL (70-99) H Current Medications: Meds: Laboratory Tests Test 09/04/21 07:43 Glucose (Fingerstick) 147 mg/dL Current Medications Medications (Trade) Dose Ordered Sig/Ras Route PRN Reason Start Time Stop Time Status Last Admin Dose Admin Acetaminophen (Tylenol) 650 mg PRN Q6HRS PRN PO MILD PAIN / TEMP > 100.3'F 08/17/21 16:00 08/26/21 16:38 Multi-Ingredient Ointment (Analgesic [place]) 1 annamarie PRN QID PRN TP MUSCLE PAIN 08/17/21 16:00 08/30/21 23:02 Al Hydroxide/Mg Hydroxide (Mylanta Plus Xs) 15 ml PRN AFTMEALHC PRN PO DYSPEPSIA 08/17/21 16:00 09/04/21 20:02 Magnesium Hydroxide (Milk Of Magnesia) 2,400 mg PRN QHS PRN PO 1st choice CONSTIPATION 08/17/21 16:00 Buspirone HCl (Buspar) 10 mg BID PO 08/17/21 21:00 09/04/21 20:01 Calcium Carbonate/ Glycine (Tums) 500 mg PRN Q6HRS PRN PO INDIGESTION 08/17/21 18:15 08/18/21 11:01 DC Clonazepam (KlonoPIN) 0.5 mg BID PO 08/17/21 21:00 08/19/21 20:11 DC 08/19/21 09:06 Empaglifozin (Jardiance) 10 mg DAILY PO 08/18/21 09:00 09/04/21 08:38 Hydroxychloroquine Sulfate (Plaquenil) 400 mg DAILY PO 08/18/21 09:00 09/04/21 08:42 Hydroxyzine HCl (Atarax) 25 mg PRN Q8HRS PRN PO ANXIETY 08/17/21 18:15 08/18/21 11:01 DC 08/18/21 10:04 Levothyroxine Sodium (Synthroid) 25 mcg DAILY06 PO 08/18/21 06:00 08/20/21 10:10 DC 08/20/21 06:07 Melatonin (Melatonin) 3 mg QHS PO 08/17/21 21:00 09/04/21 20:01 Polyethylene Glycol (miraLAX) 17 gm BID PO 08/17/21 21:00 09/03/21 20:26 Pramipexole Dihydrochloride (miraPEX) 0.25 mg TID PO 08/17/21 21:00 09/04/21 20:01 Propranolol HCl (Inderal) 20 mg QHS PO 08/17/21 21:00 09/04/21 20:02 Sennosides (Senna) 8.6 mg DAILY PO 08/18/21 09:00 08/18/21 11:01 DC 08/18/21 09:47 Simethicone (Gas-X) 80 mg PRN Q6HRS PRN PO GAS / BLOATING 08/17/21 18:00 08/18/21 11:17 DC Simethicone (Gas-X) 80 mg TID PO 08/17/21 21:00 08/18/21 11:01 DC 08/18/21 09:46 Trimethoprim/ Sulfamethoxazole (Bactrim Ds) 1 tab BID PO 08/17/21 21:00 08/23/21 21:30 DC 08/23/21 20:06 Tramadol HCl (Ultram) 50 mg PRN Q6HRS PRN PO mod-sev PAIN 08/17/21 18:00 09/04/21 20:01 Trazodone HCl (Desyrel) 50 mg QHS PO 08/17/21 21:00 08/22/21 20:25 DC 08/21/21 21:00 Non-Formulary Medication (Aspirin/Sod Bicarb/Citric Acid ([place]enee-[place] Original Tab Eff)) 325 mg PRN Q24HRS PRN PO DYSPEPSIA 08/17/21 18:00 UNV Capsaicin (Zostrix) 1 annamarie PRN Q12HR PRN TP PAIN 08/17/21 18:45 08/18/21 11:01 DC Carbidopa/Levodopa (Sinemet 25/100) 2 tab [id number] PO 08/17/21 18:30 09/04/21 20:01 Citalopram Hydrobromide (CeleXA) 40 mg DAILY PO 08/18/21 09:00 08/30/21 19:54 DC 08/30/21 09:10 Glycerin (Sani-Supp Adult) 1 supp PRN Q24HRS PRN [place] 2nd choice CONSTIPATION 08/17/21 18:45 Lactobacillus Rhamnosus (Culturelle) 1 cap BID PO 08/17/21 21:00 08/18/21 11:01 DC 08/18/21 09:47 Lubiprostone (Amitiza) 24 mcg BIDWMEALS PO 08/18/21 08:00 09/04/21 17:11 Cetirizine HCl (ZyrTEC) 10 mg DAILY PO 08/18/21 09:00 08/18/21 11:01 DC 08/18/21 09:47 Magnesium Oxide (Magnesium Oxide) 400 mg DAILY PO 08/18/21 09:00 08/18/21 11:01 DC 08/18/21 09:47 Metformin HCl (Glucophage) 1,000 mg BIDWMEALS PO 08/18/21 08:00 09/04/21 17:11 Pantoprazole Sodium (Protonix) 40 mg DAILYAC PO 08/18/21 07:30 09/04/21 08:38 Ondansetron HCl (Zofran Odt) 4 mg PRN Q6HRS PRN PO NAUSEA/VOMITING 08/17/21 18:30 09/02/21 10:36 Non-Formulary Medication (Trolamine Salicylate/Aloe Vera (Aspercreme 10% Cream)) 1 annamarie PRN BID PRN TP PAIN 08/17/21 18:00 UNV Olanzapine (ZyPREXA ZYDIS) 1.25 mg PRN Q2HRS PRN PO PSYCHOSIS 08/18/21 12:00 09/02/21 12:56 Clonazepam (KlonoPIN) 0.25 mg DAILY PO 08/20/21 09:00 08/27/21 20:18 DC 08/27/21 08:30 Clonazepam (KlonoPIN) 0.5 mg HS PO 08/19/21 21:00 08/22/21 19:00 DC 08/21/21 21:05 Clonazepam (KlonoPIN) 0.25 mg HS PO 08/22/21 21:00 08/27/21 22:00 DC 08/27/21 20:06 Levothyroxine Sodium (Synthroid) 50 mcg DAILY06 PO 08/21/21 06:00 09/04/21 06:00 Quetiapine Fumarate (SEROquel) 25 mg QHS PO 08/20/21 21:00 08/23/21 16:13 DC 08/22/21 21:49 Trazodone HCl (Desyrel) 50 mg PRN QHS PRN PO INSOMNIA, MAY REPEAT X1 08/22/21 20:30 09/04/21 20:01 Mirtazapine (Remeron) 7.5 mg QHS PO 08/22/21 21:00 09/04/21 20:01 Quetiapine Fumarate (SEROquel) 37.5 mg QHS PO 08/23/21 21:00 09/04/21 20:02 Simethicone (Gas-X) 80 mg PRN QID PRN PO GAS / BLOATING 08/23/21 16:30 09/04/21 20:01 Sertraline HCl (Zoloft) 25 mg DAILY PO 08/25/21 09:00 08/27/21 21:00 DC 08/27/21 08:30 Sertraline HCl (Zoloft) 50 mg DAILY PO 08/28/21 09:00 08/31/21 10:45 DC 08/31/21 08:31 Clonazepam (KlonoPIN) 0.25 mg DAILY PO 08/28/21 09:00 08/30/21 12:00 DC 08/30/21 09:12 Quetiapine Fumarate (SEROquel) 12.5 mg 0900,1700 PO 08/28/21 09:00 08/29/21 18:12 DC 08/29/21 17:15 Quetiapine Fumarate (SEROquel) 12.5 mg 0900,1300,1700 PO 08/30/21 09:00 09/04/21 17:11 Sertraline HCl (Zoloft) 25 mg 1X ONCE PO 08/31/21 10:45 08/31/21 10:48 DC 08/31/21 12:26 Sertraline HCl (Zoloft) 75 mg DAILY PO 09/01/21 09:00 09/02/21 11:00 DC 09/02/21 08:06 Sertraline HCl (Zoloft) 100 mg DAILY PO 09/04/21 09:00 08/31/21 22:10 DC Sertraline HCl (Zoloft) 100 mg DAILY PO 09/03/21 09:00 09/04/21 08:38 I have reviewed the current psychotropics carefully including drug interactions. Risk benefit ratio favors no change other than as noted in my dictated progress note. Diagnosis: Problems: (1) Mild cognitive impairment (2) Major depressive disorder with psychotic features (3) Parkinson's disease (4) Anxiety disorder, unspecified RANJITH HAWKINS MD Sep 04, 2021 21:10
--- NOTE | 2021-09-04 21:11 | PDOC ---
Exam Note: Gino Note: Please also refer to the separate dictated note~for this date of service dictated separately.~Patient seen individually. Discussed the patient with Nursing staff reviewed the chart.~Reviewed interim history and current functioning. Reviewed vital signs,~Labs/ Radiology~and current medications noted below. Continue current treatment with the changes noted in the dictated addendum note Assessment: Vital Signs/I&O: Vital Signs Date Time Temp Pulse Resp B/P (MAP) Pulse Ox O2 Delivery O2 Flow Rate FiO2 09/04/21 20:02 76 100/60 09/04/21 20:01 97 09/04/21 15:45 97.6 16 09/04/21 06:03 Room Air I & O 09/03/21 09/03/21 09/04/21 15:00 23:00 07:00 Intake Total 480 ml 480 ml Balance 480 ml 480 ml Labs: Laboratory Tests Test 09/04/21 07:43 Glucose (Fingerstick) 147 mg/dL (70-99) H Current Medications: Meds: Laboratory Tests Test 09/04/21 07:43 Glucose (Fingerstick) 147 mg/dL Current Medications Medications (Trade) Dose Ordered Sig/Ras Route PRN Reason Start Time Stop Time Status Last Admin Dose Admin Acetaminophen (Tylenol) 650 mg PRN Q6HRS PRN PO MILD PAIN / TEMP > 100.3'F 08/17/21 16:00 08/26/21 16:38 Multi-Ingredient Ointment (Analgesic [place]) 1 annamarie PRN QID PRN TP MUSCLE PAIN 08/17/21 16:00 08/30/21 23:02 Al Hydroxide/Mg Hydroxide (Mylanta Plus Xs) 15 ml PRN AFTMEALHC PRN PO DYSPEPSIA 08/17/21 16:00 09/04/21 20:02 Magnesium Hydroxide (Milk Of Magnesia) 2,400 mg PRN QHS PRN PO 1st choice CONSTIPATION 08/17/21 16:00 Buspirone HCl (Buspar) 10 mg BID PO 08/17/21 21:00 09/04/21 20:01 Calcium Carbonate/ Glycine (Tums) 500 mg PRN Q6HRS PRN PO INDIGESTION 08/17/21 18:15 08/18/21 11:01 DC Clonazepam (KlonoPIN) 0.5 mg BID PO 08/17/21 21:00 08/19/21 20:11 DC 08/19/21 09:06 Empaglifozin (Jardiance) 10 mg DAILY PO 08/18/21 09:00 09/04/21 08:38 Hydroxychloroquine Sulfate (Plaquenil) 400 mg DAILY PO 08/18/21 09:00 09/04/21 08:42 Hydroxyzine HCl (Atarax) 25 mg PRN Q8HRS PRN PO ANXIETY 08/17/21 18:15 08/18/21 11:01 DC 08/18/21 10:04 Levothyroxine Sodium (Synthroid) 25 mcg DAILY06 PO 08/18/21 06:00 08/20/21 10:10 DC 08/20/21 06:07 Melatonin (Melatonin) 3 mg QHS PO 08/17/21 21:00 09/04/21 20:01 Polyethylene Glycol (miraLAX) 17 gm BID PO 08/17/21 21:00 09/03/21 20:26 Pramipexole Dihydrochloride (miraPEX) 0.25 mg TID PO 08/17/21 21:00 09/04/21 20:01 Propranolol HCl (Inderal) 20 mg QHS PO 08/17/21 21:00 09/04/21 20:02 Sennosides (Senna) 8.6 mg DAILY PO 08/18/21 09:00 08/18/21 11:01 DC 08/18/21 09:47 Simethicone (Gas-X) 80 mg PRN Q6HRS PRN PO GAS / BLOATING 08/17/21 18:00 08/18/21 11:17 DC Simethicone (Gas-X) 80 mg TID PO 08/17/21 21:00 08/18/21 11:01 DC 08/18/21 09:46 Trimethoprim/ Sulfamethoxazole (Bactrim Ds) 1 tab BID PO 08/17/21 21:00 08/23/21 21:30 DC 08/23/21 20:06 Tramadol HCl (Ultram) 50 mg PRN Q6HRS PRN PO mod-sev PAIN 08/17/21 18:00 09/04/21 20:01 Trazodone HCl (Desyrel) 50 mg QHS PO 08/17/21 21:00 08/22/21 20:25 DC 08/21/21 21:00 Non-Formulary Medication (Aspirin/Sod Bicarb/Citric Acid (Renee-[place] Original Tab Eff)) 325 mg PRN Q24HRS PRN PO DYSPEPSIA 08/17/21 18:00 UNV Capsaicin (Zostrix) 1 annamarie PRN Q12HR PRN TP PAIN 08/17/21 18:45 08/18/21 11:01 DC Carbidopa/Levodopa (Sinemet 25/100) 2 tab [id number] PO 08/17/21 18:30 09/04/21 20:01 Citalopram Hydrobromide (CeleXA) 40 mg DAILY PO 08/18/21 09:00 08/30/21 19:54 DC 08/30/21 09:10 Glycerin (Sani-Supp Adult) 1 supp PRN Q24HRS PRN [place] 2nd choice CONSTIPATION 08/17/21 18:45 Lactobacillus Rhamnosus (Culturelle) 1 cap BID PO 08/17/21 21:00 08/18/21 11:01 DC 08/18/21 09:47 Lubiprostone (Amitiza) 24 mcg BIDWMEALS PO 08/18/21 08:00 09/04/21 17:11 Cetirizine HCl (ZyrTEC) 10 mg DAILY PO 08/18/21 09:00 08/18/21 11:01 DC 08/18/21 09:47 Magnesium Oxide (Magnesium Oxide) 400 mg DAILY PO 08/18/21 09:00 08/18/21 11:01 DC 08/18/21 09:47 Metformin HCl (Glucophage) 1,000 mg BIDWMEALS PO 08/18/21 08:00 09/04/21 17:11 Pantoprazole Sodium (Protonix) 40 mg DAILYAC PO 08/18/21 07:30 09/04/21 08:38 Ondansetron HCl (Zofran Odt) 4 mg PRN Q6HRS PRN PO NAUSEA/VOMITING 08/17/21 18:30 09/02/21 10:36 Non-Formulary Medication (Trolamine Salicylate/Aloe Vera (Aspercreme 10% Cream)) 1 annamarie PRN BID PRN TP PAIN 08/17/21 18:00 UNV Olanzapine (ZyPREXA ZYDIS) 1.25 mg PRN Q2HRS PRN PO PSYCHOSIS 08/18/21 12:00 09/02/21 12:56 Clonazepam (KlonoPIN) 0.25 mg DAILY PO 08/20/21 09:00 08/27/21 20:18 DC 08/27/21 08:30 Clonazepam (KlonoPIN) 0.5 mg HS PO 08/19/21 21:00 08/22/21 19:00 DC 08/21/21 21:05 Clonazepam (KlonoPIN) 0.25 mg HS PO 08/22/21 21:00 08/27/21 22:00 DC 08/27/21 20:06 Levothyroxine Sodium (Synthroid) 50 mcg DAILY06 PO 08/21/21 06:00 09/04/21 06:00 Quetiapine Fumarate (SEROquel) 25 mg QHS PO 08/20/21 21:00 08/23/21 16:13 DC 08/22/21 21:49 Trazodone HCl (Desyrel) 50 mg PRN QHS PRN PO INSOMNIA, MAY REPEAT X1 08/22/21 20:30 09/04/21 20:01 Mirtazapine (Remeron) 7.5 mg QHS PO 08/22/21 21:00 09/04/21 20:01 Quetiapine Fumarate (SEROquel) 37.5 mg QHS PO 08/23/21 21:00 09/04/21 20:02 Simethicone (Gas-X) 80 mg PRN QID PRN PO GAS / BLOATING 08/23/21 16:30 09/04/21 20:01 Sertraline HCl (Zoloft) 25 mg DAILY PO 08/25/21 09:00 08/27/21 21:00 DC 08/27/21 08:30 Sertraline HCl (Zoloft) 50 mg DAILY PO 08/28/21 09:00 08/31/21 10:45 DC 08/31/21 08:31 Clonazepam (KlonoPIN) 0.25 mg DAILY PO 08/28/21 09:00 08/30/21 12:00 DC 08/30/21 09:12 Quetiapine Fumarate (SEROquel) 12.5 mg 0900,1700 PO 08/28/21 09:00 08/29/21 18:12 DC 08/29/21 17:15 Quetiapine Fumarate (SEROquel) 12.5 mg 0900,1300,1700 PO 08/30/21 09:00 09/04/21 17:11 Sertraline HCl (Zoloft) 25 mg 1X ONCE PO 08/31/21 10:45 08/31/21 10:48 DC 08/31/21 12:26 Sertraline HCl (Zoloft) 75 mg DAILY PO 09/01/21 09:00 09/02/21 11:00 DC 09/02/21 08:06 Sertraline HCl (Zoloft) 100 mg DAILY PO 09/04/21 09:00 08/31/21 22:10 DC Sertraline HCl (Zoloft) 100 mg DAILY PO 09/03/21 09:00 09/04/21 08:38 I have reviewed the current psychotropics carefully including drug interactions. Risk benefit ratio favors no change other than as noted in my dictated progress note. Diagnosis: Problems: (1) Mild cognitive impairment (2) Major depressive disorder with psychotic features (3) Parkinson's disease (4) Anxiety disorder, unspecified RANJITH HAWKINS MD Sep 04, 2021 21:11
--- NOTE | 2021-09-04 23:35 | NUR ---
Nursing Note Pt still bowel obsessed, asks for mylanta and simethicone meds with pain meds and trazodone. When I entered the room pt was sitting in her wheelchair with her pants off, I quickly noted that she had been in her bed at some point because the bed was covered in wound barrier cream. She had been helped to bed only 10 minutes prior to this by the nursing assistants. Pt complains of sore bottom area from the briefs that she has a latex allergy and the briefs must have a latex base to them. Pt is very particular about her personal routine and care.
[2021-09-05] MEDS: LEVOTHYROXINE 50 MCG TABLET PO SCH (05:24)
[2021-09-05] MEDS: CARBIDOPA/LEVODOPA 25/100MG TABLET PO SCH ×3 (05:24→17:32)
[2021-09-05 05:38] VITALS: BP 122/67
[2021-09-05] MEDS: POLYETHYLENE GLYCOL 3350 17 GM PACKET. PO SCH ×2 (07:24→20:35)
[2021-09-05] MEDS: PRAMIPEXOLE 0.25 MG TABLET. PO SCH ×3 (08:49→20:40)
[2021-09-05] MEDS: PANTOPRAZOLE 40 MG TABLET. PO SCH (08:49)
[2021-09-05] MEDS: metFORMIN 500 MG TABLET PO SCH ×2 (08:49→17:32)
[2021-09-05] MEDS: LUBIPROSTONE 24 MCG CAPSULE PO SCH ×2 (08:49→17:32)
[2021-09-05] MEDS: busPIRone 10 MG TABLET. PO SCH ×2 (08:49→20:39)
[2021-09-05] MEDS: QUEtiapine 25 MG TABLET. PO SCH ×4 (08:49→20:35)
[2021-09-05] MEDS: SERTRALINE 100 MG TABLET. PO SCH (08:49)
[2021-09-05] MEDS: EMPAGLIFLOZIN 10 MG TABLET. PO SCH (08:50)
[2021-09-05] MEDS: HYDROXYCHLOROQUINE 200 MG TABLET PO SCH (08:50)
[2021-09-05] MEDS: SIMETHICONE 80 MG TAB.CHEW PO PRN ×3 (09:20→17:33)
--- NOTE | 2021-09-05 10:38 | NUR ---
Pt appropriate on unit this shift. Absent of SI/HI/VH/AH/delusions. She c/o buildup of gas after eating, PRN Simethicone administered per her request. Pt appears very fixated on her bowels. Scheduled Polyethylene glycol held d/t reports multiple episodes of diarrhea from NOC nurse. Pt's interactions with others have remained pleasant so far this shift, she has been absent of elevated anxiety and agitation thus far. Plan of care continues, will pass to next shift.
--- NOTE | 2021-09-05 12:30 | NUR ---
Pt c/o gas buildup while eating, PRN Simethicone administered at her request.
[2021-09-05 15:22] VITALS: BP 108/56
--- NOTE | 2021-09-05 17:36 | NUR ---
Pt c/o gas buildup while eating, PRN Simethicone administered at her request.
[2021-09-05] MEDS: MELATONIN 3 MG TABLET PO SCH (20:39)
[2021-09-05] MEDS: MIRTAZAPINE 7.5 MG TABLET. PO SCH (20:39)
[2021-09-05] MEDS: PROPRANOLOL 20 MG TABLET. PO SCH (20:40)
--- NOTE | 2021-09-05 20:49 | PDOC ---
Exam Note: Gino Note: Please also refer to the separate dictated note~for this date of service dictated separately.~Patient seen individually. Discussed the patient with Nursing staff reviewed the chart.~Reviewed interim history and current functioning. Reviewed vital signs,~Labs/ Radiology~and current medications noted below. Continue current treatment with the changes noted in the dictated addendum note Assessment: Vital Signs/I&O: Vital Signs Date Time Temp Pulse Resp B/P (MAP) Pulse Ox O2 Delivery O2 Flow Rate FiO2 09/05/21 20:40 78 108/56 09/05/21 15:22 97.1 18 94 Room Air I & O 09/04/21 09/04/21 09/05/21 15:00 23:00 07:00 Intake Total 480 ml 460 ml Balance 480 ml 460 ml Labs: Laboratory Tests Test 09/05/21 07:21 Glucose (Fingerstick) 95 mg/dL (70-99) Current Medications: Meds: Laboratory Tests Test 09/05/21 07:21 Glucose (Fingerstick) 95 mg/dL Current Medications Medications (Trade) Dose Ordered Sig/Ras Route PRN Reason Start Time Stop Time Status Last Admin Dose Admin Acetaminophen (Tylenol) 650 mg PRN Q6HRS PRN PO MILD PAIN / TEMP > 100.3'F 08/17/21 16:00 08/26/21 16:38 Multi-Ingredient Ointment (Analgesic [place]) 1 annamarie PRN QID PRN TP MUSCLE PAIN 08/17/21 16:00 08/30/21 23:02 Al Hydroxide/Mg Hydroxide (Mylanta Plus Xs) 15 ml PRN AFTMEALHC PRN PO DYSPEPSIA 08/17/21 16:00 09/04/21 20:02 Magnesium Hydroxide (Milk Of Magnesia) 2,400 mg PRN QHS PRN PO 1st choice CONSTIPATION 08/17/21 16:00 Buspirone HCl (Buspar) 10 mg BID PO 08/17/21 21:00 09/05/21 20:39 Calcium Carbonate/ Glycine (Tums) 500 mg PRN Q6HRS PRN PO INDIGESTION 08/17/21 18:15 08/18/21 11:01 DC Clonazepam (KlonoPIN) 0.5 mg BID PO 08/17/21 21:00 08/19/21 20:11 DC 08/19/21 09:06 Empaglifozin (Jardiance) 10 mg DAILY PO 08/18/21 09:00 09/05/21 08:50 Hydroxychloroquine Sulfate (Plaquenil) 400 mg DAILY PO 08/18/21 09:00 09/05/21 08:50 Hydroxyzine HCl (Atarax) 25 mg PRN Q8HRS PRN PO ANXIETY 08/17/21 18:15 08/18/21 11:01 DC 08/18/21 10:04 Levothyroxine Sodium (Synthroid) 25 mcg DAILY06 PO 08/18/21 06:00 08/20/21 10:10 DC 08/20/21 06:07 Melatonin (Melatonin) 3 mg QHS PO 08/17/21 21:00 09/05/21 20:39 Polyethylene Glycol (miraLAX) 17 gm BID PO 08/17/21 21:00 09/05/21 20:35 Pramipexole Dihydrochloride (miraPEX) 0.25 mg TID PO 08/17/21 21:00 09/05/21 20:40 Propranolol HCl (Inderal) 20 mg QHS PO 08/17/21 21:00 09/05/21 20:40 Sennosides (Senna) 8.6 mg DAILY PO 08/18/21 09:00 08/18/21 11:01 DC 08/18/21 09:47 Simethicone (Gas-X) 80 mg PRN Q6HRS PRN PO GAS / BLOATING 08/17/21 18:00 08/18/21 11:17 DC Simethicone (Gas-X) 80 mg TID PO 08/17/21 21:00 08/18/21 11:01 DC 08/18/21 09:46 Trimethoprim/ Sulfamethoxazole (Bactrim Ds) 1 tab BID PO 08/17/21 21:00 08/23/21 21:30 DC 08/23/21 20:06 Tramadol HCl (Ultram) 50 mg PRN Q6HRS PRN PO mod-sev PAIN 08/17/21 18:00 09/04/21 20:01 Trazodone HCl (Desyrel) 50 mg QHS PO 08/17/21 21:00 08/22/21 20:25 DC 08/21/21 21:00 Non-Formulary Medication (Aspirin/Sod Bicarb/Citric Acid ([place]ene[place] Original Tab Eff)) 325 mg PRN Q24HRS PRN PO DYSPEPSIA 08/17/21 18:00 UNV Capsaicin (Zostrix) 1 annamarie PRN Q12HR PRN TP PAIN 08/17/21 18:45 08/18/21 11:01 DC Carbidopa/Levodopa (Sinemet 25/100) 2 tab [id number] PO 08/17/21 18:30 09/05/21 17:32 Citalopram Hydrobromide (CeleXA) 40 mg DAILY PO 08/18/21 09:00 08/30/21 19:54 DC 08/30/21 09:10 Glycerin (Sani-Supp Adult) 1 supp PRN Q24HRS PRN [place] 2nd choice CONSTIPATION 08/17/21 18:45 Lactobacillus Rhamnosus (Culturelle) 1 cap BID PO 08/17/21 21:00 08/18/21 11:01 DC 08/18/21 09:47 Lubiprostone (Amitiza) 24 mcg BIDWMEALS PO 08/18/21 08:00 09/05/21 17:32 Cetirizine HCl (ZyrTEC) 10 mg DAILY PO 08/18/21 09:00 08/18/21 11:01 DC 08/18/21 09:47 Magnesium Oxide (Magnesium Oxide) 400 mg DAILY PO 08/18/21 09:00 08/18/21 11:01 DC 08/18/21 09:47 Metformin HCl (Glucophage) 1,000 mg BIDWMEALS PO 08/18/21 08:00 09/05/21 17:32 Pantoprazole Sodium (Protonix) 40 mg DAILYAC PO 08/18/21 07:30 09/05/21 08:49 Ondansetron HCl (Zofran Odt) 4 mg PRN Q6HRS PRN PO NAUSEA/VOMITING 08/17/21 18:30 09/02/21 10:36 Non-Formulary Medication (Trolamine Salicylate/Aloe Vera (Aspercreme 10% Cream)) 1 annamarie PRN BID PRN TP PAIN 08/17/21 18:00 UNV Olanzapine (ZyPREXA ZYDIS) 1.25 mg PRN Q2HRS PRN PO PSYCHOSIS 08/18/21 12:00 09/02/21 12:56 Clonazepam (KlonoPIN) 0.25 mg DAILY PO 08/20/21 09:00 08/27/21 20:18 DC 08/27/21 08:30 Clonazepam (KlonoPIN) 0.5 mg HS PO 08/19/21 21:00 08/22/21 19:00 DC 08/21/21 21:05 Clonazepam (KlonoPIN) 0.25 mg HS PO 08/22/21 21:00 08/27/21 22:00 DC 08/27/21 20:06 Levothyroxine Sodium (Synthroid) 50 mcg DAILY06 PO 08/21/21 06:00 09/05/21 05:24 Quetiapine Fumarate (SEROquel) 25 mg QHS PO 08/20/21 21:00 08/23/21 16:13 DC 08/22/21 21:49 Trazodone HCl (Desyrel) 50 mg PRN QHS PRN PO INSOMNIA, MAY REPEAT X1 08/22/21 20:30 09/04/21 20:01 Mirtazapine (Remeron) 7.5 mg QHS PO 08/22/21 21:00 09/05/21 20:39 Quetiapine Fumarate (SEROquel) 37.5 mg QHS PO 08/23/21 21:00 09/05/21 20:35 Simethicone (Gas-X) 80 mg PRN QID PRN PO GAS / BLOATING 08/23/21 16:30 09/05/21 17:33 Sertraline HCl (Zoloft) 25 mg DAILY PO 08/25/21 09:00 08/27/21 21:00 DC 08/27/21 08:30 Sertraline HCl (Zoloft) 50 mg DAILY PO 08/28/21 09:00 08/31/21 10:45 DC 08/31/21 08:31 Clonazepam (KlonoPIN) 0.25 mg DAILY PO 08/28/21 09:00 08/30/21 12:00 DC 08/30/21 09:12 Quetiapine Fumarate (SEROquel) 12.5 mg 0900,1700 PO 08/28/21 09:00 08/29/21 18:12 DC 08/29/21 17:15 Quetiapine Fumarate (SEROquel) 12.5 mg 0900,1300,1700 PO 08/30/21 09:00 09/05/21 17:33 Sertraline HCl (Zoloft) 25 mg 1X ONCE PO 08/31/21 10:45 08/31/21 10:48 DC 08/31/21 12:26 Sertraline HCl (Zoloft) 75 mg DAILY PO 09/01/21 09:00 09/02/21 11:00 DC 09/02/21 08:06 Sertraline HCl (Zoloft) 100 mg DAILY PO 09/04/21 09:00 08/31/21 22:10 DC Sertraline HCl (Zoloft) 100 mg DAILY PO 09/03/21 09:00 09/05/21 08:49 I have reviewed the current psychotropics carefully including drug interactions. Risk benefit ratio favors no change other than as noted in my dictated progress note. 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
--- NOTE | 2021-09-06 03:33 | NUR ---
Nursing Note The patient was located in her room for her assessment and medication pass. The patient was irritable and suspicious during interactions with this nurse. The patient requested this nurse tell her what each medication was for. The patient took her medication whole. The patient was alert to name and that she was in a hospital. The patient is currently sleeping in her room.
[2021-09-06] MEDS: CARBIDOPA/LEVODOPA 25/100MG TABLET PO SCH ×4 (05:48→17:26)
[2021-09-06] MEDS: LEVOTHYROXINE 50 MCG TABLET PO SCH (05:48)
[2021-09-06 06:08] VITALS: BP 136/74
--- NOTE | 2021-09-06 07:05 | PDOC ---
Exam Note: Gino Note: This note is a late entry for 09/04/2021 covers elements not covered in my initial note. Subjective: The patient was seen individually in the evening of 09/04/2021 with Jenifer ALTMAN, discussed and reviewed the chart. The patient slept 4-3/4 hours previous night. She remains obsessive, anxious. I met with her in her room. Review of Systems: Hard of hearing. Ambulation impaired in wheelchair. No CV, , pulmonary, eye system symptoms on review. She remains bowel obsessed. Mental Status Exam: The patient is oriented to herself and situation. Speech is coherent, rapid at times. Abstraction fair. Computation impaired. Language function intact. Attention span short. Mood and affect remains anxious, labile. Laboratory Data: Reviewed. 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 Anxiety disorder unspecified. Parkinsons disease. Plan: No change from initial note. Assessment: Vital Signs/I&O: Vital Signs Date Time Temp Pulse Resp B/P (MAP) Pulse Ox O2 Delivery O2 Flow Rate FiO2 09/06/21 06:08 98.6 67 18 136/74 (94) 97 09/05/21 15:22 Room Air I & O 09/05/21 09/05/21 09/06/21 15:00 23:00 07:00 Intake Total 600 ml 240 ml Balance 600 ml 240 ml Labs: Laboratory Tests Test 09/05/21 07:21 Glucose (Fingerstick) 95 mg/dL (70-99) Current Medications: Meds: Laboratory Tests Test 09/05/21 07:21 Glucose (Fingerstick) 95 mg/dL Current Medications Medications (Trade) Dose Ordered Sig/Ras Route PRN Reason Start Time Stop Time Status Last Admin Dose Admin Acetaminophen (Tylenol) 650 mg PRN Q6HRS PRN PO MILD PAIN / TEMP > 100.3'F 08/17/21 16:00 08/26/21 16:38 Multi-Ingredient Ointment (Analgesic [place]) 1 annamarie PRN QID PRN TP MUSCLE PAIN 08/17/21 16:00 08/30/21 23:02 Al Hydroxide/Mg Hydroxide (Mylanta Plus Xs) 15 ml PRN AFTMEALHC PRN PO DYSPEPSIA 08/17/21 16:00 09/04/21 20:02 Magnesium Hydroxide (Milk Of Magnesia) 2,400 mg PRN QHS PRN PO 1st choice CONSTIPATION 08/17/21 16:00 Buspirone HCl (Buspar) 10 mg BID PO 08/17/21 21:00 09/05/21 20:39 Calcium Carbonate/ Glycine (Tums) 500 mg PRN Q6HRS PRN PO INDIGESTION 08/17/21 18:15 08/18/21 11:01 DC Clonazepam (KlonoPIN) 0.5 mg BID PO 08/17/21 21:00 08/19/21 20:11 DC 08/19/21 09:06 Empaglifozin (Jardiance) 10 mg DAILY PO 08/18/21 09:00 09/05/21 08:50 Hydroxychloroquine Sulfate (Plaquenil) 400 mg DAILY PO 08/18/21 09:00 09/05/21 08:50 Hydroxyzine HCl (Atarax) 25 mg PRN Q8HRS PRN PO ANXIETY 08/17/21 18:15 08/18/21 11:01 DC 08/18/21 10:04 Levothyroxine Sodium (Synthroid) 25 mcg DAILY06 PO 08/18/21 06:00 08/20/21 10:10 DC 08/20/21 06:07 Melatonin (Melatonin) 3 mg QHS PO 08/17/21 21:00 09/05/21 20:39 Polyethylene Glycol (miraLAX) 17 gm BID PO 08/17/21 21:00 09/05/21 20:35 Pramipexole Dihydrochloride (miraPEX) 0.25 mg TID PO 08/17/21 21:00 09/05/21 20:40 Propranolol HCl (Inderal) 20 mg QHS PO 08/17/21 21:00 09/05/21 20:40 Sennosides (Senna) 8.6 mg DAILY PO 08/18/21 09:00 08/18/21 11:01 DC 08/18/21 09:47 Simethicone (Gas-X) 80 mg PRN Q6HRS PRN PO GAS / BLOATING 08/17/21 18:00 08/18/21 11:17 DC Simethicone (Gas-X) 80 mg TID PO 08/17/21 21:00 08/18/21 11:01 DC 08/18/21 09:46 Trimethoprim/ Sulfamethoxazole (Bactrim Ds) 1 tab BID PO 08/17/21 21:00 08/23/21 21:30 DC 08/23/21 20:06 Tramadol HCl (Ultram) 50 mg PRN Q6HRS PRN PO mod-sev PAIN 08/17/21 18:00 09/04/21 20:01 Trazodone HCl (Desyrel) 50 mg QHS PO 08/17/21 21:00 08/22/21 20:25 DC 08/21/21 21:00 Non-Formulary Medication (Aspirin/Sod Bicarb/Citric Acid ([place]enee-[place] Original Tab Eff)) 325 mg PRN Q24HRS PRN PO DYSPEPSIA 08/17/21 18:00 UNV Capsaicin (Zostrix) 1 annamarie PRN Q12HR PRN TP PAIN 08/17/21 18:45 08/18/21 11:01 DC Carbidopa/Levodopa (Sinemet 25/100) 2 tab [id number] PO 08/17/21 18:30 09/06/21 05:48 Citalopram Hydrobromide (CeleXA) 40 mg DAILY PO 08/18/21 09:00 08/30/21 19:54 DC 08/30/21 09:10 Glycerin (Sani-Supp Adult) 1 supp PRN Q24HRS PRN [place] 2nd choice CONSTIPATION 08/17/21 18:45 Lactobacillus Rhamnosus (Culturelle) 1 cap BID PO 08/17/21 21:00 08/18/21 11:01 DC 08/18/21 09:47 Lubiprostone (Amitiza) 24 mcg BIDWMEALS PO 08/18/21 08:00 09/05/21 17:32 Cetirizine HCl (ZyrTEC) 10 mg DAILY PO 08/18/21 09:00 08/18/21 11:01 DC 08/18/21 09:47 Magnesium Oxide (Magnesium Oxide) 400 mg DAILY PO 08/18/21 09:00 08/18/21 11:01 DC 08/18/21 09:47 Metformin HCl (Glucophage) 1,000 mg BIDWMEALS PO 08/18/21 08:00 09/05/21 17:32 Pantoprazole Sodium (Protonix) 40 mg DAILYAC PO 08/18/21 07:30 09/05/21 08:49 Ondansetron HCl (Zofran Odt) 4 mg PRN Q6HRS PRN PO NAUSEA/VOMITING 08/17/21 18:30 09/02/21 10:36 Non-Formulary Medication (Trolamine Salicylate/Aloe Vera (Aspercreme 10% Cream)) 1 annamarie PRN BID PRN TP PAIN 08/17/21 18:00 UNV Olanzapine (ZyPREXA ZYDIS) 1.25 mg PRN Q2HRS PRN PO PSYCHOSIS 08/18/21 12:00 09/02/21 12:56 Clonazepam (KlonoPIN) 0.25 mg DAILY PO 08/20/21 09:00 08/27/21 20:18 DC 08/27/21 08:30 Clonazepam (KlonoPIN) 0.5 mg HS PO 08/19/21 21:00 08/22/21 19:00 DC 08/21/21 21:05 Clonazepam (KlonoPIN) 0.25 mg HS PO 08/22/21 21:00 08/27/21 22:00 DC 08/27/21 20:06 Levothyroxine Sodium (Synthroid) 50 mcg DAILY06 PO 08/21/21 06:00 09/06/21 05:48 Quetiapine Fumarate (SEROquel) 25 mg QHS PO 08/20/21 21:00 08/23/21 16:13 DC 08/22/21 21:49 Trazodone HCl (Desyrel) 50 mg PRN QHS PRN PO INSOMNIA, MAY REPEAT X1 08/22/21 20:30 09/04/21 20:01 Mirtazapine (Remeron) 7.5 mg QHS PO 08/22/21 21:00 09/05/21 20:39 Quetiapine Fumarate (SEROquel) 37.5 mg QHS PO 08/23/21 21:00 09/05/21 20:35 Simethicone (Gas-X) 80 mg PRN QID PRN PO GAS / BLOATING 08/23/21 16:30 09/05/21 17:33 Sertraline HCl (Zoloft) 25 mg DAILY PO 08/25/21 09:00 08/27/21 21:00 DC 08/27/21 08:30 Sertraline HCl (Zoloft) 50 mg DAILY PO 08/28/21 09:00 08/31/21 10:45 DC 08/31/21 08:31 Clonazepam (KlonoPIN) 0.25 mg DAILY PO 08/28/21 09:00 08/30/21 12:00 DC 08/30/21 09:12 Quetiapine Fumarate (SEROquel) 12.5 mg 0900,1700 PO 08/28/21 09:00 08/29/21 18:12 DC 08/29/21 17:15 Quetiapine Fumarate (SEROquel) 12.5 mg 0900,1300,1700 PO 08/30/21 09:00 09/05/21 17:33 Sertraline HCl (Zoloft) 25 mg 1X ONCE PO 08/31/21 10:45 08/31/21 10:48 DC 08/31/21 12:26 Sertraline HCl (Zoloft) 75 mg DAILY PO 09/01/21 09:00 09/02/21 11:00 DC 09/02/21 08:06 Sertraline HCl (Zoloft) 100 mg DAILY PO 09/04/21 09:00 08/31/21 22:10 DC Sertraline HCl (Zoloft) 100 mg DAILY PO 09/03/21 09:00 09/05/21 08:49 I have reviewed the current psychotropics carefully including drug interactions. Risk benefit ratio favors no change other than as noted in my dictated progress note. Diagnosis: Problems: (1) Psychotic disorder (2) Mild cognitive impairment (3) Major depressive disorder with psychotic features (4) Parkinson's disease (5) Anxiety disorder, unspecified RANJITH HAWKINS MD Sep 06, 2021 07:05
--- NOTE | 2021-09-06 07:27 | PDOC ---
Exam Note: Gino Note: This note is a late entry for 09/05/2021 covers elements not covered in my initial note. Subjective: The patient was seen individually in the evening of 09/05/2021 with Waldemar ALTMAN, discussed and reviewed the chart. The patient slept 6-3/4 hours previous night. As before she remains bowel obsessed. I met with her at great length in her room. She is somewhat paranoid, believing her son is plotting with the social service staff for her placement elsewhere and how she feels she is well capable of taking care of herself and even taking care of her grandchildren rather than being placed elsewhere. I discussed this at some length with her. Review of Systems: Hard of hearing. Ambulation impaired in wheelchair. No CV, , pulmonary, eye system symptoms on review. Mental Status Exam: The patient is oriented to herself and situation. Today she was obsessed about the possibility of placement but little more accepting by the end of our visit. Speech is coherent, somewhat pressured. Abstraction fair. Computation impaired. Language function intact. Attention span short. Mood and affect anxious. Laboratory Data: Reviewed. 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 Anxiety disorder unspecified. Parkinsons disease. Plan: No change from initial note. Assessment: Vital Signs/I&O: Vital Signs Date Time Temp Pulse Resp B/P (MAP) Pulse Ox O2 Delivery O2 Flow Rate FiO2 09/06/21 06:08 98.6 67 18 136/74 (94) 97 09/05/21 15:22 Room Air I & O 09/05/21 09/05/21 09/06/21 15:00 23:00 07:00 Intake Total 600 ml 240 ml Balance 600 ml 240 ml Current Medications: Meds: Current Medications Medications (Trade) Dose Ordered Sig/Ras Route PRN Reason Start Time Stop Time Status Last Admin Dose Admin Acetaminophen (Tylenol) 650 mg PRN Q6HRS PRN PO MILD PAIN / TEMP > 100.3'F 08/17/21 16:00 08/26/21 16:38 Multi-Ingredient Ointment (Analgesic [place]) 1 annamarie PRN QID PRN TP MUSCLE PAIN 08/17/21 16:00 08/30/21 23:02 Al Hydroxide/Mg Hydroxide (Mylanta Plus Xs) 15 ml PRN AFTMEALHC PRN PO DYSPEPSIA 10/21/21 16:00 09/04/21 20:02 Magnesium Hydroxide (Milk Of Magnesia) 2,400 mg PRN QHS PRN PO 1st choice CONSTIPATION 08/17/21 16:00 Buspirone HCl (Buspar) 10 mg BID PO 08/17/21 21:00 09/05/21 20:39 Calcium Carbonate/ Glycine (Tums) 500 mg PRN Q6HRS PRN PO INDIGESTION 08/17/21 18:15 08/18/21 11:01 DC Clonazepam (KlonoPIN) 0.5 mg BID PO 08/17/21 21:00 08/19/21 20:11 DC 08/19/21 09:06 Empaglifozin (Jardiance) 10 mg DAILY PO 08/18/21 09:00 09/05/21 08:50 Hydroxychloroquine Sulfate (Plaquenil) 400 mg DAILY PO 08/18/21 09:00 09/05/21 08:50 Hydroxyzine HCl (Atarax) 25 mg PRN Q8HRS PRN PO ANXIETY 08/17/21 18:15 08/18/21 11:01 DC 08/18/21 10:04 Levothyroxine Sodium (Synthroid) 25 mcg DAILY06 PO 08/18/21 06:00 08/20/21 10:10 DC 08/20/21 06:07 Melatonin (Melatonin) 3 mg QHS PO 08/17/21 21:00 09/05/21 20:39 Polyethylene Glycol (miraLAX) 17 gm BID PO 08/17/21 21:00 09/05/21 20:35 Pramipexole Dihydrochloride (miraPEX) 0.25 mg TID PO 08/17/21 21:00 09/05/21 20:40 Propranolol HCl (Inderal) 20 mg QHS PO 08/17/21 21:00 09/05/21 20:40 Sennosides (Senna) 8.6 mg DAILY PO 08/18/21 09:00 08/18/21 11:01 DC 08/18/21 09:47 Simethicone (Gas-X) 80 mg PRN Q6HRS PRN PO GAS / BLOATING 08/17/21 18:00 08/18/21 11:17 DC Simethicone (Gas-X) 80 mg TID PO 08/17/21 21:00 08/18/21 11:01 DC 08/18/21 09:46 Trimethoprim/ Sulfamethoxazole (Bactrim Ds) 1 tab BID PO 08/17/21 21:00 08/23/21 21:30 DC 08/23/21 20:06 Tramadol HCl (Ultram) 50 mg PRN Q6HRS PRN PO mod-sev PAIN 08/17/21 18:00 09/04/21 20:01 Trazodone HCl (Desyrel) 50 mg QHS PO 08/17/21 21:00 08/22/21 20:25 DC 08/21/21 21:00 Non-Formulary Medication (Aspirin/Sod Bicarb/Citric Acid (Renee-[place] Original Tab Eff)) 325 mg PRN Q24HRS PRN PO DYSPEPSIA 08/17/21 18:00 UNV Capsaicin (Zostrix) 1 annamarie PRN Q12HR PRN TP PAIN 08/17/21 18:45 08/18/21 11:01 DC Carbidopa/Levodopa (Sinemet 25/100) 2 tab [id number] PO 08/17/21 18:30 09/06/21 05:48 Citalopram Hydrobromide (CeleXA) 40 mg DAILY PO 08/18/21 09:00 08/30/21 19:54 DC 08/30/21 09:10 Glycerin (Sani-Supp Adult) 1 supp PRN Q24HRS PRN [place] 2nd choice CONSTIPATION 08/17/21 18:45 Lactobacillus Rhamnosus (Culturelle) 1 cap BID PO 08/17/21 21:00 08/18/21 11:01 DC 08/18/21 09:47 Lubiprostone (Amitiza) 24 mcg BIDWMEALS PO 08/18/21 08:00 09/05/21 17:32 Cetirizine HCl (ZyrTEC) 10 mg DAILY PO 08/18/21 09:00 08/18/21 11:01 DC 08/18/21 09:47 Magnesium Oxide (Magnesium Oxide) 400 mg DAILY PO 08/18/21 09:00 08/18/21 11:01 DC 08/18/21 09:47 Metformin HCl (Glucophage) 1,000 mg BIDWMEALS PO 08/18/21 08:00 09/05/21 17:32 Pantoprazole Sodium (Protonix) 40 mg DAILYAC PO 08/18/21 07:30 09/05/21 08:49 Ondansetron HCl (Zofran Odt) 4 mg PRN Q6HRS PRN PO NAUSEA/VOMITING 08/17/21 18:30 09/02/21 10:36 Non-Formulary Medication (Trolamine Salicylate/Aloe Vera (Aspercreme 10% Cream)) 1 annamarie PRN BID PRN TP PAIN 08/17/21 18:00 UNV Olanzapine (ZyPREXA ZYDIS) 1.25 mg PRN Q2HRS PRN PO PSYCHOSIS 08/18/21 12:00 09/02/21 12:56 Clonazepam (KlonoPIN) 0.25 mg DAILY PO 08/20/21 09:00 08/27/21 20:18 DC 08/27/21 08:30 Clonazepam (KlonoPIN) 0.5 mg HS PO 08/19/21 21:00 08/22/21 19:00 DC 08/21/21 21:05 Clonazepam (KlonoPIN) 0.25 mg HS PO 08/22/21 21:00 08/27/21 22:00 DC 08/27/21 20:06 Levothyroxine Sodium (Synthroid) 50 mcg DAILY06 PO 08/21/21 06:00 09/06/21 05:48 Quetiapine Fumarate (SEROquel) 25 mg QHS PO 08/20/21 21:00 08/23/21 16:13 DC 08/22/21 21:49 Trazodone HCl (Desyrel) 50 mg PRN QHS PRN PO INSOMNIA, MAY REPEAT X1 08/22/21 20:30 09/04/21 20:01 Mirtazapine (Remeron) 7.5 mg QHS PO 08/22/21 21:00 09/05/21 20:39 Quetiapine Fumarate (SEROquel) 37.5 mg QHS PO 08/23/21 21:00 09/05/21 20:35 Simethicone (Gas-X) 80 mg PRN QID PRN PO GAS / BLOATING 08/23/21 16:30 09/05/21 17:33 Sertraline HCl (Zoloft) 25 mg DAILY PO 08/25/21 09:00 08/27/21 21:00 DC 08/27/21 08:30 Sertraline HCl (Zoloft) 50 mg DAILY PO 08/28/21 09:00 08/31/21 10:45 DC 08/31/21 08:31 Clonazepam (KlonoPIN) 0.25 mg DAILY PO 08/28/21 09:00 08/30/21 12:00 DC 08/30/21 09:12 Quetiapine Fumarate (SEROquel) 12.5 mg 0900,1700 PO 08/28/21 09:00 08/29/21 18:12 DC 08/29/21 17:15 Quetiapine Fumarate (SEROquel) 12.5 mg 0900,1300,1700 PO 08/30/21 09:00 09/05/21 17:33 Sertraline HCl (Zoloft) 25 mg 1X ONCE PO 08/31/21 10:45 08/31/21 10:48 DC 08/31/21 12:26 Sertraline HCl (Zoloft) 75 mg DAILY PO 09/01/21 09:00 09/02/21 11:00 DC 09/02/21 08:06 Sertraline HCl (Zoloft) 100 mg DAILY PO 09/04/21 09:00 08/31/21 22:10 DC Sertraline HCl (Zoloft) 100 mg DAILY PO 09/03/21 09:00 09/05/21 08:49 I have reviewed the current psychotropics carefully including drug interactions. Risk benefit ratio favors no change other than as noted in my dictated progress note. Diagnosis: Problems: (1) Psychotic disorder (2) Mild cognitive impairment (3) Major depressive disorder with psychotic features (4) Parkinson's disease (5) Anxiety disorder, unspecified RANJITH HAWKINS MD Sep 06, 2021 07:27
[2021-09-06] MEDS: POLYETHYLENE GLYCOL 3350 17 GM PACKET. PO SCH ×2 (08:38→20:36)
[2021-09-06] MEDS: HYDROXYCHLOROQUINE 200 MG TABLET PO SCH (08:40)
[2021-09-06] MEDS: PRAMIPEXOLE 0.25 MG TABLET. PO SCH ×3 (08:40→20:36)
[2021-09-06] MEDS: SERTRALINE 100 MG TABLET. PO SCH (08:40)
[2021-09-06] MEDS: busPIRone 10 MG TABLET. PO SCH ×2 (08:41→20:36)
[2021-09-06] MEDS: PANTOPRAZOLE 40 MG TABLET. PO SCH (08:41)
[2021-09-06] MEDS: LUBIPROSTONE 24 MCG CAPSULE PO SCH ×2 (08:41→17:26)
[2021-09-06] MEDS: metFORMIN 500 MG TABLET PO SCH ×2 (08:41→17:26)
[2021-09-06] MEDS: EMPAGLIFLOZIN 10 MG TABLET. PO SCH (08:41)
[2021-09-06] MEDS: QUEtiapine 25 MG TABLET. PO SCH ×4 (08:43→20:37)
[2021-09-06] MEDS: SIMETHICONE 80 MG TAB.CHEW PO PRN (10:55)
[2021-09-06 15:40] VITALS: BP 102/64
--- NOTE | 2021-09-06 15:40 | NUR ---
Nursing note: Patient in dinning room for morning medication and assessment. She is compliant with taking medications whole. She is A/O X 3, unable to report situation. Patient can be anxious about bowels, frequently stating she is having excessive gas pain, PRN given per order. She is withdrawn and isolative, no group participation. Patient has been laying down between meals. She propels self through bedroom in w/c, self transfers, staff has been successfully encouraging her to use walker. She is currently laying in bed in with eyes closed. Will continue to monitor.
[2021-09-06] MEDS: MIRTAZAPINE 7.5 MG TABLET. PO SCH (20:36)
[2021-09-06] MEDS: MELATONIN 3 MG TABLET PO SCH (20:36)
[2021-09-06] MEDS: PROPRANOLOL 20 MG TABLET. PO SCH (20:37)
--- NOTE | 2021-09-06 21:05 | PDOC ---
Exam Note: Gino Note: Please also refer to the separate dictated note~for this date of service dictated separately.~Patient seen individually. Discussed the patient with Nursing staff reviewed the chart.~Reviewed interim history and current functioning. Reviewed vital signs,~Labs/ Radiology~and current medications noted below. Continue current treatment with the changes noted in the dictated addendum note Assessment: Vital Signs/I&O: Vital Signs Date Time Temp Pulse Resp B/P (MAP) Pulse Ox O2 Delivery O2 Flow Rate FiO2 09/06/21 20:37 84 102/64 09/06/21 15:40 97.8 16 99 09/05/21 15:22 Room Air I & O 09/05/21 09/05/21 09/06/21 15:00 23:00 07:00 Intake Total 600 ml 240 ml Balance 600 ml 240 ml Labs: Laboratory Tests Test 09/06/21 06:30 09/06/21 07:27 SARS-CoV-2 (PCR) Not detected (NOT DETECTD) Glucose (Fingerstick) 161 mg/dL (70-99) H Current Medications: Meds: Laboratory Tests Test 09/06/21 06:30 09/06/21 07:27 Coronavirus (COVID-19)(PCR) Not detected Glucose (Fingerstick) 161 mg/dL Current Medications Medications (Trade) Dose Ordered Sig/Ras Route PRN Reason Start Time Stop Time Status Last Admin Dose Admin Acetaminophen (Tylenol) 650 mg PRN Q6HRS PRN PO MILD PAIN / TEMP > 100.3'F 08/17/21 16:00 08/26/21 16:38 Multi-Ingredient Ointment (Analgesic [place]) 1 annamarie PRN QID PRN TP MUSCLE PAIN 08/17/21 16:00 08/30/21 23:02 Al Hydroxide/Mg Hydroxide (Mylanta Plus Xs) 15 ml PRN AFTMEALHC PRN PO DYSPEPSIA 08/17/21 16:00 09/04/21 20:02 Magnesium Hydroxide (Milk Of Magnesia) 2,400 mg PRN QHS PRN PO 1st choice CONSTIPATION 08/17/21 16:00 Buspirone HCl (Buspar) 10 mg BID PO 08/17/21 21:00 09/06/21 20:36 Calcium Carbonate/ Glycine (Tums) 500 mg PRN Q6HRS PRN PO INDIGESTION 08/17/21 18:15 08/18/21 11:01 DC Clonazepam (KlonoPIN) 0.5 mg BID PO 08/17/21 21:00 08/19/21 20:11 DC 08/19/21 09:06 Empaglifozin (Jardiance) 10 mg DAILY PO 08/18/21 09:00 09/06/21 08:41 Hydroxychloroquine Sulfate (Plaquenil) 400 mg DAILY PO 08/18/21 09:00 09/06/21 08:40 Hydroxyzine HCl (Atarax) 25 mg PRN Q8HRS PRN PO ANXIETY 08/17/21 18:15 08/18/21 11:01 DC 08/18/21 10:04 Levothyroxine Sodium (Synthroid) 25 mcg DAILY06 PO 08/18/21 06:00 08/20/21 10:10 DC 08/20/21 06:07 Melatonin (Melatonin) 3 mg QHS PO 08/17/21 21:00 09/06/21 20:36 Polyethylene Glycol (miraLAX) 17 gm BID PO 08/17/21 21:00 09/06/21 20:36 Pramipexole Dihydrochloride (miraPEX) 0.25 mg TID PO 08/17/21 21:00 09/06/21 20:36 Propranolol HCl (Inderal) 20 mg QHS PO 08/17/21 21:00 09/05/21 20:40 Sennosides (Senna) 8.6 mg DAILY PO 08/18/21 09:00 08/18/21 11:01 DC 08/18/21 09:47 Simethicone (Gas-X) 80 mg PRN Q6HRS PRN PO GAS / BLOATING 08/17/21 18:00 08/18/21 11:17 DC Simethicone (Gas-X) 80 mg TID PO 08/17/21 21:00 08/18/21 11:01 DC 08/18/21 09:46 Trimethoprim/ Sulfamethoxazole (Bactrim Ds) 1 tab BID PO 08/17/21 21:00 08/23/21 21:30 DC 08/23/21 20:06 Tramadol HCl (Ultram) 50 mg PRN Q6HRS PRN PO mod-sev PAIN 08/17/21 18:00 09/04/21 20:01 Trazodone HCl (Desyrel) 50 mg QHS PO 08/17/21 21:00 08/22/21 20:25 DC 08/21/21 21:00 Non-Formulary Medication (Aspirin/Sod Bicarb/Citric Acid (Renee-[place] Original Tab Eff)) 325 mg PRN Q24HRS PRN PO DYSPEPSIA 08/17/21 18:00 UNV Capsaicin (Zostrix) 1 annamarie PRN Q12HR PRN TP PAIN 08/17/21 18:45 08/18/21 11:01 DC Carbidopa/Levodopa (Sinemet /) 2 tab [id number] PO 08/17/21 18:30 09/06/21 17:26 Citalopram Hydrobromide (CeleXA) 40 mg DAILY PO 08/18/21 09:00 08/30/21 19:54 DC 08/30/21 09:10 Glycerin (Sani-Supp Adult) 1 supp PRN Q24HRS PRN [place] 2nd choice CONSTIPATION 08/17/21 18:45 Lactobacillus Rhamnosus (Culturelle) 1 cap BID PO 08/17/21 21:00 08/18/21 11:01 DC 08/18/21 09:47 Lubiprostone (Amitiza) 24 mcg BIDWMEALS PO 08/18/21 08:00 09/06/21 17:26 Cetirizine HCl (ZyrTEC) 10 mg DAILY PO 08/18/21 09:00 08/18/21 11:01 DC 08/18/21 09:47 Magnesium Oxide (Magnesium Oxide) 400 mg DAILY PO 08/18/21 09:00 08/18/21 11:01 DC 08/18/21 09:47 Metformin HCl (Glucophage) 1,000 mg BIDWMEALS PO 08/18/21 08:00 09/06/21 17:26 Pantoprazole Sodium (Protonix) 40 mg DAILYAC PO 08/18/21 07:30 09/06/21 08:41 Ondansetron HCl (Zofran Odt) 4 mg PRN Q6HRS PRN PO NAUSEA/VOMITING 08/17/21 18:30 09/02/21 10:36 Non-Formulary Medication (Trolamine Salicylate/Aloe Vera (Aspercreme 10% Cream)) 1 annamarie PRN BID PRN TP PAIN 08/17/21 18:00 UNV Olanzapine (ZyPREXA ZYDIS) 1.25 mg PRN Q2HRS PRN PO PSYCHOSIS 08/18/21 12:00 09/02/21 12:56 Clonazepam (KlonoPIN) 0.25 mg DAILY PO 08/20/21 09:00 08/27/21 20:18 DC 08/27/21 08:30 Clonazepam (KlonoPIN) 0.5 mg HS PO 08/19/21 21:00 08/22/21 19:00 DC 08/21/21 21:05 Clonazepam (KlonoPIN) 0.25 mg HS PO 08/22/21 21:00 08/27/21 22:00 DC 08/27/21 20:06 Levothyroxine Sodium (Synthroid) 50 mcg DAILY06 PO 08/21/21 06:00 09/06/21 05:48 Quetiapine Fumarate (SEROquel) 25 mg QHS PO 08/20/21 21:00 08/23/21 16:13 DC 08/22/21 21:49 Trazodone HCl (Desyrel) 50 mg PRN QHS PRN PO INSOMNIA, MAY REPEAT X1 08/22/21 20:30 09/04/21 20:01 Mirtazapine (Remeron) 7.5 mg QHS PO 08/22/21 21:00 09/06/21 20:36 Quetiapine Fumarate (SEROquel) 37.5 mg QHS PO 08/23/21 21:00 09/06/21 20:37 Simethicone (Gas-X) 80 mg PRN QID PRN PO GAS / BLOATING 08/23/21 16:30 09/06/21 10:55 Sertraline HCl (Zoloft) 25 mg DAILY PO 08/25/21 09:00 08/27/21 21:00 DC 08/27/21 08:30 Sertraline HCl (Zoloft) 50 mg DAILY PO 08/28/21 09:00 08/31/21 10:45 DC 08/31/21 08:31 Clonazepam (KlonoPIN) 0.25 mg DAILY PO 08/28/21 09:00 08/30/21 12:00 DC 08/30/21 09:12 Quetiapine Fumarate (SEROquel) 12.5 mg 0900,1700 PO 08/28/21 09:00 08/29/21 18:12 DC 08/29/21 17:15 Quetiapine Fumarate (SEROquel) 12.5 mg 0900,1300,1700 PO 08/30/21 09:00 09/06/21 17:27 Sertraline HCl (Zoloft) 25 mg 1X ONCE PO 08/31/21 10:45 08/31/21 10:48 DC 08/31/21 12:26 Sertraline HCl (Zoloft) 75 mg DAILY PO 09/01/21 09:00 09/02/21 11:00 DC 09/02/21 08:06 Sertraline HCl (Zoloft) 100 mg DAILY PO 09/04/21 09:00 08/31/21 22:10 DC Sertraline HCl (Zoloft) 100 mg DAILY PO 09/03/21 09:00 09/06/21 08:40 I have reviewed the current psychotropics carefully including drug interactions. Risk benefit ratio favors no change other than as noted in my dictated progress note. 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
--- NOTE | 2021-09-06 23:12 | NUR ---
Patient is in her room on assumption of care, sitting up in her wheelchair. She is in pleasant spirits this evening, interactive, hyperverbal. Compliant with assessments and medications whole. She denies any pain or discomfort at this time. She was somewhat irritable with cares, but only when male staff were attempting to provide assistance. Cooperative with female staff. No agitation. No delusions or hallucinations noted. Patient appears to be sleeping comfortably at present time. Will continue to monitor.
[2021-09-07] MEDS: CARBIDOPA/LEVODOPA 25/100MG TABLET PO SCH ×4 (00:41→17:19)
[2021-09-07] MEDS: LEVOTHYROXINE 50 MCG TABLET PO SCH (05:13)
[2021-09-07 06:21] VITALS: BP 95/56
--- NOTE | 2021-09-07 07:21 | PDOC ---
Exam Note: Gino Note: This note is a late entry for 09/06/2021 covers elements not covered in my initial note. Subjective: The patient was seen individually in the evening of 09/06/2021 with Jenifer ALTMAN, discussed and reviewed the chart. The patient slept 5-1/4 hours previous night. She did come out of the group room. Nursing staff is trying to encourage her out of the wheelchair onto the walker. She remains obsessed with her bowels, seems cognitively clearer, somewhat less anxious. She is still somatically preoccupied with feeling sick and wanting Zofran at times. I met with her in her room. Review of Systems: Hard of hearing. Ambulation impaired in wheelchair. No CV, , pulmonary, eye system symptoms on review. Mental Status Exam: The patient is oriented to herself and situation. Speech is coherent, rapid, less pressured than before. Abstraction fair. Computation impaired. Language function intact. Memory is better than before. She talked about the treatment team meeting tomorrow from 9 oclock onwards that she intended to attend in preparation of her discharge and I addressed this with her. Laboratory Data: Reviewed. 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 Anxiety disorder unspecified. Parkinsons disease. Plan: No change from initial note. Assessment: Vital Signs/I&O: Vital Signs Date Time Temp Pulse Resp B/P (MAP) Pulse Ox O2 Delivery O2 Flow Rate FiO2 09/07/21 06:21 98.3 85 22 95/56 (69) 97 09/05/21 15:22 Room Air I & O 09/06/21 09/06/21 09/07/21 15:00 23:00 07:00 Intake Total 540 ml 340 ml Balance 540 ml 340 ml Labs: Laboratory Tests Test 09/06/21 07:27 Glucose (Fingerstick) 161 mg/dL (70-99) H Current Medications: Meds: Laboratory Tests Test 09/06/21 07:27 Glucose (Fingerstick) 161 mg/dL Current Medications Medications (Trade) Dose Ordered Sig/Ras Route PRN Reason Start Time Stop Time Status Last Admin Dose Admin Acetaminophen (Tylenol) 650 mg PRN Q6HRS PRN PO MILD PAIN / TEMP > 100.3'F 08/17/21 16:00 08/26/21 16:38 Multi-Ingredient Ointment (Analgesic [place]) 1 annamarie PRN QID PRN TP MUSCLE PAIN 08/17/21 16:00 08/30/21 23:02 Al Hydroxide/Mg Hydroxide (Mylanta Plus Xs) 15 ml PRN AFTMEALHC PRN PO DYSPEPSIA 08/17/21 16:00 09/04/21 20:02 Magnesium Hydroxide (Milk Of Magnesia) 2,400 mg PRN QHS PRN PO 1st choice CONSTIPATION 08/17/21 16:00 Buspirone HCl (Buspar) 10 mg BID PO 08/17/21 21:00 09/06/21 20:36 Calcium Carbonate/ Glycine (Tums) 500 mg PRN Q6HRS PRN PO INDIGESTION 08/17/21 18:15 08/18/21 11:01 DC Clonazepam (KlonoPIN) 0.5 mg BID PO 08/17/21 21:00 08/19/21 20:11 DC 08/19/21 09:06 Empaglifozin (Jardiance) 10 mg DAILY PO 08/18/21 09:00 09/06/21 08:41 Hydroxychloroquine Sulfate (Plaquenil) 400 mg DAILY PO 08/18/21 09:00 09/06/21 08:40 Hydroxyzine HCl (Atarax) 25 mg PRN Q8HRS PRN PO ANXIETY 08/17/21 18:15 08/18/21 11:01 DC 08/18/21 10:04 Levothyroxine Sodium (Synthroid) 25 mcg DAILY06 PO 08/18/21 06:00 08/20/21 10:10 DC 08/20/21 06:07 Melatonin (Melatonin) 3 mg QHS PO 08/17/21 21:00 09/06/21 20:36 Polyethylene Glycol (miraLAX) 17 gm BID PO 08/17/21 21:00 09/06/21 20:36 Pramipexole Dihydrochloride (miraPEX) 0.25 mg TID PO 08/17/21 21:00 09/06/21 20:36 Propranolol HCl (Inderal) 20 mg QHS PO 08/17/21 21:00 09/05/21 20:40 Sennosides (Senna) 8.6 mg DAILY PO 08/18/21 09:00 08/18/21 11:01 DC 08/18/21 09:47 Simethicone (Gas-X) 80 mg PRN Q6HRS PRN PO GAS / BLOATING 08/17/21 18:00 08/18/21 11:17 DC Simethicone (Gas-X) 80 mg TID PO 08/17/21 21:00 08/18/21 11:01 DC 08/18/21 09:46 Trimethoprim/ Sulfamethoxazole (Bactrim Ds) 1 tab BID PO 08/17/21 21:00 08/23/21 21:30 DC 08/23/21 20:06 Tramadol HCl (Ultram) 50 mg PRN Q6HRS PRN PO mod-sev PAIN 08/17/21 18:00 09/04/21 20:01 Trazodone HCl (Desyrel) 50 mg QHS PO 08/17/21 21:00 08/22/21 20:25 DC 08/21/21 21:00 Non-Formulary Medication (Aspirin/Sod Bicarb/Citric Acid (Renee-[place] Original Tab Eff)) 325 mg PRN Q24HRS PRN PO DYSPEPSIA 08/17/21 18:00 UNV Capsaicin (Zostrix) 1 annamarie PRN Q12HR PRN TP PAIN 08/17/21 18:45 08/18/21 11:01 DC Carbidopa/Levodopa (Sinemet 25/100) 2 tab [id number] PO 08/17/21 18:30 09/07/21 05:13 Citalopram Hydrobromide (CeleXA) 40 mg DAILY PO 08/18/21 09:00 08/30/21 19:54 DC 08/30/21 09:10 Glycerin (Sani-Supp Adult) 1 supp PRN Q24HRS PRN [place] 2nd choice CONSTIPATION 08/17/21 18:45 Lactobacillus Rhamnosus (Culturelle) 1 cap BID PO 08/17/21 21:00 08/18/21 11:01 DC 08/18/21 09:47 Lubiprostone (Amitiza) 24 mcg BIDWMEALS PO 08/18/21 08:00 09/06/21 17:26 Cetirizine HCl (ZyrTEC) 10 mg DAILY PO 08/18/21 09:00 08/18/21 11:01 DC 08/18/21 09:47 Magnesium Oxide (Magnesium Oxide) 400 mg DAILY PO 08/18/21 09:00 08/18/21 11:01 DC 08/18/21 09:47 Metformin HCl (Glucophage) 1,000 mg BIDWMEALS PO 08/18/21 08:00 09/06/21 17:26 Pantoprazole Sodium (Protonix) 40 mg DAILYAC PO 08/18/21 07:30 09/06/21 08:41 Ondansetron HCl (Zofran Odt) 4 mg PRN Q6HRS PRN PO NAUSEA/VOMITING 08/17/21 18:30 09/02/21 10:36 Non-Formulary Medication (Trolamine Salicylate/Aloe Vera (Aspercreme 10% Cream)) 1 annamarie PRN BID PRN TP PAIN 08/17/21 18:00 UNV Olanzapine (ZyPREXA ZYDIS) 1.25 mg PRN Q2HRS PRN PO PSYCHOSIS 08/18/21 12:00 09/02/21 12:56 Clonazepam (KlonoPIN) 0.25 mg DAILY PO 08/20/21 09:00 08/27/21 20:18 DC 08/27/21 08:30 Clonazepam (KlonoPIN) 0.5 mg HS PO 08/19/21 21:00 08/22/21 19:00 DC 08/21/21 21:05 Clonazepam (KlonoPIN) 0.25 mg HS PO 08/22/21 21:00 08/27/21 22:00 DC 08/27/21 20:06 Levothyroxine Sodium (Synthroid) 50 mcg DAILY06 PO 08/21/21 06:00 09/07/21 05:13 Quetiapine Fumarate (SEROquel) 25 mg QHS PO 08/20/21 21:00 08/23/21 16:13 DC 08/22/21 21:49 Trazodone HCl (Desyrel) 50 mg PRN QHS PRN PO INSOMNIA, MAY REPEAT X1 08/22/21 20:30 09/04/21 20:01 Mirtazapine (Remeron) 7.5 mg QHS PO 08/22/21 21:00 09/06/21 20:36 Quetiapine Fumarate (SEROquel) 37.5 mg QHS PO 08/23/21 21:00 09/06/21 20:37 Simethicone (Gas-X) 80 mg PRN QID PRN PO GAS / BLOATING 08/23/21 16:30 09/06/21 10:55 Sertraline HCl (Zoloft) 25 mg DAILY PO 08/25/21 09:00 08/27/21 21:00 DC 08/27/21 08:30 Sertraline HCl (Zoloft) 50 mg DAILY PO 08/28/21 09:00 08/31/21 10:45 DC 08/31/21 08:31 Clonazepam (KlonoPIN) 0.25 mg DAILY PO 08/28/21 09:00 08/30/21 12:00 DC 08/30/21 09:12 Quetiapine Fumarate (SEROquel) 12.5 mg 0900,1700 PO 08/28/21 09:00 08/29/21 18:12 DC 08/29/21 17:15 Quetiapine Fumarate (SEROquel) 12.5 mg 0900,1300,1700 PO 08/30/21 09:00 09/06/21 17:27 Sertraline HCl (Zoloft) 25 mg 1X ONCE PO 08/31/21 10:45 08/31/21 10:48 DC 08/31/21 12:26 Sertraline HCl (Zoloft) 75 mg DAILY PO 09/01/21 09:00 09/02/21 11:00 DC 09/02/21 08:06 Sertraline HCl (Zoloft) 100 mg DAILY PO 09/04/21 09:00 08/31/21 22:10 DC Sertraline HCl (Zoloft) 100 mg DAILY PO 09/03/21 09:00 09/06/21 08:40 I have reviewed the current psychotropics carefully including drug interactions. Risk benefit ratio favors no change other than as noted in my dictated progress note. Diagnosis: Problems: (1) Psychotic disorder (2) Mild cognitive impairment (3) Major depressive disorder with psychotic features (4) Parkinson's disease (5) Anxiety disorder, unspecified RANJITH HAWKINS MD Sep 07, 2021 07:21
[2021-09-07] MEDS: PRAMIPEXOLE 0.25 MG TABLET. PO SCH ×3 (08:17→20:54)
[2021-09-07] MEDS: SIMETHICONE 80 MG TAB.CHEW PO PRN ×3 (08:17→22:38)
[2021-09-07] MEDS: SERTRALINE 100 MG TABLET. PO SCH (08:17)
[2021-09-07] MEDS: POLYETHYLENE GLYCOL 3350 17 GM PACKET. PO SCH ×2 (08:17→20:56)
[2021-09-07] MEDS: PANTOPRAZOLE 40 MG TABLET. PO SCH (08:17)
[2021-09-07] MEDS: busPIRone 10 MG TABLET. PO SCH ×2 (08:17→20:54)
[2021-09-07] MEDS: LUBIPROSTONE 24 MCG CAPSULE PO SCH ×2 (08:18→17:18)
[2021-09-07] MEDS: metFORMIN 500 MG TABLET PO SCH ×2 (08:18→17:19)
[2021-09-07] MEDS: QUEtiapine 25 MG TABLET. PO SCH ×4 (08:18→20:54)
[2021-09-07] MEDS: HYDROXYCHLOROQUINE 200 MG TABLET PO SCH (08:19)
[2021-09-07] MEDS: EMPAGLIFLOZIN 10 MG TABLET. PO SCH (08:19)
--- NOTE | 2021-09-07 09:45 | NUR ---
Treatment team update: Pt son Adelfo and Jean Paul participated in treatment team via conference call. Pt is eating roughly 50-75% of meals and sleeping on average 6 hours per night. Pt is mostly pleasant and cooperative with staff; however, pt continues to remain withdrawn to her room. Staff attempt to get pt to engage in activities and on 1:1 engagement; however, pt has shown disinterest in completion of any activity. Pt is somatic in that she is bowel obsessed and even mentioned that she vomited without staff seeing it and being able to acknowledge it. Pt remains confused and at times hyperverbal. Pt reports at times he corrects pt and questioned if that is the right way to talk to her. It was discussed with pt family that they must pick and chose their battles when redirecting pt; HUA gave a few examples on how to redirect or reorient pt. It was also discussed that while pt has been in the hospital pt has been more interactive and participating in things he would not be able to if pt were with him. The importance of pt continuing to participate in those activities for his psyche is important too. It was recommended that pt continue to work with a professional on ways to talk to pt as her confusion progresses. Pt agreed as he feels that pt negativity wears on him and he needs the support moving forward. As it stands, HUA has sent records over for review to [facility] and HUA will work on potential discharge plans for Tuesday 09/11.
--- NOTE | 2021-09-07 11:02 | NUR ---
Nursing note: Pt in dining room at time of AM med pass and assessment. She is pleasant, med compliant and cooperative. Pt c/o gas buildup and requested PRN, which was administered per her request. Pt expressed excitement regarding her treatment team meeting this AM and how both her and son would be involved. Pt is currently resting quietly in her bed. Will continue to monitor.
--- NOTE | 2021-09-07 11:58 | NUR ---
WEEKLY ACTIVITY THERAPY NOTE Date of Admission:08/17/21 Date of AT Assessment: 08/18 Precipitating behaviors that initiated intake and admission: agitated, anxious, attempted to hit staff, name calling, yelling to call police and "get the people out", delusional, talking to people not there, refusing meds, seeing children, sundowning Goal aimed: increase engagement and stress management skills Initial Goal: Pt will participate in at least three Activity Therapy sessions per week Weekly progress towards goal: did not achieve, zero Group participation level: none Weekly highlights: no participation Behaviors observed: withdrawn to room, limited interactions Plan: no change to goal Beneficial adaptations:
[2021-09-07] MEDS: traMADol 50 MG TABLET PO PRN (12:25)
--- NOTE | 2021-09-07 13:31 | NUR ---
SW attempted to return call to [facility] and had to leave a message asking for a returned call re: pt care. SW will try back either later today if not tomorrow.
[2021-09-07 16:14] VITALS: BP 100/59
[2021-09-07] MEDS: MIRTAZAPINE 7.5 MG TABLET. PO SCH (20:54)
[2021-09-07] MEDS: MELATONIN 3 MG TABLET PO SCH (20:54)
[2021-09-07] MEDS: PROPRANOLOL 20 MG TABLET. PO SCH (21:01)
--- NOTE | 2021-09-07 21:05 | PDOC ---
Exam Note: Gino Note: Please also refer to the separate dictated note~for this date of service dictated separately.~Patient seen individually. Discussed the patient with Nursing staff reviewed the chart.~Reviewed interim history and current functioning. Reviewed vital signs,~Labs/ Radiology~and current medications noted below. Continue current treatment with the changes noted in the dictated addendum note Assessment: Vital Signs/I&O: Vital Signs Date Time Temp Pulse Resp B/P (MAP) Pulse Ox O2 Delivery O2 Flow Rate FiO2 09/07/21 21:01 78 108/58 09/07/21 16:14 98.9 20 100 Room Air I & O 09/06/21 09/06/21 09/07/21 15:00 23:00 07:00 Intake Total 540 ml 340 ml Balance 540 ml 340 ml Labs: Laboratory Tests Test 09/07/21 07:24 Glucose (Fingerstick) 160 mg/dL (70-99) H Current Medications: Meds: Laboratory Tests Test 09/07/21 07:24 Glucose (Fingerstick) 160 mg/dL Current Medications Medications (Trade) Dose Ordered Sig/Ras Route PRN Reason Start Time Stop Time Status Last Admin Dose Admin Acetaminophen (Tylenol) 650 mg PRN Q6HRS PRN PO MILD PAIN / TEMP > 100.3'F 08/17/21 16:00 08/26/21 16:38 Multi-Ingredient Ointment (Analgesic [place]) 1 annamarie PRN QID PRN TP MUSCLE PAIN 08/17/21 16:00 08/30/21 23:02 Al Hydroxide/Mg Hydroxide (Mylanta Plus Xs) 15 ml PRN AFTMEALHC PRN PO DYSPEPSIA 08/17/21 16:00 09/04/21 20:02 Magnesium Hydroxide (Milk Of Magnesia) 2,400 mg PRN QHS PRN PO 1st choice CONSTIPATION 08/17/21 16:00 Buspirone HCl (Buspar) 10 mg BID PO 08/17/21 21:00 09/07/21 20:54 Calcium Carbonate/ Glycine (Tums) 500 mg PRN Q6HRS PRN PO INDIGESTION 08/17/21 18:15 08/18/21 11:01 DC Clonazepam (KlonoPIN) 0.5 mg BID PO 08/17/21 21:00 08/19/21 20:11 DC 08/19/21 09:06 Empaglifozin (Jardiance) 10 mg DAILY PO 08/18/21 09:00 09/07/21 08:19 Hydroxychloroquine Sulfate (Plaquenil) 400 mg DAILY PO 08/18/21 09:00 09/07/21 08:19 Hydroxyzine HCl (Atarax) 25 mg PRN Q8HRS PRN PO ANXIETY 08/17/21 18:15 08/18/21 11:01 DC 08/18/21 10:04 Levothyroxine Sodium (Synthroid) 25 mcg DAILY06 PO 08/18/21 06:00 08/20/21 10:10 DC 08/20/21 06:07 Melatonin (Melatonin) 3 mg QHS PO 08/17/21 21:00 09/07/21 20:54 Polyethylene Glycol (miraLAX) 17 gm BID PO 08/17/21 21:00 09/07/21 20:56 Pramipexole Dihydrochloride (miraPEX) 0.25 mg TID PO 08/17/21 21:00 09/07/21 20:54 Propranolol HCl (Inderal) 20 mg QHS PO 08/17/21 21:00 09/07/21 21:01 Sennosides (Senna) 8.6 mg DAILY PO 08/18/21 09:00 08/18/21 11:01 DC 08/18/21 09:47 Simethicone (Gas-X) 80 mg PRN Q6HRS PRN PO GAS / BLOATING 08/17/21 18:00 08/18/21 11:17 DC Simethicone (Gas-X) 80 mg TID PO 08/17/21 21:00 08/18/21 11:01 DC 08/18/21 09:46 Trimethoprim/ Sulfamethoxazole (Bactrim Ds) 1 tab BID PO 08/17/21 21:00 08/23/21 21:30 DC 08/23/21 20:06 Tramadol HCl (Ultram) 50 mg PRN Q6HRS PRN PO mod-sev PAIN 08/17/21 18:00 09/07/21 12:25 Trazodone HCl (Desyrel) 50 mg QHS PO 08/17/21 21:00 08/22/21 20:25 DC 08/21/21 21:00 Non-Formulary Medication (Aspirin/Sod Bicarb/Citric Acid (Renee-[place] Original Tab Eff)) 325 mg PRN Q24HRS PRN PO DYSPEPSIA 08/17/21 18:00 UNV Capsaicin (Zostrix) 1 annamarie PRN Q12HR PRN TP PAIN 08/17/21 18:45 08/18/21 11:01 DC Carbidopa/Levodopa (Sinemet 25/100) 2 tab [id number] PO 08/17/21 18:30 09/07/21 17:19 Citalopram Hydrobromide (CeleXA) 40 mg DAILY PO 08/18/21 09:00 08/30/21 19:54 DC 08/30/21 09:10 Glycerin (Sani-Supp Adult) 1 supp PRN Q24HRS PRN [place] 2nd choice CONSTIPATION 08/17/21 18:45 Lactobacillus Rhamnosus (Culturelle) 1 cap BID PO 08/17/21 21:00 08/18/21 11:01 DC 08/18/21 09:47 Lubiprostone (Amitiza) 24 mcg BIDWMEALS PO 08/18/21 08:00 09/07/21 17:18 Cetirizine HCl (ZyrTEC) 10 mg DAILY PO 08/18/21 09:00 08/18/21 11:01 DC 08/18/21 09:47 Magnesium Oxide (Magnesium Oxide) 400 mg DAILY PO 08/18/21 09:00 08/18/21 11:01 DC 08/18/21 09:47 Metformin HCl (Glucophage) 1,000 mg BIDWMEALS PO 08/18/21 08:00 09/07/21 17:19 Pantoprazole Sodium (Protonix) 40 mg DAILYAC PO 08/18/21 07:30 09/07/21 08:17 Ondansetron HCl (Zofran Odt) 4 mg PRN Q6HRS PRN PO NAUSEA/VOMITING 08/17/21 18:30 09/02/21 10:36 Non-Formulary Medication (Trolamine Salicylate/Aloe Vera (Aspercreme 10% Cream)) 1 annamarie PRN BID PRN TP PAIN 08/17/21 18:00 UNV Olanzapine (ZyPREXA ZYDIS) 1.25 mg PRN Q2HRS PRN PO PSYCHOSIS 08/18/21 12:00 09/02/21 12:56 Clonazepam (KlonoPIN) 0.25 mg DAILY PO 08/20/21 09:00 08/27/21 20:18 DC 08/27/21 08:30 Clonazepam (KlonoPIN) 0.5 mg HS PO 08/19/21 21:00 08/22/21 19:00 DC 08/21/21 21:05 Clonazepam (KlonoPIN) 0.25 mg HS PO 08/22/21 21:00 08/27/21 22:00 DC 08/27/21 20:06 Levothyroxine Sodium (Synthroid) 50 mcg DAILY06 PO 08/21/21 06:00 09/07/21 05:13 Quetiapine Fumarate (SEROquel) 25 mg QHS PO 08/20/21 21:00 08/23/21 16:13 DC 08/22/21 21:49 Trazodone HCl (Desyrel) 50 mg PRN QHS PRN PO INSOMNIA, MAY REPEAT X1 08/22/21 20:30 09/04/21 20:01 Mirtazapine (Remeron) 7.5 mg QHS PO 08/22/21 21:00 09/07/21 20:54 Quetiapine Fumarate (SEROquel) 37.5 mg QHS PO 08/23/21 21:00 09/07/21 20:54 Simethicone (Gas-X) 80 mg PRN QID PRN PO GAS / BLOATING 08/23/21 16:30 09/07/21 14:22 Sertraline HCl (Zoloft) 25 mg DAILY PO 08/25/21 09:00 08/27/21 21:00 DC 08/27/21 08:30 Sertraline HCl (Zoloft) 50 mg DAILY PO 08/28/21 09:00 08/31/21 10:45 DC 08/31/21 08:31 Clonazepam (KlonoPIN) 0.25 mg DAILY PO 08/28/21 09:00 08/30/21 12:00 DC 08/30/21 09:12 Quetiapine Fumarate (SEROquel) 12.5 mg 0900,1700 PO 08/28/21 09:00 08/29/21 18:12 DC 08/29/21 17:15 Quetiapine Fumarate (SEROquel) 12.5 mg 0900,1300,1700 PO 08/30/21 09:00 09/07/21 17:19 Sertraline HCl (Zoloft) 25 mg 1X ONCE PO 08/31/21 10:45 08/31/21 10:48 DC 08/31/21 12:26 Sertraline HCl (Zoloft) 75 mg DAILY PO 09/01/21 09:00 09/02/21 11:00 DC 09/02/21 08:06 Sertraline HCl (Zoloft) 100 mg DAILY PO 09/04/21 09:00 08/31/21 22:10 DC Sertraline HCl (Zoloft) 100 mg DAILY PO 09/03/21 09:00 09/07/21 08:17 I have reviewed the current psychotropics carefully including drug interactions. Risk benefit ratio favors no change other than as noted in my dictated progress note. Diagnosis: Problems: (1) Mild cognitive impairment (2) Major depressive disorder with psychotic features (3) Parkinson's disease (4) Anxiety disorder, unspecified RANJITH HAWKINS MD Sep 07, 2021 21:05
[2021-09-07] MEDS: traZODone 50 MG TABLET. PO PRN (22:38)
--- NOTE | 2021-09-08 04:48 | NUR ---
Nursing Note The patient was located in her room for her assessment and medication pass. The patient was alert to name, date and location. The patient was complaint with her medication and took them whole. The patient requested PRN Gas-X after HS. The patient received PRN Trazodone per PRN order. The patient remained awake for remainder of HS shift. The patient is currently awake in her room.
[2021-09-08] MEDS: LEVOTHYROXINE 50 MCG TABLET PO SCH (05:47)
[2021-09-08] MEDS: CARBIDOPA/LEVODOPA 25/100MG TABLET PO SCH ×5 (05:47→23:37)
[2021-09-08 06:03] VITALS: BP 100/59
--- NOTE | 2021-09-08 07:28 | PDOC ---
Exam Note: Gino Note: This note is a late entry for 09/07/2021 covers elements not covered in my initial note. Subjective: The patient was reviewed at treatment team meeting individually in the morning on 09/07/2021 with Britney Butterfield, Suzette Reyes, and Ernestina Pedro (social media sr strategy manager), Nicolasa, activity therapy and Raeann ALTMAN, discussed and reviewed the chart. The patient slept 6 hours previous night. Appetite is 60%. Patients Jean Paul attended the conference together with her son Adelfo. At the meeting Jean Paul had many questions about how to react to her when she appears paranoid, delusional, agitated and we discussed ways to do this. She is quite bowel obsessed, complaining of intermittent diarrhea and constipation. She is compliant with medications. She is frequently withdrawn. Also discussed with Waldemar ALTMAN in the evening. Review of Systems: Hard of hearing. She complains of constipation. Ambulation impaired in wheelchair. No CV, , pulmonary, eye system symptoms on review. Mental Status Exam: The patient is oriented to herself and situation. I met w ith her in the evening and she remembered there was to be a meeting earlier in the day and I discussed what we talked about at the meeting. Speech is coherent, rapid. Abstraction fair. Computation impaired. Language function intact. Mood and affect paranoid. Laboratory Data: Reviewed. 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 Anxiety disorder unspecified. Parkinsons disease. Plan: Continue current psychotropics. Transition to the new facility as soon as this is arranged. Assessment: Vital Signs/I&O: Vital Signs Date Time Temp Pulse Resp B/P (MAP) Pulse Ox O2 Delivery O2 Flow Rate FiO2 09/08/21 06:03 98.0 73 20 100/59 (73) 97 Room Air I & O 09/07/21 09/07/21 09/08/21 15:00 23:00 07:00 Intake Total 600 ml 360 ml Balance 600 ml 360 ml Labs: Laboratory Tests Test 09/08/21 07:08 Glucose (Fingerstick) 135 mg/dL (70-99) H Current Medications: Meds: Laboratory Tests Test 09/08/21 07:08 Glucose (Fingerstick) 135 mg/dL Current Medications Medications (Trade) Dose Ordered Sig/Ras Route PRN Reason Start Time Stop Time Status Last Admin Dose Admin Acetaminophen (Tylenol) 650 mg PRN Q6HRS PRN PO MILD PAIN / TEMP > 100.3'F 08/17/21 16:00 08/26/21 16:38 Multi-Ingredient Ointment (Analgesic [place]) 1 annamarie PRN QID PRN TP MUSCLE PAIN 08/17/21 16:00 08/30/21 23:02 Al Hydroxide/Mg Hydroxide (Mylanta Plus Xs) 15 ml PRN AFTMEALHC PRN PO DYSPEPSIA 08/17/21 16:00 09/04/21 20:02 Magnesium Hydroxide (Milk Of Magnesia) 2,400 mg PRN QHS PRN PO 1st choice CONSTIPATION 08/17/21 16:00 Buspirone HCl (Buspar) 10 mg BID PO 08/17/21 21:00 09/07/21 20:54 Calcium Carbonate/ Glycine (Tums) 500 mg PRN Q6HRS PRN PO INDIGESTION 08/17/21 18:15 08/18/21 11:01 DC Clonazepam (KlonoPIN) 0.5 mg BID PO 08/17/21 21:00 08/19/21 20:11 DC 08/19/21 09:06 Empaglifozin (Jardiance) 10 mg DAILY PO 08/18/21 09:00 09/07/21 08:19 Hydroxychloroquine Sulfate (Plaquenil) 400 mg DAILY PO 08/18/21 09:00 09/07/21 08:19 Hydroxyzine HCl (Atarax) 25 mg PRN Q8HRS PRN PO ANXIETY 08/17/21 18:15 08/18/21 11:01 DC 08/18/21 10:04 Levothyroxine Sodium (Synthroid) 25 mcg DAILY06 PO 08/18/21 06:00 08/20/21 10:10 DC 08/20/21 06:07 Melatonin (Melatonin) 3 mg QHS PO 08/17/21 21:00 09/07/21 20:54 Polyethylene Glycol (miraLAX) 17 gm BID PO 08/17/21 21:00 09/07/21 20:56 Pramipexole Dihydrochloride (miraPEX) 0.25 mg TID PO 08/17/21 21:00 09/07/21 20:54 Propranolol HCl (Inderal) 20 mg QHS PO 08/17/21 21:00 09/07/21 21:01 Sennosides (Senna) 8.6 mg DAILY PO 08/18/21 09:00 08/18/21 11:01 DC 08/18/21 09:47 Simethicone (Gas-X) 80 mg PRN Q6HRS PRN PO GAS / BLOATING 08/17/21 18:00 08/18/21 11:17 DC Simethicone (Gas-X) 80 mg TID PO 08/17/21 21:00 08/18/21 11:01 DC 08/18/21 09:46 Trimethoprim/ Sulfamethoxazole (Bactrim Ds) 1 tab BID PO 08/17/21 21:00 08/23/21 21:30 DC 08/23/21 20:06 Tramadol HCl (Ultram) 50 mg PRN Q6HRS PRN PO mod-sev PAIN 08/17/21 18:00 09/07/21 12:25 Trazodone HCl (Desyrel) 50 mg QHS PO 08/17/21 21:00 08/22/21 20:25 DC 08/21/21 21:00 Non-Formulary Medication (Aspirin/Sod Bicarb/Citric Acid (Renee-[place] Original Tab Eff)) 325 mg PRN Q24HRS PRN PO DYSPEPSIA 08/17/21 18:00 UNV Capsaicin (Zostrix) 1 annamarie PRN Q12HR PRN TP PAIN 08/17/21 18:45 08/18/21 11:01 DC Carbidopa/Levodopa (Sinemet 25/100) 2 tab [id number] PO 08/17/21 18:30 09/08/21 05:47 Citalopram Hydrobromide (CeleXA) 40 mg DAILY PO 08/18/21 09:00 08/30/21 19:54 DC 08/30/21 09:10 Glycerin (Sani-Supp Adult) 1 supp PRN Q24HRS PRN [place] 2nd choice CONSTIPATION 08/17/21 18:45 Lactobacillus Rhamnosus (Culturelle) 1 cap BID PO 08/17/21 21:00 08/18/21 11:01 DC 08/18/21 09:47 Lubiprostone (Amitiza) 24 mcg BIDWMEALS PO 08/18/21 08:00 09/07/21 17:18 Cetirizine HCl (ZyrTEC) 10 mg DAILY PO 08/18/21 09:00 08/18/21 11:01 DC 08/18/21 09:47 Magnesium Oxide (Magnesium Oxide) 400 mg DAILY PO 08/18/21 09:00 08/18/21 11:01 DC 08/18/21 09:47 Metformin HCl (Glucophage) 1,000 mg BIDWMEALS PO 08/18/21 08:00 09/07/21 17:19 Pantoprazole Sodium (Protonix) 40 mg DAILYAC PO 08/18/21 07:30 09/07/21 08:17 Ondansetron HCl (Zofran Odt) 4 mg PRN Q6HRS PRN PO NAUSEA/VOMITING 08/17/21 18:30 09/02/21 10:36 Non-Formulary Medication (Trolamine Salicylate/Aloe Vera (Aspercreme 10% Cream)) 1 annamarie PRN BID PRN TP PAIN 08/17/21 18:00 UNV Olanzapine (ZyPREXA ZYDIS) 1.25 mg PRN Q2HRS PRN PO PSYCHOSIS 08/18/21 12:00 09/02/21 12:56 Clonazepam (KlonoPIN) 0.25 mg DAILY PO 08/20/21 09:00 08/27/21 20:18 DC 08/27/21 08:30 Clonazepam (KlonoPIN) 0.5 mg HS PO 08/19/21 21:00 08/22/21 19:00 DC 08/21/21 21:05 Clonazepam (KlonoPIN) 0.25 mg HS PO 08/22/21 21:00 08/27/21 22:00 DC 08/27/21 20:06 Levothyroxine Sodium (Synthroid) 50 mcg DAILY06 PO 08/21/21 06:00 09/08/21 05:47 Quetiapine Fumarate (SEROquel) 25 mg QHS PO 08/20/21 21:00 08/23/21 16:13 DC 08/22/21 21:49 Trazodone HCl (Desyrel) 50 mg PRN QHS PRN PO INSOMNIA, MAY REPEAT X1 08/22/21 20:30 11//21 22:38 Mirtazapine (Remeron) 7.5 mg QHS PO 08/22/21 21:00 09/07/21 20:54 Quetiapine Fumarate (SEROquel) 37.5 mg QHS PO 08/23/21 21:00 09/07/21 20:54 Simethicone (Gas-X) 80 mg PRN QID PRN PO GAS / BLOATING 08/23/21 16:30 09/07/21 22:38 Sertraline HCl (Zoloft) 25 mg DAILY PO 08/25/21 09:00 08/27/21 21:00 DC 08/27/21 08:30 Sertraline HCl (Zoloft) 50 mg DAILY PO 08/28/21 09:00 08/31/21 10:45 DC 08/31/21 08:31 Clonazepam (KlonoPIN) 0.25 mg DAILY PO 08/28/21 09:00 08/30/21 12:00 DC 08/30/21 09:12 Quetiapine Fumarate (SEROquel) 12.5 mg 0900,1700 PO 08/28/21 09:00 08/29/21 18:12 DC 08/29/21 17:15 Quetiapine Fumarate (SEROquel) 12.5 mg 0900,1300,1700 PO 08/30/21 09:00 09/07/21 17:19 Sertraline HCl (Zoloft) 25 mg 1X ONCE PO 08/31/21 10:45 08/31/21 10:48 DC 08/31/21 12:26 Sertraline HCl (Zoloft) 75 mg DAILY PO 09/01/21 09:00 09/02/21 11:00 DC 09/02/21 08:06 Sertraline HCl (Zoloft) 100 mg DAILY PO 09/04/21 09:00 08/31/21 22:10 DC Sertraline HCl (Zoloft) 100 mg DAILY PO 09/03/21 09:00 09/07/21 08:17 I have reviewed the current psychotropics carefully including drug interactions. Risk benefit ratio favors no change other than as noted in my dictated progress note. Diagnosis: Problems: (1) Mild cognitive impairment (2) Major depressive disorder with psychotic features (3) Parkinson's disease (4) Anxiety disorder, unspecified RANJITH HAWKINS MD Sep 08, 2021 07:28
[2021-09-08] MEDS: PANTOPRAZOLE 40 MG TABLET. PO SCH (08:10)
[2021-09-08] MEDS: HYDROXYCHLOROQUINE 200 MG TABLET PO SCH (08:10)
[2021-09-08] MEDS: EMPAGLIFLOZIN 10 MG TABLET. PO SCH (08:10)
[2021-09-08] MEDS: SERTRALINE 100 MG TABLET. PO SCH (08:11)
[2021-09-08] MEDS: busPIRone 10 MG TABLET. PO SCH ×2 (08:11→20:09)
[2021-09-08] MEDS: LUBIPROSTONE 24 MCG CAPSULE PO SCH ×2 (08:11→17:15)
[2021-09-08] MEDS: metFORMIN 500 MG TABLET PO SCH ×2 (08:11→17:15)
[2021-09-08] MEDS: PRAMIPEXOLE 0.25 MG TABLET. PO SCH ×3 (08:12→20:09)
[2021-09-08] MEDS: POLYETHYLENE GLYCOL 3350 17 GM PACKET. PO SCH ×2 (08:12→20:09)
[2021-09-08] MEDS: QUEtiapine 25 MG TABLET. PO SCH ×4 (08:12→20:08)
--- NOTE | 2021-09-08 10:52 | NUR ---
HUA spoke with Ольга at [facility] and found that they will not accept pt on SN. HUA explained to Ольга that with pt having social anxiety and tends to be more withdrawn to her room, there was no concern that pt would be a major flight risk for them. Ольга reports that the family said the same; however, the facility is under litigation for a recent incident where a pt did walk out and staff are having to be watchful. Ольга is not willing to re-evaluate and apologized to HUA but will continue the denial.
[2021-09-08] MEDS: SIMETHICONE 80 MG TAB.CHEW PO PRN ×3 (13:07→23:52)
--- NOTE | 2021-09-08 15:43 | NUR ---
SW returned call to Adelfo pt son and left a message asking for a returned call when possible.
--- NOTE | 2021-09-08 15:53 | NUR ---
HUA received a returned call from Adelfo to discuss pt care. Pt called and spoke to pt and wanted to make the final decision to have pt return to him at [facility]. Adelfo reports that they are looking into other options in preparation of knowing/understanding that pt will eventually need more of a memory care unit. But in the interim, pt will go back to [facility] with her . Daelfo reports that he spoke with ROSMERY Velez at [facility] and she seemed to be okay with a Saturday discharge but wanted HUA to call and confirm that.
--- NOTE | 2021-09-08 16:07 | NUR ---
HUA attempted to contact Rosie at [facility] and ended up leaving a message asking for a returned call to confirm she is okay with discharge on Saturday.
[2021-09-08 16:09] VITALS: BP 101/54
--- NOTE | 2021-09-08 16:28 | NUR ---
[facility] Social Work Discharge Planning Form Patient Name VANESSA GREEN Admit Date: 17 August 2021 DISCHARGE PLAN Discharge Destination: Pt to discharge to [facility] Assessment: N/A Level II Assessment: N/A Transportation: Facility to pick pt up; will call Saturday morning with a definitive time. Special Instructions/Notes: Please fax discharge orders, discharge medications and discharge summary to the fax number listed below. DISCHARGE TO FACILITY Facility: [facility] Address: [address] [place] [address]; [place] [address] Contact Name: Rosie Gongora, Metal Furniture Panel Coverer: Contact Name: Please ask for nurse caring for pt upon arrival: PCP: Zac Serrano
[2021-09-08] MEDS: MELATONIN 3 MG TABLET PO SCH (20:07)
[2021-09-08] MEDS: traMADol 50 MG TABLET PO PRN (20:08)
[2021-09-08] MEDS: MIRTAZAPINE 7.5 MG TABLET. PO SCH (20:09)
[2021-09-08] MEDS: PROPRANOLOL 20 MG TABLET. PO SCH (20:09)
--- NOTE | 2021-09-08 21:08 | PDOC ---
Exam Note: Gino Note: Please also refer to the separate dictated note~for this date of service dictated separately.~Patient seen individually. Discussed the patient with Nursing staff reviewed the chart.~Reviewed interim history and current functioning. Reviewed vital signs,~Labs/ Radiology~and current medications noted below. Continue current treatment with the changes noted in the dictated addendum note Assessment: Vital Signs/I&O: Vital Signs Date Time Temp Pulse Resp B/P (MAP) Pulse Ox O2 Delivery O2 Flow Rate FiO2 09/08/21 20:09 78 101/54 09/08/21 20:08 98 09/08/21 16:09 98.3 20 09/08/21 06:03 Room Air I & O 09/07/21 09/07/21 09/08/21 15:00 23:00 07:00 Intake Total 600 ml 360 ml Balance 600 ml 360 ml Labs: Laboratory Tests Test 09/08/21 07:08 Glucose (Fingerstick) 135 mg/dL (70-99) H Current Medications: Meds: Laboratory Tests Test 09/08/21 07:08 Glucose (Fingerstick) 135 mg/dL Current Medications Medications (Trade) Dose Ordered Sig/Ras Route PRN Reason Start Time Stop Time Status Last Admin Dose Admin Acetaminophen (Tylenol) 650 mg PRN Q6HRS PRN PO MILD PAIN / TEMP > 100.3'F 08/17/21 16:00 08/26/21 16:38 Multi-Ingredient Ointment (Analgesic [place]) 1 annamarie PRN QID PRN TP MUSCLE PAIN 08/17/21 16:00 08/30/21 23:02 Al Hydroxide/Mg Hydroxide (Mylanta Plus Xs) 15 ml PRN AFTMEALHC PRN PO DYSPEPSIA 08/17/21 16:00 09/04/21 20:02 Magnesium Hydroxide (Milk Of Magnesia) 2,400 mg PRN QHS PRN PO 1st choice CONSTIPATION 08/17/21 16:00 Buspirone HCl (Buspar) 10 mg BID PO 08/17/21 21:00 09/08/21 20:09 Calcium Carbonate/ Glycine (Tums) 500 mg PRN Q6HRS PRN PO INDIGESTION 08/17/21 18:15 08/18/21 11:01 DC Clonazepam (KlonoPIN) 0.5 mg BID PO 08/17/21 21:00 08/19/21 20:11 DC 08/19/21 09:06 Empaglifozin (Jardiance) 10 mg DAILY PO 08/18/21 09:00 09/08/21 08:10 Hydroxychloroquine Sulfate (Plaquenil) 400 mg DAILY PO 08/18/21 09:00 09/08/21 08:10 Hydroxyzine HCl (Atarax) 25 mg PRN Q8HRS PRN PO ANXIETY 08/17/21 18:15 08/18/21 11:01 DC 08/18/21 10:04 Levothyroxine Sodium (Synthroid) 25 mcg DAILY06 PO 08/18/21 06:00 08/20/21 10:10 DC 08/20/21 06:07 Melatonin (Melatonin) 3 mg QHS PO 08/17/21 21:00 09/08/21 20:07 Polyethylene Glycol (miraLAX) 17 gm BID PO 08/17/21 21:00 09/07/21 20:56 Pramipexole Dihydrochloride (miraPEX) 0.25 mg TID PO 08/17/21 21:00 09/08/21 20:09 Propranolol HCl (Inderal) 20 mg QHS PO 08/17/21 21:00 09/07/21 21:01 Sennosides (Senna) 8.6 mg DAILY PO 08/18/21 09:00 08/18/21 11:01 DC 08/18/21 09:47 Simethicone (Gas-X) 80 mg PRN Q6HRS PRN PO GAS / BLOATING 08/17/21 18:00 08/18/21 11:17 DC Simethicone (Gas-X) 80 mg TID PO 08/17/21 21:00 08/18/21 11:01 DC 08/18/21 09:46 Trimethoprim/ Sulfamethoxazole (Bactrim Ds) 1 tab BID PO 08/17/21 21:00 08/23/21 21:30 DC 08/23/21 20:06 Tramadol HCl (Ultram) 50 mg PRN Q6HRS PRN PO mod-sev PAIN 08/17/21 18:00 09/08/21 20:08 Trazodone HCl (Desyrel) 50 mg QHS PO 08/17/21 21:00 08/22/21 20:25 DC 08/21/21 21:00 Non-Formulary Medication (Aspirin/Sod Bicarb/Citric Acid (Renee-[place] Original Tab Eff)) 325 mg PRN Q24HRS PRN PO DYSPEPSIA 08/17/21 18:00 UNV Capsaicin (Zostrix) 1 annamarie PRN Q12HR PRN TP PAIN 08/17/21 18:45 08/18/21 11:01 DC Carbidopa/Levodopa (Sinemet 25/100) 2 tab [id number] PO 08/17/21 18:30 09/08/21 17:15 Citalopram Hydrobromide (CeleXA) 40 mg DAILY PO 08/18/21 09:00 08/30/21 19:54 DC 08/30/21 09:10 Glycerin (Sani-Supp Adult) 1 supp PRN Q24HRS PRN [place] 2nd choice CONSTIPATION 08/17/21 18:45 Lactobacillus Rhamnosus (Culturelle) 1 cap BID PO 08/17/21 21:00 08/18/21 11:01 DC 08/18/21 09:47 Lubiprostone (Amitiza) 24 mcg BIDWMEALS PO 08/18/21 08:00 09/08/21 17:15 Cetirizine HCl (ZyrTEC) 10 mg DAILY PO 08/18/21 09:00 08/18/21 11:01 DC 08/18/21 09:47 Magnesium Oxide (Magnesium Oxide) 400 mg DAILY PO 08/18/21 09:00 08/18/21 11:01 DC 08/18/21 09:47 Metformin HCl (Glucophage) 1,000 mg BIDWMEALS PO 08/18/21 08:00 09/08/21 17:15 Pantoprazole Sodium (Protonix) 40 mg DAILYAC PO 08/18/21 07:30 09/08/21 08:10 Ondansetron HCl (Zofran Odt) 4 mg PRN Q6HRS PRN PO NAUSEA/VOMITING 08/17/21 18:30 09/02/21 10:36 Non-Formulary Medication (Trolamine Salicylate/Aloe Vera (Aspercreme 10% Cream)) 1 annamarie PRN BID PRN TP PAIN 08/17/21 18:00 UNV Olanzapine (ZyPREXA ZYDIS) 1.25 mg PRN Q2HRS PRN PO PSYCHOSIS 08/18/21 12:00 09/02/21 12:56 Clonazepam (KlonoPIN) 0.25 mg DAILY PO 08/20/21 09:00 08/27/21 20:18 DC 08/27/21 08:30 Clonazepam (KlonoPIN) 0.5 mg HS PO 08/19/21 21:00 08/22/21 19:00 DC 08/21/21 21:05 Clonazepam (KlonoPIN) 0.25 mg HS PO 08/22/21 21:00 08/27/21 22:00 DC 08/27/21 20:06 Levothyroxine Sodium (Synthroid) 50 mcg DAILY06 PO 08/21/21 06:00 09/08/21 05:47 Quetiapine Fumarate (SEROquel) 25 mg QHS PO 08/20/21 21:00 08/23/21 16:13 DC 08/22/21 21:49 Trazodone HCl (Desyrel) 50 mg PRN QHS PRN PO INSOMNIA, MAY REPEAT X1 08/22/21 20:30 09/07/21 22:38 Mirtazapine (Remeron) 7.5 mg QHS PO 08/22/21 21:00 09/08/21 20:09 Quetiapine Fumarate (SEROquel) 37.5 mg QHS PO 08/23/21 21:00 09/08/21 20:08 Simethicone (Gas-X) 80 mg PRN QID PRN PO GAS / BLOATING 08/23/21 16:30 09/08/21 18:04 Sertraline HCl (Zoloft) 25 mg DAILY PO 08/25/21 09:00 08/27/21 21:00 DC 08/27/21 08:30 Sertraline HCl (Zoloft) 50 mg DAILY PO 08/28/21 09:00 08/31/21 10:45 DC 08/31/21 08:31 Clonazepam (KlonoPIN) 0.25 mg DAILY PO 08/28/21 09:00 08/30/21 12:00 DC 08/30/21 09:12 Quetiapine Fumarate (SEROquel) 12.5 mg 0900,1700 PO 08/28/21 09:00 08/29/21 18:12 DC 08/29/21 17:15 Quetiapine Fumarate (SEROquel) 12.5 mg 0900,1300,1700 PO 08/30/21 09:00 09/08/21 17:15 Sertraline HCl (Zoloft) 25 mg 1X ONCE PO 08/31/21 10:45 08/31/21 10:48 DC 08/31/21 12:26 Sertraline HCl (Zoloft) 75 mg DAILY PO 09/01/21 09:00 09/02/21 11:00 DC 09/02/21 08:06 Sertraline HCl (Zoloft) 100 mg DAILY PO 09/04/21 09:00 08/31/21 22:10 DC Sertraline HCl (Zoloft) 100 mg DAILY PO 09/03/21 09:00 09/08/21 08:11 I have reviewed the current psychotropics carefully including drug interactions. Risk benefit ratio favors no change other than as noted in my dictated progress note. Diagnosis: Problems: (1) Psychotic disorder (2) Mild cognitive impairment (3) Major depressive disorder with psychotic features (4) Parkinson's disease (5) Anxiety disorder, unspecified RANJITH HAWKINS MD Sep 08, 2021 21:08
--- NOTE | 2021-09-08 23:43 | NUR ---
Patient is in her room on assumption of care, sitting up in her wheelchair. She is in pleasant spirits this evening, interactive, less hyperverbal than previous interactions with this nurse. Compliant with assessments and medications whole. Complained of 7/10 hip pain, requested PRN Tramadol with HS meds. No agitation. No delusions or hallucinations noted. Patient appears to be sleeping comfortably at present time. Will continue to monitor.
[2021-09-09] MEDS: LEVOTHYROXINE 50 MCG TABLET PO SCH (05:11)
[2021-09-09] MEDS: CARBIDOPA/LEVODOPA 25/100MG TABLET PO SCH ×3 (05:12→17:19)
[2021-09-09 05:58] VITALS: BP 106/54
[2021-09-09] MEDS: metFORMIN 500 MG TABLET PO SCH ×2 (08:34→17:18)
[2021-09-09] MEDS: PRAMIPEXOLE 0.25 MG TABLET. PO SCH ×3 (08:34→21:15)
[2021-09-09] MEDS: SERTRALINE 100 MG TABLET. PO SCH (08:35)
[2021-09-09] MEDS: QUEtiapine 25 MG TABLET. PO SCH ×4 (08:35→21:16)
[2021-09-09] MEDS: LUBIPROSTONE 24 MCG CAPSULE PO SCH ×2 (08:35→17:18)
[2021-09-09] MEDS: busPIRone 10 MG TABLET. PO SCH ×2 (08:35→21:15)
[2021-09-09] MEDS: HYDROXYCHLOROQUINE 200 MG TABLET PO SCH (08:35)
[2021-09-09] MEDS: PANTOPRAZOLE 40 MG TABLET. PO SCH (08:35)
[2021-09-09] MEDS: EMPAGLIFLOZIN 10 MG TABLET. PO SCH (08:35)
[2021-09-09] MEDS: POLYETHYLENE GLYCOL 3350 17 GM PACKET. PO SCH ×2 (08:36→21:00)
[2021-09-09] MEDS: SIMETHICONE 80 MG TAB.CHEW PO PRN ×2 (08:43→17:21)
[2021-09-09] MEDS: traMADol 50 MG TABLET PO PRN ×2 (15:10→21:18)
[2021-09-09 15:22] VITALS: BP 120/77
--- NOTE | 2021-09-09 18:30 | NUR ---
Patient has been calm, cooperative, and pleasant throughout this shift. She has spent all her time between meals withdrawn to her room. Patient has had multiple complaints of gas and a complaint of pain; prn medications provided per eMAR. Will continue to monitor and report to oncoming shift.
--- NOTE | 2021-09-09 21:09 | PDOC ---
Exam Note: Gino Note: Please also refer to the separate dictated note~for this date of service dictated separately.~Patient seen individually. Discussed the patient with Nursing staff reviewed the chart.~Reviewed interim history and current functioning. Reviewed vital signs,~Labs/ Radiology~and current medications noted below. Continue current treatment with the changes noted in the dictated addendum note Assessment: Vital Signs/I&O: Vital Signs Date Time Temp Pulse Resp B/P (MAP) Pulse Ox O2 Delivery O2 Flow Rate FiO2 09/09/21 16:16 16 97 Room Air 09/09/21 15:22 97.2 76 120/77 (91) I & O 09/08/21 09/08/21 09/09/21 15:00 23:00 07:00 Intake Total 240 ml 480 ml Balance 240 ml 480 ml Labs: Laboratory Tests Test 09/09/21 07:19 Glucose (Fingerstick) 126 mg/dL (70-99) H Current Medications: Meds: Laboratory Tests Test 09/09/21 07:19 Glucose (Fingerstick) 126 mg/dL Current Medications Medications (Trade) Dose Ordered Sig/Ras Route PRN Reason Start Time Stop Time Status Last Admin Dose Admin Acetaminophen (Tylenol) 650 mg PRN Q6HRS PRN PO MILD PAIN / TEMP > 100.3'F 08/17/21 16:00 08/26/21 16:38 Multi-Ingredient Ointment (Analgesic [place]) 1 annamarie PRN QID PRN TP MUSCLE PAIN 08/17/21 16:00 08/30/21 23:02 Al Hydroxide/Mg Hydroxide (Mylanta Plus Xs) 15 ml PRN AFTMEALHC PRN PO DYSPEPSIA 08/17/21 16:00 09/04/21 20:02 Magnesium Hydroxide (Milk Of Magnesia) 2,400 mg PRN QHS PRN PO 1st choice CONSTIPATION 08/17/21 16:00 Buspirone HCl (Buspar) 10 mg BID PO 08/17/21 21:00 09/09/21 08:35 Calcium Carbonate/ Glycine (Tums) 500 mg PRN Q6HRS PRN PO INDIGESTION 08/17/21 18:15 08/18/21 11:01 DC Clonazepam (KlonoPIN) 0.5 mg BID PO 08/17/21 21:00 08/19/21 20:11 DC 08/19/21 09:06 Empaglifozin (Jardiance) 10 mg DAILY PO 08/18/21 09:00 09/09/21 08:35 Hydroxychloroquine Sulfate (Plaquenil) 400 mg DAILY PO 08/18/21 09:00 09/09/21 08:35 Hydroxyzine HCl (Atarax) 25 mg PRN Q8HRS PRN PO ANXIETY 08/17/21 18:15 08/18/21 11:01 DC 08/18/21 10:04 Levothyroxine Sodium (Synthroid) 25 mcg DAILY06 PO 08/18/21 06:00 08/20/21 10:10 DC 08/20/21 06:07 Melatonin (Melatonin) 3 mg QHS PO 08/17/21 21:00 09/08/21 20:07 Polyethylene Glycol (miraLAX) 17 gm BID PO 08/17/21 21:00 09/09/21 08:36 Pramipexole Dihydrochloride (miraPEX) 0.25 mg TID PO 08/17/21 21:00 09/09/21 12:19 Propranolol HCl (Inderal) 20 mg QHS PO 08/17/21 21:00 09/07/21 21:01 Sennosides (Senna) 8.6 mg DAILY PO 08/18/21 09:00 08/18/21 11:01 DC 08/18/21 09:47 Simethicone (Gas-X) 80 mg PRN Q6HRS PRN PO GAS / BLOATING 08/17/21 18:00 08/18/21 11:17 DC Simethicone (Gas-X) 80 mg TID PO 08/17/21 21:00 08/18/21 11:01 DC 08/18/21 09:46 Trimethoprim/ Sulfamethoxazole (Bactrim Ds) 1 tab BID PO 08/17/21 21:00 08/23/21 21:30 DC 08/23/21 20:06 Tramadol HCl (Ultram) 50 mg PRN Q6HRS PRN PO mod-sev PAIN 08/17/21 18:00 09/09/21 15:10 Trazodone HCl (Desyrel) 50 mg QHS PO 08/17/21 21:00 08/22/21 20:25 DC 08/21/21 21:00 Non-Formulary Medication (Aspirin/Sod Bicarb/Citric Acid (Renee-[place] Original Tab Eff)) 325 mg PRN Q24HRS PRN PO DYSPEPSIA 08/17/21 18:00 UNV Capsaicin (Zostrix) 1 annamarie PRN Q12HR PRN TP PAIN 08/17/21 18:45 08/18/21 11:01 DC Carbidopa/Levodopa (Sinemet 25/100) 2 tab [id number] PO 08/17/21 18:30 09/09/21 17:19 Citalopram Hydrobromide (CeleXA) 40 mg DAILY PO 08/18/21 09:00 08/30/21 19:54 DC 08/30/21 09:10 Glycerin (Sani-Supp Adult) 1 supp PRN Q24HRS PRN [place] 2nd choice CONSTIPATION 08/17/21 18:45 Lactobacillus Rhamnosus (Culturelle) 1 cap BID PO 08/17/21 21:00 08/18/21 11:01 DC 08/18/21 09:47 Lubiprostone (Amitiza) 24 mcg BIDWMEALS PO 08/18/21 08:00 09/09/21 17:18 Cetirizine HCl (ZyrTEC) 10 mg DAILY PO 08/18/21 09:00 08/18/21 11:01 DC 08/18/21 09:47 Magnesium Oxide (Magnesium Oxide) 400 mg DAILY PO 08/18/21 09:00 08/18/21 11:01 DC 08/18/21 09:47 Metformin HCl (Glucophage) 1,000 mg BIDWMEALS PO 08/18/21 08:00 09/09/21 17:18 Pantoprazole Sodium (Protonix) 40 mg DAILYAC PO 08/18/21 07:30 09/09/21 08:35 Ondansetron HCl (Zofran Odt) 4 mg PRN Q6HRS PRN PO NAUSEA/VOMITING 08/17/21 18:30 09/02/21 10:36 Non-Formulary Medication (Trolamine Salicylate/Aloe Vera (Aspercreme 10% Cream)) 1 annamarie PRN BID PRN TP PAIN 08/17/21 18:00 UNV Olanzapine (ZyPREXA ZYDIS) 1.25 mg PRN Q2HRS PRN PO PSYCHOSIS 08/18/21 12:00 09/02/21 12:56 Clonazepam (KlonoPIN) 0.25 mg DAILY PO 08/20/21 09:00 08/27/21 20:18 DC 08/27/21 08:30 Clonazepam (KlonoPIN) 0.5 mg HS PO 08/19/21 21:00 08/22/21 19:00 DC 08/21/21 21:05 Clonazepam (KlonoPIN) 0.25 mg HS PO 08/22/21 21:00 08/27/21 22:00 DC 08/27/21 20:06 Levothyroxine Sodium (Synthroid) 50 mcg DAILY06 PO 08/21/21 06:00 09/09/21 05:11 Quetiapine Fumarate (SEROquel) 25 mg QHS PO 08/20/21 21:00 08/23/21 16:13 DC 08/22/21 21:49 Trazodone HCl (Desyrel) 50 mg PRN QHS PRN PO INSOMNIA, MAY REPEAT X1 08/22/21 20:30 09/07/21 22:38 Mirtazapine (Remeron) 7.5 mg QHS PO 08/22/21 21:00 09/08/21 20:09 Quetiapine Fumarate (SEROquel) 37.5 mg QHS PO 08/23/21 21:00 09/08/21 20:08 Simethicone (Gas-X) 80 mg PRN QID PRN PO GAS / BLOATING 08/23/21 16:30 09/09/21 17:21 Sertraline HCl (Zoloft) 25 mg DAILY PO 08/25/21 09:00 08/27/21 21:00 DC 08/27/21 08:30 Sertraline HCl (Zoloft) 50 mg DAILY PO 08/28/21 09:00 08/31/21 10:45 DC 08/31/21 08:31 Clonazepam (KlonoPIN) 0.25 mg DAILY PO 08/28/21 09:00 08/30/21 12:00 DC 08/30/21 09:12 Quetiapine Fumarate (SEROquel) 12.5 mg 0900,1700 PO 08/28/21 09:00 08/29/21 18:12 DC 08/29/21 17:15 Quetiapine Fumarate (SEROquel) 12.5 mg 0900,1300,1700 PO 08/30/21 09:00 09/09/21 17:19 Sertraline HCl (Zoloft) 25 mg 1X ONCE PO 08/31/21 10:45 08/31/21 10:48 DC 08/31/21 12:26 Sertraline HCl (Zoloft) 75 mg DAILY PO 09/01/21 09:00 09/02/21 11:00 DC 09/02/21 08:06 Sertraline HCl (Zoloft) 100 mg DAILY PO 09/04/21 09:00 08/31/21 22:10 DC Sertraline HCl (Zoloft) 100 mg DAILY PO 09/03/21 09:00 09/09/21 08:35 I have reviewed the current psychotropics carefully including drug interactions. Risk benefit ratio favors no change other than as noted in my dictated progress note. Diagnosis: Problems: (1) Mild cognitive impairment (2) Major depressive disorder with psychotic features (3) Parkinson's disease (4) Anxiety disorder, unspecified RANJITH HAWKINS MD Sep 09, 2021 21:09
[2021-09-09] MEDS: MIRTAZAPINE 7.5 MG TABLET. PO SCH (21:15)
[2021-09-09] MEDS: MELATONIN 3 MG TABLET PO SCH (21:15)
[2021-09-09] MEDS: PROPRANOLOL 20 MG TABLET. PO SCH (21:16)
--- NOTE | 2021-09-09 23:21 | NUR ---
Patient is in her room on assumption of care, sitting up in her wheelchair. She is in pleasant spirits this evening, interactive, appropriate. Spent some time sitting in the hallway and socializing with a peer. Compliant with assessments and medications whole. Complained of 7/10 hip pain, requested PRN Tramadol with HS meds. No agitation. No delusions or hallucinations noted. Patient appears to be sleeping comfortably at present time. Will continue to monitor.
[2021-09-09] MEDS ORDERED: ACET325T9 PO (23:25)
[2021-09-09] MEDS ORDERED: LEVO50TA5 PO (23:34)
[2021-09-09] MEDS ORDERED: SERT100T PO (23:41)
[2021-09-09] MEDS ORDERED: MIRT-37 PO (23:42)
[2021-09-09] MEDS ORDERED: QUET25TA5 PO ×2 (23:46→23:48)
[2021-09-09] MEDS ORDERED: OLAN2.5T3 PO (23:50)
[2021-09-09] MEDS ORDERED: OLAN5TAB7 PO (23:51)
[2021-09-09] MEDS ORDERED: GLYC1SUP31 RC (23:55)
[2021-09-09] MEDS ORDERED: MAGN24003 PO (23:59)
[2021-09-10] MEDS ORDERED: MAG-115 PO
[2021-09-10] MEDS: CARBIDOPA/LEVODOPA 25/100MG TABLET PO SCH ×4 (00:01→17:22)
[2021-09-10] MEDS ORDERED: METH57CR17 TP (00:02)
[2021-09-10] MEDS: LEVOTHYROXINE 50 MCG TABLET PO SCH (04:51)
[2021-09-10 06:01] VITALS: BP 113/65
--- NOTE | 2021-09-10 07:19 | PDOC ---
Exam Note: Gino Note: This note is a late entry for 09/08/2021 covers elements not covered in my initial note. Subjective: The patient was seen individually in the evening of 09/08/2021 with Estella ALTMAN, discussed and reviewed the chart. The patient slept 2-1/4 hours previous night. Patient is less anxious, less obsessive. She tried to call her son Adelfo and no answer received, then she talked to her . She was quite animated, verbal, interactive as I met with her in the evening and stated she was going to be discharged on Saturday. Review of Systems: Ambulation impaired with walker. She is hard of hearing. No CV, , pulmonary, eye system symptoms on review. Mental Status Exam: The patient is oriented to herself and situation. Speech is coherent, remains pressured. Abstraction fair. Computation impaired, somewhat distractible. Mood and affect improved. Laboratory Data: Reviewed. 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 Anxiety disorder unspecified. Parkinsons disease. Plan: Continue psychotropics unchanged for now. We will transition her to the nursing facility next week where she would be residing with her . Assessment: Vital Signs/I&O: Vital Signs Date Time Temp Pulse Resp B/P (MAP) Pulse Ox O2 Delivery O2 Flow Rate FiO2 09/10/21 06:01 98.0 86 20 113/65 (81) 95 Room Air I & O 09/09/21 09/09/21 09/10/21 15:00 23:00 07:00 Intake Total 480 ml 480 ml Balance 480 ml 480 ml Current Medications: Meds: Current Medications Medications (Trade) Dose Ordered Sig/Ras Route PRN Reason Start Time Stop Time Status Last Admin Dose Admin Acetaminophen (Tylenol) 650 mg PRN Q6HRS PRN PO MILD PAIN / TEMP > 100.3'F 08/17/21 16:00 08/26/21 16:38 Multi-Ingredient Ointment (Analgesic [place]) 1 annamarie PRN QID PRN TP MUSCLE PAIN 08/17/21 16:00 08/30/21 23:02 Al Hydroxide/Mg Hydroxide (Mylanta Plus Xs) 15 ml PRN AFTMEALHC PRN PO DYSPEPSIA 08/17/21 16:00 09/04/21 20:02 Magnesium Hydroxide (Milk Of Magnesia) 2,400 mg PRN QHS PRN PO 1st choice CONSTIPATION 08/17/21 16:00 Buspirone HCl (Buspar) 10 mg BID PO 08/17/21 21:00 09/09/21 21:15 Calcium Carbonate/ Glycine (Tums) 500 mg PRN Q6HRS PRN PO INDIGESTION 08/17/21 18:15 08/18/21 11:01 DC Clonazepam (KlonoPIN) 0.5 mg BID PO 08/17/21 21:00 08/19/21 20:11 DC 08/19/21 09:06 Empaglifozin (Jardiance) 10 mg DAILY PO 08/18/21 09:00 09/09/21 08:35 Hydroxychloroquine Sulfate (Plaquenil) 400 mg DAILY PO 08/18/21 09:00 09/09/21 08:35 Hydroxyzine HCl (Atarax) 25 mg PRN Q8HRS PRN PO ANXIETY 08/17/21 18:15 08/18/21 11:01 DC 08/18/21 10:04 Levothyroxine Sodium (Synthroid) 25 mcg DAILY06 PO 08/18/21 06:00 08/20/21 10:10 DC 08/20/21 06:07 Melatonin (Melatonin) 3 mg QHS PO 08/17/21 21:00 09/09/21 21:15 Polyethylene Glycol (miraLAX) 17 gm BID PO 08/17/21 21:00 09/09/21 08:36 Pramipexole Dihydrochloride (miraPEX) 0.25 mg TID PO 08/17/21 21:00 09/09/21 21:15 Propranolol HCl (Inderal) 20 mg QHS PO 08/17/21 21:00 09/09/21 21:16 Sennosides (Senna) 8.6 mg DAILY PO 08/18/21 09:00 08/18/21 11:01 DC 08/18/21 09:47 Simethicone (Gas-X) 80 mg PRN Q6HRS PRN PO GAS / BLOATING 08/17/21 18:00 08/18/21 11:17 DC Simethicone (Gas-X) 80 mg TID PO 08/17/21 21:00 08/18/21 11:01 DC 08/18/21 09:46 Trimethoprim/ Sulfamethoxazole (Bactrim Ds) 1 tab BID PO 08/17/21 21:00 08/23/21 21:30 DC 08/23/21 20:06 Tramadol HCl (Ultram) 50 mg PRN Q6HRS PRN PO mod-sev PAIN 08/17/21 18:00 09/09/21 21:18 Trazodone HCl (Desyrel) 50 mg QHS PO 08/17/21 21:00 08/22/21 20:25 DC 08/21/21 21:00 Non-Formulary Medication (Aspirin/Sod Bicarb/Citric Acid ([place]enee[place] Original Tab Eff)) 325 mg PRN Q24HRS PRN PO DYSPEPSIA 08/17/21 18:00 UNV Capsaicin (Zostrix) 1 annamarie PRN Q12HR PRN TP PAIN 08/17/21 18:45 08/18/21 11:01 DC Carbidopa/Levodopa (Sinemet 25/100) 2 tab [id number] PO 08/17/21 18:30 09/10/21 04:51 Citalopram Hydrobromide (CeleXA) 40 mg DAILY PO 08/18/21 09:00 08/30/21 19:54 DC 08/30/21 09:10 Glycerin (Sani-Supp Adult) 1 supp PRN Q24HRS PRN [place] 2nd choice CONSTIPATION 08/17/21 18:45 Lactobacillus Rhamnosus (Culturelle) 1 cap BID PO 08/17/21 21:00 08/18/21 11:01 DC 08/18/21 09:47 Lubiprostone (Amitiza) 24 mcg BIDWMEALS PO 08/18/21 08:00 09/09/21 17:18 Cetirizine HCl (ZyrTEC) 10 mg DAILY PO 08/18/21 09:00 08/18/21 11:01 DC 08/18/21 09:47 Magnesium Oxide (Magnesium Oxide) 400 mg DAILY PO 08/18/21 09:00 08/18/21 11:01 DC 08/18/21 09:47 Metformin HCl (Glucophage) 1,000 mg BIDWMEALS PO 08/18/21 08:00 09/09/21 17:18 Pantoprazole Sodium (Protonix) 40 mg DAILYAC PO 08/18/21 07:30 09/09/21 08:35 Ondansetron HCl (Zofran Odt) 4 mg PRN Q6HRS PRN PO NAUSEA/VOMITING 08/17/21 18:30 09/02/21 10:36 Non-Formulary Medication (Trolamine Salicylate/Aloe Vera (Aspercreme 10% Cream)) 1 annamarie PRN BID PRN TP PAIN 08/17/21 18:00 UNV Olanzapine (ZyPREXA ZYDIS) 1.25 mg PRN Q2HRS PRN PO PSYCHOSIS 08/18/21 12:00 09/02/21 12:56 Clonazepam (KlonoPIN) 0.25 mg DAILY PO 08/20/21 09:00 08/27/21 20:18 DC 08/27/21 08:30 Clonazepam (KlonoPIN) 0.5 mg HS PO 08/19/21 21:00 08/22/21 19:00 DC 08/21/21 21:05 Clonazepam (KlonoPIN) 0.25 mg HS PO 08/22/21 21:00 08/27/21 22:00 DC 08/27/21 20:06 Levothyroxine Sodium (Synthroid) 50 mcg DAILY06 PO 08/21/21 06:00 09/10/21 04:51 Quetiapine Fumarate (SEROquel) 25 mg QHS PO 08/20/21 21:00 08/23/21 16:13 DC 08/22/21 21:49 Trazodone HCl (Desyrel) 50 mg PRN QHS PRN PO INSOMNIA, MAY REPEAT X1 08/22/21 20:30 09/07/21 22:38 Mirtazapine (Remeron) 7.5 mg QHS PO 08/22/21 21:00 09/09/21 21:15 Quetiapine Fumarate (SEROquel) 37.5 mg QHS PO 08/23/21 21:00 09/09/21 21:16 Simethicone (Gas-X) 80 mg PRN QID PRN PO GAS / BLOATING 08/23/21 16:30 09/09/21 17:21 Sertraline HCl (Zoloft) 25 mg DAILY PO 08/25/21 09:00 08/27/21 21:00 DC 08/27/21 08:30 Sertraline HCl (Zoloft) 50 mg DAILY PO 08/28/21 09:00 08/31/21 10:45 DC 08/31/21 08:31 Clonazepam (KlonoPIN) 0.25 mg DAILY PO 08/28/21 09:00 08/30/21 12:00 DC 08/30/21 09:12 Quetiapine Fumarate (SEROquel) 12.5 mg 0900,1700 PO 08/28/21 09:00 08/29/21 18:12 DC 08/29/21 17:15 Quetiapine Fumarate (SEROquel) 12.5 mg 0900,1300,1700 PO 08/30/21 09:00 09/09/21 17:19 Sertraline HCl (Zoloft) 25 mg 1X ONCE PO 08/31/21 10:45 08/31/21 10:48 DC 08/31/21 12:26 Sertraline HCl (Zoloft) 75 mg DAILY PO 09/01/21 09:00 09/02/21 11:00 DC 09/02/21 08:06 Sertraline HCl (Zoloft) 100 mg DAILY PO 09/04/21 09:00 08/31/21 22:10 DC Sertraline HCl (Zoloft) 100 mg DAILY PO 09/03/21 09:00 09/09/21 08:35 I have reviewed the current psychotropics carefully including drug interactions. Risk benefit ratio favors no change other than as noted in my dictated progress note. Diagnosis: Problems: (1) Mild cognitive impairment (2) Major depressive disorder with psychotic features (3) Parkinson's disease (4) Anxiety disorder, unspecified RANJITH HAWKINS MD Sep 10, 2021 07:19
[2021-09-10] MEDS: HYDROXYCHLOROQUINE 200 MG TABLET PO SCH (08:19)
[2021-09-10] MEDS: busPIRone 10 MG TABLET. PO SCH ×2 (08:20→20:21)
[2021-09-10] MEDS: SERTRALINE 100 MG TABLET. PO SCH (08:20)
[2021-09-10] MEDS: PANTOPRAZOLE 40 MG TABLET. PO SCH (08:20)
[2021-09-10] MEDS: EMPAGLIFLOZIN 10 MG TABLET. PO SCH (08:20)
[2021-09-10] MEDS: metFORMIN 500 MG TABLET PO SCH ×2 (08:21→17:22)
[2021-09-10] MEDS: PRAMIPEXOLE 0.25 MG TABLET. PO SCH ×3 (08:21→20:22)
[2021-09-10] MEDS: LUBIPROSTONE 24 MCG CAPSULE PO SCH ×2 (08:21→17:22)
[2021-09-10] MEDS: QUEtiapine 25 MG TABLET. PO SCH ×4 (08:22→20:21)
[2021-09-10] MEDS: POLYETHYLENE GLYCOL 3350 17 GM PACKET. PO SCH ×2 (08:27→20:23)
--- NOTE | 2021-09-10 11:26 | NUR ---
RN Day Shift Note: Pt presents with a pleasant mood/affect. Pt is medication compliant, except pt refused miralax because she reported she was "pooping all day yesterday." Pt is calm and cooperative. Pt is able to make needs known to staff. Pt is noted to spend time in her bedroom today. Pts vitals are WNL. Pt ate 25% of her breakfast and reported that she does not like meat in the morning. Pt slept 6.5 hours last night. Will continue to monitor.
[2021-09-10] MEDS: SIMETHICONE 80 MG TAB.CHEW PO PRN (12:44)
[2021-09-10] MEDS: MAG HYDROX/AL HYDROX/SIMETH 30 ML ORAL.SUSP PO PRN (14:45)
[2021-09-10 16:09] VITALS: BP 91/50
[2021-09-10] MEDS: MELATONIN 3 MG TABLET PO SCH (20:20)
[2021-09-10] MEDS: MIRTAZAPINE 7.5 MG TABLET. PO SCH (20:22)
[2021-09-10] MEDS: traMADol 50 MG TABLET PO PRN (20:22)
[2021-09-10] MEDS: PROPRANOLOL 20 MG TABLET. PO SCH (20:23)
--- NOTE | 2021-09-10 21:02 | PDOC ---
Exam Note: Gino Note: Please also refer to the separate dictated note~for this date of service dictated separately.~Patient seen individually. Discussed the patient with Nursing staff reviewed the chart.~Reviewed interim history and current functioning. Reviewed vital signs,~Labs/ Radiology~and current medications noted below. Continue current treatment with the changes noted in the dictated addendum note Assessment: Vital Signs/I&O: Vital Signs Date Time Temp Pulse Resp B/P (MAP) Pulse Ox O2 Delivery O2 Flow Rate FiO2 09/10/21 20:54 95 09/10/21 20:23 79 91/50 09/10/21 16:09 97.8 16 Room Air I & O 09/09/21 09/09/21 09/10/21 15:00 23:00 07:00 Intake Total 480 ml 480 ml Balance 480 ml 480 ml Labs: Laboratory Tests Test 09/10/21 07:34 Glucose (Fingerstick) 99 mg/dL (70-99) Current Medications: Meds: Laboratory Tests Test 09/10/21 07:34 Glucose (Fingerstick) 99 mg/dL Current Medications Medications (Trade) Dose Ordered Sig/Ras Route PRN Reason Start Time Stop Time Status Last Admin Dose Admin Acetaminophen (Tylenol) 650 mg PRN Q6HRS PRN PO MILD PAIN / TEMP > 100.3'F 08/17/21 16:00 08/26/21 16:38 Multi-Ingredient Ointment (Analgesic [place]) 1 annamarie PRN QID PRN TP MUSCLE PAIN 08/17/21 16:00 08/30/21 23:02 Al Hydroxide/Mg Hydroxide (Mylanta Plus Xs) 15 ml PRN AFTMEALHC PRN PO DYSPEPSIA 08/17/21 16:00 09/10/21 14:45 Magnesium Hydroxide (Milk Of Magnesia) 2,400 mg PRN QHS PRN PO 1st choice CONSTIPATION 08/17/21 16:00 Buspirone HCl (Buspar) 10 mg BID PO 08/17/21 21:00 09/10/21 20:21 Calcium Carbonate/ Glycine (Tums) 500 mg PRN Q6HRS PRN PO INDIGESTION 08/17/21 18:15 08/18/21 11:01 DC Clonazepam (KlonoPIN) 0.5 mg BID PO 08/17/21 21:00 08/19/21 20:11 DC 08/19/21 09:06 Empaglifozin (Jardiance) 10 mg DAILY PO 08/18/21 09:00 09/10/21 08:20 Hydroxychloroquine Sulfate (Plaquenil) 400 mg DAILY PO 08/18/21 09:00 09/10/21 08:19 Hydroxyzine HCl (Atarax) 25 mg PRN Q8HRS PRN PO ANXIETY 08/17/21 18:15 08/18/21 11:01 DC 08/18/21 10:04 Levothyroxine Sodium (Synthroid) 25 mcg DAILY06 PO 08/18/21 06:00 08/20/21 10:10 DC 08/20/21 06:07 Melatonin (Melatonin) 3 mg QHS PO 08/17/21 21:00 09/10/21 20:20 Polyethylene Glycol (miraLAX) 17 gm BID PO 08/17/21 21:00 09/09/21 08:36 Pramipexole Dihydrochloride (miraPEX) 0.25 mg TID PO 08/17/21 21:00 09/10/21 20:22 Propranolol HCl (Inderal) 20 mg QHS PO 08/17/21 21:00 09/09/21 21:16 Sennosides (Senna) 8.6 mg DAILY PO 08/18/21 09:00 08/18/21 11:01 DC 08/18/21 09:47 Simethicone (Gas-X) 80 mg PRN Q6HRS PRN PO GAS / BLOATING 08/17/21 18:00 08/18/21 11:17 DC Simethicone (Gas-X) 80 mg TID PO 08/17/21 21:00 08/18/21 11:01 DC 08/18/21 09:46 Trimethoprim/ Sulfamethoxazole (Bactrim Ds) 1 tab BID PO 08/17/21 21:00 08/23/21 21:30 DC 08/23/21 20:06 Tramadol HCl (Ultram) 50 mg PRN Q6HRS PRN PO mod-sev PAIN 08/17/21 18:00 09/10/21 20:22 Trazodone HCl (Desyrel) 50 mg QHS PO 08/17/21 21:00 08/22/21 20:25 DC 08/21/21 21:00 Non-Formulary Medication (Aspirin/Sod Bicarb/Citric Acid (Renee-[place] Original Tab Eff)) 325 mg PRN Q24HRS PRN PO DYSPEPSIA 08/17/21 18:00 UNV Capsaicin (Zostrix) 1 annamarie PRN Q12HR PRN TP PAIN 08/17/21 18:45 08/18/21 11:01 DC Carbidopa/Levodopa (Sinemet 25/100) 2 tab [id number] PO 08/17/21 18:30 09/10/21 17:22 Citalopram Hydrobromide (CeleXA) 40 mg DAILY PO 08/18/21 09:00 08/30/21 19:54 DC 08/30/21 09:10 Glycerin (Sani-Supp Adult) 1 supp PRN Q24HRS PRN [place] 2nd choice CONSTIPATION 08/17/21 18:45 Lactobacillus Rhamnosus (Culturelle) 1 cap BID PO 08/17/21 21:00 08/18/21 11:01 DC 08/18/21 09:47 Lubiprostone (Amitiza) 24 mcg BIDWMEALS PO 08/18/21 08:00 09/10/21 17:22 Cetirizine HCl (ZyrTEC) 10 mg DAILY PO 08/18/21 09:00 08/18/21 11:01 DC 08/18/21 09:47 Magnesium Oxide (Magnesium Oxide) 400 mg DAILY PO 08/18/21 09:00 08/18/21 11:01 DC 08/18/21 09:47 Metformin HCl (Glucophage) 1,000 mg BIDWMEALS PO 08/18/21 08:00 09/10/21 17:22 Pantoprazole Sodium (Protonix) 40 mg DAILYAC PO 08/18/21 07:30 09/10/21 08:20 Ondansetron HCl (Zofran Odt) 4 mg PRN Q6HRS PRN PO NAUSEA/VOMITING 08/17/21 18:30 09/02/21 10:36 Non-Formulary Medication (Trolamine Salicylate/Aloe Vera (Aspercreme 10% Cream)) 1 annamarie PRN BID PRN TP PAIN 08/17/21 18:00 UNV Olanzapine (ZyPREXA ZYDIS) 1.25 mg PRN Q2HRS PRN PO PSYCHOSIS 08/18/21 12:00 09/10/21 14:54 Clonazepam (KlonoPIN) 0.25 mg DAILY PO 08/20/21 09:00 08/27/21 20:18 DC 08/27/21 08:30 Clonazepam (KlonoPIN) 0.5 mg HS PO 08/19/21 21:00 08/22/21 19:00 DC 08/21/21 21:05 Clonazepam (KlonoPIN) 0.25 mg HS PO 08/22/21 21:00 08/27/21 22:00 DC 08/27/21 20:06 Levothyroxine Sodium (Synthroid) 50 mcg DAILY06 PO 08/21/21 06:00 09/10/21 04:51 Quetiapine Fumarate (SEROquel) 25 mg QHS PO 08/20/21 21:00 08/23/21 16:13 DC 08/22/21 21:49 Trazodone HCl (Desyrel) 50 mg PRN QHS PRN PO INSOMNIA, MAY REPEAT X1 08/22/21 20:30 09/07/21 22:38 Mirtazapine (Remeron) 7.5 mg QHS PO 08/22/21 21:00 09/10/21 20:22 Quetiapine Fumarate (SEROquel) 37.5 mg QHS PO 08/23/21 21:00 09/10/21 20:21 Simethicone (Gas-X) 80 mg PRN QID PRN PO GAS / BLOATING 08/23/21 16:30 09/10/21 12:44 Sertraline HCl (Zoloft) 25 mg DAILY PO 08/25/21 09:00 08/27/21 21:00 DC 08/27/21 08:30 Sertraline HCl (Zoloft) 50 mg DAILY PO 08/28/21 09:00 08/31/21 10:45 DC 08/31/21 08:31 Clonazepam (KlonoPIN) 0.25 mg DAILY PO 08/28/21 09:00 08/30/21 12:00 DC 08/30/21 09:12 Quetiapine Fumarate (SEROquel) 12.5 mg 0900,1700 PO 08/28/21 09:00 08/29/21 18:12 DC 08/29/21 17:15 Quetiapine Fumarate (SEROquel) 12.5 mg 0900,1300,1700 PO 08/30/21 09:00 09/10/21 17:22 Sertraline HCl (Zoloft) 25 mg 1X ONCE PO 08/31/21 10:45 08/31/21 10:48 DC 08/31/21 12:26 Sertraline HCl (Zoloft) 75 mg DAILY PO 09/01/21 09:00 09/02/21 11:00 DC 09/02/21 08:06 Sertraline HCl (Zoloft) 100 mg DAILY PO 09/04/21 09:00 08/31/21 22:10 DC Sertraline HCl (Zoloft) 100 mg DAILY PO 09/03/21 09:00 09/10/21 08:20 I have reviewed the current psychotropics carefully including drug interactions. Risk benefit ratio favors no change other than as noted in my dictated progress note. Diagnosis: Problems: (1) Mild cognitive impairment (2) Major depressive disorder with psychotic features (3) Parkinson's disease (4) Anxiety disorder, unspecified RANJITH HAWKINS MD Sep 10, 2021 21:02
--- NOTE | 2021-09-10 22:53 | NUR ---
Patient is in her room on assumption of care, awake in bed. She is in pleasant spirits this evening, interactive, looking forward to discharging tomorrow. Compliant with assessments and medications whole. Complained of 7/10 hip pain, requested PRN Tramadol with HS meds. No agitation. No delusions or hallucinations noted. Patient appears to be sleeping comfortably at present time. Will continue to monitor.
[2021-09-11] MEDS: CARBIDOPA/LEVODOPA 25/100MG TABLET PO SCH ×2 (00:15→05:25)
[2021-09-11] MEDS: LEVOTHYROXINE 50 MCG TABLET PO SCH (05:26)
[2021-09-11 05:42] VITALS: BP 112/64
[2021-09-11] MEDS: SERTRALINE 100 MG TABLET. PO SCH (08:03)
[2021-09-11] MEDS: HYDROXYCHLOROQUINE 200 MG TABLET PO SCH (08:03)
[2021-09-11] MEDS: EMPAGLIFLOZIN 10 MG TABLET. PO SCH (08:03)
[2021-09-11] MEDS: PRAMIPEXOLE 0.25 MG TABLET. PO SCH (08:03)
[2021-09-11] MEDS: PANTOPRAZOLE 40 MG TABLET. PO SCH (08:03)
[2021-09-11] MEDS: LUBIPROSTONE 24 MCG CAPSULE PO SCH (08:04)
[2021-09-11] MEDS: metFORMIN 500 MG TABLET PO SCH (08:04)
[2021-09-11] MEDS: QUEtiapine 25 MG TABLET. PO SCH (08:04)
[2021-09-11] MEDS: busPIRone 10 MG TABLET. PO SCH (08:04)
[2021-09-11] MEDS: POLYETHYLENE GLYCOL 3350 17 GM PACKET. PO SCH (08:08)
[2021-09-11] MEDS: SIMETHICONE 80 MG TAB.CHEW PO PRN (10:28)
--- NOTE | 2021-09-11 10:46 | NUR ---
Nsg Note; discharge: Transition Record was faxed to follow-up provider with the following elements: Reason for admission, procedures, tests, principal diagnosis, pending studies, patient instructions, 20/05 contact information for unit, phone number to obtain pending test results, plan for follow-up care, physician follow-up, advanced directive information, and medication list with dose, duration and instructions. This information was included in the following documents: History and physical, lab results, study results, progress notes, social work planning form, DC instruction form, patient visit summary, and medication reconciliation form. Date & time record faxed: 09/11/21 at 0012 Record faxed to [phone] [facility] Record discussed with/ report given to [facility] URB[facility] at 1044 Pt discharged at 1035 via w/c accomp by transport personnel and her
--- NOTE | 2021-09-11 21:54 | PDOC ---
Exam Note: Gino Note: This note is a late entry for 09/09/2021 covers elements not covered in my initial note. Subjective: The patient was seen individually in the evening of 09/09/2021 with Tomasa ALTMAN, discussed and reviewed the chart. The patient slept 5-1/4 hours previous night. I met with her n her room. She was very animated, talking about discharge on 09/11, knew that she would be living in a new facility but her will be there with her. She remains anxious, less hyperverbal. Review of Systems: Ambulation impaired with walker. She is hard of hearing. No CV, , pulmonary, eye system symptoms on review. Mental Status Exam: The patient is oriented to herself and situation. Speech is coherent. Abstraction fair. Computation impaired. Language function intact. Attention span short. Mood and affect less anxious. Laboratory Data: Reviewed. 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 Anxiety disorder unspecified. Parkinsons disease. Plan: Continue psychotropics unchanged for now. Assessment: Vital Signs/I&O: Vital Signs Date Time Temp Pulse Resp B/P (MAP) Pulse Ox O2 Delivery O2 Flow Rate FiO2 09/11/21 05:42 97.6 72 20 112/64 (80) 95 09/10/21 16:09 Room Air I & O 09/10/21 09/10/21 09/11/21 15:00 23:00 07:00 Intake Total 480 ml 720 ml Balance 480 ml 720 ml Labs: Laboratory Tests Test 09/11/21 07:20 Glucose (Fingerstick) 150 mg/dL (70-99) H Current Medications: Meds: Laboratory Tests Test 09/11/21 07:20 Glucose (Fingerstick) 150 mg/dL Current Medications Medications (Trade) Dose Ordered Sig/Ras Route PRN Reason Start Time Stop Time Status Last Admin Dose Admin Acetaminophen (Tylenol) 650 mg PRN Q6HRS PRN PO MILD PAIN / TEMP > 100.3'F 08/17/21 16:00 09/11/21 10:51 DC 08/26/21 16:38 Multi-Ingredient Ointment (Analgesic [place]) 1 annamarie PRN QID PRN TP MUSCLE PAIN 08/17/21 16:00 09/11/21 10:51 DC 08/30/21 23:02 Al Hydroxide/Mg Hydroxide (Mylanta Plus Xs) 15 ml PRN AFTMEALHC PRN PO DYSPEPSIA 08/17/21 16:00 09/11/21 10:51 DC 09/10/21 14:45 Magnesium Hydroxide (Milk Of Magnesia) 2,400 mg PRN QHS PRN PO 1st choice CONSTIPATION 08/17/21 16:00 09/11/21 10:51 DC Buspirone HCl (Buspar) 10 mg BID PO 08/17/21 21:00 09/11/21 10:51 DC 09/11/21 08:04 Calcium Carbonate/ Glycine (Tums) 500 mg PRN Q6HRS PRN PO INDIGESTION 08/17/21 18:15 08/18/21 11:01 DC Clonazepam (KlonoPIN) 0.5 mg BID PO 08/17/21 21:00 08/19/21 20:11 DC 08/19/21 09:06 Empaglifozin (Jardiance) 10 mg DAILY PO 08/18/21 09:00 09/11/21 10:51 DC 09/11/21 08:03 Hydroxychloroquine Sulfate (Plaquenil) 400 mg DAILY PO 08/18/21 09:00 09/11/21 10:51 DC 09/11/21 08:03 Hydroxyzine HCl (Atarax) 25 mg PRN Q8HRS PRN PO ANXIETY 08/17/21 18:15 08/18/21 11:01 DC 08/18/21 10:04 Levothyroxine Sodium (Synthroid) 25 mcg DAILY06 PO 08/18/21 06:00 08/20/21 10:10 DC 08/20/21 06:07 Melatonin (Melatonin) 3 mg QHS PO 08/17/21 21:00 09/11/21 10:51 DC 09/10/21 20:20 Polyethylene Glycol (miraLAX) 17 gm BID PO 08/17/21 21:00 09/11/21 10:51 DC 09/11/21 08:08 Pramipexole Dihydrochloride (miraPEX) 0.25 mg TID PO 08/17/21 21:00 09/11/21 10:51 DC 09/11/21 08:03 Propranolol HCl (Inderal) 20 mg QHS PO 08/17/21 21:00 09/11/21 10:51 DC 09/09/21 21:16 Sennosides (Senna) 8.6 mg DAILY PO 08/18/21 09:00 08/18/21 11:01 DC 08/18/21 09:47 Simethicone (Gas-X) 80 mg PRN Q6HRS PRN PO GAS / BLOATING 08/17/21 18:00 08/18/21 11:17 DC Simethicone (Gas-X) 80 mg TID PO 08/17/21 21:00 08/18/21 11:01 DC 08/18/21 09:46 Trimethoprim/ Sulfamethoxazole (Bactrim Ds) 1 tab BID PO 08/17/21 21:00 08/23/21 21:30 DC 08/23/21 20:06 Tramadol HCl (Ultram) 50 mg PRN Q6HRS PRN PO mod-sev PAIN 08/17/21 18:00 09/11/21 10:51 DC 09/10/21 20:22 Trazodone HCl (Desyrel) 50 mg QHS PO 08/17/21 21:00 08/22/21 20:25 DC 08/21/21 21:00 Non-Formulary Medication (Aspirin/Sod Bicarb/Citric Acid (Renee-[place] Original Tab Eff)) 325 mg PRN Q24HRS PRN PO DYSPEPSIA 08/17/21 18:00 UNV Capsaicin (Zostrix) 1 annamarie PRN Q12HR PRN TP PAIN 08/17/21 18:45 08/18/21 11:01 DC Carbidopa/Levodopa (Sinemet 25/100) 2 tab [id number] PO 08/17/21 18:30 09/11/21 10:51 DC 09/11/21 05:25 Citalopram Hydrobromide (CeleXA) 40 mg DAILY PO 08/18/21 09:00 08/30/21 19:54 DC 08/30/21 09:10 Glycerin (Sani-Supp Adult) 1 supp PRN Q24HRS PRN [place] 2nd choice CONSTIPATION 08/17/21 18:45 09/11/21 10:51 DC Lactobacillus Rhamnosus (Culturelle) 1 cap BID PO 08/17/21 21:00 08/18/21 11:01 DC 08/18/21 09:47 Lubiprostone (Amitiza) 24 mcg BIDWMEALS PO 08/18/21 08:00 09/11/21 10:51 DC 09/11/21 08:04 Cetirizine HCl (ZyrTEC) 10 mg DAILY PO 08/18/21 09:00 08/18/21 11:01 DC 08/18/21 09:47 Magnesium Oxide (Magnesium Oxide) 400 mg DAILY PO 08/18/21 09:00 08/18/21 11:01 DC 08/18/21 09:47 Metformin HCl (Glucophage) 1,000 mg BIDWMEALS PO 08/18/21 08:00 09/11/21 10:51 DC 09/11/21 08:04 Pantoprazole Sodium (Protonix) 40 mg DAILYAC PO 08/18/21 07:30 09/11/21 10:51 DC 09/11/21 08:03 Ondansetron HCl (Zofran Odt) 4 mg PRN Q6HRS PRN PO NAUSEA/VOMITING 08/17/21 18:30 09/11/21 10:51 DC 09/02/21 10:36 Non-Formulary Medication (Trolamine Salicylate/Aloe Vera (Aspercreme 10% Cream)) 1 annamarie PRN BID PRN TP PAIN 08/17/21 18:00 UNV Olanzapine (ZyPREXA ZYDIS) 1.25 mg PRN Q2HRS PRN PO PSYCHOSIS 08/18/21 12:00 09/11/21 10:51 DC 09/10/21 14:54 Clonazepam (KlonoPIN) 0.25 mg DAILY PO 08/20/21 09:00 08/27/21 20:18 DC 08/27/21 08:30 Clonazepam (KlonoPIN) 0.5 mg HS PO 08/19/21 21:00 08/22/21 19:00 DC 08/21/21 21:05 Clonazepam (KlonoPIN) 0.25 mg HS PO 08/22/21 21:00 08/27/21 22:00 DC 08/27/21 20:06 Levothyroxine Sodium (Synthroid) 50 mcg DAILY06 PO 08/21/21 06:00 09/11/21 10:51 DC 09/11/21 05:26 Quetiapine Fumarate (SEROquel) 25 mg QHS PO 08/20/21 21:00 08/23/21 16:13 DC 08/22/21 21:49 Trazodone HCl (Desyrel) 50 mg PRN QHS PRN PO INSOMNIA, MAY REPEAT X1 08/22/21 20:30 09/11/21 10:51 DC 09/07/21 22:38 Mirtazapine (Remeron) 7.5 mg QHS PO 08/22/21 21:00 09/11/21 10:51 DC 09/10/21 20:22 Quetiapine Fumarate (SEROquel) 37.5 mg QHS PO 08/23/21 21:00 09/11/21 10:51 DC 09/10/21 20:21 Simethicone (Gas-X) 80 mg PRN QID PRN PO GAS / BLOATING 08/23/21 16:30 09/11/21 10:51 DC 09/11/21 10:28 Sertraline HCl (Zoloft) 25 mg DAILY PO 08/25/21 09:00 08/27/21 21:00 DC 08/27/21 08:30 Sertraline HCl (Zoloft) 50 mg DAILY PO 08/28/21 09:00 08/31/21 10:45 DC 08/31/21 08:31 Clonazepam (KlonoPIN) 0.25 mg DAILY PO 08/28/21 09:00 08/30/21 12:00 DC 08/30/21 09:12 Quetiapine Fumarate (SEROquel) 12.5 mg 0900,1700 PO 08/28/21 09:00 08/29/21 18:12 DC 08/29/21 17:15 Quetiapine Fumarate (SEROquel) 12.5 mg 0900,1300,1700 PO 08/30/21 09:00 09/11/21 10:51 DC 09/11/21 08:04 Sertraline HCl (Zoloft) 25 mg 1X ONCE PO 08/31/21 10:45 08/31/21 10:48 DC 08/31/21 12:26 Sertraline HCl (Zoloft) 75 mg DAILY PO 09/01/21 09:00 09/02/21 11:00 DC 09/02/21 08:06 Sertraline HCl (Zoloft) 100 mg DAILY PO 09/04/21 09:00 08/31/21 22:10 DC Sertraline HCl (Zoloft) 100 mg DAILY PO 09/03/21 09:00 09/11/21 10:51 DC 09/11/21 08:03 I have reviewed the current psychotropics carefully including drug interactions. Risk benefit ratio favors no change other than as noted in my dictated progress note. Diagnosis: Problems: (1) Major depressive disorder with psychotic features (2) Parkinson's disease (3) Anxiety disorder, unspecified RANJITH HAWKINS MD Sep 11, 2021 21:54
--- NOTE | 2021-09-11 22:29 | PDOC ---
Exam Note: Gino Note: This note is a late entry for 09/10/2021 covers elements not covered in my initial note. Subjective: The patient was seen individually in the evening of 09/10/2021 with Tomasa ALTMAN, discussed and reviewed the chart. The patient slept 6-1/2 hours previous night. I met with her in her room. She was lying in bed, but again remembered that the discharge was planned for tomorrow. Review of Systems: Impaired ambulation with walker. She is hard of hearing. No CV, , pulmonary, eye system symptoms on review. Mental Status Exam: The patient is oriented to herself and situation. Speech is coherent. Abstraction fair. Computation impaired. Language function intact. Mood and affect anxious. Laboratory Data: Reviewed. 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 Anxiety disorder unspecified. Parkinsons disease. Plan: Continue psychotropics unchanged for now. We discussed her discharge plans for tomorrow and she was well aware of all of this. Assessment: Vital Signs/I&O: Vital Signs Date Time Temp Pulse Resp B/P (MAP) Pulse Ox O2 Delivery O2 Flow Rate FiO2 09/11/21 05:42 97.6 72 20 112/64 (80) 95 09/10/21 16:09 Room Air I & O 09/10/21 09/10/21 09/11/21 15:00 23:00 07:00 Intake Total 480 ml 720 ml Balance 480 ml 720 ml Labs: Laboratory Tests Test 09/11/21 07:20 Glucose (Fingerstick) 150 mg/dL (70-99) H Current Medications: Meds: Laboratory Tests Test 09/11/21 07:20 Glucose (Fingerstick) 150 mg/dL Current Medications Medications (Trade) Dose Ordered Sig/Ras Route PRN Reason Start Time Stop Time Status Last Admin Dose Admin Acetaminophen (Tylenol) 650 mg PRN Q6HRS PRN PO MILD PAIN / TEMP > 100.3'F 08/17/21 16:00 09/11/21 10:51 DC 08/26/21 16:38 Multi-Ingredient Ointment (Analgesic [place]) 1 annamarie PRN QID PRN TP MUSCLE PAIN 08/17/21 16:00 09/11/21 10:51 DC 08/30/21 23:02 Al Hydroxide/Mg Hydroxide (Mylanta Plus Xs) 15 ml PRN AFTMEALHC PRN PO DYSPEPSIA 08/17/21 16:00 09/11/21 10:51 DC 09/10/21 14:45 Magnesium Hydroxide (Milk Of Magnesia) 2,400 mg PRN QHS PRN PO 1st choice CONSTIPATION 08/17/21 16:00 09/11/21 10:51 DC Buspirone HCl (Buspar) 10 mg BID PO 08/17/21 21:00 09/11/21 10:51 DC 09/11/21 08:04 Calcium Carbonate/ Glycine (Tums) 500 mg PRN Q6HRS PRN PO INDIGESTION 08/17/21 18:15 08/18/21 11:01 DC Clonazepam (KlonoPIN) 0.5 mg BID PO 08/17/21 21:00 08/19/21 20:11 DC 08/19/21 09:06 Empaglifozin (Jardiance) 10 mg DAILY PO 08/18/21 09:00 09/11/21 10:51 DC 09/11/21 08:03 Hydroxychloroquine Sulfate (Plaquenil) 400 mg DAILY PO 08/18/21 09:00 09/11/21 10:51 DC 09/11/21 08:03 Hydroxyzine HCl (Atarax) 25 mg PRN Q8HRS PRN PO ANXIETY 08/17/21 18:15 08/18/21 11:01 DC 08/18/21 10:04 Levothyroxine Sodium (Synthroid) 25 mcg DAILY06 PO 08/18/21 06:00 08/20/21 10:10 DC 08/20/21 06:07 Melatonin (Melatonin) 3 mg QHS PO 08/17/21 21:00 09/11/21 10:51 DC 09/10/21 20:20 Polyethylene Glycol (miraLAX) 17 gm BID PO 08/17/21 21:00 09/11/21 10:51 DC 09/11/21 08:08 Pramipexole Dihydrochloride (miraPEX) 0.25 mg TID PO 08/17/21 21:00 09/11/21 10:51 DC 09/11/21 08:03 Propranolol HCl (Inderal) 20 mg QHS PO 08/17/21 21:00 09/11/21 10:51 DC 09/09/21 21:16 Sennosides (Senna) 8.6 mg DAILY PO 08/18/21 09:00 08/18/21 11:01 DC 08/18/21 09:47 Simethicone (Gas-X) 80 mg PRN Q6HRS PRN PO GAS / BLOATING 08/17/21 18:00 08/18/21 11:17 DC Simethicone (Gas-X) 80 mg TID PO 08/17/21 21:00 08/18/21 11:01 DC 08/18/21 09:46 Trimethoprim/ Sulfamethoxazole (Bactrim Ds) 1 tab BID PO 08/17/21 21:00 08/23/21 21:30 DC 08/23/21 20:06 Tramadol HCl (Ultram) 50 mg PRN Q6HRS PRN PO mod-sev PAIN 08/17/21 18:00 09/11/21 10:51 DC 09/10/21 20:22 Trazodone HCl (Desyrel) 50 mg QHS PO 08/17/21 21:00 08/22/21 20:25 DC 08/21/21 21:00 Non-Formulary Medication (Aspirin/Sod Bicarb/Citric Acid ([place] Original Tab Eff)) 325 mg PRN Q24HRS PRN PO DYSPEPSIA 08/17/21 18:00 UNV Capsaicin (Zostrix) 1 annamarie PRN Q12HR PRN TP PAIN 08/17/21 18:45 08/18/21 11:01 DC Carbidopa/Levodopa (Sinemet 25/100) 2 tab [id number] PO 08/17/21 18:30 09/11/21 10:51 DC 09/11/21 05:25 Citalopram Hydrobromide (CeleXA) 40 mg DAILY PO 08/18/21 09:00 08/30/21 19:54 DC 08/30/21 09:10 Glycerin (Sani-Supp Adult) 1 supp PRN Q24HRS PRN [place] 2nd choice CONSTIPATION 08/17/21 18:45 09/11/21 10:51 DC Lactobacillus Rhamnosus (Culturelle) 1 cap BID PO 08/17/21 21:00 08/18/21 11:01 DC 08/18/21 09:47 Lubiprostone (Amitiza) 24 mcg BIDWMEALS PO 08/18/21 08:00 09/11/21 10:51 DC 09/11/21 08:04 Cetirizine HCl (ZyrTEC) 10 mg DAILY PO 08/18/21 09:00 08/18/21 11:01 DC 08/18/21 09:47 Magnesium Oxide (Magnesium Oxide) 400 mg DAILY PO 08/18/21 09:00 08/18/21 11:01 DC 08/18/21 09:47 Metformin HCl (Glucophage) 1,000 mg BIDWMEALS PO 08/18/21 08:00 09/11/21 10:51 DC 09/11/21 08:04 Pantoprazole Sodium (Protonix) 40 mg DAILYAC PO 08/18/21 07:30 09/11/21 10:51 DC 09/11/21 08:03 Ondansetron HCl (Zofran Odt) 4 mg PRN Q6HRS PRN PO NAUSEA/VOMITING 08/17/21 18:30 09/11/21 10:51 DC 09/02/21 10:36 Non-Formulary Medication (Trolamine Salicylate/Aloe Vera (Aspercreme 10% Cream)) 1 annamarie PRN BID PRN TP PAIN 08/17/21 18:00 UNV Olanzapine (ZyPREXA ZYDIS) 1.25 mg PRN Q2HRS PRN PO PSYCHOSIS 08/18/21 12:00 09/11/21 10:51 DC 09/10/21 14:54 Clonazepam (KlonoPIN) 0.25 mg DAILY PO 08/20/21 09:00 08/27/21 20:18 DC 08/27/21 08:30 Clonazepam (KlonoPIN) 0.5 mg HS PO 08/19/21 21:00 08/22/21 19:00 DC 08/21/21 21:05 Clonazepam (KlonoPIN) 0.25 mg HS PO 08/22/21 21:00 08/27/21 22:00 DC 08/27/21 20:06 Levothyroxine Sodium (Synthroid) 50 mcg DAILY06 PO 08/21/21 06:00 09/11/21 10:51 DC 09/11/21 05:26 Quetiapine Fumarate (SEROquel) 25 mg QHS PO 08/20/21 21:00 08/23/21 16:13 DC 08/22/21 21:49 Trazodone HCl (Desyrel) 50 mg PRN QHS PRN PO INSOMNIA, MAY REPEAT X1 08/22/21 20:30 09/11/21 10:51 DC 09/07/21 22:38 Mirtazapine (Remeron) 7.5 mg QHS PO 08/22/21 21:00 09/11/21 10:51 DC 09/10/21 20:22 Quetiapine Fumarate (SEROquel) 37.5 mg QHS PO 08/23/21 21:00 09/11/21 10:51 DC 09/10/21 20:21 Simethicone (Gas-X) 80 mg PRN QID PRN PO GAS / BLOATING 08/23/21 16:30 09/11/21 10:51 DC 09/11/21 10:28 Sertraline HCl (Zoloft) 25 mg DAILY PO 08/25/21 09:00 08/27/21 21:00 DC 08/27/21 08:30 Sertraline HCl (Zoloft) 50 mg DAILY PO 08/28/21 09:00 08/31/21 10:45 DC 08/31/21 08:31 Clonazepam (KlonoPIN) 0.25 mg DAILY PO 08/28/21 09:00 08/30/21 12:00 DC 08/30/21 09:12 Quetiapine Fumarate (SEROquel) 12.5 mg 0900,1700 PO 08/28/21 09:00 08/29/21 18:12 DC 08/29/21 17:15 Quetiapine Fumarate (SEROquel) 12.5 mg 0900,1300,1700 PO 08/30/21 09:00 09/11/21 10:51 DC 09/11/21 08:04 Sertraline HCl (Zoloft) 25 mg 1X ONCE PO 08/31/21 10:45 08/31/21 10:48 DC 08/31/21 12:26 Sertraline HCl (Zoloft) 75 mg DAILY PO 09/01/21 09:00 09/02/21 11:00 DC 09/02/21 08:06 Sertraline HCl (Zoloft) 100 mg DAILY PO 09/04/21 09:00 08/31/21 22:10 DC Sertraline HCl (Zoloft) 100 mg DAILY PO 09/03/21 09:00 09/11/21 10:51 DC 09/11/21 08:03 I have reviewed the current psychotropics carefully including drug interactions. Risk benefit ratio favors no change other than as noted in my dictated progress note. Diagnosis: Problems: (1) Mild cognitive impairment (2) Major depressive disorder with psychotic features (3) Parkinson's disease (4) Anxiety disorder, unspecified RANJITH HAWKINS MD Sep 11, 2021 22:29
--- NOTE | 2021-09-11 22:29 | PDOC ---
Exam Note: Gino Note: Please also refer to the separate dictated note~for this date of service dictated separately.~Patient seen individually. Discussed the patient with Nursing staff reviewed the chart.~Reviewed interim history and current functioning. Reviewed vital signs,~Labs/ Radiology~and current medications noted below. Continue current treatment with the changes noted in the dictated addendum note Assessment: Vital Signs/I&O: Vital Signs Date Time Temp Pulse Resp B/P (MAP) Pulse Ox O2 Delivery O2 Flow Rate FiO2 09/11/21 05:42 97.6 72 20 112/64 (80) 95 09/10/21 16:09 Room Air I & O 09/10/21 09/10/21 09/11/21 15:00 23:00 07:00 Intake Total 480 ml 720 ml Balance 480 ml 720 ml Labs: Laboratory Tests Test 09/11/21 07:20 Glucose (Fingerstick) 150 mg/dL (70-99) H Current Medications: Meds: Laboratory Tests Test 09/11/21 07:20 Glucose (Fingerstick) 150 mg/dL Current Medications Medications (Trade) Dose Ordered Sig/Ras Route PRN Reason Start Time Stop Time Status Last Admin Dose Admin Acetaminophen (Tylenol) 650 mg PRN Q6HRS PRN PO MILD PAIN / TEMP > 100.3'F 08/17/21 16:00 09/11/21 10:51 DC 08/26/21 16:38 Multi-Ingredient Ointment (Analgesic [place]) 1 annamarie PRN QID PRN TP MUSCLE PAIN 08/17/21 16:00 09/11/21 10:51 DC 08/30/21 23:02 Al Hydroxide/Mg Hydroxide (Mylanta Plus Xs) 15 ml PRN AFTMEALHC PRN PO DYSPEPSIA 08/17/21 16:00 09/11/21 10:51 DC 09/10/21 14:45 Magnesium Hydroxide (Milk Of Magnesia) 2,400 mg PRN QHS PRN PO 1st choice CONSTIPATION 08/17/21 16:00 09/11/21 10:51 DC Buspirone HCl (Buspar) 10 mg BID PO 08/17/21 21:00 09/11/21 10:51 DC 09/11/21 08:04 Calcium Carbonate/ Glycine (Tums) 500 mg PRN Q6HRS PRN PO INDIGESTION 08/17/21 18:15 08/18/21 11:01 DC Clonazepam (KlonoPIN) 0.5 mg BID PO 08/17/21 21:00 08/19/21 20:11 DC 08/19/21 09:06 Empaglifozin (Jardiance) 10 mg DAILY PO 08/18/21 09:00 09/11/21 10:51 DC 09/11/21 08:03 Hydroxychloroquine Sulfate (Plaquenil) 400 mg DAILY PO 08/18/21 09:00 09/11/21 10:51 DC 09/11/21 08:03 Hydroxyzine HCl (Atarax) 25 mg PRN Q8HRS PRN PO ANXIETY 08/17/21 18:15 08/18/21 11:01 DC 08/18/21 10:04 Levothyroxine Sodium (Synthroid) 25 mcg DAILY06 PO 08/18/21 06:00 08/20/21 10:10 DC 08/20/21 06:07 Melatonin (Melatonin) 3 mg QHS PO 08/17/21 21:00 09/11/21 10:51 DC 09/10/21 20:20 Polyethylene Glycol (miraLAX) 17 gm BID PO 08/17/21 21:00 09/11/21 10:51 DC 09/11/21 08:08 Pramipexole Dihydrochloride (miraPEX) 0.25 mg TID PO 08/17/21 21:00 09/11/21 10:51 DC 09/11/21 08:03 Propranolol HCl (Inderal) 20 mg QHS PO 08/17/21 21:00 09/11/21 10:51 DC 09/09/21 21:16 Sennosides (Senna) 8.6 mg DAILY PO 08/18/21 09:00 08/18/21 11:01 DC 08/18/21 09:47 Simethicone (Gas-X) 80 mg PRN Q6HRS PRN PO GAS / BLOATING 08/17/21 18:00 08/18/21 11:17 DC Simethicone (Gas-X) 80 mg TID PO 08/17/21 21:00 08/18/21 11:01 DC 08/18/21 09:46 Trimethoprim/ Sulfamethoxazole (Bactrim Ds) 1 tab BID PO 08/17/21 21:00 08/23/21 21:30 DC 08/23/21 20:06 Tramadol HCl (Ultram) 50 mg PRN Q6HRS PRN PO mod-sev PAIN 08/17/21 18:00 09/11/21 10:51 DC 09/10/21 20:22 Trazodone HCl (Desyrel) 50 mg QHS PO 08/17/21 21:00 08/22/21 20:25 DC 08/21/21 21:00 Non-Formulary Medication (Aspirin/Sod Bicarb/Citric Acid ([place]enee-[place] Original Tab Eff)) 325 mg PRN Q24HRS PRN PO DYSPEPSIA 08/17/21 18:00 UNV Capsaicin (Zostrix) 1 annamarie PRN Q12HR PRN TP PAIN 08/17/21 18:45 08/18/21 11:01 DC Carbidopa/Levodopa (Sinemet 25/100) 2 tab [id number] PO 08/17/21 18:30 09/11/21 10:51 DC 09/11/21 05:25 Citalopram Hydrobromide (CeleXA) 40 mg DAILY PO 08/18/21 09:00 08/30/21 19:54 DC 08/30/21 09:10 Glycerin (Sani-Supp Adult) 1 supp PRN Q24HRS PRN [place] 2nd choice CONSTIPATION 08/17/21 18:45 09/11/21 10:51 DC Lactobacillus Rhamnosus (Culturelle) 1 cap BID PO 08/17/21 21:00 08/18/21 11:01 DC 08/18/21 09:47 Lubiprostone (Amitiza) 24 mcg BIDWMEALS PO 08/18/21 08:00 09/11/21 10:51 DC 09/11/21 08:04 Cetirizine HCl (ZyrTEC) 10 mg DAILY PO 08/18/21 09:00 08/18/21 11:01 DC 08/18/21 09:47 Magnesium Oxide (Magnesium Oxide) 400 mg DAILY PO 08/18/21 09:00 08/18/21 11:01 DC 08/18/21 09:47 Metformin HCl (Glucophage) 1,000 mg BIDWMEALS PO 08/18/21 08:00 09/11/21 10:51 DC 09/11/21 08:04 Pantoprazole Sodium (Protonix) 40 mg DAILYAC PO 08/18/21 07:30 09/11/21 10:51 DC 09/11/21 08:03 Ondansetron HCl (Zofran Odt) 4 mg PRN Q6HRS PRN PO NAUSEA/VOMITING 08/17/21 18:30 09/11/21 10:51 DC 09/02/21 10:36 Non-Formulary Medication (Trolamine Salicylate/Aloe Vera (Aspercreme 10% Cream)) 1 annamarie PRN BID PRN TP PAIN 08/17/21 18:00 UNV Olanzapine (ZyPREXA ZYDIS) 1.25 mg PRN Q2HRS PRN PO PSYCHOSIS 08/18/21 12:00 09/11/21 10:51 DC 09/10/21 14:54 Clonazepam (KlonoPIN) 0.25 mg DAILY PO 08/20/21 09:00 08/27/21 20:18 DC 08/27/21 08:30 Clonazepam (KlonoPIN) 0.5 mg HS PO 08/19/21 21:00 08/22/21 19:00 DC 08/21/21 21:05 Clonazepam (KlonoPIN) 0.25 mg HS PO 08/22/21 21:00 08/27/21 22:00 DC 08/27/21 20:06 Levothyroxine Sodium (Synthroid) 50 mcg DAILY06 PO 08/21/21 06:00 09/11/21 10:51 DC 09/11/21 05:26 Quetiapine Fumarate (SEROquel) 25 mg QHS PO 08/20/21 21:00 08/23/21 16:13 DC 08/22/21 21:49 Trazodone HCl (Desyrel) 50 mg PRN QHS PRN PO INSOMNIA, MAY REPEAT X1 08/22/21 20:30 09/11/21 10:51 DC 09/07/21 22:38 Mirtazapine (Remeron) 7.5 mg QHS PO 08/22/21 21:00 09/11/21 10:51 DC 09/10/21 20:22 Quetiapine Fumarate (SEROquel) 37.5 mg QHS PO 08/23/21 21:00 09/11/21 10:51 DC 09/10/21 20:21 Simethicone (Gas-X) 80 mg PRN QID PRN PO GAS / BLOATING 08/23/21 16:30 09/11/21 10:51 DC 09/11/21 10:28 Sertraline HCl (Zoloft) 25 mg DAILY PO 08/25/21 09:00 08/27/21 21:00 DC 08/27/21 08:30 Sertraline HCl (Zoloft) 50 mg DAILY PO 08/28/21 09:00 08/31/21 10:45 DC 08/31/21 08:31 Clonazepam (KlonoPIN) 0.25 mg DAILY PO 08/28/21 09:00 08/30/21 12:00 DC 08/30/21 09:12 Quetiapine Fumarate (SEROquel) 12.5 mg 0900,1700 PO 08/28/21 09:00 08/29/21 18:12 DC 08/29/21 17:15 Quetiapine Fumarate (SEROquel) 12.5 mg 0900,1300,1700 PO 08/30/21 09:00 09/11/21 10:51 DC 09/11/21 08:04 Sertraline HCl (Zoloft) 25 mg 1X ONCE PO 08/31/21 10:45 08/31/21 10:48 DC 08/31/21 12:26 Sertraline HCl (Zoloft) 75 mg DAILY PO 09/01/21 09:00 09/02/21 11:00 DC 09/02/21 08:06 Sertraline HCl (Zoloft) 100 mg DAILY PO 09/04/21 09:00 08/31/21 22:10 DC Sertraline HCl (Zoloft) 100 mg DAILY PO 09/03/21 09:00 09/11/21 10:51 DC 09/11/21 08:03 I have reviewed the current psychotropics carefully including drug interactions. Risk benefit ratio favors no change other than as noted in my dictated progress note. Diagnosis: Problems: (1) Mild cognitive impairment (2) Major depressive disorder with psychotic features (3) Parkinson's disease (4) Anxiety disorder, unspecified RANJITH HAWKINS MD Sep 11, 2021 22:29
--- NOTE | 2021-09-16 22:00 | DS ---
DATE OF DISCHARGE: 09/11/2021 DISCHARGE SUMMARY/PSYCHIATRIC PROGRESS NOTE This is a late entry, date of service 09/11/2021, covers the elements not covered in my initial note. REASON FOR ADMISSION: Please refer to the admission history for details. Briefly, the patient is an 86-year-old female referred to us from [facility] by her primary care physician on account of worsening psychosis, agitation, and anxiety within the context of her memory deficits and an early dementia. She was agitated, anxious, attempting to hit staff, name calling. She was yelling to call the police and "get the people out." There was no one in her room while she did this. She was delusional, talking to people not there, refusing medications, seeing children as part of her hallucinations, worsening with sundowning. She had failed outpatient psychiatric interventions. Behaviors were deemed unmanageable at the facility, resulting in this referral for inpatient psychiatric stabilization. SIGNIFICANT FINDINGS AND CLINICAL COURSE: Following admission, the patient was seen daily individually by myself from a psychiatric standpoint, medical followup, Dr. Russell/Dr. Sullivan. The patient remained extremely hyperverbal, anxious, psychotic initially. Adjustments were made in her psychotropics and she seemed to respond to a combination of BuSpar 10 mg b.i.d., Zyprexa p.r.n., melatonin 3 mg at bedtime, trazodone 50 mg at bedtime, may repeat x 1 p.r.n. insomnia, Seroquel 37.5 mg at bedtime, Remeron 7.5 mg at bedtime, Zoloft 100 mg a day, Seroquel 12.5 mg 0900, 1300, and 1700. She was on Sinemet as part of her Parkinson's management. Gradually, psychotic symptoms appeared to subside. Anxiety was better. She still would have some sundowning and worsening confusion in the evening time, though daytime memory was better. CONDITION ON DISCHARGE: Improved. REVIEW OF SYSTEMS: Prior to discharge, impaired ambulation with walker. No CV, , pulmonary, eye, ENT system symptoms on review. MENTAL STATUS EXAMINATION: Oriented to herself and situation. Speech coherent, somewhat rapid. Abstraction fair. Computation impaired. Language function intact, slightly distractible. No suicidal or homicidal ideation. LABORATORY DATA: Reviewed. FINAL DIAGNOSES: Major depressive disorder with psychotic features. 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 Rest unchanged from admission. DISCHARGE MEDICATIONS: Please refer to the MRAD. DISCHARGE INSTRUCTIONS: Outpatient psychiatric and medical followup at the assisted living. Time for discharge day management greater than [address]: Cyndee TID: [id number]
== END 2021-09-11 10:35 | DRG 885 ==
LOC: GEROPSY 14:54
PROVIDERS: ADMIT Psychiatry & Neurology Psychiatry; ATTEND Psychiatry & Neurology Psychiatry
DX: F32.3 Major depressive disorder, single episode, severe with psychotic features (principal); F05 Delirium due to known physiological condition; F02.81 Dementia in other diseases classified elsewhere, unspecified severity, with behavioral disturbance; E11.9 Type 2 diabetes mellitus without complications; E03.9 Hypothyroidism, unspecified; G20 Parkinson's disease; F41.1 Generalized anxiety disorder; F63.9 Impulse disorder, unspecified; G30.9 Alzheimer's disease, unspecified; H91.90 Unspecified hearing loss, unspecified ear; K59.09 Other constipation; Z91.041 Radiographic dye allergy status; Z91.040 Latex allergy status; Z79.899 Other long term (current) drug therapy; Z20.822 Contact with and (suspected) exposure to COVID-19
CPT/HCPCS: 36415; 70450; 80053; 80061; 81001; 82306; 82607; 82947; 83036; 83540; 83550; 83735; 84436; 84443; 84480; 85025; 85379; 86592; 93005; Q0162; U0003; 97110; 97116; 97530; 97535

== ENCOUNTER 2021-12-20 13:46 | Inpatient (IN) | payer MEDICARE, OTHER ==
[~2021-12-20] VITALS: Ht 154.9 cm; Wt 53.2 kg
[~2021-12-20 13:46] MED LIST: ACET325T9 PO; ASPI1TAB55 PO; BUSP10TA PO; CALC500T31 PO; CAPS1ADH8 TP; CARB1TAB47 PO; CLON0.5T PO; EMPA10TA3 PO; ESCITALOPRAM OX20 MG PO; GLYC1SUP31 RC; GLYC5.4S RC; HYDR200T71 PO; HYDR25TA PO; L. A1TAB10 PO; LEVO25TA4 PO; LEVO50TA5 PO; LINA145C PO; LORA10CA PO; MAG-115 PO; MAGN24003 PO; MAGN400C PO; MELA3TAB4 PO; METF10007 PO; METH57CR17 TP; MIRT-37 PO; OLAN2.5T3 PO; OLAN5TAB3 PO; OLAN5TAB7 PO; OMEP20TA63 PO; ONDA4TAB7 PO; POLY17PO5 PO; PRAM0.255 PO; PROP20TA PO; QUET25TA5 PO; SENN-182 PO; SERT100T PO; SIME80TA PO; SULF1TAB24 PO; TRAM50TA PO; TRAZ-120 PO; TROL35.4 TP
--- NOTE | 2021-12-20 14:35 | PHYS DOC ---
Past History Past Medical History: Anxiety, Constipation, Dementia, Depression, Diabetes, Hip Fracture, Hypothyroid Additional Past Medical Histor: parkinsons, insomnia (SARAH CASTELLANOS APRN) Past Surgical History: No Surgical History (SARAH CASTELLANOS APRN) Smoking: Non-smoker Alcohol Use: None Drug Use: None (SARAH CASTELLANOS APRN) General Adult EDM: Chief Complaint: MECHANICAL FALL HPI: HPI: Patient is an 86-year-old female that presents today via [facility] after a fall from her wheelchair. Patient was discharged from [facility] yesterday after being admitted for electrolyte imbalance and failure to thrive, she currently lives at [facility] with her who was pushing her in her wheelchair and she fell forward out of her wheelchair. Patient has a history of depression, anxiety, Parkinson's disease, Lewys dementia and is unable to take care of herself. Patient is unable to verbalize any complaints at this time, she does remember falling out of her wheelchair but does not complain of pain anyplace else. Patient is unable to say when her last tetanus shot was. (SARAH CASTELLANOS APRN) Review of Systems: Review of Systems: Constitutional: Denies fever or chills Eyes: Denies change in visual acuity HENT: Abrasions and contusions to the forehead and nose Respiratory: Denies cough or shortness of breath Cardiovascular: Denies chest pain or edema GI: Denies abdominal pain, nausea, vomiting, bloody stools or diarrhea : Denies dysuria Musculoskeletal: Denies back pain or joint pain Integument: Denies rash Neurologic: Denies headache, focal weakness or sensory changes Endocrine: Denies polyuria or polydipsia Lymphatic: Denies swollen glands Psychiatric: Denies depression or anxiety (SARAH CASTELLANOS APRN) Allergies: Allergies: Allergies Coded Allergies Type Severity Reaction Last Updated Verified hydrocodone Allergy Unknown 02/17/21 Yes iodine Allergy Unknown 02/17/21 Yes latex Allergy Unknown 02/17/21 Yes (SARAH CASTELLANOS APRN) Physical Exam: PE: Constitutional: Well developed, well nourished, no acute distress, non-toxic appearance. [] HENT: Section of palpation of the head and face notes abrasions along the bridge of the nose and on the forehead area centrally located near the connection of the nose, no other facial trauma is noted no lacerations, abrasions, contusions or ecchymosis noted septum is midline with no septal hematoma noted Eyes: PERRLA, EOMI, conjunctiva normal, no discharge. [] Neck: Normal range of motion, no tenderness, supple, no stridor, no midline tenderness noted Cardiovascular:Heart rate regular rhythm, no murmur [] Lungs & Thorax: Bilateral breath sounds clear to auscultation [] Abdomen: Bowel sounds normal, soft, no tenderness, no masses, no pulsatile masses. [] Skin: Warm, dry, no erythema, no rash. [] Back: No tenderness, no CVA tenderness. [] Extremities: No tenderness, no cyanosis, no clubbing, ROM intact, no edema. [] Neurologic: Alert and oriented X 3, normal motor function, normal sensory function, no focal deficits noted. [] Psychologic: Affect normal, judgement normal, mood normal. [] (SARAH CASTELLANOS APRN) Current Patient Data: Labs: Laboratory Tests Test 12/20/21 15:15 White Blood Count 7.8 x10^3/uL Red Blood Count 4.55 x10^6/uL Hemoglobin 13.5 g/dL Hematocrit 40.8 % Mean Corpuscular Volume 90 fL Mean Corpuscular Hemoglobin 30 pg Mean Corpuscular Hemoglobin Concent 33 g/dL Red Cell Distribution Width 14.2 % Platelet Count 424 x10^3/uL Neutrophils (%) (Auto) 73 % Lymphocytes (%) (Auto) 17 % Monocytes (%) (Auto) 7 % Eosinophils (%) (Auto) 2 % Basophils (%) (Auto) 1 % Neutrophils # (Auto) 5.7 x10^3uL Lymphocytes # (Auto) 1.3 x10^3/uL Monocytes # (Auto) 0.6 x10^3/uL Eosinophils # (Auto) 0.1 x10^3/uL Basophils # (Auto) 0.1 x10^3/uL Sodium Level 138 mmol/L Potassium Level 4.6 mmol/L Chloride Level 99 mmol/L Carbon Dioxide Level 30 mmol/L Anion Gap 9 Blood Urea Nitrogen 32 mg/dL Creatinine 0.6 mg/dL Estimated GFR (Cockcroft-Gault) 94.8 Glucose Level 188 mg/dL Calcium Level 9.3 mg/dL Current Medications Medications (Trade) Dose Ordered Sig/Ras Route PRN Reason Start Time Stop Time Status Last Admin Dose Admin Diphtheria/ Tetanus/Acell Pertussis (Boostrix) 0.5 ml ONCE ONCE VAX IM 12/20/21 15:15 12/20/21 15:16 DC Vital Signs: Vital Signs Date Time Temp Pulse Resp B/P (MAP) Pulse Ox O2 Delivery O2 Flow Rate FiO2 12/20/21 14:03 99 20 130/68 (88) 98 Room Air (SARAH CASTELLANOS CHIEF [employer]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 There are bilateral hip prostheses. The distal tip of the femoral stem on the left is incompletely imaged. There is no definite acute fracture. There is heterotopic ossification at the superior lateral aspect of the left hip. The sacrum is partially obscured. No pubic symphysis or sacroiliac joint widening. Lower lumbar degenerative disc disease noted. There are multiple calcified granulomas in the left gluteal region. IMPRESSION: No displaced fracture. Osteopenia. Electronically signed by: Nataliia Urbina MD (12/20/2021 3:08 PM) [id number]] REASON: FALL PROCEDURE: CT MAXILLOFACIAL WO CONTRAST EXAM: CT head, maxillofacial bones, and cervical spine without contrast INDICATION: Fall COMPARISON: CT head 12/15/2021 TECHNIQUE: Axial CT imaging through the head, maxillofacial bones, and cervical spine without intravenous contrast. Sagittal and coronal reformats were obtained. One or more of the following individualized dose reduction techniques were utilized for this examination: 1. Automated exposure control 2. Adjustment of the mA and/or kV according to patient size 3. Use of iterative reconstruction technique. FINDINGS: CT head: Ventricles and sulci are moderately enlarged. No intracranial hemorrhage, acute infarct, or mass lesion. There is mild periventricular and deep white matter hypoattenuation. The skull and scalp are intact. Paranasal sinuses are clear. There is scattered opacification of the right mastoid air cells. Left mastoid air cells are clear. There are surgical changes of the globes. CT facial bones: No acute fracture of the facial bones. Temporomandibular joints are normally aligned. Paranasal sinuses are clear. There is scattered opacification of the right mastoid air cells. The left mastoid air cells are clear. Globes and orbits are intact. There are surgical changes of the globes. Mild soft tissue swelling along the forehead. CT cervical spine: The bones are diffusely demineralized. There is no acute fracture.. There is mild listhesis at multiple levels throughout the cervical spine. There is severe disc space narrowing, greatest at C3-C4 and C4-C5 where there is partial fusion across the disc spaces. There is degenerative soft tissue thickening about the tip of the dens. Probable moderate canal narrowing at C2-C3, C3-C4, C4-C5. Mild canal narrowing at C5-C6 and C6-C7. Mild bilateral foraminal narrowing at C5-C6. There are multiple right thyroid nodules, the largest measuring 1.5 cm. Mild scarring in the lung apices. Prevertebral soft tissues normal. IMPRESSION: 1. No acute intracranial abnormality. 2. No acute fracture of the facial bones. Mild soft tissue contusion of the forehead. 3. No acute osseous abnormality of the cervical spine. 4. Severe degenerative disc disease. 5. Multiple thyroid nodules measuring up to 1.5 cm. Correlate with dedicated thyroid ultrasound. Electronically signed by: Nataliia Urbina MD (12/20/2021 3:20 PM) [id number] REASON: FALL PROCEDURE: CHEST AP ONLY EXAM: XR CHEST 1V 12/20/2021 2:33 PM CLINICAL INDICATION: Fall COMPARISON: Chest radiograph 12/15/2021 TECHNIQUE: AP view of the chest FINDINGS: The heart is normal in size. Lungs are adequately expanded. No consolidation, pleural effusion, or pneumothorax. No acute osseous abnormality. IMPRESSION: No acute cardiopulmonary abnormality. Electronically signed by: Nataliia Urbina MD (12/20/2021 3:09 PM) [id number] (SARAH CASTELLANOS APRN) Heart Score: C/O Chest Pain: N/A Risk Factors: Risk Factors: DM, Current or recent (<one month) smoker, HTN, HLP, family history of CAD, obesity. Risk Scores: Score 0 - 3: 2.5% MACE over next 6 weeks - Discharge Home Score 4 - 6: 20.3% MACE over next 6 weeks - Admit for Clinical Observation Score 7 - 10: 72.7% MACE over next 6 weeks - Early Invasive Strategies (SARAH CASTELLANOS APRN) Course & Med Decision Making: Course & Med Decision Making Pertinent Labs and Imaging studies reviewed. (See chart for details) Did review this case with Dr. Curtis, he feels that the patient safety is a concern he recommended that the patient be admitted for possible placement to long term facility due to her inability to take care of herself. We did speak to Dr. Lehman who agreed to admit her for failure to thrive and for placement in a long term facility. We did update patient's tetanus, we did check some basic labs we will continue to wait a urine her CT of her head was negative for any acute process. (SARAH CASTELLANOS APRN) Course & Med Decision Making I was the Attending physician on the above date of service of this patient. This patient was evaluated, examined, treated, and dispositioned from the emergency department by the mid-level practitioner. I just saw patient and admitted her to facility, I am unsure why she was discharged home without PT/OT evaluation to setting where she can obviously requires higher level of care than provided. I agreed to need for admission Electronically signed, Gertrudis Juan DO (GERTRUDIS JUAN DO) Jamila Disclaimer: Jamila Disclaimer: This electronic medical record was generated, in whole or in part, using a voice recognition dictation system. (SARAH CASTELLANOS APRN) Departure Departure: Impression: Primary Impression: Failure to thrive in adult Additional Impressions: Fall Qualified Codes: W19.XXXA - Unspecified fall, initial encounter Facial contusion Qualified Codes: S00.83XA - Contusion of other part of head, initial encounter Disposition: ADMITTED INPATIENT Admitting Physician: Vishnu Russell (SARAH CASTELLANOS APRN) Condition: STABLE Referrals: EMI AGUILAR MD (PCP) SARAH CASTELLANOS APRN Dec 20, 2021 14:35 GERTRUDIS JUAN DO Dec 27, 2021 06:32
--- NOTE | 2021-12-20 15:10 | RAD ---
EXAM: XR PELVIS 1-2V 12/20/2021 2:33 PM CLINICAL INDICATION: Fall COMPARISON: None TECHNIQUE: AP view the pelvis FINDINGS: The bones are diffusely demineralized. There are bilateral hip prostheses. The distal tip of the femoral stem on the left is incompletely imaged. There is no definite acute fracture. There is heterotopic ossification at the superior lateral aspect of the left hip. The sacrum is partially obs cured. No pubic symphysis or sacroiliac joint widening. Lower lumbar degenerative disc disease noted. There are multiple calcified granulomas in the left gluteal region. IMPRESSION: No displaced fracture. Osteopenia. Electronically signed by: Nataliia Urbina MD (12/20/2021 3:08 PM) [id number]
--- NOTE | 2021-12-20 15:11 | RAD ---
EXAM: XR CHEST 1V 12/20/2021 2:33 PM CLINICAL INDICATION: Fall COMPARISON: Chest radiograph 12/15/2021 TECHNIQUE: AP view of the chest FINDINGS: The heart is normal in size. Lungs are adequately expanded. No consolidation, pleural effu deshaun, or pneumothorax. No acute osseous abnormality. IMPRESSION: No acute cardiopulmonary abnormality. Electronically signed by: Nataliia Urbina MD (12/20/2021 3:09 PM) [id number]
[2021-12-20] MEDS ORDERED: DIPHTH,PERTUSS(ACELL),TET TOX 0.5 ML DISP.SYRIN. VAX IM ONE (15:15)
--- NOTE | 2021-12-20 15:23 | RAD ---
EXAM: CT head, maxillofacial bones, and cervical spine without contrast INDICATION: Fall COMPARISON: CT head 12/15/2021 TECHNIQUE: Axial CT imaging through the head, maxillofacial bones, and cervical spine without intrave nous contrast. Sagittal and coronal reformats were obtained. One or more of the following individualized dose reduction techniques were utilized for this examinat ion: 1. Automated exposure control 2. Adjustment of the mA and/or kV according to patient size 3. Use of iterative reconstruction technique. FINDINGS: CT head: Ventricles and sulci are moderately enlarged. No intracranial hemorrhage, acute infarct, or mass lesi on. There is mild periventricular and deep white matter hypoattenuation. The skull and scalp are inta ct. Paranasal sinuses are clear. There is scattered opacification of the right mastoid air cells. Lef t mastoid air cells are clear. There are surgical changes of the globes. CT facial bones: No acute fracture of the facial bones. Temporomandibular joints are normally aligned. Paranasal sinus es are clear. There is scattered opacification of the right mastoid air cells. The left mastoid air c ells are clear. Globes and orbits are intact. There are surgical changes of the globes. Mild soft tis quita swelling along the forehead. CT cervical spine: The bones are diffusely demineralized. There is no acute fracture.. There is mild listhesis at multip le levels throughout the cervical spine. There is severe disc space narrowing, greatest at C3-C4 and C4-C5 where there is partial fusion across the disc spaces. There is degenerative soft tissue thicken ing about the tip of the dens. Probable moderate canal narrowing at C2-C3, C3-C4, C4-C5. Mild canal n arrowing at C5-C6 and C6-C7. Mild bilateral foraminal narrowing at C5-C6. There are multiple right th yroid nodules, the largest measuring 1.5 cm. Mild scarring in the lung apices. Prevertebral soft tiss ues normal. IMPRESSION: 1. No acute intracranial abnormality. 2. No acute fracture of the facial bones. Mild soft tissue contusion of the forehead. 3. No acute osseous abnormality of the cervical spine. 4. Severe degenerative disc disease. 5. Multiple thyroid nodules measuring up to 1.5 cm. Correlate with dedicated thyroid ultrasound. Electronically signed by: Nataliia Urbina MD (12/20/2021 3:20 PM) [id number]
[2021-12-20 15:52] LABS: CALCIUM 9.3 mg/dL (8.5-10.1); CREATININE 0.6 mg/dL (0.6-1.0); GFR 94.8; POTASSIUM 4.6 mmol/L (3.5-5.1)
[2021-12-20 16:34] LABS: BASO # 0.1 x10^3/uL (0.0-0.2); BASO % 1 % (0-3); EOS # 0.1 x10^3/uL (0.0-0.7); EOS % 2 % (0-3); HEMATOCRIT 40.8 % (36.0-47.0); HEMOGLOBIN 13.5 g/dL (12.0-15.5); LYMPH # 1.3 x10^3/uL (1.0-4.8); LYMPH % 17 % (24-48); MEAN CORPUSCULAR HEMOGLOBIN 30 pg (25-35); MEAN CORPUSCULAR HGB CONC 33 g/dL (31-37); MEAN CORPUSCULAR VOLUME 90 fL (79-100); MONO # 0.6 x10^3/uL (0.0-1.1); MONO % 7 % (0-9); NEUT # 5.7 x10^3uL (1.8-7.7); NEUT % 73 % (31-73); PLATELET COUNT 424 x10^3/uL (140-400); RED BLOOD COUNT 4.55 x10^6/uL (3.50-5.40); RED CELL DISTRIBUTION WIDTH 14.2 % (11.5-14.5); WHITE BLOOD COUNT 7.8 x10^3/uL (4.0-11.0)
[2021-12-20] MEDS ORDERED: ACETAMINOPHEN 325 MG TABLET PO PRN (16:45)
[2021-12-20] MEDS ORDERED: NITROGLYCERIN SUBLINGUAL 0.4 MG BOTTLE OF 25. SL PRN (16:45)
[2021-12-20 17:36] LABS: CLARITY,URINE CLEAR; COLOR,URINE YELLOW; GLUCOSE,URINE >=1000 mg/dL (NEG)
[2021-12-20 17:37] LABS: BACTERIA,URINE 0 /HPF (0-FEW); NITRITE,URINE NEG (NEG); RBC,URINE 0 /HPF (0-2); SQUAMOUS EPITHELIAL CELL,UR OCC /LPF; UROBILINOGEN,URINE 0.2 mg/dL (0.2 mg/dL); WBC,URINE 0 /HPF (0-4)
[2021-12-20 19:37] LABS: INFLUENZA A PATIENT NEGATIVE (NEGATIVE); INFLUENZA B PATIENT NEGATIVE (NEGATIVE)
[2021-12-20 21:09] VITALS: BP 115/66
[2021-12-20] MEDS: MELATONIN 3 MG TABLET PO SCH (21:25)
[2021-12-20] MEDS: PROPRANOLOL 20 MG TABLET. PO SCH (21:26)
[2021-12-20] MEDS: MIRTAZAPINE 7.5 MG TABLET. PO SCH (21:26)
[2021-12-20] MEDS: traMADol 50 MG TABLET PO PRN (21:26)
[2021-12-20] MEDS: POLYETHYLENE GLYCOL 3350 17 GM PACKET. PO SCH (21:27)
[2021-12-20] MEDS: CARBIDOPA/LEVODOPA 25/100MG TABLET PO SCH (23:06)
[2021-12-21] MEDS: traMADol 50 MG TABLET PO PRN ×2 (05:32→20:15)
[2021-12-21] MEDS: LEVOTHYROXINE 50 MCG TABLET PO SCH (05:33)
[2021-12-21] MEDS: CARBIDOPA/LEVODOPA 25/100MG TABLET PO SCH ×4 (05:33→23:39)
[2021-12-21 05:48] VITALS: BP 115/67
[2021-12-21] MEDS: PANTOPRAZOLE 40 MG TABLET. PO SCH (08:23)
[2021-12-21] MEDS: POLYETHYLENE GLYCOL 3350 17 GM PACKET. PO SCH ×2 (08:23→20:48)
[2021-12-21] MEDS: LUBIPROSTONE 24 MCG CAPSULE PO SCH ×2 (08:23→17:45)
[2021-12-21] MEDS: metFORMIN 500 MG TABLET PO SCH ×2 (08:23→17:45)
[2021-12-21] MEDS: SERTRALINE 100 MG TABLET. PO SCH (08:23)
[2021-12-21] MEDS: EMPAGLIFLOZIN 10 MG TABLET. PO SCH (08:24)
[2021-12-21] MEDS: PROPRANOLOL 20 MG TABLET. PO SCH (08:24)
[2021-12-21] MEDS: HYDROXYCHLOROQUINE 200 MG TABLET PO SCH (08:27)
[2021-12-21 11:16] VITALS: BP 109/68
[2021-12-21 14:54] VITALS: BP 134/85
--- NOTE | 2021-12-21 16:30 | HP ---
DATE OF SERVICE: 12/21/2021 ADMIT DATE: 12/20/2021 HISTORY OF PRESENT ILLNESS: The patient is an 86-year-old female patient who was discharged from this facility on 12/18/2021. She apparently came back to the Emergency Room by EMS with a mechanical fall from her wheelchair. The patient was discharged after being admitted for electrolyte imbalance and failure to thrive and she currently lives at [facility] with her who was pushing her in her wheelchair and she fell forward out of her wheelchair. She was unable to verbalize any complaints when she arrived to the Emergency Room; however, she does remember falling out of her wheelchair, but has not complained of pain anywhere. However, she is unable to say when her last tetanus shot was. She apparently was extensively investigated in the Emergency Room with lab work as well as extensive imaging studies. Her lab work was mostly unremarkable. Her urinalysis was essentially unrevealing and her influenza A, B and coronavirus by rapid testing was all negative. She has had a chest x-ray, which showed no acute cardiopulmonary abnormality. Her CT scan of the head and cervical spine showed no acute intracranial abnormalities, no acute fracture of the left facial bones. She has mild soft tissue contusion of the forehead. No acute osseous abnormality of the cervical spine, severe degenerative disk disease and multiple thyroid nodules measuring up to cm. X-ray of the pelvis showed no displaced fracture with osteopenia. The patient was admitted with failure to thrive, fall, facial contusion with a plan to arrange for her to go to care home facility for further rehabilitation. PAST MEDICAL HISTORY: Significant for type 2 diabetes mellitus, Parkinson's disease, hypothyroidism, chronic constipation and dysphagia. PAST SURGICAL HISTORY: Unremarkable. ALLERGIES: SHE IS ALLERGIC TO HYDROCODONE, IODINE AND LATEX. MEDICATIONS: She is currently on the following medications: She is on hydroxychloroquine sulfate 200 mg once a day, propranolol 20 mg at bedtime, tramadol 50 mg every 6 hours as needed, mirtazapine 7.5 mg at bedtime, sertraline 100 mg daily, olanzapine 5 mg every 8 hours, carbidopa/levodopa 25/100, she takes 2 tablets 4 times a day. She is on polyethylene glycol 17 grams twice a day, omeprazole, Prilosec OTC 20 mg once a day. She is on linaclotide or Linzess 145 mcg daily. She gets it 3 times a day, metformin 1000 mg twice a day with meals. She is on Jardiance 10 mg once a day and levothyroxine sodium 50 mcg once a day, melatonin 3 mg at bedtime. FAMILY HISTORY: Noncontributory. SOCIAL HISTORY: She is and lives with her at [facility]. She apparently does not smoke, drink alcohol or use recreational drugs. REVIEW OF SYSTEMS: As per history of present illness. PHYSICAL EXAMINATION: GENERAL: On arrival to the Emergency Room, she looked well and was clearly in no apparent respiratory distress. No pallor, jaundice, cyanosis or thyromegaly. No jugular venous distention. No limb edema. VITAL SIGNS: Her heart rate was 99, blood pressure was 130/68, temperature was 98.2, respiratory rate 20, and oxygen saturation was 98% on room air. HEAD, EYES, EARS, NOSE, AND THROAT: Normocephalic, atraumatic. NECK: Supple. HEART: Normal first and second heart sounds. No gallop, rub or murmur. CHEST: Clear to auscultation, no crepitation or rhonchi. ABDOMEN: Scaphoid, soft, nontender. NEUROLOGIC: She was confused, demented, but without any obvious lateralizing sign. She is mostly wheelchair bound. LABORATORY WORK: On arrival showed a white cell count 7800, hemoglobin 14, hematocrit 41, MCV 90 and platelet count 424,000. Her chemistry showed a serum sodium 138, potassium 4.6, chloride 99, bicarbonate 30, anion gap of 9, BUN 32, creatinine 0.6. Estimated GFR was 94 mL per minute. Her glucose 188, calcium was 9.3. Her urinalysis showed the urine was yellow, clear with a pH of 5.5, specific gravity of 1.025. The urine was negative for protein, there was large amount of glucosuria, negative for ketones, blood, nitrite and bilirubin. It was negative for leukocyte esterase with 0 rbc's, 0 wbc's and no bacteria. Her influenza A and B as well as a SARS-CoV-2 antigen rapid testing was negative. ASSESSMENT AND PLAN: The patient was admitted with: 1. Failure to thrive in adult. 2. Fall. 3. Facial contusion. She has multiple other medical problems including type 2 diabetes mellitus, Parkinson's disease, hypothyroidism, chronic constipation and dysphagia. We will reconcile all her medications. We will consult physical and occupational therapy and hopefully she can be discharged either back to [facility] and/or [facility]. RAN/KASIA/GAURI DR: Elyse TID: [id number]
[2021-12-21 19:50] VITALS: BP 129/68
[2021-12-21] MEDS: MELATONIN 3 MG TABLET PO SCH (20:14)
[2021-12-21] MEDS: MIRTAZAPINE 7.5 MG TABLET. PO SCH (20:15)
--- NOTE | 2021-12-21 20:39 | PN ---
DATE: 12/21/2021 SUBJECTIVE: The patient is sitting comfortably in her wheelchair in no apparent respiratory distress. She is extremely obsessed with her bowel, but offered no other complaint. Nursing staff did not voice any concerns that she has generally uneventful night. She is able to ambulate with a walker with assistance. PHYSICAL EXAMINATION: GENERAL: When I examined her, she was pale, somewhat cachectic, but not jaundiced or cyanosed, no lymphadenopathy, no thyromegaly, no jugular venous distention. No limb edema. VITAL SIGNS: His heart rate was 89, blood pressure was 115/66, temperature 98.4, respiratory rate was 18 and oxygen saturation was 96%. The rest of clinical exam stable. ASSESSMENT AND PLAN: Talking with a mental health social worker, she apparently has an arrangement for her to be admitted either back to [facility] facility or [facility] [place] tomorrow. CHELA DR: Elyse TID: [id number]
[2021-12-22] MEDS: CARBIDOPA/LEVODOPA 25/100MG TABLET PO SCH ×2 (04:15→12:56)
[2021-12-22] MEDS: LEVOTHYROXINE 50 MCG TABLET PO SCH (04:15)
[2021-12-22] MEDS: traMADol 50 MG TABLET PO PRN (04:15)
[2021-12-22 06:17] VITALS: BP 130/71
[2021-12-22] MEDS: HYDROXYCHLOROQUINE 200 MG TABLET PO SCH (08:30)
[2021-12-22] MEDS: metFORMIN 500 MG TABLET PO SCH (08:30)
[2021-12-22] MEDS: POLYETHYLENE GLYCOL 3350 17 GM PACKET. PO SCH (08:30)
[2021-12-22] MEDS: PROPRANOLOL 20 MG TABLET. PO SCH (08:30)
[2021-12-22] MEDS: EMPAGLIFLOZIN 10 MG TABLET. PO SCH (08:30)
[2021-12-22] MEDS: PANTOPRAZOLE 40 MG TABLET. PO SCH (08:30)
[2021-12-22] MEDS: SERTRALINE 100 MG TABLET. PO SCH (08:30)
[2021-12-22] MEDS: LUBIPROSTONE 24 MCG CAPSULE PO SCH (08:31)
[2021-12-22 12:26] VITALS: BP 132/74
--- NOTE | 2021-12-27 14:12 | DS ---
DATE OF DISCHARGE: 12/22/2021 HOSPITAL COURSE: The patient is an 86-year-old female patient, a resident at [facility], who apparently was discharged from [facility] on 12/18/2021. She apparently came back to the Emergency Room by EMS with a mechanical fall from her wheelchair. The patient was discharged after being admitted for electrolyte imbalance and failure to thrive and she currently lives at [facility] with her , who apparently was pushing her in her wheelchair and she fell forward out of her wheelchair. She was unable to verbalize any complaints when she arrived to the Emergency Room; however, she does remember falling out of the wheelchair; however, she did not complain of any pain anywhere. She is unable to say when her last tetanus shot was. She was extensively investigated in the Emergency Room with the lab work as well as extensive imaging studies. Her lab work was mostly unremarkable. Her urinalysis was essentially unremarkable and her influenza A and B and coronavirus by rapid testing was negative. She has had a chest x-ray, which showed no acute cardiopulmonary abnormality. Her CT scan of the head and cervical spine showed no acute intracranial abnormalities, no acute fracture and x-ray of the pelvis showed no displaced fracture with osteopenia. She was admitted for failure to thrive, fall, facial contusion with a plan to arrange for her to go to a retirement facility for further rehabilitation. The plan was initially for her to go to [facility]; however, she was accepted back to [facility] to go to be discharged on hospice. PHYSICAL EXAMINATION: GENERAL: When I examined her on the day of discharge, the patient was pale, somewhat cachectic, but not jaundiced or cyanosed or thyromegaly. No jugular venous distention. No limb edema. VITAL SIGNS: Her heart rate was 72. Her blood pressure 132/74. Temperature was 97.5, respiratory rate 20, and oxygen saturation was 98%. HEAD, EYES, EARS, NOSE AND THROAT: Normocephalic, atraumatic. NECK: Supple. HEART: Showed normal first and second heart sounds. No gallop, rub or murmur. CHEST: Clear to auscultation. No crepitation or rhonchi. ABDOMEN: Slightly distended, soft, nontender. NEUROLOGIC: She was grossly intact. LABORATORY :WORK Showed a serum sodium 138, potassium 4.6, chloride 99, bicarbonate 30, anion gap of 9, BUN 32, creatinine 0.6. Estimated GFR was 95 mL per minute. Her glucose 188 and calcium was 9.3. Her white cell count was , hemoglobin 14, hematocrit 41, MCV 90 and platelet count of 423,000. She was discharged to [facility] facility to continue to go on hospice for end of life care. FINAL DISCHARGE DIAGNOSES: Type 2 diabetes mellitus, advanced Parkinson's disease, hypothyroidism, chronic constipation, dysphagia, profound dementia with behavioral disturbances. CHRISTY/GAURI DR: Elyse TID: [id number]
== END 2021-12-22 14:20 | disposition hospice, home (50) | DRG 641 ==
LOC: ER 13:46 → ER HOLD 16:38 → 1 SOUTH 17:54
PROVIDERS: ADMIT Internal Medicine; ATTEND Internal Medicine
DX: R62.7 Adult failure to thrive (principal); E03.9 Hypothyroidism, unspecified; E04.2 Nontoxic multinodular goiter; E11.9 Type 2 diabetes mellitus without complications; G20 Parkinson's disease; F02.80 Dementia in other diseases classified elsewhere, unspecified severity, without behavioral disturbance, psychotic disturbance, mood disturbance, and anxiety; K59.09 Other constipation; M85.80 Other specified disorders of bone density and structure, unspecified site; Z20.822 Contact with and (suspected) exposure to COVID-19; S00.83XA Contusion of other part of head, initial encounter; W05.0XXA Fall from non-moving wheelchair, initial encounter; F32.A Depression, unspecified; F41.9 Anxiety disorder, unspecified; Y93.89 Activity, other specified; Y92.89 Other specified places as the place of occurrence of the external cause; Y99.8 Other external cause status; Z68.22 Body mass index [BMI] 22.0-22.9, adult; Z88.8 Allergy status to other drugs, medicaments and biological substances; Z91.041 Radiographic dye allergy status; Z91.040 Latex allergy status
CPT/HCPCS: 36415; 70450; 70486; 71045; 72125; 72170; 80048; 81001; 82947; 85025; 87428; 90471; 90715; U0003; 97530; 97535; 99285-25